=== PATIENT | female | born 1970 | race Caucasian/White ===

== ENCOUNTER → 2019-05-26 17:19 | Outpatient (CLI) | payer OTHER, SELFPAY ==
[2019-05-26 15:52] VITALS: BMI 24.0
[2019-06-01 16:56] LABS: HPV APTIMA, High Risk Negative (Negative)
== END ==
PROVIDERS: Referring Provider Nurse Practitioner Women's Health; Visit Provider Nurse Practitioner Women's Health
DX: Z12.4 Encounter for screening for malignant neoplasm of cervix (principal)
CPT/HCPCS: 87624; 88175; G0145

== ENCOUNTER → 2019-06-02 15:46 | Outpatient (CLI) | payer OTHER, SELFPAY ==
[2019-05-26 15:52] VITALS: BMI 24.0
--- NOTE | 2019-06-02 15:48 | US_ITS ---
STUDY: ULTRASOUND OF THE FEMALE PELVIS - COMPLETE REASON FOR EXAM: Female, 48 years old. Menorrhagia. LMP: May 21, 2019. TECHNIQUE: Transabdominal and Transvaginal TECHNICAL QUALITY: Adequate. COMPARISON: None. FINDINGS: The uterus is anteverted and is in a midline position. The uterus measures 7.8 x 5.2 x 4.6 cm. Normal uterine cervix. The endometrium measures 4.8 mm in thickness, and is hyperechoic. There is no demonstrated endometrial mass. There is no demonstrated myometrial mass. I.U.D. - The patient does not have an I.U.D. The right ovary is visualized. The right ovary measures 1.6 x 1.5 x 1.1 cm. There is no right ovarian cyst or ovarian mass. There is no visualized right adnexal mass or complex lesion. There is normal arterial and normal venous vascularity. The left ovary is visualized. The left ovary measures 2.9 x 1.5 x 1.3 cm. There is no left ovarian cyst or ovarian mass. There is no visualized left adnexal mass or complex lesion. There is normal arterial and normal venous vascularity. There is no fluid in the cul-de-sac. The urinary bladder has a prevoid volume of 400 mL. Polycystic ovary disease: No. US/Transvaginal Non- IMPRESSION: Normal female pelvis. Electronically Signed: Sherif Garcia DO at 19:26 EDT Tel [phone], Service support ,
--- NOTE | 2019-06-02 15:48 | US_ITS ---
STUDY: ULTRASOUND OF THE FEMALE PELVIS - COMPLETE REASON FOR EXAM: Female, 48 years old. Menorrhagia. LMP: May 21, 2019. TECHNIQUE: Transabdominal and Transvaginal TECHNICAL QUALITY: Adequate. COMPARISON: None. FINDINGS: The uterus is anteverted and is in a midline position. The uterus measures 7.8 x 5.2 x 4.6 cm. Normal uterine cervix. The endometrium measures 4.8 mm in thickness, and is hyperechoic. There is no demonstrated endometrial mass. There is no demonstrated myometrial mass. I.U.D. - The patient does not have an I.U.D. The right ovary is visualized. The right ovary measures 1.6 x 1.5 x 1.1 cm. There is no right ovarian cyst or ovarian mass. There is no visualized right adnexal mass or complex lesion. There is normal arterial and normal venous vascularity. The left ovary is visualized. The left ovary measures 2.9 x 1.5 x 1.3 cm. There is no left ovarian cyst or ovarian mass. There is no visualized left adnexal mass or complex lesion. There is normal arterial and normal venous vascularity. There is no fluid in the cul-de-sac. The urinary bladder has a prevoid volume of 400 mL. Polycystic ovary disease: No. US/Pelvic (Non ) IMPRESSION: Normal female pelvis. Electronically Signed: Sherif Garcia DO at 19:26 EDT Tel [phone], Service support ,
== END ==
PROVIDERS: Family Provider Family Medicine; PCP Family Medicine; Referring Provider Nurse Practitioner Women's Health; Visit Provider Nurse Practitioner Women's Health
DX: N92.0 Excessive and frequent menstruation with regular cycle (principal)
CPT/HCPCS: 76830; 76856; 93976

== ENCOUNTER → 2020-09-05 13:03 | Outpatient (CLI) | payer OTHER, SELFPAY ==
[2019-05-26 15:52] VITALS: BMI 24.0
--- NOTE | 2020-09-04 14:43 | COLBX_PTH ---
PATIENT: CHANG MARADIAGA LOC: [facility] U#:[id number] AGE/SX: 54/F ROOM: RE09/05/[address]: Dr. Urbano Walker MD : 1970 BED: DIS: SPEC #: [id number] RECD: 09/05/20 12:13 STATUS: ANTONIO REKamar #: [id number] SINDHU: 09/04/20 14:[address]: Urbano Walker DEPT: SURGICAL PATHOLOGY RECD BY: Ashley Keith ENTERED: 09/05/20 13:10 SP TYPE: COLON BX OTHR DR: Dr. Kishan Ramos III, MD Tissues: Rectum, NOS Procedures: Surgery Specimen Level IV HEADER OPERATION: Colonoscopy with biopsy PRE-OP DIAGNOSIS: History of Crohn's TISSUE SUBMITTED: Rectal ulcer biopsy MICROSCOPIC DIAGNOSIS Rectal ulcer, biopsy: Colonic mucosa with associated acute and chronic inflammation and granulation. AM:abdirahman 09/06/20 MICROSCOPIC DESCRIPTION Slides are reviewed. GROSS DESCRIPTION Received in fixative is one container labeled with the patient's name and designated rectal ulcer biopsy. The specimen consists of one irregular fragment of light vaughn soft tissue that measures 0.2 x 0.2 x 0.1 cm. The specimen is totally submitted in one cassette. / AM:abdirahman 09/05/20 TC:2 CPT: 36295
== END ==
PROVIDERS: PCP Family Medicine; Visit Provider Internal Medicine Gastroenterology
DX: Z87.19 Personal history of other diseases of the digestive system (principal)
CPT/HCPCS: 88305

== ENCOUNTER → 2021-08-28 09:02 | Outpatient (CLI) | payer OTHER, SELFPAY ==
--- NOTE | 2021-08-28 09:04 | BI_ITS ---
MAMMOGRAPHY - BILATERAL SCREENING REASON FOR EXAM: Female, 50 years old. Routine annual screening examination. PERTINENT HISTORY: Non-contributory. TECHNIQUE: Digital bilateral breast holly (3D mammographic acquisition) in the CC and MLO projections. 2-D mediolateral oblique (MLO) and craniocaudad (CC) views of both breasts were obtained. CAD: Full Field Digital Mammography with Computer Added Detection was performed. COMPARISON: Comparison is made with prior outside examination of 05/18/2020. FINDINGS: Breast Composition: There are scattered areas of fibroglandular density. There are no dominant masses or suspicious calcifications. Stable benign-appearing bilateral axillary No other significant abnormalities are identified. There has been no significant change since the prior study. BI/SCRN MAMM (CAD)W/HOLLY BILAT IMPRESSION: Stable bilateral screening mammogram. Yearly follow-up mammogram recommended. (A) ASSESSMENT CATEGORY: BIRADS Category 2: Benign. A letter regarding these results will be sent to the patient by the facility within 30 days. Approximately 10% of breast cancers are not detected by mammography. A normal mammogram should not delay biopsy of a clinically suspicious abnormality. [id number] Electronically Signed: Jann Mcarthur MD at 10:56 EST , Service support ,
[2021-08-28 12:31] LABS: Absolute Lymphocyte Count 3.35 X10^3/uL (0.83-4.51); Absolute Neutrophil Count 2.7 X10^3/uL (2.0-7.7); Basophil# 0.06 X10^3/uL; Basophil% 0.9 % (0-1); Eosinophil# 0.21 X10^3/uL; Eosinophils% 3.1 % (0-5); Hemoglobin 12.5 g/dL (12.0-15.0); Lymphocyte # 3.35 X10^3/ul (0.83-4.51); Lymphocyte % 49.6 % (19-41); Mean Corp Hgb Conc 32.1 g/dL (32-36); Mean Corpuscular Hgb 30.4 pg (27.0-32.0); Mean Corpuscular Volume 94.9 fL (81-99); Mean Platelet Vol. 9.2 fl (6.2-12.0); Monocyte# 0.44 X10^3/uL; Monocyte% 6.5 % (0-10); NRBC Flagged by Analyzer 0 % (0-5); Neutrophil # 2.68 X10^3/uL (2.7-7.7); Neutrophil % 39.6 % (47-70); Platelet Count 258 K/mm3 (150-450); RBC Distribution Width CV 12.6 % (11.6-14.6); RBC Distribution Width SD 43.8 fl (35.1-43.9); Red Blood Count 4.11 M/mm3 (4.2-5.4); White Blood Count 6.8 K/mm3 (4.4-11.0)
[2021-08-28 12:34] LABS: Erythrocyte Sedimentation Rate 15 mm/hr (0-30)
[2021-08-28 12:40] LABS: Prothrombin Time (Protime)PT. 12.2 SECONDS (11.7-14.9)
[2021-08-28 12:41] LABS: Partial Thromboplast Time 23.9 Seconds (24.1-36.2)
[2021-08-28 13:06] LABS: ALB/GLOB Ratio 0.7 RATIO (0.9-2.4); AST(SGOT) 22 U/L (15-37); Alanine Aminotransfer ALT/SGPT 41 U/L (13-56); Albumin, Serum 3.8 g/dL (3.2-5.0); Alkaline Phosphatase 79 U/L (45-117); Anion Gap 6 (5-15); BUN 18 mg/dL (7-18); BUN/Creat Ratio 17.5 RATIO (10-20); CRP < 2.90 mg/L (0.0-3.0); Calcium,Total 9.5 mg/dL (8.5-10.1); Chloride 107 mmol/L (98-107); Cholesterol 156 mg/dL (200); Creatinine, Serum 1.03 mg/dL (0.55-1.02); EST Glomerular Filtration Rate 60 mL/min (>60); Est Glom Filt Rate - Afr Amer 72 mL/min (>60); Globulin 5.2 g/dL (2.2-4.2); Glucose 113 mg/dL (74-106); High Density Lipoprotein 47 mg/dL; Potassium 3.8 mmol/L (3.5-5.1); Sodium Level 139 mmol/L (136-145); Triglycerides 258 mg/dL; Very Low Density Lipoprotein 52 mg/dL (5-40)
[2021-08-29 14:09] LABS: Anti-Centromere B Ab <0.2 AI (0.0-0.9); Anti-Chromatin <0.2 AI (0.0-0.9); Anti-Jo <0.2 AI (0.0-0.9); Anti-Scleroderma-70 AB <0.2 AI (0.0-0.9); Anti-ribosomal P Antibodies <0.2 AI (0.0-0.9); RNP Ab <0.2 AI (0.0-0.9); SJOGREN'S Anti-SS-A test < 0.2 AI (0.0-0.9); SJOGREN'S Anti-SS-B test < 0.2 AI (0.0-0.9); Smith Ab <0.2 AI (0.0-0.9); Smith/RNP Ab <0.2 AI (0.0-0.9)
[2021-08-29 16:34] LABS: Anti-dsDNA Ab 44 IU/mL (0-9)
== END ==
PROVIDERS: Nurse Practitioner Adult Health; Referring Provider Nurse Practitioner Women's Health; Visit Provider Nurse Practitioner Women's Health
DX: Z12.31 Encounter for screening mammogram for malignant neoplasm of breast (principal); K50.90 Crohn's disease, unspecified, without complications
CPT/HCPCS: 77063; 77067; 80053; 80061; 85025; 85610; 85652; 85730; 86038; 86140; 86225; 86235

== ENCOUNTER → 2021-08-30 09:21 | Outpatient (CLI) | payer OTHER, SELFPAY ==
[2021-09-05 08:39] LABS: Calprotectin, Stool <16 ug/g (0-120)
== END ==
PROVIDERS: Nurse Practitioner Adult Health; Referring Provider Internal Medicine Gastroenterology; Visit Provider Internal Medicine Gastroenterology
DX: K50.90 Crohn's disease, unspecified, without complications (principal)
CPT/HCPCS: 83630; 83993

== ENCOUNTER 2021-09-14 16:00 | Outpatient (CLI) | payer OTHER, SELFPAY ==
--- NOTE | 2021-09-14 16:04 | CT_ITS ---
STUDY: CT ENTEROGRAPHY WITH CONTRAST REASON FOR EXAM: Female, 50 years old. crohn''s disease -- enterography RADIATION DOSAGE (If Supplied By Facility): CTDIvol = ( 14.02 ) mGy, DLP = ( 865.51 ) mGycm TECHNIQUE: Transaxial images were obtained from the dome of the diaphragm to the symphysis pubis with oral contrast. 450ml of Volumen was administered orally at 60 minutes and 40 minutes and 225ml of Volumen was administered 20 minutes and 10 minutes prior to scanning, to a total of 1,350ml. Oral and IV BREEZA NEUTRAL and 100mL Isovue-370 was administered intravenously. Sagittal and coronal images were reconstructed. TECHNICAL QUALITY: Image Quality: Satisfactory Small Bowel Distension: Adequate. Individualized dose optimization techniques were used for this CT. COMPARISON: None. FINDINGS: Bowel: Bowel wall thickening: Absent. Skip lesions: None. Vascularity: Normal. Enhancement: Normal. Fistula: None. Abscess: None. Other Findings: The lung bases are unremarkable. The visualized portions of the heart are within normal limits Normal liver. Nonvisualized gallbladder. Normal spleen. Normal pancreas. Normal bilateral adrenal glands. Normal right kidney. Normal left kidney. Normal visualized stomach. Postsurgical changes of the cecum. Otherwise, unremarkable large bowel. Nonvisualized appendix. Postsurgical changes of the small bowel in the left upper quadrant region with focal area of fluid distention with air-fluid level. This loop of bowel measuring 4 x 5.8 cm. Remainder of the small bowel is unremarkable. Additional area of postsurgical change in the mid small bowel with another small area of focal fluid distention measuring 4.3 cm in total width Normal abdominal aorta. Normal interior vena cava. Normal retroperitoneum. Normal urinary bladder. Unremarkable uterus. Normal abdominal wall. Normal osseous structures. CT/Abdomen/Pelvis WITH Contrast IMPRESSION: 2 separate areas of postsurgical change of the small bowel with focal fluid distention of the loops of associated small bowel. Otherwise, small bowels within normal limits. No evidence of active Crohn''s disease. Large bowel demonstrates postsurgical change of the cecum, otherwise within normal limits. No evidence of fistula. Remainder is unremarkable Electronically Signed: Telly Goldberg DO at 4:56 EST Tel , Service support ,
== END 2021-09-14 23:59 | disposition short-term general hospital (02) ==
LOC: CT 16:03
PROVIDERS: Referring Provider Nurse Practitioner Adult Health; Visit Provider Nurse Practitioner Adult Health
DX: K50.90 Crohn's disease, unspecified, without complications (principal)
CPT/HCPCS: 74177; Q9967

== ENCOUNTER 2021-09-20 08:33 | Outpatient (CLI) | payer OTHER, SELFPAY | END 2021-09-20 23:59 | disposition short-term general hospital (02) | LOC: LAB.FUTURE 08:36 | PROVIDERS: Visit Provider Internal Medicine Gastroenterology | DX: K50.90 Crohn's disease, unspecified, without complications (principal) | CPT/HCPCS: 36415; 86480 ==

== ENCOUNTER 2021-11-08 16:13 | Outpatient (CLI) | payer OTHER, SELFPAY ==
[2021-11-08 18:12] LABS: Hemoglobin A1c 5.4 % (3.8-5.6)
[2021-11-08 18:17] LABS: ALB/GLOB Ratio 0.8 RATIO (0.9-2.4); AST(SGOT) 22 U/L (15-37); Alanine Aminotransfer ALT/SGPT 37 U/L (13-56); Albumin, Serum 3.6 g/dL (3.2-5.0); Alkaline Phosphatase 69 U/L (45-117); Anion Gap 5 (5-15); BUN 17 mg/dL (7-18); BUN/Creat Ratio 17.7 RATIO (10-20); Calcium,Total 8.8 mg/dL (8.5-10.1); Chloride 106 mmol/L (98-107); Creatinine, Serum 0.96 mg/dL (0.55-1.02); EST Glomerular Filtration Rate 65 mL/min (>60); Est Glom Filt Rate - Afr Amer 79 mL/min (>60); Ferritin 19 ng/mL (8-252); Globulin 4.5 g/dL (2.2-4.2); Glucose 92 mg/dL (74-106); Iron 74 ug/dL (50-170); Potassium 3.9 mmol/L (3.5-5.1); Protein, Total 8.1 g/dL (6.4-8.2); Sodium Level 138 mmol/L (136-145)
[2021-11-08 18:28] LABS: Vitamin B12 573 pg/mL (211-911); Vitamin D,25 Hydroxy 25.3 ng/mL
== END 2021-11-08 23:59 | disposition home or self-care (01) ==
LOC: MFPLAB 16:17
PROVIDERS: PCP Family Medicine; Referring Provider Family Medicine; Visit Provider Family Medicine
DX: K50.90 Crohn's disease, unspecified, without complications (principal); R73.09 Other abnormal glucose; E55.9 Vitamin D deficiency, unspecified
CPT/HCPCS: 36415; 80053; 82306; 82607; 82728; 83036; 83540

== ENCOUNTER → 2022-01-22 | Outpatient (CLI) | payer OTHER, SELFPAY | END | disposition home or self-care (01) | LOC: MFPLAB 08:50 | PROVIDERS: PCP Family Medicine; Visit Provider Family Medicine | DX: E55.9 Vitamin D deficiency, unspecified (principal) | CPT/HCPCS: 36415; 82306 ==

== ENCOUNTER → 2022-06-24 | Outpatient (CLI) | payer OTHER, SELFPAY ==
[2022-06-24 15:17] LABS: Cholesterol 161 mg/dL (200); High Density Lipoprotein 49 mg/dL; Triglycerides 220 mg/dL; Very Low Density Lipoprotein 44 mg/dL (5-40)
[2022-06-27 17:21] LABS: Vitamin D 1,25-Dihydroxy 49.7 pg/mL (24.8-81.5)
== END | disposition home or self-care (01) ==
LOC: MFPLAB 11:47
PROVIDERS: PCP Family Medicine; Referring Provider Family Medicine; Visit Provider Nurse Practitioner Family
DX: E55.9 Vitamin D deficiency, unspecified (principal); Z13.220 Encounter for screening for lipoid disorders
CPT/HCPCS: 36415; 80061; 82652

== ENCOUNTER → 2022-08-29 | Outpatient (CLI) | payer OTHER, SELFPAY ==
--- NOTE | 2022-08-29 10:16 | BI_ITS ---
MAMMOGRAPHY - BILATERAL SCREENING REASON FOR EXAM: Female, 51 years old. Routine annual screening examination. PERTINENT HISTORY: Non-contributory. TECHNIQUE: Digital bilateral breast holly (3D mammographic acquisition) in the CC and MLO projections. 2-D mediolateral oblique (MLO) and craniocaudad (CC) views of both breasts were obtained. CAD: Full Field Digital Mammography with Computer Added Detection was performed. COMPARISON: Comparison is made with prior study dated 08/28/2021. FINDINGS: Breast Composition: There are scattered areas of fibroglandular density. There are no dominant masses or suspicious calcifications. Stable small benign-appearing bilateral axillary lymph nodes. No other significant abnormalities are identified. There has been no significant change since the prior study. BI/SCRN MAMM (CAD)W/HOLLY BILAT IMPRESSION: Stable bilateral screening mammogram. Yearly follow-up mammogram recommended. (A) ASSESSMENT CATEGORY: BIRADS Category 2: Benign. A letter regarding these results will be sent to the patient by the facility within 30 days. Approximately 10% of breast cancers are not detected by mammography. A normal mammogram should not delay biopsy of a clinically suspicious abnormality. [id number] Electronically Signed: Jann Mcarthur MD at 11:30 EST ,
== END | disposition home or self-care (01) ==
PROVIDERS: PCP Family Medicine; Referring Provider Nurse Practitioner Women's Health; Visit Provider Nurse Practitioner Women's Health
DX: Z12.31 Encounter for screening mammogram for malignant neoplasm of breast (principal)
CPT/HCPCS: 77063; 77067

== ENCOUNTER → 2022-09-03 | Outpatient (CLI) | payer OTHER, SELFPAY ==
[2022-09-03 10:45] LABS: Erythrocyte Sedimentation Rate 14 mm/hr (0-30)
[2022-09-03 10:47] LABS: Absolute Neutrophil Count 2.1 X10^3/uL (2.0-7.7); Basophil# 0.03 X10^3/uL; Basophil% 0.5 % (0-1); Eosinophil# 0.18 X10^3/uL; Hematocrit 39.5 % (37-47); Hemoglobin 12.4 g/dL (12.0-15.0); Lymphocyte % 51.8 % (19-41); Mean Corp Hgb Conc 31.4 g/dL (32-36); Mean Corpuscular Hgb 30.8 pg (27.0-32.0); Mean Corpuscular Volume 98.3 fL (81-99); Monocyte# 0.53 X10^3/uL; Monocyte% 8.9 % (0-10); NRBC Flagged by Analyzer 0 % (0-5); Neutrophil # 2.12 X10^3/uL (2.7-7.7); Neutrophil % 35.5 % (47-70); Platelet Count 212 K/mm3 (150-450); RBC Distribution Width CV 12.8 % (11.6-14.6); RBC Distribution Width SD 46.3 fl (35.1-43.9); Red Blood Count 4.02 M/mm3 (4.2-5.4)
[2022-09-03 11:20] LABS: ALB/GLOB Ratio 0.9 RATIO (0.9-2.4); AST(SGOT) 31 U/L (15-37); Alanine Aminotransfer ALT/SGPT 58 U/L (13-56); Albumin, Serum 3.9 g/dL (3.2-5.0); Alkaline Phosphatase 74 U/L (45-117); Anion Gap 5 (5-15); BUN 20 mg/dL (7-18); BUN/Creat Ratio 18.7 RATIO (10-20); CRP < 2.90 mg/L (0.0-3.0); Calcium,Total 9.4 mg/dL (8.5-10.1); Chloride 108 mmol/L (98-107); Creatinine, Serum 1.07 mg/dL (0.55-1.02); EST Glomerular Filtration Rate 57 mL/min (>60); Est Glom Filt Rate - Afr Amer 69 mL/min (>60); Globulin 4.5 g/dL (2.2-4.2); Glucose 102 mg/dL (74-106); Potassium 4.4 mmol/L (3.5-5.1); Protein, Total 8.4 g/dL (6.4-8.2); Sodium Level 139 mmol/L (136-145)
[2022-09-05 19:07] LABS: QNTFERON TB Mitogen Value > 10.00 IU/mL (.); QNTFERON TB1+ Ag Value 0.07 IU/mL (.); QNTFERON TB2+ Ag Value 0.07 IU/mL (.)
[2022-09-05 21:07] LABS: QNTIFERON TB Positive Criteria Negative (Negative)
== END | disposition home or self-care (01) ==
LOC: LAB 10:28
PROVIDERS: PCP Family Medicine; Referring Provider Internal Medicine Gastroenterology; Visit Provider Internal Medicine Gastroenterology
DX: K50.90 Crohn's disease, unspecified, without complications (principal)
CPT/HCPCS: 36415; 80053; 85025; 85652; 86140; 86480

== ENCOUNTER → 2022-10-04 | Outpatient (CLI) | payer OTHER, SELFPAY ==
--- NOTE | 2022-10-04 09:37 | CT_ITS ---
STUDY: CT BRAIN WITHOUT CONTRAST REASON FOR EXAM: Female, 51 years old. FALL 3 DAYS AGO, HEADACHE RADIATION DOSAGE (If Supplied By Facility): CTDIvol = ( 44.99 ) mGy, DLP = ( 762.36 ) mGycm TECHNIQUE: Transaxial CT imaging of the brain was performed without administration of intravenous contrast material. Individualized dose optimization techniques were used for this CT. COMPARISON: No relevant priors. FINDINGS: Normal soft tissue structures. Normal calvarium. Normal size ventricles and extra-axial spaces for the patient''s age. Normal white matter tracts of the cerebral hemispheres. Normal basal ganglia and thalami. Normal brainstem. Normal cerebellum. There is no intracranial hemorrhage. There are no findings of an acute ischemic infarction. Normal visualized paranasal sinuses. CT/Brain/Head without Contrast IMPRESSION: Normal unenhanced CT scan of the brain. Electronically Signed: Jann Mcarthur MD at 10:18 EST ,
== END | disposition home or self-care (01) ==
LOC: CT 09:35
PROVIDERS: PCP Family Medicine; Visit Provider Family Medicine
DX: R27.8 Other lack of coordination (principal)
CPT/HCPCS: 70450

== ENCOUNTER → 2022-10-24 | Outpatient (CLI) | payer OTHER, SELFPAY | END | disposition home or self-care (01) | PROVIDERS: PCP Family Medicine; Referring Provider Internal Medicine Gastroenterology; Visit Provider Internal Medicine Gastroenterology | DX: K50.90 Crohn's disease, unspecified, without complications (principal) | CPT/HCPCS: 36415 ==

== ENCOUNTER → 2023-03-04 | Outpatient (CLI) | payer OTHER, SELFPAY ==
[2023-03-04 08:35] LABS: Erythrocyte Sedimentation Rate 8 mm/hr (0-30)
[2023-03-04 08:40] LABS: CRP 3.03 mg/L (0.0-3.0)
[2023-03-06 12:09] LABS: QNTFERON TB Mitogen Value > 10.00 IU/mL (.); QNTFERON TB Nil Value 0.11 IU/mL (.); QNTFERON TB1+ Ag Value 0.12 IU/mL (.); QNTIFERON TB Positive Criteria Negative (Negative)
== END | disposition home or self-care (01) ==
LOC: LAB 07:39
PROVIDERS: PCP Internal Medicine; Referring Provider Internal Medicine Gastroenterology; Visit Provider Internal Medicine Gastroenterology
DX: K50.90 Crohn's disease, unspecified, without complications (principal)
CPT/HCPCS: 36415; 85652; 86140; 86480

== ENCOUNTER → 2023-03-05 | Outpatient (CLI) | payer OTHER, SELFPAY ==
[2023-03-09 20:08] LABS: Calprotectin, Stool 151 ug/g (0-120)
== END | disposition home or self-care (01) ==
LOC: LABSPEC 13:01
PROVIDERS: PCP Internal Medicine; Referring Provider Internal Medicine Gastroenterology; Visit Provider Internal Medicine Gastroenterology
DX: K50.90 Crohn's disease, unspecified, without complications (principal)
CPT/HCPCS: 83630; 83993

== ENCOUNTER → 2023-04-25 | Outpatient (CLI) | payer OTHER, SELFPAY ==
[2023-04-25 16:57] LABS: CRP < 2.90 mg/L (0.0-3.0)
[2023-04-25 17:13] LABS: Erythrocyte Sedimentation Rate 11 mm/hr (0-30)
== END | disposition home or self-care (01) ==
PROVIDERS: PCP Internal Medicine; Referring Provider Internal Medicine Gastroenterology; Visit Provider Internal Medicine Gastroenterology
DX: K50.90 Crohn's disease, unspecified, without complications (principal)
CPT/HCPCS: 36415; 85652; 86140

== ENCOUNTER → 2023-04-28 | Outpatient (CLI) | payer OTHER, SELFPAY ==
[2023-04-29 22:06] LABS: Calprotectin, Stool 280 ug/g (0-120)
== END | disposition home or self-care (01) ==
LOC: LABSPEC 07:51
PROVIDERS: PCP Internal Medicine; Visit Provider Internal Medicine Gastroenterology
DX: K50.90 Crohn's disease, unspecified, without complications (principal)
CPT/HCPCS: 83630; 83993

== ENCOUNTER 2023-08-04 07:05 | Day surgery (SDC) | payer OTHER, SELFPAY ==
[2023-08-04] VITALS (7 sets, daily range): BP systolic 109–124; BP diastolic 66–75; PULSE 64–83; RESP 14–17; TEMP 36.2–36.8; O2SAT 95–99; BMI 24.4
[2023-08-04] MEDS: Lactated Ringers 1,000 ML 15 ML IV (07:29)
--- NOTE | 2023-08-04 07:31 | HP.PCM_ITS ---
History and Physical Date of Admission: 08/04/23 52 F who presents to the office today for PMH climacteric; DVT Hx. PSH cholecystectomy 2016 [facility] established prior with Humira started ~2009 with concern for aphthous ulcers in her mouth and increased BM just prior to next dose of Humira (QOWeek dosing). ? Colonoscopy 08.03.18 report unavailable. Pathology of one polyp, inflammatory type without dysplasia. ? Colonoscopy 09.06.20 report unavailable. Rectal ulcer pathology with acute and chronic inflammation and granulation. *[facility] established 08.28.21 with previously diagnosed Crohn?s disease maintained with Humira QWeek. ? Biochemical workup CBC, ESR, coagulation, CMP, LFT, CRP without pertinent abnormality. ? Cholesterol H258, vLDL H52, double strand DNA H44 ? Refer to rheumatology Biochemical workup TB WNL. Humira concentration 13.[address] enterography 09.14.21 noting postsurgical changes of cecum, mid small bowel (focal fluid distention measuring 4.3cm) and LUQ small bowel (focal area of fluid distention measuring 4x5.8cm). No signs of Crohn?s disease. OV 2..22 continue Humira, explore QOweek option. Biochemical workup CBC, ESR, CMP, CRP, TB without pertinent abnormality LFT AST 31-ALT H58-AP 74 Rheumatology [facility] established 4... OV 4. with suspected drug- induced HAIR and antihistone ab r/t Humira use. No evidence of systemic Lupus. OV 10.28.22 without symptoms related to Crohn?s. Humira QOweek started end of August. Bloodwork drawn last week and is still pending. ? Biochemical workup / CBC, ESR, CMP, CRP, TB without pertinent abnormality. OV 6 feels she is doing very well at this time. Has some bloating after eating which is ?released? and she feels better, feels is r/t historical small bowel resections. Denies joint pain, vision changes or rashes. ? ESR/CRP? Calp/Lact? Serum/AB ? TB 08.30.21 15/<2.9? <16/neg? --/--? -- 09.03.22 14/<2.9? --/--? --/--? neg 10.28.22 --/--? --/--? 4.1/none? -- ROS Const Constitutional: No fatigue, fever(s), headache(s), weight change, sleep problems, abnormal sleep pattern or change in appetite ENT ENT: No headache(s), difficulty swallowing, hoarseness or sore throat Resp Respiratory: No cough, hemoptysis or shortness of breath Cardio Cardiology: No chest pain at rest or generalized swelling Gastro GI: No abdominal pain, belching, bloating, change in bowel habits, change in stool character, coffee ground emesis, constipation, cramping, diarrhea, heartburn, difficulty swallowing, feeling full early, excessive flatus, incontinent of stools, Vomiting blood/hematemesis, Blood in stool, loose stools, Black,tarry stools, nausea/dyspepsia, pain with swallowing or vomiting Musc Musculoskeletal: No joint pain, back pain, joint swelling, numbness or tingling Skin Skin: No itchy eyes or rash Neuro Neurology: No behavioral changes, confusion, headache(s), numbness or tingling Psych Psychiatric: No abnormal sleep pattern, No anxiety, No behavioral changes, No change in appetite, No confusion and No depression Endo Endocrine: No cold intolerance, fatigue, heat intolerance, increased thirst/drinking or weight change Aller/Imm Allergy/Immunologic: No food intolerance or itchy eyes Geronimo/Lymp Hematologic/Lymphatic: No easy bleeding, easy bruising or enlarged lymph nodes Exam Const General: cooperative, healthy appearing, comfortable, well developed and well groomed GI Inspection: normal to inspection Palpation: soft Quality Reporting Tobacco Screening ([facility] 138) Smoking Status: Never smoker Assessment and Plan Assessment and Plan (1) Crohn's disease: Status: Chronic Plan: No disease with history of small bowel obstructions x2 status post ileocolonic resection with primary anastomosis. She was Humira q. weekly with a adalimumab level was 13.5 then 4.2 without antibodies. We will recheck her levels with her being on Humira every other week. The goal for her would be to hold Humira on Humira possibly once a month. She is also on plexus supplementation which is a probiotic and prebiotic with an antioxidant blend. There is case control studies with probiotics helping to maintain remission and ulcerative colitis greater than Crohn's disease. I am okay with her continue that for now. Await repeat levels. We will also have to recheck her quantiferon gold. I have examined the patient and the H&P has been reviewed. There are no clinical changes since date of exam.
--- NOTE | 2023-08-04 08:00 | EGD_PTH ---
PATIENT: CHANG MARADIAGA LOC: [facility] U#:[id number] AGE/SX: 52/F ROOM: RE08/04/[address]: Dr. Harsh Carrasquillo DO : 1970 BED: DIS: 08/04/2023 SPEC #: [id number] RECD: 08/04/23 13:17 STATUS: ANTONIO KHUSHBOO #: [id number] SINDHU: 08/04/23 08:[address]: Harsh Carrasquillo DEPT: SURGICAL PATHOLOGY RECD BY: Renetta Quesada ENTERED: 08/04/23 13:18 SP TYPE: EGD BIOPSY OT DR: Dr. Oumou Barraza MD Tissues: A - Duodenum, NOS B - Gastric mucous membrane C - Esophageal mucous membrane D - Esophageal mucous membrane E - COLON BIOPSY F - Ileum, NOS G - COLON BIOPSY Procedures: Special Stain Group II Surgery Specimen Level IV Alcian Blue/PAS (control) HEADER OPERATION: Colonoscopy, EGD PRE-OP DIAGNOSIS: Crohn's disease TISSUE SUBMITTED: A - Duodenum biopsy, B - Gastric body biopsy, C - Distal esophagus biopsy, D - Random esophagus biopsy, E - Anastomosis biopsy, F - Ileum biopsy, G - Random colon biopsy MICROSCOPIC DIAGNOSIS A. Duodenum, biopsy: Focal gastric metaplasia. Mild nonspecific chronic inflammation. B. Gastric body, biopsy: Chronic gastritis. See comment. C. Distal esophagus, biopsy: Fragments of gastric mucosa with chronic inflammation and focal acute inflammation. No evidence of goblet cell metaplasia. See comment. D. Esophagus, random biopsy: Fragments of benign squamous mucosa with focal changes of reflux. E. Anastomotic site, biopsy: Fragments of small bowel mucosa with focal minimal chronic inflammation. F. Ileum, biopsy: No pathologic change. G. Colon, random biopsy: No pathologic change. AM:abdirahman 08/05/2023 COMMENT B. The results of immunohistochemistry for Helicobacter pylori will be reported separately ([id number]). C. Alcian blue/PAS stain with matched control supports the above diagnosis. MICROSCOPIC DESCRIPTION Slides are reviewed. GROSS DESCRIPTION A - Received in fixative is one container labeled with the patient's name and designated duodenal biopsy. The specimen consists of multiple irregular fragments of light vaughn soft tissue that in aggregate measure 1.0 x 0.5 x 0.1 cm. The specimen is totally submitted in one cassette. B - Received in fixative is one container labeled with the patient's name and designated gastric body biopsy. The specimen consists of two irregular fragments of light vaughn soft tissue that in aggregate measure 0.7 x 0.2 x 0.1 cm. The specimen is totally submitted in one cassette. C - Received in fixative is one container labeled with the patient's name and designated distal esophagus biopsy. The specimen consists of multiple irregular fragments of light vaughn soft tissue that in aggregate measure 1.0 x 0.3 x 0.1 cm. The specimen is totally submitted in one cassette. D - Received in fixative is one container labeled with the patient's name and designated random esophagus biopsy. The specimen consists of multiple irregular fragments of light vaughn soft tissue that in aggregate measure 1.0 x 0.8 x 0.1 cm. The specimen is totally submitted in one cassette. E - Received in fixative is one container labeled with the patient's name and designated anastomosis biopsy. The specimen consists of two irregular fragments of light vaughn soft tissue that in aggregate measure 0.7 x 0.5 x 0.1 cm. The specimen is totally submitted in one cassette. F - Received in fixative is one container labeled with the patient's name and designated ileum biopsy. The specimen consists of two irregular fragments of light vaughn soft tissue that in aggregate measure 0.8 x 0.3 x 0.1 cm. The specimen is totally submitted in one cassette. G - Received in fixative is one container labeled with the patient's name and designated random colon biopsy. The specimen consists of multiple irregular fragments of light vaughn soft tissue that in aggregate measure 2.0 x 0.8 x 0.1 cm. The specimen is totally submitted in one cassette. / AM:abdirahman 08/04/2023 TC:3 CPT: 73687 x7, [id number]
--- NOTE | 2023-08-04 08:00 | IMM_PTH ---
PATIENT: CHANG MARADIAGA LOC: EN U#:[id number] AGE/SX: 52/F ROOM: RE08/04/[address]: Dr. Harsh Carrasquillo DO : 1970 BED: DIS: 08/04/2023 SPEC #: [id number] RECD: 08/04/23 14:26 STATUS: ANTONIO REQ #: [id number] SINDHU: 08/04/23 08:[address]: Harsh Carrasquillo DEPT: IMMUNOHISTOCHEMISTRY RECD BY: Norma Bravo ENTERED: 08/04/23 14:27 SP TYPE: IMMUNO OTHR DR: Dr. Oumou Barraza MD Tissues: B - Stomach, NOS Procedures: H Pylori (initial) PHYSICIAN & INSTITUTION [place] [id number] SPECIMEN INFORMATION: Tissue Source: B - Gastric body Clinical Info: Crohn's disease Specimen Number: [id number] CPT code: 21935 METHODOLOGY: Deparaffinized sections of prefer/formalin-fixed tissue or PAP/DQ stained slides are incubated with monoclonal/polyclonal antibodies/oligonucleotide probes. Localization is made via biotin free immunoperoxidase method. Appropriate controls are performed and reacted as expected. Results on target cell population are indicated in the following table: RESULTS: ANTIBODY / CLONE RESULT Block B H Pylori (polyclonal) negative These tests were developed and their performance characteristics determined by [facility]. They may not have been cleared or approved by the U.[place]. Food and Drug Administration. The FDA has determined that such clearance or approval is not necessary. The above immunohistochemical/dualISH markers are ordered and reviewed by the Pathologist. INTERPRETATION: B. Gastric body, biopsy: Negative for Helicobacter pylori organisms. AM:abdirahman 08/05/2023
--- NOTE | 2023-08-04 08:44 | OP.EGD_ITS ---
Patient Name: Ceci Nichols Procedure Date: 08/04/2023 8:04 AM Date of : 1970 Age: 52 Procedure: Upper GI endoscopy Indications: Epigastric abdominal pain Providers: Harsh Carrasquillo DO Medicines: Monitored Anesthesia Care Patient Profile: This is a 52 year old female. Refer to note in patient chart for documentation of history and physical. Patient has symptoms of chronic epigastric abdominal pain and chronic dysphagia. Complications: No immediate complications. Procedure: Pre-Anesthesia Assessment: - Prior to the procedure, a History and Physical was performed, and patient medications and allergies were reviewed. The patient is competent. The risks and benefits of the procedure and the sedation options and risks were discussed with the patient. All questions were answered and informed consent was obtained. Patient identification and proposed procedure were verified by the physician in the pre-procedure area. Mental Status Examination: alert and oriented. Airway Examination: normal oropharyngeal airway and neck mobility. Respiratory Examination: clear to auscultation. CV Examination: normal. Prophylactic Antibiotics: The patient does not require prophylactic antibiotics. Prior Anticoagulants: The patient has taken no anticoagulant or antiplatelet agents. ASA Grade Assessment: II - A patient with mild systemic disease. After reviewing the risks and benefits, the patient was deemed in satisfactory condition to undergo the procedure. The anesthesia plan was to use monitored anesthesia care (MAC). Immediately prior to administration of medications, the patient was re-assessed for adequacy to receive sedatives. The heart rate, respiratory rate, oxygen saturations, blood pressure, adequacy of pulmonary ventilation, and response to care were monitored throughout the procedure. The physical status of the patient was re-assessed after the procedure. After obtaining informed consent, the endoscope was passed under direct vision. Throughout the procedure, the patient's blood pressure, pulse, and oxygen saturations were monitored continuously. The Colonoscope was introduced through the mouth, and advanced to the second part of duodenum. The upper GI endoscopy was accomplished without difficulty. The patient tolerated the procedure well. Scope In: 8:17:03 AM Scope Out: 8:22:27 AM Total Procedure Duration Time 0 hours 5 minutes 24 seconds Findings: Mucosal changes including ringed esophagus, feline appearance, longitudinal furrows and small-caliber esophagus were found in the upper third of the esophagus. Biopsies were obtained from the proximal and distal esophagus with cold forceps for histology of suspected eosinophilic esophagitis. Verification of patient identification for the specimen was done. Estimated blood loss was minimal. A guidewire was placed and the scope was withdrawn. Dilation was performed with a Savary dilator with no resistance at 42 Fr. The dilation site was examined and showed moderate mucosal disruption. Estimated blood loss was minimal. The Z-line was irregular and was found 39 cm from the incisors. Biopsies were taken with a cold forceps for histology. Verification of patient identification for the specimen was done. Estimated blood loss was minimal. Patchy mildly erythematous mucosa without bleeding was found in the gastric body. Biopsies were taken with a cold forceps for histology. Verification of patient identification for the specimen was done. Estimated blood loss was minimal. Biopsies were taken with a cold forceps for Helicobacter pylori testing. Verification of patient identification for the specimen was done. Estimated blood loss was minimal. Scalloped mucosa was found in the duodenal bulb. Biopsies for histology were taken with a cold forceps for evaluation of celiac disease. Verification of patient identification for the specimen was done. Estimated blood loss was minimal. Impression: - Esophageal mucosal changes consistent with eosinophilic esophagitis. Dilated. - Z-line irregular, 39 cm from the incisors. Biopsied. - Erythematous mucosa in the gastric body. Biopsied. - Duodenal mucosal changes seen, diagnostic of celiac disease. Biopsied. - Biopsies were taken with a cold forceps for evaluation of eosinophilic esophagitis. Recommendation: - Discharge patient to home. - Resume previous diet. - Continue present medications. - Await pathology results. Procedure Code(s): --- Professional --- 87215, Esophagogastroduodenoscopy, flexible, transoral; with insertion of guide wire followed by passage of dilator(s) through esophagus over guide wire 63434, 59,51, Esophagogastroduodenoscopy, flexible, transoral; with biopsy, single or multiple CPT copyright 2021 [employer]. All rights reserved. The codes documented in this report are preliminary and upon certified personal chef review may be revised to meet current compliance requirements. Harsh Carrasquillo DO 08/04/2023 8:44:13 AM This report has been signed electronically. Number of Addenda: 0 Note Initiated On: 08/04/2023 8:04 AM
--- NOTE | 2023-08-04 08:44 | OP.CCLET_ITS ---
08/04/2023 Oumou Barraza [address] [place] [address] Re : Upper GI endoscopy procedure for Ceci Nichols Dear Dr. Barraza This procedure was performed on Friday, August 04, 2023. My impressions and recommendations are as follows: Impressions : - Esophageal mucosal changes consistent with eosinophilic esophagitis. Dilated. - Z-line irregular, 39 cm from the incisors. Biopsied. - Erythematous mucosa in the gastric body. Biopsied. - Duodenal mucosal changes seen, diagnostic of celiac disease. Biopsied. - Biopsies were taken with a cold forceps for evaluation of eosinophilic esophagitis. Recommendations : - Discharge patient to home. - Resume previous diet. - Continue present medications. - Await pathology results. My findings are described in the full procedure note, which is enclosed. If I can be of further assistance, please feel free to contact me at . Sincerely, Harsh Carrasquillo, 08/04/2023 8:44:13 AM This report has been signed electronically.
--- NOTE | 2023-08-04 08:47 | OP.CCLET_ITS ---
08/04/2023 Oumou Barraza [address] [place] [address] Re : Colonoscopy procedure for Ceci Magdalena Dear Dr. Barraza This procedure was performed on Friday, August 04, 2023. My impressions and recommendations are as follows: Impressions : - The sigmoid colon, descending colon, splenic flexure, transverse colon, hepatic flexure, ascending colon and recto-sigmoid colon are normal. Biopsied. - Patent end-to-end ileo-colonic anastomosis. Biopsied. Recommendations : - Discharge patient to home. - Resume previous diet. - Continue present medications. - Await pathology results. - Repeat colonoscopy in 5 years for surveillance based on pathology results. My findings are described in the full procedure note, which is enclosed. If I can be of further assistance, please feel free to contact me at . Sincerely, Harsh Carrasquillo, 08/04/2023 8:47:27 AM This report has been signed electronically.
--- NOTE | 2023-08-04 08:47 | OP.COLON_ITS ---
Patient Name: Ceci Nichols Procedure Date: 08/04/2023 8:22 AM Date of : 1970 Age: 52 Procedure: Colonoscopy Indications: Crohn's disease of the small bowel Providers: Harsh Carrasquillo DO Medicines: Monitored Anesthesia Care Patient Profile: This is a 52 year old female. Refer to note in patient chart for documentation of history and physical. Patient has symptoms of chronic epigastric abdominal pain and chronic dysphagia. Last Colonoscopy: 3 years ago. Complications: No immediate complications. Procedure: Pre-Anesthesia Assessment: - Prior to the procedure, a History and Physical was performed, and patient medications and allergies were reviewed. The patient is competent. The risks and benefits of the procedure and the sedation options and risks were discussed with the patient. All questions were answered and informed consent was obtained. Patient identification and proposed procedure were verified by the physician in the pre-procedure area. Mental Status Examination: alert and oriented. Airway Examination: normal oropharyngeal airway and neck mobility. Respiratory Examination: clear to auscultation. CV Examination: normal. Prophylactic Antibiotics: The patient does not require prophylactic antibiotics. Prior Anticoagulants: The patient has taken no anticoagulant or antiplatelet agents. ASA Grade Assessment: II - A patient with mild systemic disease. After reviewing the risks and benefits, the patient was deemed in satisfactory condition to undergo the procedure. The anesthesia plan was to use monitored anesthesia care (MAC). Immediately prior to administration of medications, the patient was re-assessed for adequacy to receive sedatives. The heart rate, respiratory rate, oxygen saturations, blood pressure, adequacy of pulmonary ventilation, and response to care were monitored throughout the procedure. The physical status of the patient was re-assessed after the procedure. After I obtained informed consent, the scope was passed under direct vision. Throughout the procedure, the patient's blood pressure, pulse, and oxygen saturations were monitored continuously. The Colonoscope was introduced through the anus and advanced to the terminal ileum. The colonoscopy was performed without difficulty. The patient tolerated the procedure well. The quality of the bowel preparation was good. The terminal ileum, ileocecal valve, appendiceal orifice, and rectum were photographed. Scope In: 8:23:45 AM Scope Withdrawal Time 0 hours 6 minutes 25 seconds Scope Out: 8:34:34 AM Total Procedure Duration Time 0 hours 10 minutes 49 seconds Findings: The recto-sigmoid colon, sigmoid colon, descending colon, splenic flexure, transverse colon, hepatic flexure and ascending colon appeared normal. Biopsies were taken with a cold forceps for histology. Verification of patient identification for the specimen was done. Estimated blood loss was minimal. There was evidence of a prior end-to-end ileo-colonic anastomosis in the cecum. This was patent. Biopsies were taken with a cold forceps for histology. Verification of patient identification for the specimen was done. Estimated blood loss was minimal. Impression: - The sigmoid colon, descending colon, splenic flexure, transverse colon, hepatic flexure, ascending colon and recto-sigmoid colon are normal. Biopsied. - Patent end-to-end ileo-colonic anastomosis. Biopsied. Recommendation: - Discharge patient to home. - Resume previous diet. - Continue present medications. - Await pathology results. - Repeat colonoscopy in 5 years for surveillance based on pathology results. Procedure Code(s): --- Professional --- 24419, Colonoscopy, flexible; with biopsy, single or multiple CPT copyright 2021 [employer]. All rights reserved. The codes documented in this report are preliminary and upon stonemason helper review may be revised to meet current compliance requirements. Harsh Carrasquillo DO 08/04/2023 8:47:27 AM This report has been signed electronically. Number of Addenda: 0 Note Initiated On: 08/04/2023 8:22 AM
== END 2023-08-04 09:37 | disposition home or self-care (01) ==
LOC: EN 07:06 → AC 07:07
PROVIDERS: PCP Internal Medicine; Referring Provider Internal Medicine; Visit Provider Internal Medicine Gastroenterology
PROC: 0DJD8ZZ Inspection of Lower Intestinal Tract, Via Natural or Artificial Opening Endoscopic (ICD-10-PCS; CPT 45378; principal; 2023-08-04 07:55)
DX: K29.50 Unspecified chronic gastritis without bleeding (principal); K50.90 Crohn's disease, unspecified, without complications; K20.90 Esophagitis, unspecified without bleeding; R10.13 Epigastric pain; K31.89 Other diseases of stomach and duodenum; Z86.718 Personal history of other venous thrombosis and embolism
CPT/HCPCS: 43239; 45380; 43248; 88305; 88313; 88342; J7120; J2405

== ENCOUNTER → 2023-09-04 | Outpatient (CLI) | payer OTHER, SELFPAY ==
--- NOTE | 2023-09-04 12:48 | BI_ITS ---
MAMMOGRAPHY - BILATERAL SCREENING 3-D TOMOSYNTHESIS REASON FOR EXAM: Female, 52 years old. Routine yearly breast screening. PERTINENT HISTORY: No significant family history. TECHNIQUE: 2-D mammograms and 3-D Tomosynthesis of the breast (s) were performed. CAD was performed. COMPARISON: August 29, 2022, August 28, 2021 FINDINGS: The breast composition is almost entirely fat. Stable normal lymph nodes. No dominant masses, suspicious microcalcifications, asymmetries, skin thickening or nipple retraction. BI/SCRN MAMM (CAD)W/HOLLY BILAT IMPRESSION: No interval change and no mammographic signs of malignancy. Routine yearly mammogram recommended. ASSESSMENT CATEGORY: BIRADS Category 1: Negative. A letter regarding these results will be sent to the patient by the facility within 30 days. FOLLOW UP RECOMMENDATION: Yearly follow up mammogram recommended. (A) Approximately 10% of breast cancers are not detected by mammography. A normal mammogram should not delay biopsy of a clinically suspicious abnormality. Electronically Signed: Raza Carvajal MD at 15:17 EST ,
--- OUTSIDE RECORDS SUMMARY | 2023-09-04 13:13 | XMS RPT_ITS | CCD ---
Author Name Unknown Address [address] [place] [address] Organization [facility] Care Team Providers Care District Wildlife Manager Name Role Phone Shalini VALVE PIPE IRRIGATOR, Ivelisse S Unavailable Rachel MALCOLM MD, Kishan A Primary Care Provider Sharmaine vailable Unavailable Primary Care Provider Wilman Hinton MD Primary Care Provider WILMAN BARRAZA Referring Unavailable WILMAN BARRAZA Primary Care Unavailable WILMAN BARRAZA Attending Unavailable NATHALIA SARAH Attending Megan velasquez Medications Completed/Discontinued Medications Medication Drug Class(es) Dates Sig (Normalized) Sig (Original) acyclovir 400 mg oral tablet (3 sources) Herpesvirus Nucleoside Analog DNA Polymerase Inhibitor, Herpes Simplex Virus Nucleoside Analog DNA Polymerase Inhibitor, Herpes Zoster Virus Nucleoside Analog DNA Polymerase Inhibitor Start: 07-05-2020 End: 01-13-2023 take 1 tablet by mouth three times daily acyclovir (ZOVIRAX) 400 mg tablet Indications: Mouth ulcer Take 1 tablet by mouth three times daily. 21 tablet 0 07/05/2020 01/13/2023 Discontinued Problems Active Problems Problem Classification Problem Date Documented Date Episodic/Chronic Asthma (13 sources) Asthma; Translations: [Mild intermittent asthma] Onset: 08-22-2015 04-07-2017 Chronic Disorders of lipid metabolism (4 sources) Hypertriglyceridemia ; Translations: [Pure hyperglyceridemia] Onset: 03-24-2018 03-24-2018 Chronic Nutritional deficiencies (4 sources) Vitamin D deficiency; Translations: [Vitamin D deficiency, unspecified] Onset: 02-26-2013 02-26-2013 Chronic Other screening for suspected conditions (not mental disorders or infectious disease) (2 sources) Patient encounter status; Translations: [Encounter for screening mammogram for malignant neoplasm of breast] Episodic Regional enteritis and ulcerative colitis (10 sources) Crohn's disease; Translations: [Crohn's disease of small AND large intestines] Onset: 11-21-2010 04-07-2017 Chronic Unclassified (1 source) Gynecologic examination ; Translations: [Encounter for gynecological examination (general) (routine) without abnormal findings] Onset: 04-07-2017 04-07-2017 Past or Other Problems Problem Classification Problem Date Documented Da te Episodic/Chronic Biliary tract disease (4 sources) Chronic cholecystitis with calculus; Translations: [Calculus of gallbladder with chronic cholecystitis without obstruction] Onset: 03-21-2016 03-21-2016 Episodic Blindness and vision defects (19 sources) Myopia; Translations: [Myopia, unspecified eye] Onset: 10-15-2014 10-15-2014 Episodic Deficiency and other anemia (6 sources) Anemia; Translations: [Anemia, unspecified] Onset: 04-07-2017 04-07-2017 Episodic Other bone disease and musculoskeletal deformities (6 sources) Osteopenia; Translations: [Other specified disorders of bone density and structure, unspecified site] Onset: 04-07-2017 04-07-2017 Episodic Other injuries and conditions due to external causes (6 sources) Fracture of bone; Translations: [Other injury of unspecified body region, initial encounter] Onset: 04-07-2017 04-07-2017 Episodic Phlebitis; thrombophlebitis and thromboembolism (6 sources) H/O: thrombosis; Translations: [Personal history of other venous thrombosis and embolism] Onset: 04-07-2017 04-07-2017 Episodic Residual codes; unclassified (4 sources) Family history of cardiac disorder; Translations: [Family history of ischemic heart disease and other diseases of the circulatory system] Onset: 08-04-2017 08-04-2017 Episodic Results Test Name Value Interpretation Reference Range Facil ity Vital Signs Date Time Vital Sign Value Performing Clinician Facility 01-13-2023 13:15-0400 Body height 169.5 cm Wilman Barraza MD Work Phone: [facility] 01-13-2023 13:15-0400 Body temperature 97.81 [degF] Wilman Barraza MD Work Phone: [facility] 01-13-2023 13:15-0400 Body weight 68.95 kg Wilman Barraza MD Work Phone: [facility] 01-13-2023 13:15-0400 Diastolic blood pressure 82 mm[Hg] Wilman Barraza MD Work Phone: [facility] 01-13-2023 13:15-0400 Heart rate 92 /min Wilman Barraza MD Work Phone: [facility] 01-13-2023 13:15-0400 Respiratory rate 18 /min Wilman Barraza MD Work Phone: [facility] 01-13-2023 13:15-0400 SaO2% (BldA) [Mass fraction] 96 % Wilman Barraza MD Work Phone: [facility] 01-13-2023 13:15-0400 Systolic blood pressure 122 mm[Hg] Wilman Barraza MD Work Phone: [facility] 04-07-2017 08:16-0400 BMI (Body Mass Index) 22.92 kg/m2 Ivelisse Loya NP [facility] 04-07-2017 08:16-0400 Body Temperature 97.2 [degF] Ivelisse Loya NP [facility] 04-07-2017 08:16-0400 BP Diastolic 68 mm[Hg] Ivelisse Loya NP [facility] 04-07-2017 08:16-0400 BP Systolic 96 mm[Hg] Ivelisse Loya NP [facility] 04-07-2017 08:16-0400 Height 167.64 cm Ivelisse Loya NP [facility] 04-07-2017 08:16-0400 Pulse (Heart Rate) 88 /min Ivelisse Loya NP [facility] 04-07-2017 08:16-0400 Respiratory Rate 16 /min Ivelisse Loya NP [facility] 04-07-2017 08:16-0400 Weight 64.41 kg Ivelisse Loya NP [facility] Encounters Encounter Date Encounter Type Care Provider Facility Start: 02-17-2023 End: 02-17-2023 ambulatory WILMAN BARRAZA Facility:[facility] Start: 01-15-2023 ambulatory Wilman fleming MD Work Phone: [facility] [place] Start: 01-13-2023 End: 01-13-2023 ambulatory WILMAN BARRAZA Facility:[facility] Start: 01-13-2023 End: 01-13-2023 Patient encounter status Wilman Barraza MD Work Phone: [facility] [place] Start: 01-13-2023 End: 01-13-2023 Periodic preventive med est patient 40-64yrs Wilman Barraza MD Work Phone: [facility] [place] Procedures Date Procedure Procedure Detail Performing Clinician Start: 09-04-2020 Colonoscopy Rah Davis APRN.CNP , ELLA Work Phone: Start: 05-18-2020 Mammography Rah Davis APRN.CNP , DNP Work Phone: Start: 04-07-2017 Gynecologic examination Routine gynecological exam Ivelisse Loya NP Start: 01-16-2017 Adult depression screening assessment Rah Davis APRN.CNP, DNP Work Phone: Plan of Treatment Date Care Activity Detail Author Start: 05-29-2032 Urine microalbumin profile DTA P,TDAP,TD (10 - Td or Tdap) [facility] Start: 04-23-2029 Urine microalbumin profile DTA P,TDAP,TD (9 - Td or Tdap) [facility] Start: 09-04-2025 Colonoscopy COLONOSCOPY [facility] Start: 09-04-2025 COLORECTAL CANCER SCREENING COLORECTAL CANCER SCREENING [facility] Start: 05-26-2024 HPV TESTING HPV TESTING [facility] Start: 05-26-2024 PAP TESTING PAP TESTING [facility] Start: 03-22-2024 LIPID SCREEN LIPID SCREEN [facility] Start: 01-14-2024 ANNUAL PCP TEAM FAMILY AND DIVORCE LEGAL ASSISTANT STARR DISEASE VISIT ANNUAL PCP TEAM CHRONIC DISEASE VISIT [facility] Start: 01-14-2024 HEPATITIS A (1 of 2 - Risk 2-dose series) HEPATITIS A (1 of 2 - Risk 2-dose series) [facility] Immunizations Immunization Date Immunization Notes Care Provider Екатерина zhao 01-13-2023 pneumococcal (PCV20) vaccine, 20 valent (PREVNAR 20) Wilman Barraza MD Work Phone: [facility] 01-13-2023 pneumococcal Conjuga te, unspecified formulation Wilman Barraza MD Work Phone: [facility] Work Phone: 09-03-2022 zoster vaccine recombinant Wilman Barraza MD Work Phone: [facility] 06-28-2022 influenza, seasonal, injectable, preservative free Wilman Barraza MD Work Phone: [facility] 05-29-2022 tetanus toxoid, redu jenaro diphtheria toxoid, and acellular pertussis vaccine, adsorbed Wilman Barraza MD Work Phone: [facility] 05-29-2022 zoster vaccine recombinant Wilman Barraza MD Work Phone: [facility] 08-24-2021 COVID-19 original vaccine, age 12+ yr, monovalent (PFIZER-BIONTECH - PURPLE TOP) Wilman Barraza MD Work Phone: [facility] 04-08-2021 COVID-19 original vaccine, age 12+ yr, monovalent (PFIZER-BIONTECH - PURPLE TOP) Wilman Barraza MD Work Phone: [facility] 12-30-2020 COVID-19 original vaccine, full dose, monovalent (MODERNA) Wilman Barraza MD Work Phone: [facility] 11-06-2020 COVID-19 original vaccine, full dose, monovalent (MODERNA) Wilman Barraza MD Work Phone: [facility] 10-13-2020 COVID-19 original vaccine, full dose, monovalent (MODERNA) Wilman Barraza MD Work Phone: [facility] 07-05-2020 influenza, injectabl e, quadrivalent, contains preservative Rah Davis APRN.ENGINE BUILDUP MECHANIC, DNP Work Phone: [facility] 10-13-2019 COVID-19 original vaccine, full dose, monovalent (MODERNA) Wilman Barraza MD Work Phone: [facility] 09-03-2019 influenza, injectabl e, quadrivalent, contains preservative Rah Blaz SOFTWARE SUPPORT ENGINEER.[facility] Work Phone: [facility] 04-23-2019 tetanus toxoid, redu jenaro diphtheria toxoid, and acellular pertussis vaccine, adsorbed Rah Blaz SOFTWARE SUPPORT ENGINEER.[facility] Work Phone: [facility] Work Phone: 08-21-2017 influenza, injectabl e, quadrivalent, preservative free Rha Blaz SOFTWARE SUPPORT ENGINEER.[facility] Work Phone: [facility] Work Phone: 06-19-2009 influenza virus vacc ine, unspecified formulation Rah Blaz SOFTWARE SUPPORT ENGINEER.[facility] Work Phone: [facility] Work Phone: 04-26-2009 pneumococcal polysaccharide vaccine, 23 valent Rah Blaz SOFTWARE SUPPORT ENGINEER.[facility] Work Phone: [facility] 04-26-2009 tetanus toxoid, redu jenaro diphtheria toxoid, and acellular pertussis vaccine, adsorbed Rah Blaz SOFTWARE SUPPORT ENGINEER.[facility] Work Phone: [facility] 07-24-2007 influenza virus vacc ine, unspecified formulation Rah Blaz SOFTWARE SUPPORT ENGINEER.[facility] Work Phone: [facility] Work Phone: 11-13-2001 hepatitis B vaccine, adult dosage Rah Blaz SOFTWARE SUPPORT ENGINEER.[facility] Work Phone: [facility] Work Phone: 07-08-2001 hepatitis B vaccine, adult dosage Rah Blaz SOFTWARE SUPPORT ENGINEER.[facility] Work Phone: [facility] Work Phone: 05-27-2001 hepatitis B vaccine, adult dosage Rah Blaz SOFTWARE SUPPORT ENGINEER.[facility] Work Phone: [facility] Work Phone: 09-30-1994 diphtheria and tetan us toxoids, adsorbed for pediatric use Rah Davis APRN.[facility] Work Phone: [facility] Work Phone: 08-25-1989 measles, mumps and rubella virus vaccine Rah Davis APRN.[facility] Work Phone: [facility] Work Phone: 01-17-1982 diphtheria and tetan us toxoids, adsorbed for pediatric use Rah Davis APRN.[facility] Work Phone: [facility] Work Phone: 04-27-1975 DTP-Haemophilus influenzae type b conjugate vaccine Rah Davis APRN.[facility] Work Phone: [facility] Work Phone: 04-27-1975 trivalent poliovirus vaccine, live, oral Rah Davis APRN.[facility] Work Phone: [facility] Work Phone: 12-21-1971 rubella and mumps vi tony vaccine Rah Davis APRN.[facility] Work Phone: [facility] Work Phone: 06-11-1971 trivalent poliovirus vaccine, live, oral Rah Davis APRN.[facility] Work Phone: [facility] Work Phone: 12-11-1970 rubella virus vaccine Rah Davis APRN.[facility] Work Phone: [facility] Work Phone: 07-20-1970 vaccinia (smallpox) vaccine, diluted Rah Davis APRN.[facility] Work Phone: [facility] Work Phone: 03-06-1970 DTP-Haemophilus influenzae type b conjugate vaccine Rah Davis APRN.[facility] Work Phone: [facility] Work Phone: 03-06-1970 trivalent poliovirus vaccine, live, oral Rah Davis SOFTWARE SUPPORT ENGINEER.[facility] Work Phone: [facility] Work Phone: 02-06-1970 DTP-Haemophilus influenzae type b conjugate vaccine Rah Davis APRN.[facility] Work Phone: [facility] Work Phone: 01-09-1970 DTP-Haemophilus influenzae type b conjugate vaccine Rah Davis APRN.[facility] Work Phone: [facility] Work Phone: 01-09-1970 trivalent poliovirus vaccine, live, oral Rah Davis SOFTWARE SUPPORT ENGINEER.[facility] Work Phone: [facility] Work Phone: 1970 DTP-Haemophilus influenzae type b conjugate vaccine Rah Davis APRN.[facility] Work Phone: [facility] Work Phone: Payers Date Payer Category Payer Unknown [id number] 2018 Unknown [employer] PPO [id number] 2018-Present [phone] [facility] [address] [place] [address] PPO [id number] 2013 Unknown [id number] 2013 Unknown [id number] Social History Date Type Detail Facility Start: 12-02-2011 Tobacco smoking stat [facility] Never smoked tobacco [facility] Start: 11-20-2020 End: 01-13-2023 Alcohol intake Current drinker of alcohol (finding) [facility] Start: 07-05-2020 History SDOH Alcohol Frequency 2 [facility] Start: 07-05-2020 History SDOH Alcohol Std Drinks 1 [facility] Start: 08-19-2007 History SDOH Alcohol Comment rarely [facility] Start: 07-05-2020 History SDOH Social Connections Phone 4 [facility] Start: 07-05-2020 History SDOH Social Connections Get Together 3 [facility] Start: 07-05-2020 History SDOH Financial 5 [facility] Start: 07-04-2020 Education 18 [facility] Start: 1970 Sex Assigned At Female [facility] Start: 12-02-2011 Tobacco use and exposure Smoke less tobacco non-user [facility] Clinical Notes 11-05-2013 to 02-17-2023 Wilman Barraza MD - 01/13/2023 1:15 PM EDTPatient InstructionsTerwallace Sarah, OD - 11/11/2022 5:38 PM ESTTelephone Encounter - Noemi Abreu Ma - 02/18/2022 2:29 PM EDT Note Date & Type Note Facility 02-17-2023 Note HNO ID: [id number] Author: CHRIS Ramos Service: ? Author Type: Respiratory Therapist Type: Progress Notes Filed: 02/17/2023 10:23 AM Note Text: PULM FUNCTION SMARTBLOCK: Provider: Wilman Barraza MD Assisting Tech: CHRIS Ramos Spirometry w/BD: 1 [facility] 01-15-2023 Note Patient Outreach (IN TMMN) CHANG NICHOLS ([id number]) 1970 F Date Time Provider Department 01/15/23 WILMAN BARRAZA INTMMN During your visit today, we recorded the following information about you: Allergies As of Date: 01/15/2023 Noted Allergy Reaction NO KNOWN DRUG ALLERGIES 08/14/2005 Date Reviewed: 01/13/2023 Reviewed by: Amelia Keller LPN - Fully Assessed Visit Diagnosis:Encounter for screening mammogram for breast cancer [Z12.31] Order(s):[facility] SCREENING [[id number]] Order #: [id number] FUTURE Prescriptions as of 01/20/2023 - fluticasone-salmeterol (ADVAIR DISKUS) 100-50 mcg/dose inhaler Inhale 1 Puff as instructed twice daily. RINSE AND GARGLE MOUTH WITH WATER AFTER EACH USE. - Cholecalciferol, Vitamin D3, (VITAMIN D-3) 50 mcg (2,000 unit) cap Take 2 capsules by mouth once daily. - HUMIRA 40 mg/0.8 mL injection Subcutaneously, Inject one pen weekly - cholestyramine-sucrose (QUESTRAN) 4 gram powder USE ONE SCOOP ONCE DAILY DIRECTED - vitamin b complex (B COMPLEX-VITAMIN B12) tab Take 1 tablet by mouth once daily. 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 Problem List As Of Date 01/15/2023 Noted Resolved Diarrhea [R19.7] 02/18/2006 01/16/2017 Other symptoms involving cardiovascular system *08/19/2007 08/22/2015 Crohn's disease of both small and large intesti*04/10/2012 Cajmynz-cs-ugk [K60.3] 09/03/2012 01/16/2017 Vitamin D deficiency [E55.9] 02/26/2013 Fracture of radial head, left, closed [S52.122A]11/05/2013 08/22/2015 Myopia - Both Eyes [H52.10] 10/15/2014 Regular astigmatism - Both Eyes [H52.229] 10/15/2014 Mild intermittent asthma without complication [*08/22/2015 Chronic cholecystitis with calculus [K80.10] 03/21/2016 Astigmatism, regular [H52.229] 09/03/2016 Presbyopia [H52.4] 09/03/2016 Family history of aortic valve disorder [Z82.49]08/04/2017 Anemia [D64.9] 04/07/2017 Asthma [J45.909] 04/07/2017 Bone fracture [T14.8XXA] 04/07/2017 Crohn's disease of small intestine with intesti*11/21/2010 History of blood clots [Z86.718] 04/07/2017 Osteopenia [M85.80] 04/07/2017 Hypertriglyceridemia [E78.1] 03/24/2018 Encounter Status:Closed by JACKELYN, DAVISUSER on 01/20/23 [facility] 01-13-2023 Note HNO ID: [id number] Author: Wilman Barraza MD Service: ? Author Type: Physician Type: Progress Notes Filed: 02/06/2023 9:42 PM Note Text: This note was created using [employer] Sales[employer]. Subjective Chang Nichols is a 52 year old female. HISTORY Chang Nichols is a 52 year old lady here to be formally established with me. Noted that has had COVID infection documented after had it. Thinks had August 2019. Got vaccines except not the bivalent one. 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 Was exercising and walking more. PAST MEDICAL HISTORY Diagnosis Date Crohn's disease (HCC) Diarrhea Family history of aortic valve disorder 08/04/2017 brother has bicuspid aortic valve Mild intermittent asthma without complication 08/22/2015 Other acute embolism veins 1999 Regional enteritis of large intestine (HCC) 1991 Crohns Unspecified deficiency anemia Vitamin D deficiency 02/26/2013 Current Outpatient Medications Medication Sig HUMIRA 40 mg/0.8 mL injection Subcutaneously, Inject one pen weekly cholestyramine-sucrose (QUESTRAN) 4 gram powder USE ONE SCOOP ONCE DAILY DIRECTED fluticasone-salmeterol (ADVAIR DISKUS) 100-50 mcg/dose Inhale 1 Puff as instructed twice daily. RINSE AND GARGLE MOUTH WITH WATER AFTER EACH USE. Cholecalciferol, Vitamin D3, (VITAMIN D-3) 50 mcg (2,000 unit) cap Take 2 capsules by mouth once daily. vitamin b complex (B COMPLEX-VITAMIN B12) tab Take 1 tablet by mouth once daily. acyclovir (ZOVIRAX) 400 mg tablet Take 1 tablet by mouth three times daily. (Patient not taking: No sig reported) No current facility-administered medications for this visit. ALLERGIES Allergen Reactions No Known Drug Aller* PAST SURGICAL HISTORY Procedure Laterality Date COLECTOMY PARTIAL W/ANASTOMOSIS Hemicolectomy COLECTOMY PARTIAL W/ANASTOMOSIS 06/2013 COLONOSCOPY FLX DX W/COLLJ SPEC WHEN PFRMD 1991 Colonoscopy COLONOSCOPY FLX DX W/COLLJ SPEC WHEN PFRMD 08/03/2018 Colonoscopy COLONOSCOPY GEN ANES COLONOSCOPY GEN ANES 09/04/2020 COLONOSCOPY W/BIOPSY SINGLE/MULTIPLE 2010 Dr. Madden/due in 2013 [facility] CHOLECYSTECTOMY 04/08/2016 [facility] - Dr. Chris Ramos LAPS SURG CHOLECYSTECTOMY W/CHOLANGIOGRAPHY 04/08/2016 FAMILY HISTORY Problem Relation Age of Onset Heart Mother cardiomyopathy Hypertension Mother None Father Asthma Maternal Grandfather Social History Tobacco Use Smoking status: Never Smokeless tobacco: Never Vaping Use Vaping Use: Never used Substance Use Topics Alcohol use: Yes Comment: rarely Drug use: No Review of Systems Objective Last 5 Encounter Wt Readings: Date: Wt: 01/13/2023 68.9 kg (152 lb) 08/10/2019 60.8 kg (134 lb) 07/30/2019 60.3 kg (133 lb) 04/05/2019 64.3 kg (141 lb 10.4 oz) 01/16/2019 63.5 kg (140 lb) No waist measurement recorded Estimated body mass index is 24 kg/m? as calculated from the following: Height as of this encounter: 169.5 cm (5' 6.73 ). Weight as of this encounter: 68.9 kg (152 lb). Last 5 Encounter BP Readings: Date: BP: 01/13/2023 122/82 08/25/2020 101/62 07/05/2020 114/76 08/10/2019 112/66 07/30/2019 118/62 Physical Exam Constitutional: Appearance: Normal appearance. HENT: Head: Normocephalic. Eyes: Conjunctiva/sclera: Conjunctivae normal. Cardiovascular: Rate and Rhythm: Normal rate and regular rhythm. Heart sounds: Normal heart sounds. Pulmonary: Effort: Pulmonary effort is normal. Breath sounds: Normal breath sounds. Skin: General: Skin is warm and dry. Neurological: General: No focal deficit present. Mental Status: She is alert and oriented to person, place, and time. Psychiatric: Attention and Perception: Attention and perception normal. Mood and Affect: Mood and affect normal. Speech: Speech normal. Behavior: Behavior normal. Thought Content: Thought content normal. Cognition and Memory: Cognition and memory normal. Judgment: Judgment normal. Assessment and Plan Encounter Diagnosis ICD-10-CM 1. Routine medical exam Z00.00 2. Mild intermittent asthma without complication J45.20 fluticasone-salmeterol (ADVAIR DISKUS) 100-50 mcg/dose inhaler SPIROMETRY - BASELINE AND POST DILATOR 3. Encounter for immunization Z23 PNEUMOCOCCAL VACCINE (PREVNAR 20) Patient here for yearly exam and follow up. Above issues addressed with patient. Patient involved in shared decision making for management of medical issues. History and medications reviewed. Epic updated as needed Refills taken care of and meds adjusted as indicated after reviewed history, exam and labs. Health Maintenance reviewed. Updated record and/or ordered tests as recorded. Encouraged on efforts at healthy diet and regular exercise and adequate sleep. Wilman Barraza MD [facility] 01-13-2023 History of Presen t illness Narrative This note was created using Telestreamter. Subjective Chang Nichols is a 52 year old female. HISTORY Chang Nichols is a 52 year old lady here to be formally established with me. Noted that has had COVID infection documented after had it. Thinks had August 2019. Got vaccines except not the bivalent one. 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 Was exercising and walking more. PAST MEDICAL HISTORY Diagnosis Date Crohn's disease (HCC) Diarrhea Family history of aortic valve disorder 08/04/2017 brother has bicuspid aortic valve Mild intermittent asthma without complication 08/22/2015 Other acute embolism veins 1999 Regional enteritis of large intestine (HCC) 1991 Crohns Unspecified deficiency anemia Vitamin D deficiency 02/26/2013 Current Outpatient Medications Medication Sig HUMIRA 40 mg/0.8 mL injection Subcutaneously, Inject one pen weekly cholestyramine-sucrose (QUESTRAN) 4 gram powder USE ONE SCOOP ONCE DAILY DIRECTED fluticasone-salmeterol (ADVAIR DISKUS) 100-50 mcg/dose Inhale 1 Puff as instructed twice daily. RINSE AND GARGLE MOUTH WITH WATER AFTER EACH USE. Cholecalciferol, Vitamin D3, (VITAMIN D-3) 50 mcg (2,000 unit) cap Take 2 capsules by mouth once daily. vitamin b complex (B COMPLEX-VITAMIN B12) tab Take 1 tablet by mouth once daily. acyclovir (ZOVIRAX) 400 mg tablet Take 1 tablet by mouth three times daily. (Patient not taking: No sig reported) No current facility-administered medications for this visit. ALLERGIES Allergen Reactions No Known Drug Aller* PAST SURGICAL HISTORY Procedure Laterality Date COLECTOMY PARTIAL W/ANASTOMOSIS Hemicolectomy COLECTOMY PARTIAL W/ANASTOMOSIS 06/2013 COLONOSCOPY FLX DX W/COLLJ SPEC WHEN PFRMD 1991 Colonoscopy COLONOSCOPY FLX DX W/COLLJ SPEC WHEN PFRMD 08/03/2018 Colonoscopy COLONOSCOPY GEN ANES COLONOSCOPY GEN ANES 09/04/2020 COLONOSCOPY W/BIOPSY SINGLE/MULTIPLE 2010 Dr. Madden/due in 2013 [facility] CHOLECYSTECTOMY 04/08/2016 [facility] - Dr. Chris Ramos LAPS SURG CHOLECYSTECTOMY W/CHOLANGIOGRAPHY 04/08/2016 FAMILY HISTORY Problem Relation Age of Onset Heart Mother cardiomyopathy Hypertension Mother None Father Asthma Maternal Grandfather Social History Tobacco Use Smoking status: Never Smokeless tobacco: Never Vaping Use Vaping Use: Never used Substance Use Topics Alcohol use: Yes Comment: rarely Drug use: No Review of Systems Objective Last 5 Encounter Wt Readings: Date: Wt: 01/13/2023 68.9 kg (152 lb) 08/10/2019 60.8 kg (134 lb) 07/30/2019 60.3 kg (133 lb) 04/05/2019 64.3 kg (141 lb 10.4 oz) 01/16/2019 63.5 kg (140 lb) No waist measurement recorded Estimated body mass index is 24 kg/m as calculated from the following: Height as of this encounter: 169.5 cm (5' 6.73 ). Weight as of this encounter: 68.9 kg (152 lb). Last 5 Encounter BP Readings: Date: BP: 01/13/2023 122/82 08/25/2020 101/62 07/05/2020 114/76 08/10/2019 112/66 07/30/2019 118/62 Physical Exam Constitutional: Appearance: Normal appearance. HENT: Head: Normocephalic. Eyes: Conjunctiva/sclera: Conjunctivae normal. Cardiovascular: Rate and Rhythm: Normal rate and regular rhythm. Heart sounds: Normal heart sounds. Pulmonary: Effort: Pulmonary effort is normal. Breath sounds: Normal breath sounds. Skin: General: Skin is warm and dry. Neurological: General: No focal deficit present. Mental Status: She is alert and oriented to person, place, and time. Psychiatric: Attention and Perception: Attention and perception normal. Mood and Affect: Mood and affect normal. Speech: Speech normal. Behavior: Behavior normal. Thought Content: Thought content normal. Cognition and Memory: Cognition and memory normal. Judgment: Judgment normal. Assessment and Plan Encounter Diagnosis ICD-10-CM 1. Routine medical exam Z00.00 2. Mild intermittent asthma without complication J45.20 fluticasone-salmeterol (ADVAIR DISKUS) 100-50 mcg/dose inhaler SPIROMETRY - BASELINE AND POST DILATOR 3. Encounter for immunization Z23 PNEUMOCOCCAL VACCINE (PREVNAR 20) Patient here for yearly exam and follow up. Above issues addressed with patient. Patient involved in shared decision making for management of medical issues. History and medications reviewed. Epic updated as needed Refills taken care of and meds adjusted as indicated after reviewed history, exam and labs. Health Maintenance reviewed. Updated record and/or ordered tests as recorded. Encouraged on efforts at healthy diet and regular exercise and adequate sleep. Wilman Barraza MD documented in this encounter [facility] 11-11-2022 Note HNO ID: [id number] Author: Nathalia Sarah OD Service: ? Author Type: SCHOOL BUS MONITOR Type: Progress Notes Filed: 11/11/2022 5:40 PM Note Text: ASSESSMENT/PLAN: 1. Myopia of both eyes - ICD9: 367.1, ICD10: H52.13 (primary diagnosis) 2. Regular astigmatism of both eyes - ICD9: 367.21, ICD10: H52.223 3. Presbyopia - ICD9: 367.4, ICD10: H52.4 Continue to wear her glasses and discussed the option of distance only vs bifocals or progressive lenses. Recommended yearly exams. Nathalia Sarah, GIULIANA I have confirmed and edited as necessary the relevant ophthalmic history, ROS, and the neuro exam findings as obtained by others. [facility] 11-11-2022 Instructions Nathalia Sarah, GIULIANA - 11/11/2022 5:40 PM EST ASSESSMENT/PLAN: 1. Myopia of both eyes - ICD9: 367.1, ICD10: H52.13 (primary diagnosis) 2. Regular astigmatism of both eyes - ICD9: 367.21, ICD10: H52.223 3. Presbyopia - ICD9: 367.4, ICD10: H52.4 Continue to wear her glasses and discussed the option of distance only vs bifocals or progressive lenses. Recommended yearly exams. documented in this encounter [facility] 11-11-2022 History of Presen t illness Narrative ASSESSMENT/PLAN: 1. Myopia of both eyes - ICD9: 367.1, ICD10: H52.13 (primary diagnosis) 2. Regular astigmatism of both eyes - ICD9: 367.21, ICD10: H52.223 3. Presbyopia - ICD9: 367.4, ICD10: H52.4 Continue to wear her glasses and discussed the option of distance only vs bifocals or progressive lenses. Recommended yearly exams. Nathalia Sarah, OD I have confirmed and edited as necessary the relevant ophthalmic history, ROS, and the neuro exam findings as obtained by others. documented in this encounter [facility] 02-18-2022 Miscellaneous Notes Letter mailed to pt home notifying her that she needs to establish care with a new provider. Noemi Abreu Ma Left a message for pt to call the office and ask to speak to a triage nurse. Jaylin Nguyen LPN Please call patient and assist in scheduling establish care appointment. Bri Mcleod APRN.CNP Sent a [employer] message asking the pt to call the office to get established with a new provider. Patient has been identified by name and date of : Yes Pharmacy phones for refill(s): Pending Prescriptions Disp Refills FLUTICASONE 100 MCG-SALMETEROL 50 MCG/DOSE BLISTR POWDR FOR INHALATION 60 Each 0 Sig: INHALE 1 PUFF BY MOUTH TWICE DAILY. RINSE AND GARGLE MOUTH WITH WATER AFTER EACH USE SHELIA: Yes Date of last office visit in primary care: 10/20/20 Last 2 Encounter Wt Readings: Date: Wt: 08/10/2019 60.8 kg (134 lb) 07/30/2019 60.3 kg (133 lb) Previous labs/tests for medication: Not applicable Please advise. Thank you. Jaylin Nguyen LPN documented in this encounter [facility] documented as of this encounter (statuses as of 02/18/2022) [facility] History of Past illness Narrative* Problem Noted Date Resolved Date Fracture of radial head, left, closed 11/05/2013 08/22/2015 [id number]-[id number] 09/03/2012 01/16/2017 Other symptoms involving cardiovascular system 1 10/20/2006 08/22/2015 Diarrhea 02/18/2006 01/16/2017 documented as of this encounter (statuses as of 11/12/2022) [facility] History of Past illness Narrative* Problem Noted Date Resolved Date Fracture of radial head, left, closed 11/05/2013 08/22/2015 [id number]-xn-isj 09/03/2012 01/16/2017 Other symptoms involving cardiovascular system 1 10/20/2006 08/22/2015 Diarrhea 02/18/2006 01/16/2017 documented as of this encounter (statuses as of 01/20/2023) [facility] History of Past illness Narrative* Problem Noted Date Resolved Date Fracture of radial head, left, closed 11/05/2013 08/22/2015 [id number] 09/03/2012 01/16/2017 Other symptoms involving cardiovascular system 1 10/20/2006 08/22/2015 Diarrhea 02/18/2006 01/16/2017 documented as of this encounter (statuses as of 02/07/2023) [facility] Mild intermittent asthma without complication Unspecified asthma [facility] Diagnosis Myopia of both eyes- Primary Myopia Regular astigmatism of both eyes Regular astigmatism Presbyopia [facility] Diagnosis Encounter for screening mammogram for breast cancer [facility] Diagnosis Routine medical exam- Primary Routine general medical examination at a health care facility Mild intermittent asthma without complication Unspecified asthma Encounter for immunization Need for other specified prophylactic vaccination against single bacterial disease [facility] Diagnostic Procedure Only (Routine) - Pending Review Specialty Diagnoses / Procedures Referred By Kirsten ellison Referred To Contact [facility] Diagnoses Encounter for screening mammogram for breast cancer Procedures ALFONSO SCREENING SCREENING MAMMOGRAPHY BI 2-[place] [address] [place] [id number] [facility] [address] [place] [address] Referral ID Status Reason Start Date Expiration Date Visits Requested Visits Authorized [id number] Pending Review Auto-Generat ed Referral 01/15/2023 02/14/2024 1 1 [facility] Advance Directives No Advanced Directives Records FoundDocuments on File Type Date Recorded 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 Advance Directive(s) 09/04/2020 1:38 PM Advance Directive(s) 08/28/2020 1:06 PM Advance Directive(s) 08/03/2018 7:03 AM Advance Directive(s) 07/14/2018 1:51 PM Medications Administered Section Inactive Administered Medications - up to 3 most recent administrations Medication Order MAR Action Action Date Dose Rate Site tropicamide 1 % 1 Drop (MYDRIACYL) 1 Drop, BOTH EYES, ONCE, 1 dose, On 11/11/22 at 1730, FOR THE EYE Given 11/11/2022 5:30 PM EST 1 Drop Reason for Referral Specialty Diagnoses / Procedures Referred By Kirsten ellison Referred To Contact [facility] Diagnoses Mild intermittent asthma without complication Procedures SPIROMETRY - BASELINE AND POST DILATOR BRNCDILAT RSPSE SPMTRY PRE&POST-BRNCDILAT ADMN Wilman Barraza MD [address] [place] [address] [facility] [place] [address] [place] [address] Referral ID Status Reason Start Date Expiration Date Visits Requested Visits Authorized [id number] Authorized Auto-Generat ed Referral 02/17/2023 09/07/2023 1 1 Summary Purpose Family History No Family History Records Found Additional Source Comments Source Comments (unrecognize d section and content) In the event this informatio n is protected by the Federal Confidentiality of Alcohol and Drug Abuse Patient Records regulations: The Federal rules restrict any use of the information to criminally investigate or prosecute any alcohol or drug abuse patient.[facility] the event this information is protected by the Federal Confidentiality of Alcohol and Drug Abuse Patient Records regulations: The Federal rules restrict any use of the information to criminally investigate or prosecute any alcohol or drug abuse patient.[facility] the event this information is protected by the Federal Confidentiality of Alcohol and Drug Abuse Patient Records regulations: The Federal rules restrict any use of the information to criminally investigate or prosecute any alcohol or drug abuse patient.[facility] the event this information is protected by the Federal Confidentiality of Alcohol and Drug Abuse Patient Records regulations: The Federal rules restrict any use of the information to criminally investigate or prosecute any alcohol or drug abuse patient.[facility] Reason for Visit (unrecogniz ed section and content) Reason Comments Yearly Exam Reason Comments Establish Care Specialty Diagnoses / Procedures Referred By Contac t Referred To Contact Internal Medicine / INTERNAL MEDICINE Diagnoses Pure hyperglyceridemia Family history of ischemic heart disease and other diseases of the circulatory system establish patient Procedures OFFICE/OUTPATIENT NEW MODERATE MDM 45-59 MINUTES 4C EXCEPTION Self Wilman Barraza MD [address] [place] [address] Referral ID Status Reason Start Date Expiration Date Visits Re quested Visits Authorized [id number] Closed 01/13/2023 09/07/2023 1 1 Care Teams (unrecognized sec tion and content) 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 This clinical summary was aggregated from multiple sources. Caution should be exercised in using it in the provision of clinical care. This summary normalizes information from multiple sources, and as a consequence, information in this document may materially change the coding, format and clinical context of patient data. In addition, data may be omitted in some cases. CLINICAL DECISIONS SHOULD BE BASED ON THE PRIMARY CLINICAL RECORDS. [facility]. provides no warranty or guarantee of the accuracy or completeness of information in this document.
== END | disposition home or self-care (01) ==
LOC: OPBI 12:47
PROVIDERS: PCP Internal Medicine; Visit Provider Obstetrics & Gynecology
DX: Z12.31 Encounter for screening mammogram for malignant neoplasm of breast (principal)
CPT/HCPCS: 77063; 77067

== ENCOUNTER → 2024-07-16 | Outpatient (CLI) | payer OTHER, SELFPAY ==
[2024-07-16 11:07] LABS: Erythrocyte Sedimentation Rate 11 mm/hr (0-30)
[2024-07-16 11:40] LABS: CRP < 2.90 mg/L (0.0-3.0)
== END | disposition home or self-care (01) ==
LOC: LAB 10:08
PROVIDERS: PCP Internal Medicine; Referring Provider Internal Medicine Gastroenterology; Visit Provider Internal Medicine Gastroenterology
DX: K50.90 Crohn's disease, unspecified, without complications (principal)
CPT/HCPCS: 36415; 85652; 86140

== ENCOUNTER → 2024-09-27 | Outpatient (CLI) | payer OTHER, SELFPAY ==
[2024-09-30 22:07] LABS: HPV APTIMA, High Risk Negative (Negative)
== END | disposition home or self-care (01) ==
PROVIDERS: PCP Internal Medicine; Referring Provider Nurse Practitioner Women's Health; Visit Provider Nurse Practitioner Women's Health
DX: Z12.4 Encounter for screening for malignant neoplasm of cervix (principal)
CPT/HCPCS: 87624; 88175; G0145

== ENCOUNTER → 2024-09-27 | Outpatient (CLI) | payer OTHER, SELFPAY ==
--- NOTE | 2024-09-27 09:24 | BI_ITS ---
MAMMOGRAPHY - BILATERAL SCREENING REASON FOR EXAM: Female, 53 years old. Routine annual screening examination. PERTINENT HISTORY: Non-contributory. TECHNIQUE: Digital bilateral breast holly (3D mammographic acquisition) in the CC and MLO projections. 2-D mediolateral oblique (MLO) and craniocaudad (CC) views of both breasts were obtained. CAD: Full Field Digital Mammography with Computer Added Detection was performed. COMPARISON: Comparison is made with prior study dated August 27, 2023 and May 30, 2022. FINDINGS: Breast Composition: The breasts are almost entirely fatty. There are no dominant masses or suspicious calcifications. Stable benign-appearing bilateral axillary lymph nodes nodes. No other significant abnormalities are identified. There has been no significant change since the prior study. BI/SCRN MAMM (CAD)W/HOLLY BILAT IMPRESSION: Stable bilateral screening mammogram. Yearly follow-up mammogram recommended. (A) ASSESSMENT CATEGORY: BIRADS Category 2: Benign. A letter regarding these results will be sent to the patient by the facility within 30 days. Approximately 10% of breast cancers are not detected by mammography. A normal mammogram should not delay biopsy of a clinically suspicious abnormality. [id number] Electronically Signed: Jann Mcarthur MD at 10:32 EST ,
== END | disposition home or self-care (01) ==
LOC: OPBI 09:23
PROVIDERS: PCP Internal Medicine; Referring Provider Nurse Practitioner Women's Health; Visit Provider Nurse Practitioner Women's Health
DX: Z12.31 Encounter for screening mammogram for malignant neoplasm of breast (principal)
CPT/HCPCS: 77063; 77067

== ENCOUNTER → 2025-06-29 | Outpatient (CLI) | payer OTHER, SELFPAY ==
[2025-06-29 09:34] LABS: Hematocrit 37.3 % (37-47); Hemoglobin 12.6 g/dL (12.0-15.0); Immature Granulocytes Count 0.020 X10^3/uL (0.0-0.0); Mean Corp Hgb Conc 33.8 g/dL (32-36); Mean Corpuscular Volume 94.0 fL (81-99); Mean Platelet Vol. 9.2 fl (6.2-12.0); NRBC Flagged by Analyzer 0.3 % (0-5); Platelet Count 230 K/mm3 (150-450); RBC Distribution Width CV 12.9 % (11.6-14.6); RBC Distribution Width SD 44.4 fl (35.1-43.9); Red Blood Count 3.97 M/mm3 (4.2-5.4); White Blood Count 6.0 K/mm3 (4.4-11.0)
[2025-06-29 10:02] LABS: AST(SGOT) 54 U/L (<=31); Alanine Aminotransfer ALT/SGPT 58 U/L (<=34); Albumin, Serum 4.6 g/dL (3.5-5.0); Alkaline Phosphatase 83 U/L (35-104); Anion Gap 12 (5-15); BUN 14 mg/dL (4-19); BUN/Creat Ratio 14.7 RATIO (10-20); Calcium,Total 10.0 mg/dL (7.6-11.0); Carbon Dioxide 22.4 mmol/L (21.0-32.0); Chloride 105 mmol/L (98-108); Globulin 4.1 g/dL (2.2-4.2); Glucose 106 mg/dL (70-99); Potassium 4.5 mmol/L (3.3-5.1)
[2025-06-29 10:03] LABS: CRP < 3.00 mg/L (0.0-3.0)
[2025-07-04 10:08] LABS: HEPATITIS B SURFACE AG Negative (Negative); Hep C Antibodies Non Reactive (Non Reactive); QNTFERON TB Mitogen Value > 10.00 IU/mL (.); QNTFERON TB Nil Value 0.07 IU/mL (.); QNTFERON TB1+ Ag Value 0.08 IU/mL (.); QNTFERON TB2+ Ag Value 0.07 IU/mL (.); QNTIFERON TB Positive Criteria Negative (Negative)
== END | disposition home or self-care (01) ==
LOC: LAB 08:53
PROVIDERS: PCP Internal Medicine; Referring Provider Internal Medicine Gastroenterology; Visit Provider Internal Medicine Gastroenterology
DX: K50.90 Crohn's disease, unspecified, without complications (principal)
CPT/HCPCS: 36415; 80053; 80074; 85025; 85652; 86140; 86480; 86706

== ENCOUNTER → 2025-07-05 | Outpatient (CLI) | payer OTHER, SELFPAY ==
[2025-07-05 09:54] LABS: Hematocrit 34.9 % (37-47); Hemoglobin 11.7 g/dL (12.0-15.0); Immature Granulocytes Count 0.010 X10^3/uL (0.0-0.0); Mean Corp Hgb Conc 33.5 g/dL (32-36); Mean Corpuscular Volume 95.4 fL (81-99); Mean Platelet Vol. 9.4 fl (6.2-12.0); NRBC Flagged by Analyzer 0 % (0-5); Platelet Count 221 K/mm3 (150-450); RBC Distribution Width CV 13.0 % (11.6-14.6); RBC Distribution Width SD 45.1 fl (35.1-43.9); Red Blood Count 3.66 M/mm3 (4.2-5.4); White Blood Count 5.6 K/mm3 (4.4-11.0)
[2025-07-05 10:43] LABS: AST(SGOT) 50 U/L (<=31); Alanine Aminotransfer ALT/SGPT 57 U/L (<=34); Albumin, Serum 4.3 g/dL (3.5-5.0); Alkaline Phosphatase 74 U/L (35-104); Anion Gap 9 (5-15); BUN 15 mg/dL (4-19); BUN/Creat Ratio 14.7 RATIO (10-20); Calcium,Total 9.7 mg/dL (7.6-11.0); Carbon Dioxide 22.1 mmol/L (21.0-32.0); Chloride 109 mmol/L (98-108); Globulin 3.6 g/dL (2.2-4.2); Glucose 103 mg/dL (70-99); Potassium 4.4 mmol/L (3.3-5.1)
== END | disposition home or self-care (01) ==
LOC: LAB 08:17
PROVIDERS: PCP Internal Medicine; Referring Provider Internal Medicine Gastroenterology; Visit Provider Internal Medicine Gastroenterology
DX: R79.89 Other specified abnormal findings of blood chemistry (principal)
CPT/HCPCS: 36415; 80053; 85025

== ENCOUNTER → 2025-08-05 | Outpatient (CLI) | payer OTHER, SELFPAY ==
--- OUTSIDE RECORDS SUMMARY | 2025-08-05 11:07 | XMS RPT_ITS | CCD ---
Author Organization [facility] Care Team Providers Care Capsule Maker Name Role Phone Shalini PUTTIER, Ivelisse S Unavailable Care Physician, No Primary Primary Care Provider Unavailable Care Physician, No Primary Referring Provider Un available Elyse RUIZ, PUTTIER-C Brenda Dent Attending Provider Rachel MALCOLM MD, Kishan Young Primary Care Provider Sharmaine vailable Dr. Abdoulaye Corley Primary Care Provider Dr. Abdoulaye Corley Referring Provider Shalini PUTTIER, PUTTIER-C Ivelisse Attending Provider [phone] FriendDr. House Attending Provider Unavailable Primary Care Provider UnavailWilman Lindsay MD Primary Care Provider Dr. Abdoulaye Corley Primary Care Provider Dr. Abdoulaye Corley Referring Provider Dr. Harsh Carrasquillo Attending Provider Dr. Wilman Hester Primary Care Provider Dr. Wilman Hester Referring Provider Dr. Harsh Carrasquillo Attending Provider [phone] Harsh Carrasquillo Other Provider Shalini PUTTIER, PUTTIER-C Ivelisse Attending Provider [phone] Wilman Hester MD Primary Care Provider Willie RN CARE MANAGER.INSPECTOR CIRCUITRY NEGATIVE, Gary Unavailable Van RN CARE MANAGER.BEHAVIOR INTERVENTIONIST, Lucy Unavailable TALAMPAS, WILMAN D Primary Care Unavailable TALAMPAS, WILMAN D Primary Care Unavailable TAPIA, GARY Referring Unavailable TALAMPAS, WILMAN D Primary Care Unavailable TALAMPAS, WILMAN D Referring Unavailable TALAMPAS, WILMAN D Primary Care Unavailable TALAMPAS, WILMAN D Attending Unavailable TAPIA, GARY Referring Unavailable TALAMPAS, WILMAN D Primary Care Unavailable TALAMPAS, WILMAN D Primary Care Unavailable JUANCARLOS CARRERA Attending Unavailable TALAMPAS, WILMAN D Primary Care Unavailable Friend, Harsh Referring Unavailable Talampas, Wilman D Primary Care Unavailable Friend, Harsh Attending Unavailable Shalini PUTTIER, Ivelisse Attending Unavailable Shalini PUTTIER, Ivelisse Referring Unavailable Talampas, Wilman D Primary Care Unavailable [place] PUTTIER, Ivelisse Attending Unavailable Talampas, Wilman D Primary Care Unavailable Talampas, Wilman D Referring Unavailable Friend, Harsh Attending Unavailable Talampas, Wilman D Referring Unavailable Talampas, Wilman D Primary Care Unavailable Friend, Harsh Attending Unavailable Talampas, Wilman D Primary Care Unavailable Care Physician, No Primary Referring Unava ilable Shalini PUTTIER, Ivelisse Attending Unavailable Shalini PUTTIER, Ivelisse Referring Unavailable Talampas, Wilman D Primary Care Unavailable Friend, Harsh Attending Unavailable Friend, Harsh Referring Unavailable Talampas, Wilman D Primary Care Unavailable Friend, Harsh Referring Unavailable Friend, Harsh Attending Unavailable Talampas, Wilman D Primary Care Unavailable Tonyaas Dr. Wilman MAYES Primary Care Physician Dr. Wilman Hester MD Referring Provider [phone] Dr. Harsh Carrasquillo DO Attending Physician Dr. Harsh Carrasquillo DO Referring Provider Medications Current Medications Medication Drug Class(es) Dates Sig (Normalized) Sig (Original) 0.8 ml adalimumab 50 mg/ml prefilled syringe (20 sources) Tumor Necrosis Factor Cory Start: 01-24-2025 inject 0.8 mL by subcutaneous injection every other week HUMIRA 40 mg/0.8 mL injection Inject 0.8 mL subcutaneously every other week. (Dr. Carrasquillo prescribes) 01/24/2025 Active Start: 09-17-2022 End: 12-31-2024 Start: 09-17-2022 End: 08-19-2023 Adalimumab (Humira(Cf) Pen) 40 mg/0.4 mL pen injector kit Active 0 SC .COMPLEX 2 August 19, 2023 1:49pm inject one - 40 mg/0.4 mL pen every 2 weeks SQ Approved 10.30.23-11.30.24 Start: 09-12-2022 End: 09-17-2022 Adalimumab 40 mg/0.8 mL syri nge kit Discontinued 40 mg SC every 2 weeks 2 September 12, 2022 12:16pm September 17, 2022 1:02pm Start: 10-09-2021 End: 09-12-2022 Adalimumab 40 mg/0.8 mL syri nge kit Discontinued 40 mg SC EVERY WEEK 2 September 12, 2022 12:11pm September 12, 2022 12:17pm Start: 08-14-2021 End: 01-24-2025 HUMIRA 40 mg/0.8 mL injectio n Subcutaneously, Inject one pen weekly 4 Each 6 08/14/2021 01/24/2025 Discontinued Start: 04-01-2016 End: 10-09-2021 Adalimumab 40 MG/0.8 ML syri nge kit Discontinued 40 mg SQ Q14D March 31, 2016 11:00pm October 09, 2021 8:32am HUMIRA 10 MG/0.2 ML PSKT Once every 14 days ADALIMUMAB [id number] Ivelisse Loya PUTTIER HUMIRA 10 MG/0.2 ML PSKT Once every 14 days ADALIMUMAB [id number] Ivelisse Loya PUTTIER Comment on above: Subcutaneously, Inje ct one pen weekly amoxicillin 875 mg / clavulanate 125 mg oral tablet (2 sources) Penicillin-class Antibacterial Start: 025 End: 025 take 1 tablet by mouth twice daily amoxicillin-clavula ivanna potassium (AUGMENTIN) 875-125 mg per tablet Take 1 tablet by mouth two times a day for 7 days. 14 tablet 01/17/2025 01/24/2025 Discontinued (Course of therapy completed) cholecalciferol 0.05 mg oral capsule (20 sources) Vitamin D Start: 021 End: 023 take 2 capsules by mouth once daily Cholecalciferol, Vitamin D3, (VITAMIN D-3) 50 mcg (2,000 unit) cap Take 2 capsules by mouth once daily. 60 capsule 11 01/13/2023 Active Start: 10-31-2013 take 1 capsule by mo uth once daily take 1 tablet by wei th once daily VITAMIN D3 TABS One tablet by mouth daily CHOLECALCIFEROL TABS [id number] Ivelisse Loya PUTTIER take 1 tablet by wei th once daily VITAMIN D3 TABS One tablet by mouth daily CHOLECALCIFEROL TABS [id number] Ivelisse Loya PUTTIER Comment on above: Take 2 capsules by m outh once daily. cholestyramine resin 4000 mg powder for oral suspension (20 sources) Bile Acid Sequestrant Start: 06-29-2025 Start: 01-24-2025 cholestyramine -sucrose (QUESTRAN) 4 gram powder Indications: Crohn's disease of both small and large intestine without complication (HCC) Use once daily as needed 01/24/2025 Active Start: 08-07-2022 End: 06-29-2025 Cholestyramine (With Sugar) 4 gram powder Discontinued 4 NMA PO DAILY 378 July 22, 2024 7:49am June 29, 2025 7:13am Start: 08-07-2022 End: 05-22-2023 take 4 g by mouth once daily Cholestyramine (With Sugar) Discontinued 4 GM PO DAILY August 07, 2022 12:59pm May 22, 2023 2:41pm Start: 08-07-2022 take 4 g by mouth on ce daily Cholestyramine (With Sugar) Active 4 GM PO DAILY August 07, 2022 1:59pm Start: 08-07-2022 take 4 g by mouth on ce daily Cholestyramine (With Sugar) Active 4 GM PO DAILY August 07, 2022 12:59pm Start: 06-20-2021 End: 01-24-2025 cholestyramine-sucrose (QUES RHOADES) 4 gram powder Indications: Crohn's disease of both small and large intestine without complication (HCC) USE ONE SCOOP ONCE DAILY DIRECTED 378 g 11 06/20/2021 01/24/2025 Discontinued Start: 04-01-2016 End: 08-07-2022 take 378 g by mouth once daily Cholestyramine (With Sugar) 378 GM ashli r Discontinued 378 g PO DAILY March 31, 2016 11:00pm August 07, 2022 1:00pm Comment on above: USE ONE SCOOP ONCE D AILY DIRECTED polymyxin b [id number] unt/ml / trimethoprim 1 mg/ml ophthalmic solution (1 source) Dihydrofolate Reductase Inhibitor Antibacterial, Polymyxin-class Antibacterial Start: 4 End: 4 take 1 drop(s) into the eye(s) every four hours trimethoprim-polym yxin (POLYTRIM) 10,000 unit- 1 mg/mL ophthalmic solution Use 1 Drop in both eyes every 4 hours for 7 days. 10 mL 07/16/2024 07/23/2024 Active Vitamin B Complex (11 sources) Start: 7 take 1 tablet by mouth once daily vitamin b complex (B COMPLEX-VITAMIN B12) tab Take 1 tablet by mouth once daily. 0 01/16/2017 Active Comment on above: Take 1 tablet by wei once daily. Completed/Discontinued Medications Medication Drug Class(es) Dates Sig (Normalized) Sig (Original) acetaminophen 325 mg / HYDROcodone bitartrate 5 mg oral tablet (13 sources) Opioid Agonist Start: 04-08-2016 End: 05-26-2019 Hydrocodone-Acetami nophen 1 TABLET tablet Discontinued 1 {tbl} PO EVERY 6 HOURS NEEDED as needed for Pain 10 0 April 07, 2016 11:00pm May 26, 2019 2:46pm Start: 04-08-2016 End: 05-26-2019 take 1 tablet by mouth every six hours as needed Hydrocodone-Acetaminophen Discontinued 1 TABLET PO EVERY 6 HOURS NEEDED April 07, 2016 11:00pm May 26, 2019 2:46pm acyclovir 400 mg oral tablet (3 sources) Herpesvirus Nucleoside Analog DNA Polymerase Inhibitor, Herpes Simplex Virus Nucleoside Analog DNA Polymerase Inhibitor, Herpes Zoster Virus Nucleoside Analog DNA Polymerase Inhibitor Start: 07-05-2020 End: 01-13-2023 take 1 tablet by mouth three times daily acyclovir (ZOVIRAX) 400 mg tablet Indications: Mouth ulcer Take 1 tablet by mouth three times daily. 21 tablet 0 07/05/2020 01/13/2023 Discontinued Comment on above: Take 1 tablet by [facility] three times daily. budesonide 3 mg delayed release oral capsule (13 sources) Corticosteroid Start: 04-01-2016 End: 05-26-2019 take 3 capsules by mouth once daily Budesonide 3 MG capsule Discontinued 9 mg PO DAILY March 31, 2016 11:00pm May 26, 2019 2:46pm Start: 04-01-2016 End: 05-26-2019 take 9 mg by mouth once daily Budesonide Discontinued 9 MG PO DAILY March 31, 2016 11:00pm May 26, 2019 2:46pm fluticasone / salmeterol (18 sources) Corticosteroid, beta2-Adrenergic Agonist Start: 01-13-2023 End: 01-15-2024 take 1 puff(s) by mouth twice daily fluticasone-salmeterol (ADVAIR DISKUS) 100-50 mcg/dose inhaler Indications: Mild intermittent asthma without complication Inhale 1 Puff as instructed twice daily. RINSE AND GARGLE MOUTH WITH WATER AFTER EACH USE. 1 Each 01/13/2023 01/15/2024 Discontinued Start: 01-13-2023 take 1 puff(s) by mo [facility] twice daily fluticasone-salmeterol (ADVAIR DISKUS) 100-50 mcg/dose inhaler Indications: Mild intermittent asthma without complication Inhale 1 Puff as instructed twice daily. RINSE AND GARGLE MOUTH WITH WATER AFTER EACH USE. 1 Each 01/13/2023 Active Start: 12-18-2020 End: 01-13-2023 take 1 puff(s) by mouth twice daily fluticasone-salmeterol (ADVAIR DISKUS) 100-50 mcg/dose Indications: Mild intermittent asthma without complication Inhale 1 Puff as instructed twice daily. RINSE AND GARGLE MOUTH WITH WATER AFTER EACH USE. 1 Inhaler 12/18/2020 01/13/2023 Discontinued Start: 12-18-2020 take 1 puff(s) by mo [facility] twice daily fluticasone-salmeterol (ADVAIR DISKUS) 100-50 mcg/dose Indications: Mild intermittent asthma without complication Inhale 1 Puff as instructed twice daily. RINSE AND GARGLE MOUTH WITH WATER AFTER EACH USE. 1 Inhaler 12/18/2020 Active Start: 12-18-2020 take 1 puff(s) by [facility] twice daily fluticasone-salmeterol (ADVAIR DISKUS) 100-50 mcg/dose Indications: Mild intermittent asthma without complication Inhale 1 Puff as instructed twice daily. RINSE AND GARGLE MOUTH WITH WATER AFTER EACH USE. 1 Inhaler 11 12/18/2020 Active Start: 04-07-2017 ADVAIR DISKUS 100-50 MCG/DOSE AEPB Twice a day FLUTICASONE-SALMETEROL [id number] Ivelisse Loya PUTTIER Start: 04-07-2017 ADVAIR DISKUS 100-50 MCG/DOSE AEPB Twice a day FLUTICASONE-SALMETEROL [id number] Ivelisse Loya PUTTIER Start: 04-01-2016 take 1 puff(s) by in [facility] twice daily Fluticasone Propion-Salmeterol Active 1 PUFF INHALATION TWICE A DAY April 01, 2016 5:33pm Start: 04-01-2016 take 1 puff(s) by in halation twice daily Fluticasone Propion-Salmeterol Active 1 PUFF INHALATION TWICE A DAY March 31, 2016 11:00pm Start: 04-01-2016 take 1 puff(s) by in halation twice daily Fluticasone Propion-Salmeterol Active 1 PUFF INHALATION TWICE A DAY April 01, 2016 12:00am Comment on above: Inhale 1 Puff as ins tructed twice daily. RINSE AND GARGLE MOUTH WITH WATER AFTER EACH USE. tropicamide 10 mg/ml ophthalmic solution (1 source) Anticholinergic Start: 11-12-19 End: 11-12-19 tropicamide 1 % 1 Drop (MYDRIACYL) Vitamin B 12 (20 sources) Vitamin B12 Start: 04-07-20 take 1 tablet by mouth once daily VITAMIN B-12 TABS One tablet by mouth daily CYANOCOBALAMIN TABS [id number] Ivelisse Loya PUTTIER Start: 10-31-2013 take 1 tablet under the tongue once daily Problems Active Problems Problem Classification Problem Date Documented Da te Episodic/Chronic Asthma (20 sources) Asthma; Translations: [Mild intermittent asthma] Onset: 08-22-2015 04-07-2017 Chronic Bacterial infection; unspecified site (1 source) Other specified bacterial agents as the cause of diseases classified elsewhere; Translations: [Bacterial sinusitis] Onset: 01-17-2025 Episodic Deficiency and other anemia (15 sources) Anemia; Translations: [Anemia, unspecified] Onset: 04-07-2017 04-07-2017 Episodic Disorders of lipid metabolism (11 sources) Hypertriglyceridemia ; Translations: [Pure hyperglyceridemia] Onset: 03-24-2018 03-24-2018 Chronic Immunizations and screening for infectious disease (18 sources) Autoantibody level - finding; Translations: [Other specified abnormal immunological findings in serum] Episodic Comment on above: Rheumatology seen wi thout concern for Lupus. Inflammation; infection of eye (except that caused by tuberculosis or sexually transmitteddisease) (1 source) Conjunctivitis of left eye; Translations: [Unspecified conjunctivitis] 07-16-2024 Episodic Menopausal disorders (17 sources) Menopausal syndrome; Translations: [Menopausal and female climacteric states] Chronic Nutritional deficiencies (14 sources) Vitamin D deficiency; Translations: [Vitamin D deficiency, unspecified] Onset: 02-26-2013 02-26-2013 Chronic Other aftercare (1 source) Long-term current use of drug therapy; Translations: [Other termite technician (current) drug therapy] 01-24-2025 Episodic Other aftercare (1 source) Other long-term (current) drug therapy; Translations: [Encounter for long-term current use of medication] Onset: 01-24-2025 Episodic Other screening for suspected conditions (not mental disorders or infectious disease) (9 sources) Patient encounter status; Translations: [Encounter for screening mammogram for malignant neoplasm of breast] Onset: 10-14-2024 Episodic Other upper respiratory infections (2 sources) Bacterial sinusitis; Translations: [Chronic sinusitis, unspecified] Onset: 01-17-2025 01-17-2025 Chronic Phlebitis; thrombophlebitis and thromboembolism (20 sources) H/O: thrombosis; Translations: [H/O: Deep vein thrombosis] Onset: 04-07-2017 04-07-2017 Episodic Regional enteritis and ulcerative colitis (20 sources) Crohn's disease; Translations: [Crohn's disease, unspecified, without complications] Onset: 11-21-2010 04-07-2017 Chronic Residual codes; unclassified (1 source) Family history of vitamin B12 deficiency; Translations: [Family history of other endocrine, nutritional and metabolic diseases] 01-24-2025 Episodic Residual codes; unclassified (1 source) Family history of other endocrine, nutritional and metabolic diseases; Translations: [Family history of B12 deficiency] Onset: 01-24-2025 Episodic Screening and history of mental health and substance abuse codes (2 sources) Encounter for screening for depression; Translations: [Encounter for screening examination for other mental health and behavioral disorders] Onset: 01-24-2025 Episodic Unclassified (1 source) Gynecologic examination ; Translations: [Encounter for gynecological examination (general) (routine) without abnormal findings] Onset: 04-07-2017 04-07-2017 Past or Other Problems Problem Classification Problem Date Documented Da te Episodic/Chronic Anal and rectal conditions (7 sources) Anal fistula; Translations: [Anal fistula] Onset: 09-03-2012 Resolved: 01-16-2017 01-16-2017 Episodic Biliary tract disease (11 sources) Chronic cholecystitis with calculus; Translations: [Calculus of gallbladder with chronic cholecystitis without obstruction] Onset: 03-21-2016 03-21-2016 Episodic Blindness and vision defects (20 sources) Myopia; Translations: [Myopia, unspecified eye] Onset: 10-15-2014 10-15-2014 Episodic Deficiency and other anemia (1 source) Anemia, unspecified; Translations: [Anemia, unspecified type] Onset: 03-24-2018 Episodic Fracture of upper limb (7 sources) Closed fracture of head of left radius; Translations: [Displaced fracture of head of left radius, initial encounter for closed fracture] Onset: 11-05-2013 Resolved: 08-22-2015 08-22-2015 Episodic Other bone disease and musculoskeletal deformities (13 sources) Osteopenia; Translations: [Other specified disorders of bone density and structure, unspecified site] Onset: 04-07-2017 04-07-2017 Episodic Other circulatory disease (7 sources) Cardiovascular finding; Translations: [Other specified symptoms and signs involving the circulatory and respiratory systems] Onset: 08-19-2007 Resolved: 08-22-2015 08-22-2015 Episodic Other gastrointestinal disorders (7 sources) Diarrhea; Translations: [Diarrhea, unspecified] Onset: 02-18-2006 Resolved: 01-16-2017 01-16-2017 Episodic Other injuries and conditions due to external causes (13 sources) Fracture of bone; Translations: [Other injury of unspecified body region, initial encounter] Onset: 04-07-2017 04-07-2017 Episodic Residual codes; unclassified (11 sources) Family history of cardiac disorder; Translations: [Family history of ischemic heart disease and other diseases of the circulatory system] Onset: 08-04-2017 08-04-2017 Episodic Results Test Name Value Interpretation Reference Range Facility Absolute lymphocyte countOrd ered By: Harsh Carrasquillo on 07-05-2025 Lymphocytes Auto (Unsp spec) [#/Vol] 2.81 10*3/uL 0.83-4.51 [facility] Absolute neutrophil countOrd ered By: Harshsybil Carrasquillo on 07-05-2025 Neutrophils (Bld) [#/Vol] 2.1 10*3/uL 2.0-7.7 [facility] Anion gap in Serum or Plasma Ordered By: Harsh Carrasquillo on 07-05-2025 Anion gap [Moles/Vol] 9 mmol/L 5- [facility] Automated lymphocyte count a s percentage of total leukocytesOrdered By: Harsh Carrasquillo on 07-05-2025 Lymphocytes/100 WBC Auto (Unsp spec) 50.1 % High 19-41 [facility] BUN/creatinine ratioOrdered By: Harshsybil Carrasquillo on 07-05-2025 Urea nitrogen/Creatinine [Mass ratio] 14.7 mg/mg 10- [facility] Basophil percentageOrdered B y: Harsh Carrasquillo on 07-05-2025 Basophils/100 WBC (Bld) 0.7 % 0-1 [facility] Bilirubin, totalOrdered By: Harsh Carrasquillo on 07-05-2025 Bilirubin [Mass/Vol] 0.54 mg/dL 0.00-1.30 [facility] CBC W/Diff, Automatedon 06-09 Absolute Lymph 2.81 X10 3/uL Normal 0.83-4.51 [facility] Comment on above: Performed By: #### L 100.0100, L500.4050 #### [facility] [place], [address] Absolute Neut 2.1 X10 3/uL Normal 2.0-7.7 [facility] Comment on above: Performed By: #### L 100.0100, L500.4050 #### [facility] [address] [place], [address] Basophils/100 WBC (Bld) 0.7 % Normal 0-1 [facility] Comment on above: Performed By: #### L 100.0100, L500.4050 #### [facility] [address] [place], [address] Eosinophils/100 WBC (Bld) 2.1 % Normal 0-5 [facility] Comment on above: Performed By: #### L 100.0100, L500.4050 #### [facility] [address] [place], [address] Erythrocyte distribution width (RBC) [Ratio] 13.0 % Normal 11.6-14.6 [facility] Comment on above: Performed By: #### L 100.0100, L500.4050 #### [facility] [address] [place], [address] Hematocrit (Bld) [Volume fraction] 34.9 % Low 37-47 [facility] Comment on above: Performed By: #### L 100.0100, L500.4050 #### [facility] [address] [place], [address] Hemoglobin (Bld) [Mass/Vol] 11.7 g/dL Low 12.0-15.0 [facility] Comment on above: Performed By: #### L 100.0100, L500.4050 #### [facility] [address] [place], [address] IG% 0.200 Normal 0.0-0.9 [facility] Comment on above: Result Comment: IG% - Immature Granulocytes (promyelocytes, myelocytes and metamyelocytes) > 1% indicates that a LEFT SHIFT is Present. Performed By: #### L 100.0100, L500.4050 #### [facility] [address] [place], [address] Lymphocytes/100 WBC (Bld) 50.1 % High 19-41 [facility] Comment on above: Performed By: #### L 100.0100, L500.4050 #### [facility] [address] [place], [address] MCH (RBC) [Entitic mass] 32.0 pg Normal 27.0-32.0 [facility] Comment on above: Performed By: #### L 100.0100, L500.4050 #### [facility] [address] [place], [address] MCHC (RBC) [Mass/Vol] 33.5 g/dL Normal 32-36 [facility] Comment on above: Performed By: #### L 100.0100, L500.4050 #### [facility] [address] [place], [address] MCV (RBC) [Entitic vol] 95.4 fL Normal 81-99 [facility] Comment on above: Performed By: #### L 100.0100, [id number] #### [facility] [address] [place], [address] Monocytes/100 WBC (Bld) 9.3 % Normal 0-10 [facility] Comment on above: Performed By: #### L 100.0100, [id number] #### [facility] [address] [place], [address] Neutrophils/100 WBC (Bld) 37.6 % Low 47-70 [facility] Comment on above: Performed By: #### L 100.0100, [id number] #### [facility] [address] [place], [address] Nucleated RBC (Bld) [#/Vol] 0 10*3/uL Normal 0-5 [facility] Comment on above: Performed By: #### L 100.0100, [id number] #### [facility] [address] [place], [address] Platelet mean volume (Bld) [Entitic vol] 9.4 fL Normal 6.2-12.0 [facility] Comment on above: Performed By: #### L 100.0100, [id number] #### [facility] [address] [place], [address] Platelets (Bld) [#/Vol] 221 10*3/uL Normal 150-450 [facility] Comment on above: Performed By: #### L 100.0100, [id number] #### [facility] [address] [place], [address] RBC (Bld) [#/Vol] 3.66 10*6/uL Low 4.2-5.4 [facility] Comment on above: Performed By: #### L 100.0100, [id number] #### [facility] [address] [place], [address] RDW SD 45.1 fl High 35.1-43.9 [facility] Comment on above: Performed By: #### L 100.0100, [id number] #### [facility] [address] [place], [address] WBC (Bld) [#/Vol] 5.6 10*3/uL Normal 4.4-11.0 [facility] Comment on above: Performed By: #### L 100.0100, [id number] #### [facility] [address] [place], [address] Carbon dioxide, total [Moles /volume] in Central venous bloodOrdered By: Harsh Carrasquillo on 07-05-2025 CO2 [Moles/Vol] 22.1 mmol/L 21.0-32.0 [facility] Chloride assayOrdered By: Ra sol Carrasquillo on 07-05-2025 Chloride [Moles/Vol] 109 mmol/L High 98-108 [facility] Comprehensive Metabolic Prof ilon 07-05-2025 Albumin [Mass/Vol] 4.3 g/dL Normal 3.5-5.0 [facility] Comment on above: Performed By: #### L 100.0100, [id number] #### [facility] [address] [place], [address] Albumin/Globulin [Mass ratio] 1.2 {ratio} Normal 0.9-2.4 [facility] Comment on above: Performed By: #### L 100.0100, [id number] #### [facility] [address] [place], [address] ALK PHOS 74 U/L Normal 35-104 [facility] Comment on above: Performed By: #### L 100.0100, [id number] #### [facility] [address] [place], [address] ALT [Catalytic activity/Vol] 57 U/L High <=34 [facility] Comment on above: Performed By: #### L 100.0100, [id number] #### [facility] [facility] [address] [place], [address] AST [Catalytic activity/Vol] 50 U/L High <=31 [facility] Comment on above: Performed By: #### L 100.0100, L500.4050 #### [facility] [address] [place], [address] Bilirubin [Mass/Vol] 0.54 mg/dL Normal 0.00-1.30 [facility] Comment on above: Performed By: #### L 100.0100, L500.4050 #### [facility] [address] [place], [address] BUN/CRE 14.7 RATIO Normal 10-20 [facility] Comment on above: Performed By: #### L 100.0100, L500.4050 #### [facility] [address] [place], [address] Calcium [Mass/Vol] 9.7 mg/dL Normal 7.6-11.0 [facility] Comment on above: Performed By: #### L 100.0100, L500.4050 #### [facility] [address] [place], [address] Chloride [Moles/Vol] 109 mmol/L High 98-108 [facility] Comment on above: Performed By: #### L 100.0100, L500.4050 #### [facility] [address] [place], [address] CO2 [Moles/Vol] 22.1 mmol/L Normal 21.0-32.0 [facility] Comment on above: Performed By: #### L 100.0100, L500.4050 #### [facility] [address] [place], [address] Creatinine [Mass/Vol] 1.00 mg/dL Normal 0.70-1.20 [facility] Comment on above: Performed By: #### L 100.0100, L500.4050 #### [facility] [address] [place], [address] GAP 9 Normal 5-15 [facility] Comment on above: Performed By: #### L 100.0100, L500.4050 #### [facility] [address] [place], [address] GFR/1.73 sq M.predicted among non-blacks MDRD (S/P/Bld) [Vol rate/Area] 67 mL/min/{1.73_m2} Normal >60 [facility] Comment on above: Result Comment: mL/m in/1.73m2 CKD-EPI Creatinine Equation (2020) Performed By: #### L 100.0100, L500.4050 #### [facility] [address] [place], [address] Globulin (S) [Mass/Vol] 3.6 g/dL Normal 2.2-4.2 [facility] Comment on above: Performed By: #### L 100.0100, L500.4050 #### [facility] [address] [place], [address] Glucose [Mass/Vol] 103 mg/dL High 70-99 [facility] Comment on above: Performed By: #### L 100.0100, L500.4050 #### [facility] [address] [place], [address] Potassium [Moles/Vol] 4.4 mmol/L Normal 3.3-5.1 [facility] Comment on above: Performed By: #### L 100.0100, L500.4050 #### [facility] [address] [place], [address] Sodium [Moles/Vol] 140 mmol/L Normal 133-145 [facility] Comment on above: Performed By: #### L 100.0100, L500.4050 #### [facility] [address] [place], [address] T PROT 7.9 g/dL Normal 5.9-8.4 [facility] Comment on above: Performed By: #### L 100.0100, L500.4050 #### [facility] [address] [place], [address] Urea nitrogen [Mass/Vol] 15 mg/dL Normal 4-19 [facility] Comment on above: Performed By: #### L 100.0100, L500.4050 #### [facility] [address] [place], [address] Eosinophil percentageOrdered By: Harsh Carrasquillo on 07-05-2025 Eosinophils/100 WBC (Bld) 2.1 % 0-5 [facility] Erythrocyte distribution wid th ratioOrdered By: Harsh Carrasquillo on 07-05-2025 Erythrocyte distribution width (RBC) [Ratio] 13.0 % 11.6-14.6 [facility] Erythrocyte distribution wid th standard deviationOrdered By: Harsh Carrasquillo on 07-05-2025 Erythrocyte distribution width (RBC) [Ratio] 45.1 fl High 35.1-43.9 [facility] Glomerular filtration rate ( GFR) estimation/1.73 sq m using serum, plasma, or whole bOrdered By: Harsh Carrasquillo on 07-05-2025 GFR/1.73 sq M.predicted among non-blacks MDRD (S/P/Bld) [Vol rate/Area] 67 mL/min/{1.73_m2} >60 [facility] Comment on above: mL/min/1.73m2 CKD-EP I Creatinine Equation (2020) Hematocrit Auto (Bld) [Volum e fraction]Ordered By: Harsh Carrasquillo on 07-05-2025 Hematocrit (Bld) [Volume fraction] 34.9 % Low 37-47 [facility] Hemoglobin measurementOrdere d By: Harsh Carrasquillo on 07-05-2025 Hemoglobin (Bld) [Mass/Vol] 11.7 g/dL Low 12.0-15.0 [facility] Immature granulocytes/100 WB C Auto (Bld)Ordered By: Harsh Carrasquillo on 07-05-2025 Immature granulocytes/100 WBC (Bld) 0.200 % 0.0-0.9 [facility] Comment on above: IG% - Immature Granu locytes (promyelocytes, myelocytes and metamyelocytes) > 1% indicates that a LEFT SHIFT is Present. Laboratory - Chemistry and C hemistry - challengeOrdered By: Harsh Carrasquillo on 07-05-2025 AST [Catalytic activity/Vol] 50 U/L High <32 [facility] MCV (mean corpuscular volume ) determinationOrdered By: Harsh Carrasquillo on 07-05-2025 MCV (RBC) [Entitic vol] 95.4 fL 81-99 [facility] Mean corpuscular hemoglobin (MCH) determinationOrdered By: Harsh Carrasquillo on 07-05-2025 MCH (RBC) [Entitic mass] 32.0 pg 27.0-32.0 [facility] Mean corpuscular hemoglobin concentration (MCHC) determinationOrdered By: Harsh Carrasquillo on 07-05-2025 MCHC (RBC) [Mass/Vol] 33.5 g/dL 32-36 [facility] Mean platelet volume determi nationOrdered By: Harsh Carrasquillo on 07-05-2025 Platelet mean volume (Bld) [Entitic vol] 9.4 fL 6.2-12.0 [facility] Monocyte percentageOrdered B y: Harsh Carrasquillo on 07-05-2025 Monocytes/100 WBC (Bld) 9.3 % 0-10 [facility] Neutrophil percentageOrdered By: Harsh Carrasquillo on 07-05-2025 Neutrophils/100 WBC (Bld) 37.6 % Low 47-70 [facility] Nucleated red blood cell per centageOrdered By: Harsh Carrasquillo on 07-05-2025 Nucleated RBC/100 WBC (Bld) [Ratio] 0 % 0-5 [facility] Platelet countOrdered By: Ra sol Carrasquillo on 07-05-2025 Platelets (Bld) [#/Vol] 221 10*3/uL 150-450 [facility] Potassium measurement (mass/ volume)Ordered By: Harsh Carrasquillo on 07-05-2025 Potassium (Unsp spec) [Mass/Vol] 4.4 mmol/L 3.3-5.1 [facility] RBC Auto (Bld) [#/Vol]Ordere d By: Harsh Carrasquillo on 07-05-2025 RBC (Bld) [#/Vol] 3.66 10*6/uL Low 4.2-5.4 [facility] Serum creatinine measurement (mass/volume)Ordered By: Harsh Carrasquillo on 07-05-2025 Creatinine [Mass/Vol] 1.00 mg/dL 0.70-1.20 [facility] Serum globulin measurementOr dered By: Harsh Carrasquillo on 07-05-2025 Globulin (S) [Mass/Vol] 3.6 g/dL 2.2-4.2 [facility] Serum glucose measurement (m ass/volume)Ordered By: Harsh Carrasquillo on 07-05-2025 Glucose [Mass/Vol] 103 mg/dL High 70-99 [facility] Serum or plasma alanine singh otransferase (ALT) measurementOrdered By: Harsh Carrasquillo on 07-05-2025 ALT [Catalytic activity/Vol] 57 U/L High <35 [facility] Serum or plasma albumin neha urement (mass/volume)Ordered By: Harsh Carrasquillo on 07-05-2025 Albumin [Mass/Vol] 4.3 g/dL 3.5-5.0 [facility] Serum or plasma albumin/glob ulin mass ratioOrdered By: Harsh Carrasquillo on 07-05-2025 Albumin/Globulin [Mass ratio] 1.2 {ratio} 0.9-2.4 [facility] Serum or plasma alkaline abbie sphatase measurementOrdered By: Harsh Carrasquillo on 07-05-2025 ALP [Catalytic activity/Vol] 74 U/L 35-104 [facility] Serum or plasma calcium neha urement (mass/volume)Ordered By: Harsh Carrasquillo on 07-05-2025 Calcium [Mass/Vol] 9.7 mg/dL 7.6-11.0 [facility] Serum or plasma urea nitroge n measurement (mass/volume)Ordered By: Harsh Carrasquillo on 07-05-2025 Urea nitrogen [Mass/Vol] 15 mg/dL 4-19 [facility] Sodium levelOrdered By: Makeda Rodriguez on 07-05-2025 Sodium [Moles/Vol] 140 mmol/L 133-145 [facility] Total proteinOrdered By: Christofer Carrasquillo on 07-05-2025 Protein [Mass/Vol] 7.9 g/dL 5.9-8.4 [facility] White blood cell (WBC) count Ordered By: Harsh Carrasquillo on 07-05-2025 WBC (Bld) [#/Vol] 5.6 10*3/uL 4.4-11.0 [facility] Absolute lymphocyte countOrd ered By: Harsh Carrasquillo on 06-29-2025 Lymphocytes Auto (Unsp spec) [#/Vol] 2.96 10*3/uL 0.83-4.51 [facility] Absolute neutrophil countOrd ered By: Harsh Carrasquillo on 06-29-2025 Neutrophils (Bld) [#/Vol] 2.3 10*3/uL 2.0-7.7 [facility] Anion gap in Serum or Plasma Ordered By: Harsh Carrasquillo on 06-29-2025 Anion gap [Moles/Vol] 12 mmol/L 5-15 [facility] Automated lymphocyte count a s percentage of total leukocytesOrdered By: Harsh Carrasquillo on 06-29-2025 Lymphocytes/100 WBC Auto (Unsp spec) 49.7 % High 19-41 [facility] BUN/creatinine ratioOrdered By: Harsh Carrasquillo on 06-29-2025 Urea nitrogen/Creatinine [Mass ratio] 14.7 mg/mg 10-20 [facility] Basophil percentageOrdered B y: Harsh Carrasquillo on 06-29-2025 Basophils/100 WBC (Bld) 0.7 % 0-1 [facility] Bilirubin, totalOrdered By: Harsh Carrasquillo on 06-29-2025 Bilirubin [Mass/Vol] 0.44 mg/dL 0.00-1.30 [facility] Carbon dioxide, total [Moles /volume] in Central venous bloodOrdered By: Harsh Carrasquillo on 06-29-2025 CO2 [Moles/Vol] 22.4 mmol/L 21.0-32.0 [facility] Chloride assayOrdered By: Ra sol Carrasquillo on 06-29-2025 Chloride [Moles/Vol] 105 mmol/L 98-108 [facility] Eosinophil percentageOrdered By: Harsh Carrasquillo on 06-29-2025 Eosinophils/100 WBC (Bld) 2.4 % 0-5 [facility] Erythrocyte distribution wid th ratioOrdered By: Harsh Carrasquillo on 06-29-2025 Erythrocyte distribution width (RBC) [Ratio] 12.9 % 11.6-14.6 [facility] Erythrocyte distribution wid th standard deviationOrdered By: Harsh Carrasquillo on 06-29-2025 Erythrocyte distribution width (RBC) [Ratio] 44.4 fl High 35.1-43.9 [facility] Erythrocyte sedimentation ra teOrdered By: Harsh Friend on 06-29-2025 ESR (Bld) [Velocity] 14 mm/h 0-30 [facility] Gastroenterology Visit Repor ton 06-29-2025 Gastroenterology Visit Report [facility] [address] [place] [address] OFFICE VISIT Date of Service: 06/29/25 MR#: [id number] Acct: [id number] Name: CHANG MARADIAGA Rep #: [id number] : 1970 Provider: Harsh Carrasquillo DO Age/Sex: 54/F Location: [facility] Status: Signed Intake Vital Signs 09/27/24 09:01 Height 5 ft 6 in Intake Visit Reasons: 6 M FU Allergies No Known Allergies Allergy (Verified 09/27/24 09:04) Medications ???Medication ???Instructions ???Recorded ???Confirmed ???Type cholecalciferol (vitamin D3) 25 1,000 unit PO DAILY 10/31/1306/29 History mcg (1,000 unit) capsule cyanocobalamin (vitamin B-12) 1,000 mcg sublingual DAILY 4 06/29/25 History 1,000 mcg sublingual tablet adalimumab 40 mg/0.4 mL See Rx Instructions subcut 5 06/29/25 Rx subcutaneous pen kit (Humira(CF) .COMPLEX #2 ea Pen) cholestyramine (with sugar) 4 gram 4 ea PO DAILY #378 GMS 06/29/25 06/29/25 Rx oral powder PFSH Medical History Post-menopausal Wears glasses Low iron DVT (deep venous thrombosis) Easy bruising Non-smoker History of echocardiogram Positive double stranded DNA antibody test Surgical History History of cholecystectomy History of bowel resection Family History Brother Heart disease Social History number of children: 2 current occupational status: employed current occupation: [employer] Smoking Status: Never smoker alcohol intake: current alcohol intake frequency: holidays/special occasions only substance use type: does not use seatbelt use: always do you feel safe at home: Yes HPI HPI Details: CHANG MARADIAGA, is a 54 F who presents to the office today for follow up. PMH climacteric; DVT Hx. PSH cholecystectomy 2016 [facility] established prior with Humira started 2009 with concern for aphthous ulcers in her mouth and increased BM just prior to next dose of Humira (QOWeek dosing). ? Colonoscopy 08.03.18 report unavailable. Pathology of one polyp, inflammatory type without dysplasia. ? Colonoscopy 09.06.20 report unavailable. Rectal ulcer pathology with acute and chronic inflammation and granulation. *[facility] established 08.28.21 with previously diagnosed Crohn???s disease maintained with Humira QWeek. ? Biochemical workup CBC, ESR, coagulation, CMP, LFT, CRP without pertinent abnormality. ? Cholesterol H258, vLDL H52, double strand DNA H44 ? Refer to rheumatology Biochemical workup TB WNL. Humira concentration 13.[address] enterography 09.14.21 noting postsurgical changes of cecum, mid small bowel (focal fluid distention measuring 4.3cm) and LUQ small bowel (focal area of fluid distention measuring 4x5.8cm). No signs of Crohn???s disease. OV 10.09.21 continue Humira, explore QOweek option. Biochemical workup CBC, ESR, CMP, CRP, TB without pertinent abnormality LFT AST 31-ALT H58-AP [address] [facility] established .01.27. OV 12.31.21 with suspected drug-induced HAIR and antihistone ab r/t Humira use. No evidence of systemic Lupus. OV 10.28.22 without symptoms related to Crohn???s. Humira QOweek started end of August. Bloodwork drawn last week and is still pending. ? Biochemical workup / CBC, ESR, CMP, CRP, TB without pertinent abnormality. OV 6 feels she is doing very well at this time. Has some bloating after eating which is ???released??? and she feels better, feels is r/t historical small bowel resections. Denies joint pain, vision changes or rashes. OV 12.21.22 she underwent EGD and colonoscopy back in July 2023. Her upper endoscopy that showed eosinophilic esophagitis with no changes of intestinal metaplasia, dysplasia or cancer. Her stomach and duodenum did not have any pathology. Her colonoscopy did reveal a normal-appearing anastomosis without any signs or symptoms of stenosis, scarring or chronic inflammation. Biopsies of the anastomosis and throughout the colon did not reveal any active disease. At this time she is doing very well. She has been exercising every day with walking every morning. She has lost about 2 pounds but has gained some muscle. She maintains a good weight. She does not have any abdominal pain, cramping, nausea, vomiting, diarrhea. She is being maintained on Humira 40 mg every other week. OV 06.28.24 pt reports that she is doing well overall and (more content not included)... Normal [facility] Glomerular filtration rate ( GFR) estimation/1.73 sq m using serum, plasma, or whole bOrdered By: Harsh Carrasquillo on 06-29-2025 GFR/1.73 sq M.predicted among non-blacks MDRD (S/P/Bld) [Vol rate/Area] 68 mL/min/{1.73_m2} >60 [facility] Comment on above: mL/min/1.73m2 CKD-EP I Creatinine Equation (2020) Hematocrit Auto (Bld) [Volum e fraction]Ordered By: Harsh Carrasquillo on 06-29-2025 Hematocrit (Bld) [Volume fraction] 37.3 % 37-47 [facility] Hemoglobin measurementOrdere d By: Harsh Carrasquillo on 06-29-2025 Hemoglobin (Bld) [Mass/Vol] 12.6 g/dL 12.0-15.0 [facility] Immature granulocytes/100 WB C Auto (Bld)Ordered By: Harsh Carrasquillo on 06-29-2025 Immature granulocytes/100 WBC (Bld) 0.300 % 0.0-0.9 [facility] Comment on above: IG% - Immature Granu locytes (promyelocytes, myelocytes and metamyelocytes) > 1% indicates that a LEFT SHIFT is Present. Laboratory - Chemistry and C hemistry - challengeOrdered By: Harsh Carrasquillo on 06-29-2025 AST [Catalytic activity/Vol] 54 U/L High <32 [facility] MCV (mean corpuscular volume ) determinationOrdered By: Harsh Carrasquillo on 06-29-2025 MCV (RBC) [Entitic vol] 94.0 fL 81-99 [facility] Mean corpuscular hemoglobin (MCH) determinationOrdered By: Harsh Carrasquillo on 06-29-2025 MCH (RBC) [Entitic mass] 31.7 pg 27.0-32.0 [facility] Mean corpuscular hemoglobin concentration (MCHC) determinationOrdered By: Harsh Carrasquillo on 06-29-2025 MCHC (RBC) [Mass/Vol] 33.8 g/dL 32-36 [facility] Mean platelet volume determi nationOrdered By: Harsh Carrasquillo on 06-29-2025 Platelet mean volume (Bld) [Entitic vol] 9.2 fL 6.2-12.0 [facility] Monocyte percentageOrdered B y: Harsh Carrasquillo on 06-29-2025 Monocytes/100 WBC (Bld) 8.7 % 0-10 [facility] Neutrophil percentageOrdered By: Harsh Carrasquillo on 06-29-2025 Neutrophils/100 WBC (Bld) 38.2 % Low 47-70 [facility] No Panel InformationOrdered By: Harshneal Carrasquillo on 06-29-2025 Hepatitis C Antibody Comment Comment . [facility] Comment on above: Not infected with HC V unless early or acute infection issuspected (which may be delayed in an immunocompromisedindividual), or other evidence exists to indicate HCVinfection.Performed at: [facility] [id number] Director: Cleveland Monzon PhD, Phone: [phone] Nucleated red blood cell per centageOrdered By: Harshneal Carrasquillo on 06-29-2025 Nucleated RBC/100 WBC (Bld) [Ratio] 0.3 % 0-5 [facility] Platelet countOrdered By: Ra sol Carrasquillo on 06-29-2025 Platelets (Bld) [#/Vol] 230 10*3/uL 150-450 [facility] Potassium measurement (mass/ volume)Ordered By: Harshneal Carrasquillo on 06-29-2025 Potassium (Unsp spec) [Mass/Vol] 4.5 mmol/L 3.3-5.1 [facility] Qualitative QuantiFERON-TB g old in tube testOrdered By: Harshneal Carrasquillo on 06-29-2025 M. tuberculosis tuberculin stim IFN-g Ql (Bld) 0.08 IU/mL . [facility] RBC Auto (Bld) [#/Vol]Ordere d By: Harshneal Carrasquillo on 06-29-2025 RBC (Bld) [#/Vol] 3.97 10*6/uL Low 4.2-5.4 [facility] Serum creatinine measurement (mass/volume)Ordered By: Harsh Carrasquillo on 06-29-2025 Creatinine [Mass/Vol] 0.98 mg/dL 0.70-1.20 [facility] Serum globulin measurementOr dered By: Harsh Carrasquillo on 06-29-2025 Globulin (S) [Mass/Vol] 4.1 g/dL 2.2-4.2 [facility] Serum glucose measurement (m ass/volume)Ordered By: Harsh Carrasquillo on 06-29-2025 Glucose [Mass/Vol] 106 mg/dL High 70-99 [facility] Serum hepatitis B virus surf etta antibody detectionOrdered By: Harsh Carrasquillo on 06-29-2025 HBV surface Ab Ql (S) Non-Reactive [facility] Comment on above: <8.5 mIU/mL: Non-Fani ctive8.5<= x <11.5 mIU/mL: Indeterminate>=11.5 mIU/mL: Reactive Non Reactive: Inconsistent with immunity less than <10 mIU/mL Reactive: Consistent with immunity greater than or equal to 10 mIU/mL Serum or plasma C reactive p rotein measurement (mass/volume)Ordered By: Harsh Carrasquillo on 06-29-2025 CRP [Mass/Vol] mg/L 0.0-3.0 [facility] Serum or plasma alanine singh otransferase (ALT) measurementOrdered By: Harsh Carrasquillo on 06-29-2025 ALT [Catalytic activity/Vol] 58 U/L High <35 [facility] Serum or plasma albumin neha urement (mass/volume)Ordered By: Harsh Carrasquillo on 06-29-2025 Albumin [Mass/Vol] 4.6 g/dL 3.5-5.0 [facility] Serum or plasma albumin/glob ulin mass ratioOrdered By: Harsh Carrasquillo on 06-29-2025 Albumin/Globulin [Mass ratio] 1.1 {ratio} 0.9-2.4 [facility] Serum or plasma alkaline abbie sphatase measurementOrdered By: Harsh Carrasquillo on 06-29-2025 ALP [Catalytic activity/Vol] 83 U/L 35-104 [facility] Serum or plasma calcium neha urement (mass/volume)Ordered By: Harsh Carrasquillo on 06-29-2025 Calcium [Mass/Vol] 10.0 mg/dL 7.6-11.0 [facility] Serum or plasma hepatitis B virus surface antigen detection by immunoassayOrdered By: Harsh Carrasquillo on 06-29-2025 HBV surface Ag IA Ql Negative Negative [facility] Serum or plasma urea nitroge n measurement (mass/volume)Ordered By: Harsh Carrasquillo on 06-29-2025 Urea nitrogen [Mass/Vol] 14 mg/dL 4-19 [facility] Sodium levelOrdered By: Makeda jennifersybil Friend on 06-29-2025 Sodium [Moles/Vol] 139 mmol/L 133-145 [facility] Total proteinOrdered By: Christofer wilfredsybil Friend on 06-29-2025 Protein [Mass/Vol] 8.7 g/dL High 5.9-8.4 [facility] White blood cell (WBC) count Ordered By: Harsh Carrasquillo on 06-29-2025 WBC (Bld) [#/Vol] 6.0 10*3/uL 4.4-11.0 [facility] 25(OH)D3 SerPl-mCncon 2024 25-hydroxyvitamin D3 [Mass/Vol] 52.3 ng/mL Normal 31.0-80.0 [facility] Comment on above: Order Comment: Speci men Type: BLOOD SPECIMEN Ordering Facility: [facility] Address: [address] [place] [address] Performed By: #### 2 4323-8, 90609-4, 2132-9 #### [facility] CLIA [id number] [address] [place] [address] [place] CBC W Auto Differential pane l (Bld)on 01-24-2025 Basophils (Bld) [#/Vol] 0.06 10*3/uL Normal <0.11 [facility] Comment on above: Order Comment: Speci men Type: BLOOD SPECIMEN Ordering Facility: [facility] Address: [address] [place] [address] Performed By: #### 5 7021-8 #### [facility] CLIA [id number] [address] [place] [address] [place] Basophils/100 WBC (Bld) 0.7 % Normal [facility] Comment on above: Order Comment: Speci men Type: BLOOD SPECIMEN Ordering Facility: [facility] Address: [address] [place] [address] Performed By: #### 5 7021-8 #### [facility] CLIA [id number] [address] [place] [address] [place] Differential cell count method Nom (Bld) Auto Normal [facility] Comment on above: Order Comment: Speci men Type: BLOOD SPECIMEN Ordering Facility: [facility] Address: [address] [place] [address] Performed By: #### 5 7021-8 #### [facility] CLIA [id number] [address] [place] [address] [place] Eosinophils (Bld) [#/Vol] 0.12 10*3/uL Normal <0.46 [facility] Comment on above: Order Comment: Speci men Type: BLOOD SPECIMEN Ordering Facility: [facility] Address: [address] [place] [address] Performed By: #### 5 7021-8 #### [facility] CLIA [id number] [address] [place] [address] [place] Eosinophils/100 WBC (Bld) 1.4 % Normal [facility] Comment on above: Order Comment: Speci men Type: BLOOD SPECIMEN Ordering Facility: [facility] Address: [address] [place] [address] Performed By: #### 5 7021-8 #### [facility] CLIA [id number] [address] [place] [address] [place] Erythrocyte distribution width (RBC) [Ratio] 12.9 % Normal 11.5-15.0 [facility] Comment on above: Order Comment: Speci men Type: BLOOD SPECIMEN [facility] [facility] Address: [address] [place] [address] Performed By: #### 5 7021-8 #### [facility] CLIA [id number] [address] [place] [address] [place] Hematocrit (Bld) [Volume fraction] 36.6 % Normal 36.0-46.0 [facility] Comment on above: Order Comment: Speci men Type: BLOOD SPECIMEN Ordering Facility: [facility] Address: [address] [place] [address] Performed By: #### 5 7021-8 #### [facility] CLIA [id number] [address] [place] [address] [place] Hemoglobin (Bld) [Mass/Vol] 12.1 g/dL Normal 11.5-15.5 [facility] Comment on above: Order Comment: Speci men Type: BLOOD SPECIMEN Ordering Facility: [facility] Address: [address] [place] [address] Performed By: #### 5 7021-8 #### [facility] CLIA [id number] [address] [place] [address] [place] Immature granulocytes (Bld) [#/Vol] 0.05 10*3/uL Normal <0.10 [facility] Comment on above: Order Comment: Speci men Type: BLOOD SPECIMEN Ordering Facility: [facility] Address: [address] [place] [address] Performed By: #### 5 7021-8 #### [facility] CLIA [id number] [address] [place] [address] [place] Immature granulocytes/100 WBC (Bld) 0.6 % Normal [facility] Comment on above: Order Comment: Speci men Type: BLOOD SPECIMEN Ordering Facility: [facility] Address: [address] [place] [address] Performed By: #### 5 7021-8 #### [facility] CLIA [id number] [address] [place] [address] [place] Lymphocytes (Bld) [#/Vol] 3.31 10*3/uL Normal 1.00-4.00 [facility] Comment on above: Order Comment: Speci men Type: BLOOD SPECIMEN Ordering Facility: [facility] Address: [address] [place] [address] Performed By: #### 5 7021-8 #### [facility] CLIA [id number] [address] [place] [address] [place] Lymphocytes/100 WBC (Bld) 38.2 % Normal [facility] Comment on above: Order Comment: Speci men Type: BLOOD SPECIMEN Ordering Facility: [facility] Address: [address] [place] [address] Performed By: #### 5 7021-8 #### [facility] CLIA [id number] [address] [place] [address] [place] MCH (RBC) [Entitic mass] 31.3 pg Normal 26.0-34.0 [facility] Comment on above: Order Comment: Speci men Type: BLOOD SPECIMEN Ordering Facility: [facility] Address: [address] [place] [address] Performed By: #### 5 7021-8 #### [facility] CLIA [id number] [address] [place] [address] [place] MCHC (RBC) [Mass/Vol] 33.1 g/dL Normal 30.5-36.0 [facility] Comment on above: Order Comment: Speci men Type: BLOOD SPECIMEN Ordering Facility: [facility] Address: [address] [place] [address] Performed By: #### 5 7021-8 #### [facility] CLIA [id number] [address] [place] [address] [place] MCV (RBC) [Entitic vol] 94.6 fL Normal 80.0-100.0 [facility] Comment on above: Order Comment: Speci men Type: BLOOD SPECIMEN Ordering Facility: [facility] Address: [address] [place] [address] Performed By: #### 5 7021-8 #### [facility] CLIA [id number] [address] [place] [address] [place] Monocytes (Bld) [#/Vol] 0.80 10*3/uL Normal <0.87 [facility] Comment on above: Order Comment: Speci men Type: BLOOD SPECIMEN Ordering Facility: [facility] Address: [address] [place] [address] Performed By: #### 5 7021-8 #### [facility] CLIA [id number] [address] [place] [address] [place] Monocytes/100 WBC (Bld) 9.2 % Normal [facility] Comment on above: Order Comment: Speci men Type: BLOOD SPECIMEN Ordering Facility: [facility] Address: [address] [place] [address] Performed By: #### 5 7021-8 #### [facility] CLIA [id number] [address] [place] [address] [place] Neutrophils (Bld) [#/Vol] 4.33 10*3/uL Normal 1.45-7.50 [facility] Comment on above: Order Comment: Speci men Type: BLOOD SPECIMEN Ordering Facility: [facility] Address: [address] [place] [address] Performed By: #### 5 7021-8 #### [facility] CLIA [id number] [address] [place] [address] [place] Neutrophils/100 WBC (Bld) 49.9 % Normal [facility] Comment on above: Order Comment: Speci men Type: BLOOD SPECIMEN Ordering Facility: [facility] Address: [address] [place] [address] Performed By: #### 5 7021-8 #### [facility] CLIA [id number] [address] [place] [address] [place] Nucleated RBC (Bld) [#/Vol] 10*3/uL Normal <0.01 [facility] Comment on above: Order Comment: Speci men Type: BLOOD SPECIMEN Ordering Facility: [facility] Address: [address] [place] [address] Performed By: #### 5 7021-8 #### [facility] CLIA [id number] [address] [place] [address] [place] Nucleated RBC/100 WBC (Bld) [Ratio] 0.0 /100 WBC Normal [facility] Comment on above: Order Comment: Speci men Type: BLOOD SPECIMEN Ordering Facility: [facility] Address: [address] [place] [address] Performed By: #### 5 7021-8 #### [facility] CLIA [id number] [address] [place] [address] [place] Platelet mean volume (Bld) [Entitic vol] 9.4 fL Normal 9.0-12.7 [facility] Comment on above: Order Comment: Speci men Type: BLOOD SPECIMEN Ordering Facility: [facility] Address: [address] [place] [address] Performed By: #### 5 7021-8 #### [facility] CLIA [id number] [address] [place] [address] [place] Platelets (Bld) [#/Vol] 303 10*3/uL Normal 150-400 [facility] Comment on above: Order Comment: Speci men Type: BLOOD SPECIMEN Ordering Facility: [facility] Address: [address] [place] [address] Performed By: #### 5 7021-8 #### [facility] CLIA [id number] [address] [place] [address] [place] RBC (Bld) [#/Vol] 3.87 10*6/uL Low 3.90-5.20 [facility] Comment on above: Order Comment: Speci men Type: BLOOD SPECIMEN Ordering Facility: [facility] Address: [address] [place] [address] Performed By: #### 5 7021-8 #### [facility] CLIA [id number] [address] [place] [address] [place] WBC (Bld) [#/Vol] 8.67 10*3/uL Normal 3.70-11.00 [facility] Comment on above: Order Comment: Speci men Type: BLOOD SPECIMEN Ordering Facility: [facility] Address: [address] [place] [address] Performed By: #### 5 7021-8 #### [facility] CLIA [id number] [address] [place], [place] [address] [place] CNOVon 01-24-2025 CNOV Office Visit (INTMWS ) CHANG MARADIAGA ([id number]) 1970 F Date Time Provider Department 01/24/25 8:00 AM WILMAN HESTER INTMWS During your visit today, we recorded the following information about you: Pulse Blood pressure Weight 72/minute 112/72 67 kg Wilman Hester MD 01/24/2025 8:51 AM Signed This note was created using Urvewriter. Subjective Chang Maradiaga is a 54 year old female. HISTORY Chang is a 54-year-old female with a history of Crohn's disease, presenting for a yearly exam and follow-up visit. Chang was evaluated last Friday for a bacterial sinus infection and was prescribed Augmentin. She reports that Friday was the first day she felt well since starting the medication. She notes that her ears were so full that her clinician could not visualize her eardrums. She has been using wax softener drops and attempted to flush her ears, resulting in soreness in one ear. She denies current pain or pressure in her sinuses, gum or dental pain, but reports significant drainage and intermittent fevers. She attributes the fevers to her Crohn's disease, stating, It's not necessarily I'm sick, it's I just pushed myself too far. She is currently taking Humira, vitamin D, B12, cholestyramine as needed, and a B-complex vitamin. She adjusts her cholestyramine dosage based on her bowel movements, usually taking less than a full scoop. She notes that her blood sugar was elevated during her last visit in January of last year, which she attributes to taking cholestyramine before the appointment. She denies taking it today. She has been exercising for 20 minutes every morning since last year but has not exercised for the past 2 weeks due to her sinus infection. She reports feeling tons better with regular exercise and notes that she is not tired like I used to be. She denies feelings of depression or anxiety. She has a family history of a bicuspid aortic valve in her brother, who underwent a valve repair and open heart surgery for an aneurysm. She denies any changes in family history. She also denies any changes in her ability to perform activities of daily living, such as dressing, bathing, or cooking. PAST MEDICAL HISTORY Diagnosis Date Crohn's disease ([facility]) Dr. Carrasquillo in [facility] Diarrhea Family history of aortic valve disorder 08/04/2017 brother has bicuspid aortic valve Mild intermittent asthma without complication ([facility]) 08/22/2015 Other acute embolism veins 1999 Regional enteritis of large intestine ([facility]) 1991 Crohns Unspecified deficiency anemia Vitamin D deficiency 02/26/2013 Current Outpatient Medications Medication Sig Cyanocobalamin 1,000 mcg subl Dissolve 1,000 mcg under the tongue once daily. Cholecalciferol, Vitamin D3, (VITAMIN D-3) 50 mcg (2,000 unit) cap Take 2 capsules by mouth once daily. vitamin b complex (B COMPLEX-VITAMIN B12) tab Take 1 tablet by mouth once daily. cholestyramine-sucrose (QUESTRAN) 4 gram powder Use once daily as needed HUMIRA 40 mg/0.8 mL injection Inject 0.8 mL subcutaneously every other week. (Dr. Carrasquillo prescribes) No current facility-administered medications for this visit. ALLERGIES No Known Allergies FAMILY HISTORY Problem Relation Age of Onset Heart Mother cardiomyopathy Hypertension Mother None Father other (Biscupid aortic valve) Brother Needed valve repaired; also had aneurysm ([facility]) Asthma Maternal Grandfather Social History Tobacco Use Smoking status: Never Smokeless tobacco: Never Vaping Use Vaping status: Never Used Substance Use Topics Alcohol use: Yes Comment: rarely Drug use: No Review of Systems Objective BP 112/72 Pulse 72 Wt 67 kg (147 lb 11.3 oz) LMP 12/05/2022 (Approximate) SpO2 97% BMI 23.65 kg/m? Last 5 Encounter Wt Readings: Date: Wt: 01/24/2025 67 kg (147 lb 11.3 oz) 01/17/2025 67.2 kg (148 lb 2.4 oz) 07/16/2024 67.5 kg (148 lb 13 oz) 01/15/2024 69.4 kg (153 lb) 02/17/2023 68.9 kg (152 lb) No waist measurement recorded Estimated body mass index is 23.65 kg/m? as calculated from the following: Height as of 02/17/23: 168.3 cm (5' 6.26). Weight as of this encounter: 67 kg (147 lb 11.3 oz). Last 5 Encounter BP Readings: Date: BP: 01/24/2025 112/72 01/17/2025 122/80 07/16/2024 141/75 01/15/2024 108/68 01/13/2023 122/82 Physical Exam Vitals reviewed. Constitutional: Appearance: Normal appearance. She is well-developed. HENT: Head: Normocephalic and atraumatic. Right Ear: Tympanic membrane, ear canal and external ear normal. Left Ear: Tympanic membrane, ear canal and external ear normal. Nose: Nose normal. Mouth/Throat: Mouth: Mucous membranes are moist. Eyes: Conjunctiva/sclera: Conjunctivae normal. Pupils: Pupils are equal, round, and reactive to light. Neck: Thyroid: No thyromegaly. Vascular: No carotid bruit. Cardiovascular: Rat (more content not included)... Normal [facility] Comprehensive metabolic 2000 panelon 01-24-2025 Albumin [Mass/Vol] 4.2 g/dL Normal 3.9-4.9 [facility] Comment on above: Order Comment: Speci men Type: BLOOD SPECIMEN Ordering Facility: [facility] Address: [address] [place] [address] Performed By: #### 2 4323-8, 97783-3, 2132-05 #### [facility] CLIA [id number] [address] [place] [address] [place] ALP [Catalytic activity/Vol] 85 U/L Normal 34-123 [facility] Comment on above: Order Comment: Speci men Type: BLOOD SPECIMEN Ordering Facility: [facility] Address: [address] [place] [address] Performed By: #### 2 4323-8, , 2132-05 #### [facility] CLIA [id number] [address] [place], [place] [address] [place] ALT [Catalytic activity/Vol] 36 U/L Normal 7-38 [facility] Comment on above: Order Comment: Speci men Type: BLOOD SPECIMEN Ordering Facility: [facility] Address: [address] [place] [address] Performed By: #### 2 4323-8, , 2132-05 #### [facility] CLIA [id number] [address] [place], [place] [address] [place] Anion gap [Moles/Vol] 11 mmol/L Normal 8-15 [facility] Comment on above: Order Comment: Speci men Type: BLOOD SPECIMEN Ordering Facility: [facility] Address: [address] [place] [address] Performed By: #### 2 4323-8, , 2132-05 #### [facility] CLIA [id number] [address] [place], [place] [address] [place] AST [Catalytic activity/Vol] 38 U/L High 13-35 [facility] Comment on above: Order Comment: Speci men Type: BLOOD SPECIMEN Ordering Facility: [facility] Address: [address] [place] [address] Performed By: #### 2 4323-8, 82456-8, 2132-05 #### [facility] CLIA [id number] [address] [place], [place] [address] [place] Bilirubin [Mass/Vol] 0.3 mg/dL Normal 0.2-1.3 [facility] Comment on above: Order Comment: Speci men Type: BLOOD SPECIMEN Ordering Facility: [facility] Address: [address] [place] [address] Performed By: #### 2 4323-8, 94064-0, 2132-05 #### [facility] CLIA [id number] [address] [place] [address] [place] Calcium [Mass/Vol] 10.0 mg/dL Normal 8.5-10.2 [facility] Comment on above: Order Comment: Speci men Type: BLOOD SPECIMEN Ordering Facility: [facility] Address: [address] [place] [address] Performed By: #### 2 4323-8, , 2132-05 #### [facility] CLIA [id number] [address] [place] [address] [place] Chloride [Moles/Vol] 108 mmol/L High 98-107 [facility] Comment on above: Order Comment: Speci men Type: BLOOD SPECIMEN Ordering Facility: [facility] Address: [address] [place] [address] Performed By: #### 2 4323-8, , 2132-05 #### [facility] CLIA [id number] [address] [place] [address] [place] CO2 [Moles/Vol] 19 mmol/L Low 22-30 [facility] Comment on above: Order Comment: Speci men Type: BLOOD SPECIMEN Ordering Facility: [facility] Address: [address] [place] [address] Performed By: #### 2 4323-8, 25432-5, 2132-05 #### [facility] CLIA [id number] [address] [place] [address] [place] Creatinine [Mass/Vol] 0.91 mg/dL Normal 0.58-0.96 [facility] Comment on above: Order Comment: Kemi hernandez Type: BLOOD SPECIMEN Ordering Facility: [facility] Address: [address] [place] [address] Performed By: #### 2 4323-8, 30855-2, 2132-05 #### [facility] CLIA [id number] [address] [place] [address] [place] Creatinine and Glomerular filtration rate.predicted panel (S/P/Bld) 75 mL/min/1.73m??? Normal >=60 [facility] Comment on above: Order Comment: Kemi hernandez Type: BLOOD SPECIMEN Ordering Facility: [facility] Address: [address] [place] [address] Result Comment: Vaishnavi mated Glomerular Filtration Rate (eGFR) is calculated using the 2020 CKD-EPI creatinine equation. This equation utilizes serum creatinine, sex, and age as parameters. The creatinine assay has traceable calibration to isotope dilution-mass spectrometry. Refer to KDIGO guidelines for clinical interpretation. In patients with unstable renal function, e.g. those with acute kidney injury, the eGFR may not accurately reflect actual GFR. Performed By: #### 2 4323-8, , 2132-05 #### [facility] CLIA [id number] [address] [place] [address] [place] Glucose [Mass/Vol] 100 mg/dL High 74-99 [facility] Comment on above: Order Comment: Kemi hernandez Type: BLOOD SPECIMEN Ordering Facility: [facility] Address: [address] [place] [address] Result Comment: The [place] Diabetes Association (ADA) provides guidance for cutoff values for fasting glucose and random glucose. The ADA defines fasting as no caloric intake for at least 8 hours. Fasting plasma glucose results between 100 to 125 mg/dL indicate increased risk for diabetes (prediabetes). Fasting plasma glucose results greater than or equal to 126 mg/dL meet the criteria for diagnosis of diabetes. In the absence of unequivocal hyperglycemia, results should be confirmed by repeat testing. In a patient with classic symptoms of hyperglycemia or hyperglycemic crisis, random plasma glucose results greater than or equal to 200 mg/dL meet the criteria for diagnosis of diabetes. Reference: Standards of Medical Care in Diabetes 2016, [place] Diabetes Association. Diabetes Care. 2016.39(Suppl 1). Performed By: #### 2 4323-8, , 2132-05 #### [facility] CLIA [id number] [address] [place] [id number] [place] Potassium [Moles/Vol] 4.8 mmol/L Normal 3.7-5.1 [facility] Comment on above: Order Comment: Speci men Type: BLOOD SPECIMEN Ordering Facility: [facility] Address: [address] [place] [address] Performed By: #### 2 4323-8, , 2132-05 #### [facility] CLIA [id number] [address] [place] [address] [place] Protein [Mass/Vol] 8.6 g/dL High 6.3-8.0 [facility] Comment on above: Order Comment: Speci men Type: BLOOD SPECIMEN Ordering Facility: [facility] Address: [address] [place] [address] Performed By: #### 2 4323-8, , 2132-05 #### [facility] CLIA [id number] [address] [place], [place] [address] [place] Sodium [Moles/Vol] 138 mmol/L Normal 136-144 [facility] Comment on above: Order Comment: Speci men Type: BLOOD SPECIMEN Ordering Facility: [facility] Address: [address] [place] [address] Performed By: #### 2 4323-8, , 2132-05 #### [facility] CLIA [id number] [address] [place] [address] [place] Urea nitrogen [Mass/Vol] 13 mg/dL Normal 7-21 [facility] Comment on above: Order Comment: Speci men Type: BLOOD SPECIMEN Ordering Facility: [facility] Address: [address] [place] [address] Performed By: #### 2 4323-8, 20543-0, 2132-05 #### [facility] CLIA [id number] [address] [place] [address] [place] Lipid 1996 panelon 5 Cholesterol [Mass/Vol] 115 mg/dL Normal <200 [facility] Comment on above: Order Comment: Speci men Type: BLOOD SPECIMEN Ordering Facility: [facility] Address: [address] [place] [address] Result Comment: <200 mg/dL, Desirable 200-239 mg/dL, Borderline high >239 mg/dL, High Performed By: #### 2 4323-8, 03578-7, 2132-05 #### [facility] CLIA [id number] [address] [place] [address] [place] Cholesterol in HDL [Mass/Vol] 39 mg/dL Low >39 [facility] Comment on above: Order Comment: Speci men Type: BLOOD SPECIMEN Ordering Facility: [facility] Address: [address] [place] [address] Result Comment: 40-5 9 mg/dL, Acceptable >59 mg/dL, High: Negative risk factor for coronary heart disease <40 mg/dL, Low: Positive risk factor for coronary heart disease Performed By: #### 2 4323-8, 29599-5, 2132-05 #### [facility] CLIA [id number] [address] [place], [place] [address] [place] Cholesterol in LDL [Mass/Vol] 49 mg/dL Normal <100 [facility] Comment on above: Order Comment: Speci men Type: BLOOD SPECIMEN Ordering Facility: [facility] Address: [address] [place] [address] Result Comment: <100 mg/dL, Optimal 100-129 mg/dL, Near optimal/above optimal 130-159 mg/dL, Borderline high 160-189 mg/dL, High >189 mg/dL, Very high Secondary prevention optimal LDL Cholesterol levels are recommended to be <70 mg/dL LDL cholesterol is calculated using the Gomez-NIH equation. Performed By: #### 2 4323-8, 48756-1, 2132-05 #### [facility] CLIA [id number] [address] [address] [place] Cholesterol in LDL/Cholesterol in HDL [Mass ratio] 1.26 {ratio} Normal <2.54 [facility] Comment on above: Order Comment: Speci men Type: BLOOD SPECIMEN Ordering Facility: [facility] Address: [address] [place] [address] Result Comment: Refe rebeccace: 1. National Cholesterol Education Program ATP III Guideline At-A-Glance Quick Desk Reference: National Heart, Lung, and Blood [place]. National Institutes of Health. 2001: NIH Publication No. 01-3305. 2. An International Atherosclerosis Society position paper: global recommendations for the management of dyslipidemia: executive summary, Atherosclerosis. 2014: 232(2):410-413. Performed By: #### 2 4323-8, 42889-0, 2132-05 #### [facility] CLIA [id number] [address] [place] [address] [place] Cholesterol in VLDL [Mass/Vol] 23 mg/dL Normal <30 [facility] Comment on above: Order Comment: Kemi hernandez Type: BLOOD SPECIMEN Ordering Facility: [facility] Address: [address] [place] [address] Performed By: #### 2 4323-8, 43104-8, 2132-05 #### [facility] CLIA [id number] [address] [address] [place] Cholesterol non HDL [Mass/Vol] 76 mg/dL Normal <130 [facility] Comment on above: Order Comment: Kemi men Type: BLOOD SPECIMEN Ordering Facility: [facility] Address: [address] [place], [place] [address] Result Comment: <130 mg/dL, Optimal 130-159 mg/dL, Near optimal/above optimal 160-189 mg/dL, Borderline high 190-219 mg/dL, High >219 mg/dL, Very high Secondary prevention optimal non HDL Cholesterol levels are recommended to be <100 mg/dL Performed By: #### 2 4323-8, , 2132-05 #### [facility] CLIA [id number] [address] [address] [place] Cholesterol.total/Cho lesterol in HDL [Mass ratio] 2.95 {ratio} Normal <5.10 [facility] Comment on above: Order Comment: Speci men Type: BLOOD SPECIMEN Ordering Facility: [facility] Address: [address] [place] [address] Performed By: #### 2 4323-8, , 2132-05 #### [facility] CLIA [id number] [address] [place], [place] [address] [place] FASTING TIME 12 hrs Normal [facility] Comment on above: Order Comment: Speci men Type: BLOOD SPECIMEN Ordering Facility: [facility] Address: [address] [place], [place] [address] Performed By: #### 2 4323-8, , 2132-05 #### [facility] CLIA [id number] [address] [place], [place] [address] [place] Triglyceride [Mass/Vol] 161 mg/dL High <150 [facility] Comment on above: Order Comment: Speci men Type: BLOOD SPECIMEN Ordering Facility: [facility] Address: [address] [place], [place] [address] Result Comment: <150 mg/dL, Normal 150-199 mg/dL, Borderline high 200-499 mg/dL, High >499 mg/dL, Very high Performed By: #### 2 4323-8, , 2132-05 #### [facility] CLIA [id number] [address] [place] [address] [place] Vit B12 [facility] 05-19-2 025 Cobalamin (Vitamin B12) [Mass/Vol] 910 pg/mL Normal 232-1245 [facility] Comment on above: Order Comment: Speci men Type: BLOOD SPECIMEN Ordering Facility: [facility] Address: [address] [place] [address] Performed By: #### 2 4323-8, 81837-8, 2132-9 #### [facility] CLIA [id number] [address] [place] [address] [facility] CNOVon 01-17-2025 CNOV Office Visit (UCWSTR ) CHANG MARADIAGA ([id number]) 1970 F Date Time Provider Department 01/17/25 7:30 AM JUANCARLOS CARRERA [facility] During your visit today, we recorded the following information about you: Temperature Pulse Respiration Blood pressure 97.7 degrees 72/minute 18/minute 122/80 Weight 67.2 kg Juancarlos Carrera APRN.BEHAVIOR INTERVENTIONIST 01/17/2025 7:57 AM Signed Subjective HPI Nontoxic-appearing 54-year-old female presents urgent care chief complaint possible sinus infection. Duration of symptom week and a half. Associated symptoms sinus pressure unilateral. Did have low-grade fever. That has improved. OTC medications little to no success. History of sinus infections and similar. No history of sinus surgery or fractures. Past medical history prescription medications allergies reviewed. .Patient presents with: Sinus Problem: Sinus pain and pressure, congestion, Puga and fever off and on x 1.5 weeks PAST MEDICAL HISTORY Diagnosis Date Crohn's disease ([facility]) Dr. Carrasquillo in [facility] Diarrhea Family history of aortic valve disorder 08/04/2017 brother has bicuspid aortic valve Mild intermittent asthma without complication ([facility]) 08/22/2015 Other acute embolism veins 2000 Regional enteritis of large intestine ([facility]) 1991 Crohns Unspecified deficiency anemia Vitamin D deficiency 02/26/2013 PAST SURGICAL HISTORY Procedure Laterality Date COLECTOMY PARTIAL W/ANASTOMOSIS Hemicolectomy COLECTOMY PARTIAL W/ANASTOMOSIS 06/2013 COLONOSCOPY FLX DX W/COLLJ SPEC WHEN PFRMD 1991 Colonoscopy COLONOSCOPY FLX DX W/COLLJ SPEC WHEN PFRMD 08/03/2018 Colonoscopy COLONOSCOPY GEN ANES COLONOSCOPY GEN ANES 09/04/2020 COLONOSCOPY W/BIOPSY SINGLE/MULTIPLE 2010 Dr. Madden/due in 2013 L'SCOPE CHOLECYSTECTOMY 04/08/2016 [facility] - Dr. Chris Ramos LAPS SURG CHOLECYSTECTOMY W/CHOLANGIOGRAPHY 04/08/2016 ALLERGIES Patient has no known allergies. MEDICATIONS Cyanocobalamin 1,000 mcg subl Dissolve 1,000 mcg under the tongue once daily. Cholecalciferol, Vitamin D3, (VITAMIN D-3) 50 mcg (2,000 unit) cap Take 2 capsules by mouth once daily. HUMIRA 40 mg/0.8 mL injection Subcutaneously, Inject one pen weekly cholestyramine-sucrose (QUESTRAN) 4 gram powder USE ONE SCOOP ONCE DAILY DIRECTED vitamin b complex (B COMPLEX-VITAMIN B12) tab Take 1 tablet by mouth once daily. FAMILY HISTORY Problem Relation Age of Onset Heart Mother cardiomyopathy Hypertension Mother None Father Asthma Maternal Grandfather Social History Tobacco Use Smoking status: Never Smokeless tobacco: Never Vaping Use Vaping status: Never Used Substance Use Topics Alcohol use: Yes Comment: rarely Drug use: No BP 122/80 Pulse 72 Temp 36.5 ?C (97.7 ?F) (Tympanic) Resp 18 Wt 67.2 kg (148 lb 2.4 oz) LMP 12/05/2022 (Approximate) SpO2 99% BMI 23.72 kg/m? Review of Systems Constitutional: Negative for chills, fever and malaise/fatigue. HENT: Positive for congestion and sinus pain. Negative for ear discharge, ear pain and sore throat. Eyes: Negative for blurred vision, pain, discharge and redness. Respiratory: Negative for cough, hemoptysis, sputum production, shortness of breath, wheezing and stridor. Cardiovascular: Negative for chest pain. Gastrointestinal: Negative for abdominal pain, diarrhea, nausea and vomiting. Musculoskeletal: Positive for myalgias. Skin: Negative for itching and rash. Neurological: Negative for dizziness and headaches. Objective Physical Exam Constitutional: General: She is not in acute distress. Appearance: She is not diaphoretic. HENT: Head: Normocephalic. Jaw: No trismus, tenderness, swelling or pain on movement. Nose: Congestion present. Right Sinus: Maxillary sinus tenderness and frontal sinus tenderness present. Mouth/Throat: Mouth: Mucous membranes are moist. Pharynx: Oropharynx is clear. Uvula midline. No pharyngeal swelling, oropharyngeal exudate, posterior oropharyngeal erythema or uvula swelling. Eyes: Conjunctiva/sclera: Conjunctivae normal. Pupils: Pupils are equal, round, and reactive to light. Cardiovascular: Rate and Rhythm: Normal rate and regular rhythm. Heart sounds: Normal heart sounds. Pulmonary: Effort: Pulmonary effort is normal. No tachypnea, accessory muscle usage or respiratory distress. Breath sounds: Normal breath sounds. No stridor. No wheezing, rhonchi or rales. Abdominal: General: There is no distension. Palpations: Abdomen is soft. Tenderness: There is no abdominal tenderness. There is no guarding or rebound. Musculoskeletal: Cervical back: Normal range of motion and neck supple. No edema, erythema, rigidity or tenderness. No pain with movement. Normal range of motion. Lymphadenopathy: Cervical: No cervical adenopathy. Skin: General: Skin is warm and dry. Neurological: Mental Status: She is alert and (more content not included)... Normal [facility] Gastroenterology Visit Repor ton 12-27-2024 Gastroenterology Visit Report [facility] [address] [place] [address] OFFICE VISIT Date of Service: 12/27/24 MR#: [id number] Acct: [id number] Name: CHANG MARADIAGA Rep #: [id number] : 1970 Provider: Harsh Carrasquillo DO Age/Sex: 54/F Location: [facility] Status: Signed Intake Vital Signs 09/04/23 13:23 09/27/24 09:01 Height 5 ft 6 in 5 ft 6 in Intake Visit Reasons: 6 M FU Allergies No Known Allergies Allergy (Verified 09/27/24 09:04) Medications ???Medication ???Instructions ???Recorded ???Confirmed ???Type cholecalciferol (vitamin D3) 25 1,000 unit PO DAILY 10/31/1312/27 History mcg (1,000 unit) capsule cyanocobalamin (vitamin B-12) 1,000 mcg sublingual DAILY 4 12/27/24 History 1,000 mcg sublingual tablet adalimumab 40 mg/0.4 mL See Rx Instructions subcut 4 12/27/24 Rx subcutaneous pen kit (Humira(CF) .COMPLEX #2 ea Pen) cholestyramine (with sugar) 4 gram 4 ea PO DAILY #378 GMS 07/22/24 12/27/24 Rx oral powder PFSH Medical History Post-menopausal Wears glasses Low iron DVT (deep venous thrombosis) Easy bruising Non-smoker History of echocardiogram Positive double stranded DNA antibody test Surgical History History of cholecystectomy History of bowel resection Family History Brother Heart disease Social History number of children: 2 current occupational status: employed current occupation: [employer] Smoking Status: Never smoker alcohol intake: current alcohol intake frequency: holidays/special occasions only substance use type: does not use seatbelt use: always do you feel safe at home: Yes HPI HPI Details: CHANG MARADIAGA, is a 54 F who presents to the office today for follow up. PMH climacteric; DVT Hx. PSH cholecystectomy 2016 [facility] established prior with Humira started 2009 with concern for aphthous ulcers in her mouth and increased BM just prior to next dose of Humira (QOWeek dosing). ? Colonoscopy 08.03.18 report unavailable. Pathology of one polyp, inflammatory type without dysplasia. ? Colonoscopy 09.06.20 report unavailable. Rectal ulcer pathology with acute and chronic inflammation and granulation. *[facility] established 08.28.21 with previously diagnosed Crohn???s disease maintained with Humira QWeek. ? Biochemical workup CBC, ESR, coagulation, CMP, LFT, CRP without pertinent abnormality. ? Cholesterol H258, vLDL H52, double strand DNA H44 ? Refer to rheumatology Biochemical workup TB WNL. Humira concentration 13.[address] enterography 09.14.21 noting postsurgical changes of cecum, mid small bowel (focal fluid distention measuring 4.3cm) and LUQ small bowel (focal area of fluid distention measuring 4x5.8cm). No signs of Crohn???s disease. OV 10.09.21 continue Humira, explore QOweek option. Biochemical workup CBC, ESR, CMP, CRP, TB without pertinent abnormality LFT AST 31-ALT H58-AP [address] [facility] established .01.27. OV 12.31.21 with suspected drug-induced HAIR and antihistone ab r/t Humira use. No evidence of systemic Lupus. OV 10.28.22 without symptoms related to Crohn???s. Humira QOweek started end of August. Bloodwork drawn last week and is still pending. ? Biochemical workup / CBC, ESR, CMP, CRP, TB without pertinent abnormality. OV 623 feels she is doing very well at this time. Has some bloating after eating which is ???released??? and she feels better, feels is r/t historical small bowel resections. Denies joint pain, vision changes or rashes. OV 4.15.23 she underwent EGD and colonoscopy back in July 2023. Her upper endoscopy that showed eosinophilic esophagitis with no changes of intestinal metaplasia, dysplasia or cancer. Her stomach and duodenum did not have any pathology. Her colonoscopy did reveal a normal-appearing anastomosis without any signs or symptoms of stenosis, scarring or chronic inflammation. Biopsies of the anastomosis and throughout the colon did not reveal any active disease. At this time she is doing very well. She has been exercising every day with walking every morning. She has lost about 2 pounds but has gained some muscle. She maintains a good weight. She does not have any abdominal pain, cramping, nausea, vomiting, diarrhea. She is being maintained on Humira 40 mg every other week. OV 10..24 pt reports that she (more content not included)... Normal [facility] PAP IG HPV APTIMA 16/18,45on 09-30-2024 ADEQ Comment Normal . [facility] Comment on above: Order Comment: Speci men Comment: [id number] Specimen Comment: Source.............Cervix Specimen Comment: LMP / Prev Treat...[id number] Specimen Comment: No. of containers..01 ThinPrep Vial Result Comment: Sati sfactory for evaluation. Endocervical and/or squamous metaplastic cells (endocervical component) are present. Performed By: #### L 7400.0280 #### [facility] [address] [place], [address] COMM . Normal . [facility] Comment on above: Order Comment: Speci men Comment: [id number] Specimen Comment: Source.............Cervix Specimen Comment: LMP / Prev Treat...[id number] Specimen Comment: No. of containers..01 ThinPrep Vial Performed By: #### L 7400.0280 #### [facility] [address] [place], [place], [id number] COMMENT Comment Normal . [facility] Comment on above: Order Comment: Speci men Comment: [id number] Specimen Comment: Source.............Cervix Specimen Comment: LMP / Prev Treat...[id number] Specimen Comment: No. of containers..01 ThinPrep Vial Result Comment: This liquid based ThinPrep(R) pap test was screened with the use of an image guided system. Performed By: #### L 7400.0280 #### [facility] [address] [place], [place], [address] DIAG Comment Normal . [facility] Comment on above: Order Comment: Speci men Comment: [id number] Specimen Comment: Source.............Cervix Specimen Comment: LMP / Prev Treat...[id number] Specimen Comment: No. of containers..01 ThinPrep Vial Result Comment: NEGA TIVE FOR INTRAEPITHELIAL LESION OR MALIGNANCY. Performed By: #### L 7400.0280 #### [facility] [address] [place], [place], [id number] HPV APTIMA, HR Negative Normal Negative [facility] Comment on above: Order Comment: Speci men Comment: [id number] Specimen Comment: Source.............Cervix Specimen Comment: LMP / Prev Treat...[id number] Specimen Comment: No. of containers..01 ThinPrep Vial Result Comment: This nucleic acid amplification test detects fourteen high- risk HPV types (16,18,31,33,35,39,45,51,52,56,58,59,66,68) without differentiation. Performed By: #### L 7400.0280 #### [facility] [address] [place], [place], [id number] HPV Dede Rfx Comment Normal . [facility] Comment on above: Order Comment: Speci men Comment: [id number] Specimen Comment: Source.............Cervix Specimen Comment: LMP / Prev Treat...[id number] Specimen Comment: No. of containers..01 ThinPrep Vial Result Comment: Crit eria not met, HPV Genotype not performed. Performed at: - [facility] [address] [place] [id number] Law Librarian: Cindi Montelongo MD, Phone: [phone] Performed at: = - [facility] [address] [place], [place] [id number] Law Librarian: Cindi Montelongo MD, Phone: [phone] Performed By: #### L 7400.0280 #### [facility] [address] [place], [place], [address] PAPSMR Comment Normal . [facility] Comment on above: Order Comment: Speci men Comment: [id number] Specimen Comment: Source.............Cervix Specimen Comment: LMP / Prev Treat...[id number] Specimen Comment: No. of containers..01 ThinPrep Vial Result Comment: The Pap smear is a screening test designed to aid in the detection of premalignant and malignant conditions of the uterine cervix. It is not a diagnostic procedure and should not be used as the sole means of detecting cervical cancer. Both false-positive and false-negative reports do occur. Performed By: #### L 7400.0280 #### [facility] [address] [place], [place], [address] PERFORM Comment Normal . [facility] Comment on above: Order Comment: Speci men Comment: [id number] Specimen Comment: Source.............Cervix Specimen Comment: LMP / Prev Treat...[id number] Specimen Comment: No. of containers..01 ThinPrep Vial Result Comment: Shameka Bowen, Cellophane Bath Mixer (ASCP) Performed By: #### L 7400.0280 #### [facility] [address] [place], [place], [address] Melt Superintendant Office Visit Reporton 09-27-2024 Melt Superintendant Office Visit Report [facility] [address], [address] [place] [address] OFFICE VISIT Date of Service: 09/27/24 MR#: [id number] Acct: [id number] Name: CHANG MARADIAGA Rep #: [id number] : 1970 Provider: BERE saldivar Age/Sex: 53/F Location: [facility] Status: Signed Intake Vital Signs 09/04/23 13:23 09/27/24 08:56 09/27/24 09:01 Height 5 ft 6 in 5 ft 6 in 5 ft 6 in Weight: 148 lb 6 oz BMI 23.9 BP 122/70 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) Chief Complaint: Annual Certified Corporate Travel Executive Required: No Is patient in pain?: No Allergies No Known Allergies Allergy (Verified 09/27/24 09:04) Medications ???Medication ???Instructions ???Recorded ???Confirmed ???Type cholecalciferol (vitamin D3) 25 1,000 unit PO DAILY 10/31/13 09/27/24 History mcg (1,000 unit) capsule cyanocobalamin (vitamin B-12) 1,000 mcg sublingual DAILY 10/31/13 09/27/24 History 1,000 mcg sublingual tablet adalimumab 40 mg/0.4 mL See Rx Instructions subcut 02/05/24 09/27/24 Rx subcutaneous pen kit (Humira(CF) .COMPLEX #2 ea Pen) cholestyramine (with sugar) 4 gram 4 ea PO DAILY #378 GMS 07/22/24 09/27/24 Rx oral powder Is last menstrual period known: No Post menopausal: No Patient : No : No Nurse's Note: Had a period in June, 11 months without one. [facility] Medical History Post-menopausal Wears glasses Low iron DVT (deep venous thrombosis) Easy bruising Non-smoker History of echocardiogram Positive double stranded DNA antibody test Surgical History History of cholecystectomy History of bowel resection Family History Brother Heart disease Social History number of children: 2 current occupational status: employed current occupation: [employer] Smoking Status: Never smoker alcohol intake: current alcohol intake frequency: holidays/special occasions only substance use type: does not use seatbelt use: always do you feel safe at home: Yes History 2 Elective abortions Hx Para 2 Spontaneous abortions Hx # Term Pregnancies 2 Ectopic pregnancies Hx # Pregnancies Multiple births # of living children 2 Past Pregnancies Del. Date Name GA/Weeks Outcome Route Bth Weight Gen Labor Lgth Anesthesia Del Locatn Provider FOB Unknown Joshua 1990 Unknown Juan 1996 HPI Encounter for routine gynecological examination Details: CHANG MARADIAGA is a 53 year old who presents for annual exam. Denies concerns. 1 menses in last year Last PAP: 2019 History of abnormal PAP: no Last mammogram: today History of abnormal mammogram: no Colon cancer screenin Other preventative health care screenings: [facility] Female Reproductive History Questions: metorrhagia: No, sexually active: Yes, dyspareunia: No and PCB: No ROS Const Constitutional: Denies fatigue, weight gain or weight loss Cardio Card: Denies chest pain Resp Resp: Denies cough or dyspnea on exertion GI GI: Denies abdominal pain, bloating, change in stool character, constipation or vomiting : Reports as per HPI; Denies difficulty voiding, pelvic pain, urinary frequency, urinary incontinence, urinary urgency, vaginal discharge or vaginal pruritus Exam Const General: cooperative, healthy appearing, no acute distress and well developed Orientation: alert, oriented to person and oriented to place HENKY Head: normal to inspection Neck Neck: normal visual inspection Thyroid: thyroid normal Lymphatic: no lymphadenopathy noted Chest Breast inspection: normal inspection of the breasts and normal inspection of the axillae Breast palpation: normal palpation of the breasts, normal palpation of the axillae and no axillary lymphadenopathy Resp Effort Inspection: normal respiratory effort GI Palpation: soft, no masses and nontender Rectal Exam: deferred External Female Exam: normal external appearance and normal appearance of the urethra Urethra: normal appearance of the urethra and normal palpation Speculum Exam - Vagina: normal appearance of the vagina and normal vaginal discharge Speculum Exam - Cervix: normal appearance of the cervix Bimanual Exam- Vagina Uterus: normal bimanual exam, uterine size normal, uterine shape normal and non-tender Bimanual Exam- Adnexa, other: normal adnexae, no masses, normal and non-tender Pelvic Support: normal Neuro General: patient alert and patient oriented x3 Psych Affect: normal affect Coding Level of Care Code Off vis,est,prev 40-64yrs Diagnoses Encounter for gynecological e (more content not included)... Normal [facility] SCRN MAMM (CAD)W/HOLLY BILATo n 09-27-2024 SCRN MAMM (CAD)W/HOLLY BILAT [facility] Services [address] [place] [address] SCRN MAMM (CAD)W/HOLLY BILAT MR#: [id number] Acct: [id number] Name: CHANG MARADIAGA Rep #: [id number] : 1970 F 53 From: Jann lim MD PCP: Dr. Wilman Hester MD Status: [facility] Study: SCRN MAMM (CAD)W/HOLLY BILAT Date of Exam: 09/09 Exam# [id number] Ordering Dr: Ivelisse Loya PUTTIER PUTTIER -C 5:[id number] MAMMOGRAPHY - BILATERAL SCREENING REASON FOR EXAM: Female, 53 years old. Routine annual screening examination. PERTINENT HISTORY: Non-contributory. TECHNIQUE: Digital bilateral breast holly (3D mammographic acquisition) in the CC and MLO projections. 2-D mediolateral oblique (MLO) and craniocaudad (CC) views of both breasts were obtained. CAD: Full Field Digital Mammography with Computer Added Detection was performed. COMPARISON: Comparison is made with prior study dated August 27, 2023 and May 30, 2022. FINDINGS: Breast Composition: The breasts are almost entirely fatty. There are no dominant masses or suspicious calcifications. Stable benign-appearing bilateral axillary lymph nodes nodes. No other significant abnormalities are identified. There has been no significant change since the prior study. BI/SCRN MAMM (CAD)W/HOLLY BILAT IMPRESSION: Stable bilateral screening mammogram. Yearly follow-up mammogram recommended. (A) ASSESSMENT CATEGORY: BIRADS Category 2: Benign. A letter regarding these results will be sent to the patient by the facility within 30 days. Approximately 10% of breast cancers are not detected by mammography. A normal mammogram should not delay biopsy of a clinically suspicious abnormality. [id number] Electronically Signed: Jann Mcarthur MD at 10:32 EST , CC: BERE Loya; Dr. Wilman Hester MD Landscape Painter: Signed [facility] Office Visit (UCWSTR ) NICOLASCHANG Roe ([id number]) 1970 F Date Time Provider Department 07/16/24 9:30 AM SOCORRO HSU [facility] During your visit today, we recorded the following information about you: Temperature Pulse Respiration Blood pressure 98.7 degrees 82/minute 18/minute 141/75 Weight 67.5 kg Socorro Hsu APRN.CNP 07/16/2024 10:02 AM Signed This note was created using NoteWriter. Subjective Chang Maradiaga is a 53 year old female. 53 year old female with PMH asthma, Crohns, anemia, and osteopenia presents for eye complaints. 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 The history is provided by the patient. No precision lens technician was used. Conjunctivitis The current episode started yesterday. The onset was sudden. The problem occurs continuously. The problem has been gradually worsening. The problem is mild. Nothing relieves the symptoms. Nothing aggravates the symptoms. Associated symptoms include eye itching, eye discharge and eye redness. Pertinent negatives include no fever, no decreased vision, no double vision, no photophobia, no abdominal pain, no diarrhea, no nausea, no vomiting, no congestion, no ear discharge, no ear pain, no headaches, no hearing loss, no mouth sores, no rhinorrhea, no sore throat, no stridor, no swollen glands, no muscle aches, no cough, no rash and no eye pain. The left eye is affected. The eye pain is not associated with movement. Eyelid abnormality: crusted. There were sick contacts at school and at home. She has received no recent medical care. PAST MEDICAL HISTORY Diagnosis Date Crohn's disease (HCC) Dr. Carrasquillo in [facility] Diarrhea Family history of aortic valve disorder 08/04/2017 brother has bicuspid aortic valve Mild intermittent asthma without complication 08/22/2015 Other acute embolism veins 1999 Regional enteritis of large intestine (HCC) 1991 Crohns Unspecified deficiency anemia Vitamin D deficiency 02/26/2013 PAST SURGICAL HISTORY Procedure Laterality Date COLECTOMY PARTIAL W/ANASTOMOSIS Hemicolectomy COLECTOMY PARTIAL W/ANASTOMOSIS 06/2013 COLONOSCOPY FLX DX W/COLLJ SPEC WHEN PFRMD 1991 Colonoscopy COLONOSCOPY FLX DX W/COLLJ SPEC WHEN PFRMD 08/03/2018 Colonoscopy COLONOSCOPY GEN ANES COLONOSCOPY GEN ANES 09/04/2020 COLONOSCOPY W/BIOPSY SINGLE/MULTIPLE 2010 Dr. Madden/angelita in 2013 L'SCOPE CHOLECYSTECTOMY 04/08/2016 [facility] - Dr. Chris Ramos LAPS SURG CHOLECYSTECTOMY W/CHOLANGIOGRAPHY 04/08/2016 ALLERGIES Patient has no known allergies. MEDICATIONS Cyanocobalamin 1,000 mcg subl Dissolve 1,000 mcg under the tongue once daily. Cholecalciferol, Vitamin D3, (VITAMIN D-3) 50 mcg (2,000 unit) cap Take 2 capsules by mouth once daily. cholestyramine-sucrose (QUESTRAN) 4 gram powder USE ONE SCOOP ONCE DAILY DIRECTED vitamin b complex (B COMPLEX-VITAMIN B12) tab Take 1 tablet by mouth once daily. trimethoprim-polymyxin (POLYTRIM) 10,000 unit- 1 mg/mL ophthalmic solution Use 1 Drop in both eyes every 4 hours for 7 days. HUMIRA 40 mg/0.8 mL injection Subcutaneously, Inject one pen weekly FAMILY HISTORY Problem Relation Age of Onset Heart Mother cardiomyopathy Hypertension Mother None Father Asthma Maternal Grandfather Social History Tobacco Use Smoking status: Never Smokeless tobacco: Never Vaping Use Vaping status: Never Used Substance Use Topics Alcohol use: Yes Comment: rarely Drug use: No Review of Systems Constitutional: Negative for fever. HENT: Negative for congestion, ear discharge, ear pain, hearing loss, mouth sores, rhinorrhea and sore throat. Eyes: Positive for discharge, redness and itching. Negative for double vision, photophobia and pain. Respiratory: Negative for apnea, cough, chest tightness and stridor. Cardiovascular: Negative for chest pain, palpitations and leg swelling. Gastrointestinal: Negative for abdominal pain, diarrhea, nausea and vomiting. Musculoskeletal: Negative for arthralgias, back pain and gait problem. Skin: Negative for color change, pallor and rash. Allergic/Immunologic: Negative for environmental allergies, food allergies and immunocompromised state. Neurological: Negative for headaches. Hematological: Negative for adenopathy. Does not bruise/bleed easily. Psychiatric/Behavioral: Negative for agitation and behavioral problems. Objective BP 141/75 Pulse 82 Temp 37.1 ?C (98.7 ?F) Resp 18 Wt 67.5 kg (148 lb 13 oz) LMP 12/05/2022 (Approximate) SpO2 96% BMI 23.83 kg/m? Physical Exam Vitals and nursing note reviewed. Constitutional: General: She (more content not included)... Normal [facility] CRPon 07-16-2024 C-REACTIVE PROT < 2.90 Normal 0.0-3.0 [facility] Comment on above: Result Comment: C-Re active Protein (CRP) provides useful information for the diagnosis, therapy and monitoring of inflammatory processes and associated diseases. For the evaluation of Relative Risk for Cardiovascular Disease, a High Sensitivity CRP (HSCRP) should be ordered. Performed By: #### L 101.9900, L501.6710 #### [facility] [address] [place], [place], [address] Erythrocyte Sed Rateon 07-16 SED RATE 11 mm/hr Normal 0-30 [facility] Comment on above: Performed By: #### L 101.9900, L501.6710 #### [facility] [address] [place], [address] CNNURSEon 03-31-2024 [facility] Nurse Visit (FAMPWS) ASHWINICHANG ([id number]) 1970 F Date Time Provider Department 03/31/24 10:30 AM [place] [facility] During your visit today, we recorded the following information about you: Rosa Marrero LPN 03/31/2024 11:08 AM Signed Patient presents for Meningococcal B vaccine. Denies any problems at this time. Tolerated injection well. Rosa Marrero LPN Referring Provider: SELF [[id number]] Allergies As of Date: 03/31/2024 Noted Allergy Reaction NO KNOWN DRUG ALLERGIES 08/14/2005 Date Reviewed: 01/15/2024 Reviewed by: Kenyetta Palacios LPN - Fully Assessed Reason for Visit: Imm/Inj [58] Primary Visit Diagnosis:Need for vaccination [Z23] Prescriptions as of 03/31/2024 - Cyanocobalamin 1,000 mcg subl Dissolve 1,000 mcg under the tongue once daily. - Cholecalciferol, Vitamin D3, (VITAMIN D-3) 50 [...] been reviewed today/August 19, 2007 Ashley Roper [facility] Problem List As Of Date 03/31/2024 Noted Resolved Diarrhea [R19.7] 02/18/2006 01/16/2017 Other symptoms involving cardiovascular system *08/19/2007 08/22/2015 Crohn's disease of both small and large intesti*04/10/2012 Liepxmc-ay-vui [K60.3] 09/03/2012 01/16/2017 Vitamin D deficiency [E55.9] [...] 04/07/2017 Hypertriglyceridemia [E78.1] 03/24/2018 Encounter Status:Closed by ROSA MARRERO on 03/31/24 [facility] ([id number]) 1970 F Date Time Provider Department 03/08/24 [facility] During your visit today, we recorded the following information about you: Roas Marrero LPN 03/08/2024 11:18 AM Signed Patient scheduled for nurse visit 03/31/24 to receive Meningococcal B vaccine. Please place order at this time. Rosa Marrero LPN Allergies As of Date: 03/08/2024 Noted Allergy Reaction NO KNOWN DRUG ALLERGIES 08/14/2005 Date Reviewed: 01/15/2024 Reviewed by: Kenyetta Palacios LPN - Fully Assessed Reason for Visit: Orders [681] Primary Visit Diagnosis:Need for vaccination [Z23] Order(s):MENINGOCOCCAL B VACCINE (BEXSERO) [[id number]] Order #: [id number] Prescriptions as of 03/08/2024 - Cyanocobalamin 1,000 mcg subl Dissolve 1,000 mcg under the tongue once daily. - Cholecalciferol, Vitamin D3, (VITAMIN D-3) 50 [...] been reviewed today/August 19, 2007 Ashley Roper Lpn Problem List As Of Date 03/08/2024 Noted Resolved Diarrhea [R19.7] 02/18/2006 01/16/2017 Other symptoms involving cardiovascular system *08/19/2007 08/22/2015 Crohn's disease of both small and large intesti*04/10/2012 Bhqgmfv-zx-mbz [K60.3] 09/03/2012 01/16/2017 Vitamin D deficiency [E55.9] [...] 04/07/2017 Hypertriglyceridemia [E78.1] 03/24/2018 Encounter Status:Closed by LUCY BANG on 03/08/24 [facility] CNNURSEon 03-02-2024 [facility] Nurse Visit (FAMPWS) CHANG MARADIAGA ([id number]) 1970 F Date Time Provider Department 03/02/24 12:30 PM [place] NURSE FAMPWS During your visit today, we recorded the following information about you: Referring Provider: GARY TAPIA [[id number]] Allergies As of Date: 03/02/2024 Noted Allergy Reaction NO KNOWN DRUG ALLERGIES 08/14/2005 Date Reviewed: 01/15/2024 Reviewed by: Kenyetta Palacios LPN - Fully Assessed Reason for Visit: Immunizations [194] Primary Visit Diagnosis:Need for vaccination [Z23] Prescriptions as of 03/02/2024 - Cyanocobalamin 1,000 mcg subl Dissolve 1,000 mcg under the tongue once daily. - Cholecalciferol, Vitamin D3, (VITAMIN D-3) 50 [...] of 08/19/2007: All medications have been reviewed /August 19, 2007 Ashley Roper [employer] Problem List As Of Date 03/02/2024 Noted Resolved Diarrhea [R19.7] 02/18/2006 01/16/2017 Other symptoms involving cardiovascular system *08/19/2007 08/22/2015 Crohn's disease of both small and large intesti*04/10/2012 Mlxzidu-cv-ftd [K60.3] 09/03/2012 01/16/2017 Vitamin D deficiency [E55.9] [...] 04/07/2017 Hypertriglyceridemia [E78.1] 03/24/2018 Encounter Status:Closed by JAMAL CROFT on 03/02/24 Normal [facility] 25-hydroxyvitamin D3 [Mass/V ol]on 01-15-2024 Interpretation and review of laboratory results Normal [facility] The reference range interval was based on an analysis of samples from healthy adults and may not pertain to children from 0-18 years old. [facility] CBC W Auto Differential pane l (Bld)on 01-15-2024 Basophils (Bld) [#/Vol] 0.06 10*3/uL [facility] Basophils/100 WBC (Bld) 0.9 % [facility] Differential cell count method Nom (Bld) Auto [facility] Eosinophils (Bld) [#/Vol] 0.16 10*3/[facility]L [facility] Eosinophils/100 WBC (Bld) 2.3 % [facility] Erythrocyte distribution width (RBC) [Ratio] 13.4 % 11.5 - 15.0 % [facility] Hematocrit (Bld) [Volume fraction] 39.1 % 36.0 - 46.0 % [facility] Hemoglobin (Bld) [Mass/Vol] 12.7 g/dL 11.5 - 15.5 g/dL [facility] Immature granulocytes (Bld) [#/Vol] [facility] Immature granulocytes/100 WBC (Bld) 0.3 % [facility] Lymphocytes (Bld) [#/Vol] 3.11 10*3/uL [facility] Lymphocytes/100 WBC (Bld) 44.5 % [facility] MCH (RBC) [Entitic mass] 31.7 pg 26.0 - 34.0 pg [facility] MCHC (RBC) [Mass/Vol] 32.5 g/dL 30.5 - 36.0 g/dL [facility] MCV (RBC) [Entitic vol] 97.5 fL 80.0 - 100.0 fL [facility] Monocytes (Bld) [#/Vol] 0.64 10*3/uL [facility] Monocytes/100 WBC (Bld) 9.2 % [facility] Neutrophils (Bld) [#/Vol] 3.00 10*3/uL [facility] Neutrophils/100 WBC (Bld) 42.8 % [facility] Nucleated RBC (Bld) [#/Vol] [facility] Nucleated RBC/100 WBC (Bld) [Ratio] 0.0 % /100 WBC [facility] Platelet mean volume (Bld) [Entitic vol] 9.7 fL 9.0 - 12.7 fL [facility] Platelets (Bld) [#/Vol] 235 10*3/uL [facility] RBC (Bld) [#/Vol] 4.01 10*6/uL 3.90 - 5.20 m/uL [facility] WBC (Bld) [#/Vol] 6.99 10*3/uL [facility] Cobalamin (Vitamin B12) [Mas s/Vol]on 01-15-2024 Interpretation and review of laboratory results Normal [facility] Comprehensive metabolic 2000 panelon 01-15-2024 Albumin [Mass/Vol] 4.3 g/dL 3.9 - 4.9 g/dL [facility] ALP [Catalytic activity/Vol] 89 U/L 34 - 123 U/L [facility] ALT [Catalytic activity/Vol] 33 U/L 7 - 38 U/L [facility] Anion gap [Moles/Vol] 13 mmol/L 9 - 18 mmol/L [facility] AST [Catalytic activity/Vol] 27 U/L 13 - 35 U/L [facility] Bilirubin [Mass/Vol] 0.4 mg/dL 0.2 - 1 .3 mg/dL [facility] Calcium [Mass/Vol] 9.8 mg/dL 8.5 - 10. 2 mg/dL [facility] Chloride [Moles/Vol] 104 mmol/L 97 - 10 5 mmol/L [facility] CO2 [Moles/Vol] 22 mmol/L 22 - 30 mmol/L [facility] Creatinine [Mass/Vol] 0.87 mg/dL 0.58 - 0.96 mg/dL [facility] GFR/1.73 sq M.predicted among non-blacks MDRD (S/P/Bld) [Vol rate/Area] 79 mL/min/{1.73_m2} - PINF [facility] Comment on above: Estimated Glomerular Filtration Rate (eGFR) is calculated using the 2020 CKD-EPI creatinine equation. This equation utilizes serum creatinine, sex, and age as parameters. The creatinine assay has traceable calibration to isotope dilution-mass spectrometry. Refer to KDIGO guidelines for clinical interpretation. In patients with unstable renal function, e.g. those with acute kidney injury, the eGFR may not accurately reflect actual GFR. Glucose [Mass/Vol] 97 mg/dL 74 - 99 mg/dL [facility] Comment on above: The [place] Diabete s Association (ADA) provides guidance for cutoff values for fasting glucose and random glucose. The ADA defines fasting as no caloric intake for at least 8 hours. Fasting plasma glucose results between 100 to 125 mg/dL indicate increased risk for diabetes (prediabetes). Fasting plasma glucose results greater than or equal to 126 mg/dL meet the criteria for diagnosis of diabetes. In the absence of unequivocal hyperglycemia, results should be confirmed by repeat testing. In a patient with classic symptoms of hyperglycemia or hyperglycemic crisis, random plasma glucose results greater than or equal to 200 mg/dL meet the criteria for diagnosis of diabetes. Reference: Standards of Medical Care in Diabetes 2016, [place] Diabetes Association. Diabetes Care. 2016.39(Suppl 1). Interpretation and review of laboratory results Normal [facility] Potassium [Moles/Vol] 4.9 mmol/L 3.7 - 5.1 mmol/L [facility] Protein [Mass/Vol] 7.6 g/dL 6.3 - 8.0 g/dL [facility] Sodium [Moles/Vol] 139 mmol/L 136 - 144 mmol/L [facility] Urea nitrogen [Mass/Vol] 14 mg/dL 7 - 21 mg/dL [facility] VITAMIN B12on 01-15-2024 Cobalamin (Vitamin B12) [Mass/Vol] 603 pg/mL 232 - 1245 pg/mL [facility] VITAMIN D 25 HYDROXYon 01-14 25-hydroxyvitamin D3 [Mass/Vol] 43.9 ng/mL 31.0 - 80.0 ng/mL [facility] Comment on above: Classification of 25 [place] Vitamin D status: Deficiency/Insufficiency: < or = 30 ng/ml. Sufficiency/Optimal Levels: 31-80 ng/mL Toxicity: > 100 ng/mL. Test performed by chemiluminescent immunoassay. No Panel InformationOrdered By: Harsh Carrasquillo on 04-28-2023 Stool Calprotectin 280 ug/g 0-120 [facility] Comment on above: Concentration Interp retation Follow-Up< 5 - 50 ug/g Normal None>50 -120 ug/g Borderline Re-evaluate in 4-6 weeks >120 ug/g Abnormal Repeat as clinically indicatedPerformed at: [facility] [address] [id number] Director: Josue Agustin MD, Phone: [phone] Stool lactoferrin detection by immunoassayOrdered By: Harsh Carrasquillo on 04-28-2023 Lactoferrin IA Ql (Stl) [facility] Erythrocyte sedimentation ra teOrdered By: Harsh Carrasquillo on 04-25-2023 ESR (Bld) [Velocity] 11 mm/h 0-30 [facility] No Panel InformationOrdered By: Harsh Carraqsuillo on 04-25-2023 Miscellaneous Test See comment [facility] Comment on above: Scanned image report available in EMR Serum or plasma C reactive p rotein measurement (mass/volume)Ordered By: Harsh Carrasquillo on 04-25-2023 CRP [Mass/Vol] mg/L 0.0-3.0 [facility] Comment on above: C-Reactive Protein ( CRP) provides useful information for thediagnosis, therapy and monitoring of inflammatory processesand associated diseases. For the evaluation of Relative Riskfor Cardiovascular Disease, a High Sensitivity CRP (HSCRP)should be ordered. No Panel InformationOrdered By: Harsh Carrasquillo on 03-05-2023 Stool Calprotectin 151 ug/g 0-120 [facility] Comment on above: Concentration Interp retation Follow-Up< 5 - 50 ug/g Normal None>50 -120 ug/g Borderline Re-evaluate in 4-6 weeks >120 ug/g Abnormal Repeat as clinically indicatedPerformed at: [facility] [id number] Director: Josue Agustin MD, Phone: [phone] Stool lactoferrin detection by immunoassayOrdered By: Harsh Carrasquillo on 03-05-2023 Lactoferrin IA Ql (Stl) [facility] Erythrocyte sedimentation ra teOrdered By: Harsh Carrasquillo on 03-04-2023 ESR (Bld) [Velocity] 8 mm/h 0-30 [facility] Qualitative QuantiFERON-TB g old in tube testOrdered By: Harsh Carrasquillo on 03-04-2023 M. tuberculosis tuberculin stim IFN-g Ql (Bld) 0.12 IU/mL . [facility] Serum or plasma C reactive p rotein measurement (mass/volume)Ordered By: Harsh Carrasquillo on 03-04-2023 CRP [Mass/Vol] 3.03 mg/L 0.0-3.0 [facility] Comment on above: C-Reactive Protein ( CRP) provides useful information for thediagnosis, therapy and monitoring of inflammatory processesand associated diseases. For the evaluation of Relative Riskfor Cardiovascular Disease, a High Sensitivity CRP (HSCRP)should be ordered. Thin prep Papanicolaou smear with manual screeningOrdered By: Harsh Carrasquillo on 03-04-2023 Thin prep Papanicolaou smear with manual screening Comment . [facility] Comment on above: QuantiFERON-TB Gold Plus is a qualitative indirect test forM tuberculosis infection (including disease) and isintended for use in conjunction with risk assessment,radiography, and other medical and diagnostic evaluations.The QuantiFERON-TB Gold Plus result is determined bysubtracting the Nil value from either TB antigen (Ag)value. The Mitogen tube serves as a control for the test. Thin prep Papanicolaou smear with manual screening 0.10 IU/mL . [facility] Thin prep Papanicolaou smear with manual screening 0.11 IU/mL . [facility] Thin prep Papanicolaou smear with manual screening > 10.00 IU/mL . [facility] Thin prep Papanicolaou smear with manual screening Negative Negative [facility] Comment on above: No response to M tub erculosis antigens detected.Infection with M tuberculosis is unlikely, but high riskindividuals should be considered for additional testing(ATS/IDSA/CDC Clinical Practice Guidelines, 2017). Thereference range is an Antigen minus Nil result of <0.35IU/mL.The specimen received for QuantiFERON testing was incubatedby the ordering institution. Specific procedures outlinedin our Directory of Services and in the package insert forthe QuantiFERON Gold (In Tube) test must be followed toenable for proper stimulation of cells for the productionof interferon gamma. Chemiluminescence immunoassaymethodologyPerformed at: [facility] [id number] Director: Cleveland Monzon PhD, Phone: [phone] Absolute lymphocyte countOrd ered By: Harsh Carrasquillo on 09-03-2022 Lymphocytes Auto (Unsp spec) [#/Vol] 3.10 10*3/uL 0.83-4.51 [facility] Basophil percentageOrdered B y: Harsh Carrasquillo on 09-03-2022 Basophils/100 WBC (Bld) 0.5 % 0-1 [facility] Bilirubin [Mass/Vol] 0.50 mg/dL 0.20-1.00 [facility] Comment on above: For patients on eltr ombopag therapy, use of Dimension [place] TBIL is not recommended. Chloride [Moles/Vol] 108 mmol/L 98-107 [facility] Eosinophils/100 WBC (Bld) 3.0 % 0-5 [facility] Glucose [Mass/Vol] 102 mg/dL 74-106 [facility] Comment on above: Fasting Glucose resu lt from 100 to 125 mg/dL suggests IMPAIRED HOMEOSTASIS per A.D.A. criteria. Neutrophils (Bld) [#/Vol] 2.1 10*3/uL 2.0-7.7 [facility] Neutrophils/100 WBC (Bld) 35.5 % 47-70 [facility] Potassium [Moles/Vol] 4.4 mmol/L 3.5-5.1 [facility] Protein [Mass/Vol] 8.4 g/dL 6.4-8.2 [facility] Sodium [Moles/Vol] 139 mmol/L 136-145 [facility] WBC (Bld) [#/Vol] 6.0 10*3/uL 4.4-11.0 [facility] Blood erythrocytes count (nu mber/volume)Ordered By: Harsh Carrasquillo on 09-03-2022 RBC (Bld) [#/Vol] 4.02 10*6/uL 4.2-5.4 [facility] Blood hemoglobin measurement (mass/volume)Ordered By: Harsh Carrasquillo on 09-03-2022 Hemoglobin (Bld) [Mass/Vol] 12.4 g/dL 12.0-15.0 [facility] Blood lymphocytes/100 leukoc ytesOrdered By: Harsh Carrasquillo on 09-03-2022 Lymphocytes/100 WBC (Bld) 51.8 % 19-41 [facility] Blood monocytes/100 leukocyt esOrdered By: Harsh Carrasquillo on 09-03-2022 Monocytes/100 WBC (Bld) 8.9 % 0-10 [facility] Blood platelet mean volumeOr dered By: Harsh Carrasquillo on 09-03-2022 Platelet mean volume (Bld) [Entitic vol] 9.0 fL 6.2-12.0 [facility] Determination of erythrocyte mean corpuscular volume (MCV)Ordered By: Harsh Carrasquillo on 09-03-2022 MCV (RBC) [Entitic vol] 98.3 fL 81-99 [facility] Erythrocyte sedimentation ra teOrdered By: Harsh Carrasquillo on 09-03-2022 ESR (Bld) [Velocity] 14 mm/h 0-30 [facility] Hematocrit Auto (Bld) [Volum e fraction]Ordered By: Harsh Carrasquillo on 09-03-2022 Hematocrit (Bld) [Volume fraction] 39.5 % 37-47 [facility] - Chemistry and C hemistry - challengeOrdered By: Harsh Carrasquillo on 09-03-2022 ALP [Catalytic activity/Vol] 74 U/L 45-117 [facility] ALT [Catalytic activity/Vol] 58 U/L 13-56 [facility] CO2 [Moles/Vol] 26.0 mmol/L 21.0-32.0 [facility] Globulin (S) [Mass/Vol] 4.5 g/dL 2.2-4.2 [facility] Urea nitrogen/Creatinine [Mass ratio] 18.7 mg/mg 10-20 [facility] - Hematology and Cell countsOrdered By: Harsh Carrasquillo on 09-03-2022 Erythrocyte distribution width (RBC) [Entitic vol] 46.3 fL 35.1-43.9 [facility] Erythrocyte distribution width (RBC) [Ratio] 12.8 % 11.6-14.6 [facility] Immature granulocytes/100 WBC (Bld) 0.300 % 0.0-0.9 [facility] Comment on above: IG% - Immature Granu locytes (promyelocytes, myelocytes and metamyelocytes) > 1% indicates that a LEFT SHIFT is Present. MCH (RBC) [Entitic mass] 30.8 pg 27.0-32.0 [facility] Nucleated RBC/100 WBC (Bld) [Ratio] 0 % 0-5 [facility] MCHC Auto (RBC) [Mass/Vol]Or dered By: Harsh Carrasquillo on 09-03-2022 MCHC (RBC) [Mass/Vol] 31.4 g/dL 32-36 [facility] No Panel InformationOrdered By: Harsh Carrasquillo on 09-03-2022 Estimated GFR (MDRD) Amer 69 mL/min >60 [facility] Comment on above: GFR Calc Estimated GFR (MDRD) Non-Af Amer 57 mL/min >60 [facility] Comment on above: Non- GFR Calc Platelets bldOrdered By: Christofer Carrasquillo on 09-03-2022 Platelets (Bld) [#/Vol] 212 10*3/uL 150-450 [facility] Qualitative QuantiFERON-TB g old in tube testOrdered By: Harsh Carrasquillo on 09-03-2022 M. tuberculosis tuberculin stim IFN-g Ql (Bld) 0.07 IU/mL . [facility] Serum or plasma C reactive p rotein measurement (mass/volume)Ordered By: Harsh Carrasquillo on 09-03-2022 CRP [Mass/Vol] mg/L 0.0-3.0 [facility] Comment on above: C-Reactive Protein ( CRP) provides useful information for thediagnosis, therapy and monitoring of inflammatory processesand associated diseases. For the evaluation of Relative Riskfor Cardiovascular Disease, a High Sensitivity CRP (HSCRP)should be ordered. Serum or plasma albumin neha urement (mass/volume)Ordered By: Harsh Carrasquillo on 09-03-2022 Albumin [Mass/Vol] 3.9 g/dL 3.2-5.0 [facility] Serum or plasma albumin/glob ulin mass ratioOrdered By: Harsh Carrasquillo on 09-03-2022 Albumin/Globulin [Mass ratio] 0.9 {ratio} 0.9-2.4 [facility] Serum or plasma calcium neha urement (mass/volume)Ordered By: Harsh Carrasquillo on 09-03-2022 Calcium [Mass/Vol] 9.4 mg/dL 8.5-10.1 [facility] Serum or plasma creatinine m easurement (mass/volume)Ordered By: Harsh Carrasquillo on 09-03-2022 Creatinine [Mass/Vol] 1.07 mg/dL 0.55-1.02 [facility] Comment on above: The validity of the calculated GFR & GFRAA in patients over 70 years has not been determined. Clinical correlation is essential. Serum or plasma urea nitroge n measurement (mass/volume)Ordered By: Harsh Carrasquillo on 09-03-2022 Urea nitrogen [Mass/Vol] 20 mg/dL 7-18 [facility] Thin prep Papanicolaou smear with manual screeningOrdered By: Harsh Carrasquillo on 09-03-2022 Thin prep Papanicolaou smear with manual screening 31 U/L 15-37 [facility] Thin prep Papanicolaou smear with manual screening 5 5-15 [facility] Thin prep Papanicolaou smear with manual screening Comment . [facility] Comment on above: QuantiFERON-TB Gold Plus is a qualitative indirect test forM tuberculosis infection (including disease) and isintended for use in conjunction with risk assessment,radiography, and other medical and diagnostic evaluations.The QuantiFERON-TB Gold Plus result is determined bysubtracting the Nil value from either TB antigen (Ag)value. The Mitogen tube serves as a control for the test. Thin prep Papanicolaou smear with manual screening 0.07 IU/mL . [facility] Thin prep Papanicolaou smear with manual screening 0.10 IU/mL . [facility] Thin prep Papanicolaou smear with manual screening > 10.00 IU/mL . [facility] Thin prep Papanicolaou smear with manual screening Negative Negative [facility] Comment on above: No response to M tub erculosis antigens detected.Infection with M tuberculosis is unlikely, but high riskindividuals should be considered for additional testing(ATS/IDSA/CDC Clinical Practice Guidelines, 2017). Thereference range is an Antigen minus Nil result of <0.35IU/mL.The specimen received for QuantiFERON testing was incubatedby the ordering institution. Specific procedures outlinedin our Directory of Services and in the package insert forthe QuantiFERON Gold (In Tube) test must be followed toenable for proper stimulation of cells for the productionof interferon gamma. Chemiluminescence immunoassaymethodologyPerformed at: [facility] [id number] Director: Cleveland Monzon PhD, Phone: [phone] Basophil percentageOrdered B y: Shelbie Rebollar on 06-24-2022 Cholesterol [Mass/Vol] 161 mg/dL <200 [facility] Comment on above: <200 mg/dL Desirable 200-240 mg/dL Borderline >240 mg/dL High Risk Triglyceride [Mass/Vol] 220 mg/dL <199 [facility] Comment on above: The drugs N-Acetylcy steine and Metamizole may falsely depress this assay.Serum Triglycerides Reference Interval Normal <150 mg/dL Borderline high 150 - 199 mg/dL High 200 - 499 mg/dL Very High > or = 500 mg/dL Serum or plasma calcitriol m easurement (mass/volume)Ordered By: Shelbie Rebollar on 06-24-2022 1,25-dihydroxyvitamin D3 [Mass/Vol] 49.7 pg/mL 24.8-81.5 [facility] Comment on above: Please note refere nce interval changePerformed at: - [address] [id number] Director: Josue Agustin MD, Phone: [phone] Serum or plasma cholesterol in HDL measurement (mass/volume)Ordered By: Shelbie Rebollar on 06-24-2022 Cholesterol in HDL [Mass/Vol] 49 mg/dL >40 [facility] Comment on above: The drugs N-Acetylcy steine and Metamizole may falsely depress this assay. Reference Range HDL <40 mg/dL Low HDL Cholesterol HDL >or= 60 mg/dL High HDL Cholesterol Serum or plasma cholesterol in VLDL measurement (mass/volume)Ordered By: Shelbie Rebollar on 06-24-2022 Cholesterol in VLDL [Mass/Vol] 44 mg/dL 5-40 [facility] Serum or plasma low density lipoprotein (LDL) cholesterol measurement (mass/volume)Ordered By: Shelbie Rebollar on 06-24-2022 Cholesterol in LDL [Mass/Vol] 68 mg/dL 0-130 [facility] No Panel Informationon 01-22 Vitamin D 25-Hydroxy 37.0 ng/mL [facility] Work Phone: Comment on above: Vitamin D 25(OH) Sta tus Range Deficiency <20 ng/mL (50nmol/L) Insufficiency 20 - 30 ng/mL (50 - 75 nmol/L) Sufficiency 30 - 100 ng/mL (75 - 250 nmol/L) Toxicity >100 ng/mL (>250 nmol/L) Basophil percentageon 2021 Bilirubin [Mass/Vol] 0.40 mg/dL 0.20-1.00 [facility] Work Phone: Comment on above: For patients on eltr ombopag therapy, use of Dimension [place] TBIL is not recommended. Chloride [Moles/Vol] 106 mmol/L 98-107 [facility] Work Phone: Glucose [Mass/Vol] 92 mg/dL 74-106 [facility] Work Phone: Potassium [Moles/Vol] 3.9 mmol/L 3.5-5.1 [facility] Work Phone: Protein [Mass/Vol] 8.1 g/dL 6.4-8.2 [facility] Work Phone: Sodium [Moles/Vol] 138 mmol/L 136-145 [facility] Work Phone: [phone] Iron measurement (mass/mass) on 11-08-2021 Iron (Unsp spec) [Mass/Mass] 74 ug/dL 50-170 [facility] Work Phone: Laboratory - Chemistry and C hemistry - challengeon 11-08-2021 ALP [Catalytic activity/Vol] 69 U/L 45-117 [facility] Work Phone: ALT [Catalytic activity/Vol] 37 U/L 13-56 [facility] Work Phone: CO2 [Moles/Vol] 27.0 mmol/L 21.0-32.0 [facility] Work Phone: Cobalamin (Vitamin B12) [Mass/Vol] 573 pg/mL 211-911 [facility] Work Phone: Globulin (S) [Mass/Vol] 4.5 g/dL 2.2-4.2 [facility] Work Phone: Urea nitrogen/Creatinine [Mass ratio] 17.7 mg/mg 10-20 [facility] Work Phone: No Panel Informationon 11-08 Estimated GFR (MDRD) Amer 79 mL/min >60 [facility] Work Phone: Comment on above: GFR Calc Estimated GFR (MDRD) Non-Af Amer 65 mL/min >60 [facility] Work Phone: Comment on above: Non- GFR Calc Vitamin D 25-Hydroxy 25.3 ng/mL [facility] Work Phone: Comment on above: Vitamin D 25(OH) Sta tus Range Deficiency <20 ng/mL (50nmol/L) Insufficiency 20 - 30 ng/mL (50 - 75 nmol/L) Sufficiency 30 - 100 ng/mL (75 - 250 nmol/L) Toxicity >100 ng/mL (>250 nmol/L) Serum or plasma albumin neha urement (mass/volume)on 11-08-2021 Albumin [Mass/Vol] 3.6 g/dL 3.2-5.0 [facility] Work Phone: Serum or plasma albumin/glob ulin mass ratioon 11-08-2021 Albumin/Globulin [Mass ratio] 0.8 {ratio} 0.9-2.4 [facility] Work Phone: Serum or plasma calcium neha urement (mass/volume)on 11-08-2021 Calcium [Mass/Vol] 8.8 mg/dL 8.5-10.1 [facility] Work Phone: Serum or plasma creatinine m easurement (mass/volume)on 11-08-2021 Creatinine [Mass/Vol] 0.96 mg/dL 0.55-1.02 [facility] Work Phone: Comment on above: The validity of the calculated GFR & GFRAA in patients over 70 years has not been determined. Clinical correlation is essential. Serum or plasma ferritin analy surement (mass/volume)on 11-08-2021 Ferritin [Mass/Vol] 19 ng/mL 8-252 [facility] Work Phone: Serum or plasma urea nitroge n measurement (mass/volume)on 11-08-2021 Urea nitrogen [Mass/Vol] 17 mg/dL 7-18 [facility] Work Phone: Thin prep Papanicolaou smear with manual screeningon 11-08-2021 Thin prep Papanicolaou smear with manual screening 22 U/L 15-37 [facility] Work Phone: Thin prep Papanicolaou smear with manual screening 5 5-15 [facility] Work Phone: Whole blood hemoglobin A1c/t otal hemoglobin ratio (mass fraction)on 11-08-2021 HbA1c (Bld) [Mass fraction] 5.4 % 3.8-5.6 [facility] Work Phone: Comment on above: Normal < 5.7 % Predi abetic 5.7 - 6.4 % Diabetic >or= 6.5 % Please note range changes. Office Visit: Annualon 04-07 Documentation of current medications (procedure) Done Invalid Interpretation Code [facility] Fall risk assessment No Invalid Interpretation Code [facility] Protein mass conc Done [facility] Tobacco smoking status NHIS Never Invalid Interpretation Code [facility] Tobacco smoking status NHIS Never smoker [facility] Tobacco use CPHS Never smoker Invalid Interpretation Code [facility] Office Visit: Annualon 03-10 MG Breast screening Normal Bilateral Invalid Interpretation Code [facility] Office Visit: Annualon 08-14 General categories Cyto stain Interp (Cervical or vaginal smear or scraping) Normal Invalid Interpretation Code [facility] Vital Signs Date Time Vital Sign Value Performing Clinician Facility 01-24-2025 08:01-0400 Body mass index (BMI) [Ratio] 23.65 kg/m2 Wilman Hester MD Work Phone: [facility] 01-24-2025 08:01-0400 Body weight 67 kg Wilman Hester MD Work Phone: [facility] 01-24-2025 08:01-0400 Diastolic blood pressure 72 mm[Hg] Wilman Hester MD Work Phone: [facility] 01-24-2025 08:01-0400 Heart rate 72 /min Wilman Hester MD Work Phone: [facility] 01-24-2025 08:01-0400 SaO2% (BldA) [Mass fraction] 97 % Wilman Hester MD Work Phone: [facility] 01-24-2025 08:01-0400 Systolic blood pressure 112 mm[Hg] Wilman Hester MD Work Phone: [facility] 01-17-2025 07:22-0400 Body mass index (BMI) [Ratio] 23.72 kg/m2 Juancarlos Carrera RN CARE MANAGER.BEHAVIOR INTERVENTIONIST Work Phone: [facility] 01-17-2025 07:22-0400 Body temperature 97.7 [degF] Juancarlos Carrera RN CARE MANAGER.BEHAVIOR INTERVENTIONIST Work Phone: [facility] 01-17-2025 07:22-0400 Body weight 67.2 kg Juancarlos Carrera RN CARE MANAGER.BEHAVIOR INTERVENTIONIST Work Phone: [facility] 01-17-2025 07:22-0400 Diastolic blood pressure 80 mm[Hg] Juancarlos Carrera RN CARE MANAGER.BEHAVIOR INTERVENTIONIST Work Phone: [facility] 01-17-2025 07:22-0400 Heart rate 72 /min Juancarlos Carrera RN CARE MANAGER.BEHAVIOR INTERVENTIONIST Work Phone: [facility] 01-17-2025 07:22-0400 Respiratory rate 18 /min Juancarlos Carrera RN CARE MANAGER.BEHAVIOR INTERVENTIONIST Work Phone: [facility] 01-17-2025 07:22-0400 SaO2% (BldA) [Mass fraction] 99 % Juancarlos Carrera RN CARE MANAGER.BEHAVIOR INTERVENTIONIST Work Phone: [facility] 01-17-2025 07:22-0400 Systolic blood pressure 122 mm[Hg] Juancarlos Carrera RN CARE MANAGER.BEHAVIOR INTERVENTIONIST Work Phone: [facility] 07-16-2024 09:45-0500 Body mass index (BMI) [Ratio] 23.83 kg/m2 Socorro Hsu RN CARE MANAGER.BEHAVIOR INTERVENTIONIST Work Phone: [facility] 07-16-2024 09:45-0500 Body temperature 98.71 [degF] Socorro Hsu RN CARE MANAGER.BEHAVIOR INTERVENTIONIST Work Phone: [facility] 07-16-2024 09:45-0500 Body weight 67.5 kg Socorro Hsu RN CARE MANAGER.BEHAVIOR INTERVENTIONIST Work Phone: [facility] 07-16-2024 09:45-0500 Diastolic blood pressure 75 mm[Hg] Socorro Hsu RN CARE MANAGER.BEHAVIOR INTERVENTIONIST Work Phone: [facility] 07-16-2024 09:45-0500 Heart rate 82 /min Socorro Hsu RN CARE MANAGER.BEHAVIOR INTERVENTIONIST Work Phone: [facility] 07-16-2024 09:45-0500 Respiratory rate 18 /min Socorro Hsu RN CARE MANAGER.BEHAVIOR INTERVENTIONIST Work Phone: [facility] 07-16-2024 09:45-0500 SaO2% (BldA) [Mass fraction] 96 % Socorro Hsu RN CARE MANAGER.BEHAVIOR INTERVENTIONIST Work Phone: [facility] 07-16-2024 09:45-0500 Systolic blood pressure 141 mm[Hg] Socorro Hsu RN CARE MANAGER.BEHAVIOR INTERVENTIONIST Work Phone: [facility] 01-15-2024 08:01-0400 Body mass index (BMI) [Ratio] 24.5 kg/m2 Gary Tapia RN CARE MANAGER.INSPECTOR CIRCUITRY NEGATIVE Work Phone: [facility] 01-15-2024 08:01-0400 Body weight 69.4 kg Gary Tapia RN CARE MANAGER.INSPECTOR CIRCUITRY NEGATIVE Work Phone: [facility] 01-15-2024 08:01-0400 Diastolic blood pressure 68 mm[Hg] Gary Tapia RN CARE MANAGER.INSPECTOR CIRCUITRY NEGATIVE Work Phone: [facility] 01-15-2024 08:01-0400 Heart rate 83 /min Gary Tapia RN CARE MANAGER.INSPECTOR CIRCUITRY NEGATIVE Work Phone: [facility] 01-15-2024 08:01-0400 Respiratory rate 16 /min Gary Tapia RN CARE MANAGER.INSPECTOR CIRCUITRY NEGATIVE Work Phone: [facility] 01-15-2024 08:01-0400 Systolic blood pressure 108 mm[Hg] Gary Tapia MACK Work Phone: [facility] 09-04-2023 13:23-0500 Body height 167.[address] Wilman Hester Work Phone: 2(557)456-618261 [place] [address] 09-04-2023 13:22-0500 Body mass index (BMI) [Ratio] 25.2 kg/m2 Dr. Wilman Hester Work Phone: 9(858)980-488561 [place] [address] 09-04-2023 13:22-0500 Body weight 70.[address] Wilman Hester Work Phone: 8(284)450-084490 [place] [address] 09-04-2023 13:22-0500 Diastolic blood pressure 75 mm[Hg] Dr. Wilman Hester Work Phone: 7(201)886-500990 [place] [address] 09-04-2023 13:22-0500 Systolic blood pressure 123 mm[Hg] Dr. Wilman Hester Work Phone: 4(435)519-482290 [place] [address] 08-04-2023 08:59-0500 Body temperature 98.3 [degF] Dr. Wilman Hester Work Phone: 9(082)978-055390 [place] [address] 08-04-2023 08:59-0500 Diastolic blood pressure 75 mm[Hg] Dr. Wilman Hester Work Phone: 4(295)550-208190 [place] [address] 08-04-2023 08:59-0500 Heart rate 64 /min Dr. Wilman Hester Work Phone: 3(557)675-963090 [place] [address] 08-04-2023 08:59-0500 Respiratory rate 16 /min Dr. Wilman Hester Work Phone: 5(025)459-391890 [place] [address] 08-04-2023 08:59-0500 SaO2% (BldA) [Mass fraction] 95 % Dr. Wilman Hester Work Phone: 3(471)136-276690 [place] [address] 08-04-2023 08:59-0500 Systolic blood pressure 114 mm[Hg] Dr. Wilman Hester Work Phone: 5(045)074-649390 [place] [address] 08-04-2023 07:26-0500 Body height 167.[address] Wilman Hester Work Phone: [facility] 08-04-2023 07:26-0500 Body mass index (BMI) [Ratio] 24.4 kg/m2 Dr. Wilman Hester Work Phone: [facility] 08-04-2023 07:26-0500 Body weight 68.[address] Wilman Hester Work Phone: [facility] 01-13-2023 13:15-0400 Body height 169.5 cm Wilman Hester MD Work Phone: [facility] 01-13-2023 13:15-0400 Body temperature 97.81 [degF] Wilman Hester MD Work Phone: [facility] 01-13-2023 13:15-0400 Body weight 68.95 kg Wilman Hester MD Work Phone: [facility] 01-13-2023 13:15-0400 Diastolic blood pressure 82 mm[Hg] Wilman Hester MD Work Phone: [facility] 01-13-2023 13:15-0400 Heart rate 92 /min Wilman Hester MD Work Phone: [facility] 01-13-2023 13:15-0400 Respiratory rate 18 /min Wilman Hester MD Work Phone: [facility] 01-13-2023 13:15-0400 SaO2% (BldA) [Mass fraction] 96 % Wilman Hester MD Work Phone: [facility] 01-13-2023 13:15-0400 Systolic blood pressure 122 mm[Hg] Wilman Hester MD Work Phone: [facility] 08-27-2022 09:46-0500 Body height 167.[address] Abdoulaye Corley Work Phone: [facility] 08-27-2022 09:38-0500 Body mass index (BMI) [Ratio] 24 kg/m2 Dr. Abdoulaye Corley Work Phone: [facility] 08-27-2022 09:38-0500 Body weight 67.[address] Abdoulaye Corley Work Phone: [facility] 08-27-2022 09:38-0500 Diastolic blood pressure 70 mm[Hg] Dr. Abdoulaye Corley Work Phone: [facility] 08-27-2022 09:38-0500 Systolic blood pressure 108 mm[Hg] Dr. Abdoulaye Corley Work Phone: [facility] 04-07-2017 08:16-0400 BMI (Body Mass Index) 22.92 kg/m2 Ivelisse Loya NP [facility] 04-07-2017 08:16-0400 Body Temperature 97.2 [degF] Ivelisse Loya NP [facility] 04-07-2017 08:16-0400 BP Diastolic 68 mm[Hg] Ivelisse Loya NP [facility] 04-07-2017 08:16-0400 BP Systolic 96 mm[Hg] Ivelisse Loya NP [facility][1[facility] 04-07-2017 08:16-0400 Height 167.64 cm Ivelisse Loya NP [facility] 04-07-2017 08:16-0400 Pulse (Heart Rate) 88 /min Ivelisse Loya NP [facility] 04-07-2017 08:16-0400 Respiratory Rate 16 /min Ivelisse Lyoa NP [facility] 04-07-2017 08:16-0400 Weight 64.41 kg Ivelisse Loya NP [facility] Encounters Encounter Date Encounter Type Care Provider Facility Start: 07-05-2025 End: 07-05-2025 ambulatory Harsh Bennington Facility:[facility] Start: 06-29-2025 End: 06-29-2025 Patient encounter procedure Harsh Carrasquillo DO -[facility] Work Phone: Start: 06-29-2025 End: 06-29-2025 ambulatory Harsh Bennington Facility:[facility] Start: 06-29-2025 End: 06-29-2025 ambulatory Harsh Carrasquillo Facility:[facility] Start: 01-24-2025 End: 01-24-2025 ambulatory WILMAN HESTER Facility:[facility] Start: 01-24-2025 End: 01-24-2025 Patient encounter status Wilman Hester MD Work Phone: [facility] Work Phone: Start: 01-24-2025 End: 01-24-2025 Periodic preventive med est patient 40-64yrs Wilman Hester MD Work Phone: [facility] Comment on above: Routine medical exam (Primary Dx); Crohn's disease of both small and large intestine without complication (HCC); Vitamin D deficiency; Anemia, unspecified type; Screening for depression; Encounter for screening examination for other mental health and behavioral disorders; Encounter for long-term current use of medication; Family history of B12 deficiency Start: 01-24-2025 End: 01-24-2025 ambulatory WILMAN HESTER Facility:[facility] Start: 01-24-2025 Encounter for genera l adult medical examination without abnormal findings WILMAN HESTER [facility] Start: 01-17-2025 End: 01-17-2025 Office outpatient visit 25 minutes Juancarlos Carrera APRN.CNP Work Phone: [facility] Comment on above: Bacterial sinusitis (Primary Dx) Start: 01-17-2025 End: 01-17-2025 ambulatory WILMAN HESTER Facility:[facility] Start: 12-27-2024 End: 12-27-2024 ambulatory Harsh Carrasquillo Facility:[facility] Start: 09-27-2024 Encounter for gynecological examination (general) (routine) without abnormal findings Ivelisse Loya PUTTIER [facility] Start: 09-27-2024 End: 09-27-2024 ambulatory Ivelisse Rockwells PUTTIER Facility:[facility] Start: 09-27-2024 End: 09-27-2024 ambulatory Ivelisse Loya PUTTIER Facility:[facility] Start: 07-16-2024 End: 07-16-2024 ambulatory WILMAN HESTER Facility:[facility] Start: 07-16-2024 End: 07-16-2024 Patient encounter procedure Socorro Pinkgs RN CARE MANAGER.BEHAVIOR INTERVENTIONIST Work Phone: [facility] Comment on above: Conjunctivitis of le ft eye, unspecified conjunctivitis type (Primary Dx) Start: 07-16-2024 End: 07-16-2024 ambulatory Harsh Carrasquillo Facility:[facility] Start: 07-10-2024 End: 07-10-2024 ambulatory [facility] Nurse Lokesh Work Phone: [facility] Start: 07-10-2024 End: 07-10-2024 Patient encounter procedure Immunization [facility] Nurse Lokesh Work Phone: [facility] Start: 03-31-2024 End: 03-31-2024 ambulatory WILMAN HESTER Facility:[facility] Start: 03-08-2024 Telephone encounter Wilman garcia MD Work Phone: [facility] Comment on above: Orders Start: 03-02-2024 End: 03-02-2024 ambulatory GARY TAPIA Facility:[facility] Start: 03-02-2024 End: 03-02-2024 Nursing evaluation of patient and report Mi Nurse Work Phone: [facility] Comment on above: Need for vaccination (Primary Dx) Start: 01-15-2024 End: 01-15-2024 Patient encounter procedure Gary Tapia APRN.INSPECTOR CIRCUITRY NEGATIVE Work Phone: [facility] Comment on above: Routine medical exam (Primary Dx); Encounter for immunization; Screening for diabetes mellitus (DM); Screening for cervical cancer; Crohn's disease of both small and large intestine without complication (HCC); Vitamin D deficiency; Anemia, unspecified type Start: 01-15-2024 End: 01-15-2024 Patient encounter status Gary Tapia APRN.INSPECTOR CIRCUITRY NEGATIVE Work Phone: [facility] Start: 09-04-2023 End: 09-04-[address] Wilman Hester Work Phone: [facility] Work Phone: Start: 09-04-2023 End: 09-04-[address] Wilman Hester Work Phone: [facility] Work Phone: Start: 08-04-2023 Non-patient / Non-visit Dr. Joya Hester Work Phone: [facility] Start: 08-04-2023 End: 08-04-2023 Admission to same day surgery center Dr. Wilman Hester Work Phone: [facility] Work Phone: Start: 08-04-2023 End: 08-04-[address] Wilman Hester Work Phone: [facility] Work Phone: Start: 04-28-2023 End: 04-28-[address] [facility] Work [facility]: Start: 04-25-2023 End: 04-25-[address] Abdoulaye Corley Work Phone: [facility] Work Phone: Start: 04-25-2023 End: 04-25-[address] Abdoulaye Corley Work Phone: [facility] Work Phone: Start: 03-05-2023 End: 03-05-[address] Abdoulaye Corley Work Phone: [facility] Work Phone: Start: 03-05-2023 End: 03-05-[address] [facility]oul[facility] Cor[facility] Work [facility]: Start: 03-04-2023 End: 03-04-[address] Abdoulaye Corley Work Phone: [facility] Work Phone: Start: 03-04-2023 End: 03-04-[address] [facility] Start: 02-18-2023 End: 02-18-[address] Abdoulaye Corley Work Phone: [facility] Work Phone: Start: 01-15-2023 ambulatory Wilman fleming MD Work Phone: Internal [facility] Start: 01-13-2023 End: 01-13-2023 Patient encounter status Wilman Hester MD Work Phone: [facility] Start: 01-13-2023 End: 01-13-2023 Periodic preventive med est patient 40-64yrs Wilman Hester MD Work Phone: [facility] Comment on above: Routine medical exam (Primary Dx); Mild intermittent asthma without complication; Encounter for immunization Start: 11-11-2022 End: 11-11-2022 Patient encounter procedure Nathalia Sarah OD Work Phone: Optometry Comment on above: Myopia of both eyes (Primary Dx); Regular astigmatism of both eyes; Presbyopia Start: 10-28-2022 End: 10-28-[address] Abdoulaye Corley Work Phone: [facility] Start: 10-24-2022 End: 10-24-[address] Abdoulaye Corley Work Phone: [facility] Work Phone: Start: 10-24-2022 End: 10-24-[address] Abdoulaye Corley Work Phone: [facility] Start: 10-04-2022 End: 10-04-[address] Abdoulaye Corley Work Phone: [facility] Work Phone: Start: 10-04-2022 End: 10-04-[address] Abdoulaye Corley Work Phone: [facility] Start: 09-03-2022 End: 09-03-[address] Abdoulaye Corley Work Phone: [facility] Work Phone: Start: 09-03-2022 End: 09-03-[address] Abdoulaye Corley Work Phone: [facility] Start: 08-29-2022 End: 08-29-[address] Abdoulaye Corley Work Phone: [facility] Work Phone: Start: 08-29-2022 End: 08-29-2022 Patient encounter procedure Dr. Abdoulaye Corley Work Phone: [facility] [place] Start: 08-27-2022 End: 08-27-[address] Abdoulaye Corley Work Phone: [facility] Start: 06-24-2022 End: 06-24-2022 ambulatory [facility] Work Phone: Start: 06-24-2022 End: 06-24-2022 Patient encounter procedure [facility] Start: 02-13-2022 Refill Rah Davis APRN.BEHAVIOR INTERVENTIONIST, DNP Work Phone: [facility] Comment on above: Refill Request Start: 01-22-2022 End: 01-22-2022 Patient encounter procedure No Primary Care Physician [facility] Start: 11-08-2021 Patient encounter procedure No Primary Care Physician [facility] Start: 10-09-2021 End: 10-09-2021 Patient encounter procedure No Primary Care Physician [facility] G[facility] Procedures Date Procedure Procedure Detail Performing Clinician Start: 06-29-2025 Hepatitis A virus antibody, IgM type Dr. Wilman Hester MD Work Phone: Comment on above: A negative anti-HAV IgM result suggests no recent orcurrent HAV infection. Start: 06-29-2025 Hepatitis B core antibody measurement, IgM type Dr. Wilman Hester MD Work Phone: Start: 06-29-2025 Hepatitis C antibody measurement Dr. Maggi Hester MD Work Phone: Start: 06-29-2025 In-vitro immunologic test Dr. Wilman cruz MD Work Phone: Comment on above: QuantiFERON-TB Gold Plus is a qualitativ e indirect test forM tuberculosis infection (including disease) and isintended for use in conjunction with risk assessment,radiography, and other medical and diagnostic evaluations.The QuantiFERON-TB Gold Plus result is determined bysubtracting the Nil value from either TB antigen (Ag)value. The Mitogen tube serves as a control for the test. No response to M tub erculosis antigens detected.Infection with M tuberculosis is unlikely, but high riskindividuals should be considered for additional testing(ATS/IDSA/CDC Clinical Practice Guidelines, 2017). Thereference range is an Antigen minus Nil result of <0.35IU/mL.The specimen received for QuantiFERON testing was incubatedby the ordering institution. Specific procedures outlinedin our Directory of Services and in the package insert forthe QuantiFERON Gold (In Tube) test must be followed toenable for proper stimulation of cells for the productionof interferon gamma. Chemiluminescence immunoassaymethodology Start: 06-29-[address] Wilman Hester MD Work Phone: Comment on above: Test Ordered: [id number] Adalimumab Drug + A ntibodyAdalimumab Drug Level 6.2 ug/mL ES Reference Range: .Quantitation Limit: <0.6 ug/mLResults of 0.6 or higher indicate detection of adalimumab.Comments: - The optimal drug concentration depends upon patient- specific factors including the disease and desired therapeutic endpoint. - Maintenance trough concentrations >=7.5 may correspond to higher remission rates.(1) - Mucosal healing may be more likely in patients with maintenance trough levels >8.14.(2) - In rheumatoid arthritis, trough levels of 5-8 are associated with clinical (EULAR) response.(3) - This assay measures the antibody-unbound (free) fraction of adalimumab when serum anti-adalimumab antibodies are present.Anti-Adalimumab Antibody 84 ng/mL ES Reference Range: . Interpretation: The above result is a LOW Antibody titer Quantitation Limit: <25 ng/mL. Results of 25 or higher indicate detection of anti- adalimumab antibodies. 25 - 100 ng/mL: LOW titer 101 - 300 ng/mL: INTERMEDIATE titer 301 or greater ng/mL: HIGH titerComments: - Anti-drug antibody levels should be interpreted in the context of the concomitant free drug trough concentration. - Low anti-drug antibodies may be transient while high titers are likely to be more consequential.(4-6) - Some immunogenicity is reversible. Elimination of intermediate titer (and even some high titer) anti-adalimumab antibodies has been achieved with dose escalation and/or methotrexate or 6-MP.(7) - This anti-adalimumab antibody assay is drug tolerant, and all positive results are verified for anti-drug specificity by a confirmatory test.References:1. Dorothy N, et al. AGA Review on TDM in IBD. Gastroenterol 2017;153:835-857.2. Shalom E, et al. J Crohns Col 2016;10(5):510-515.3. Chandler MF, et al. Anaya Rheum Dis 2015;74:513-518.4. Bartelds GM, et al. RONAL 2011;305(14):0645-9859.5. Steisac C, et al. J Clin Gastroenterol 2016; 50:482-489.6. Sasha H, et al. Clin Gastroenterol Hepatol 2015; 13(3):522-530.7. Noemi A, et al. Gastroenterol 2019;156(6):S-617.These tests were developed and their performancecharacteristics determined by [employer]. They have not beencleared or approved by the Food and Drug Administration.However, these electrochemiluminescence immunoassay (ECLIA)measurements of adalimumab and anti-adalimumab antibody(constituting DoseASSURE ADL) have been developed andvalidated in accordance with CLIA (Clinical LaboratoryImprovement Amendments) and the FDA Guidance document, AssayDevelopment and Validation for Immunogenicity Testing ofTherapeutic Protein Products (2019).Performed at: [facility] [address] [place], [place] [id number] Director: Kj Bishop MD, Phone: [phone] at: [facility] [address] [id number] Director: Cleveland Monzon PhD, Phone: [phone] Start: 01-24-2025 Adult depression screening assessment Wilman Hester MD Work Phone: Start: 01-15-2024 Adult depression screening assessment Immunization [facility] Work Phone: Start: 09-04-[address] Wilman Hester Work Phone: Start: 08-04-[address] Wilman Hester Work Phone: Start: 04-28-[address] Abdoulaye roe Work Phone: Start: 03-05-[address] Abdoulaye roe Work Phone: Start: 10-04-2022 CT of head without contrast Dr. Abdoulaye nuñez Work Phone: Start: 08-29-[address] Abdoulaye Corley Work Phone: Start: 09-04-2020 Colonoscopy Rah Davis APRN.BEHAVIOR INTERVENTIONIST, DNP Work Phone: Start: 05-18-2020 Mammography Rah Davis APRN.CNP, DNP Work Phone: Start: 03-22-2019 Lipid 1996 panel - Serum or Plasma Gary Tapia APRN.INSPECTOR CIRCUITRY NEGATIVE Work Phone: Start: 04-07-2017 Gynecologic examination Routine gynecological exam Ivelisse Loya NP Start: 01-16-2017 Adult depression screening assessment Rah Davis APRN.BEHAVIOR INTERVENTIONIST, DNP Work Phone: Plan of Treatment Date Care Activity Detail Author Start: 05-29-2032 Urine microalbumin profile [facility] Start: 04-23-2029 Urine microalbumin profile DTAP,TDAP,TD (9 - Td or Tdap) [facility] Start: 01-14-2027 Diabetes Screening Diabetes Screenin g [facility] Start: 02-06-2026 End: 02-06-2026 Patient encounter procedure 02/06/2026 8:00 AM EDT Office Visit [facility] [address] [place], [place] [id number] Wilman Hester MD [address] [place] [address] physical [facility] Comment on above: physical Start: 01-24-2026 Annual PCP Team Competitive Intelligence Manager coleen Disease Visit Annual PCP Team Chronic Disease Visit [facility] Start: 01-24-2026 Anxiety Screening Anxiety Screening [facility] Start: 01-24-2026 Depression Screening Depression Scre ening [facility] Start: 12-25-2025 End: 03-26-2026 25-hydroxyvitamin D3 [Mass/volume] in Serum or Plasma VITAMIN D 25 HYDROXY Lab Routine Vitamin D deficiency Encounter for long-term current use of medication Expected: 12/25/2025 (Approximate), Expires: 03/26/2026 [facility] Comment on above: Expected: 12/25/2025 (Approximate), Expires: 03/26/2026 Start: 12-25-2025 End: 03-26-2026 CBC W Auto Differential panel - Blood COMPLETE BLOOD COUNT AND DIFFERENTIAL Lab Routine Anemia, unspecified type Encounter for long-term current use of medication Expected: 12/25/2025 (Approximate), Expires: 03/26/2026 [facility] Comment on above: Expected: 12/25/2025 (Approximate), Expires: 03/26/2026 Start: 12-25-2025 End: 03-26-2026 Cobalamin (Vitamin B12) [Mass/volume] in Serum or Plasma VITAMIN B12 Lab Routine Anemia, unspecified type Encounter for long-term current use of medication Family history of B12 deficiency Expected: 12/25/2025 (Approximate), Expires: 03/26/2026 [facility] Comment on above: Expected: 12/25/2025 (Approximate), Expires: 03/26/2026 Start: 12-25-2025 End: 03-26-2026 Comprehensive metabolic 2000 panel - Serum or Plasma COMPREHENSIVE METABOLIC PANEL Lab Routine Encounter for long-term current use of medication Expected: 12/25/2025 (Approximate), Expires: 03/26/2026 [facility] Comment on above: Expected: 12/25/2025 (Approximate), Expires: 03/26/2026 Start: 12-25-2025 End: 03-26-2026 Lipid 1996 panel - Serum or Plasma LIPID PANEL, FASTING Lab Routine Encounter for long-term current use of medication Expected: 12/25/2025 (Approximate), Expires: 03/26/2026 [facility] Comment on above: Expected: 12/25/2025 (Approximate), Expires: 03/26/2026 Start: 09-27-2025 Screening for malign ant neoplasm of breast Mammogram Screening [facility] Start: 09-27-2025 Screening for malign ant neoplasm of cervix Cervical Cancer Screening [facility] Start: 09-04-2025 Colonoscopy COLONOSCOPY [facility] Start: 09-04-2025 COLORECTAL CANCER SCREENING COLORECTAL CANCER SCREENING [facility] Start: 09-04-2025 Screening for malign ant neoplasm of colon [facility] Start: 07-05-2025 End: 07-05-2025 Patient encounter procedure [facility] -[facility] Work Phone: Start: 01-24-2025 End: 04-25-2025 25-hydroxyvitamin D3 [Mass/volume] in Serum or Plasma [facility] Comment on above: Expected: 01/24/2025 , Expires: 04/25/2025 Start: 01-24-2025 End: 04-25-2025 CBC W Auto Differential panel - Blood [facility] Comment on above: Expected: 01/24/2025 , Expires: 04/25/2025 Start: 01-24-2025 End: 04-25-2025 Cobalamin (Vitamin B12) [Mass/volume] in Serum or Plasma [facility] Comment on above: Expected: 01/24/2025 , Expires: 04/25/2025 Start: 01-24-2025 End: 04-25-2025 Comprehensive metabolic 2000 panel - Serum or Plasma [facility] Work Phone: Comment on above: Expected: 01/24/2025 , Expires: 04/25/2025 Start: 01-24-2025 End: 04-25-2025 Lipid 1996 panel - Serum or Plasma [facility] Comment on above: Expected: 01/24/2025 , Expires: 04/25/2025 Start: 01-24-2025 End: 01-24-2025 Patient encounter procedure 01/24/2025 8:00 AM EDT Office Visit [facility] [address] [facility] [place] [id number] Wilman Hester MD [address] [place], [place] [id number] Annual physical [facility] Comment on above: Annual physical Start: 01-14-2025 Anxiety Screening Anxiety Screening [facility] Start: 01-14-2025 Depression Screening Depression Scre ening [facility] Start: 09-04-2024 Screening for malign ant neoplasm of breast Mammogram Screening [facility] Start: 05-26-2024 HPV TESTING HPV TESTING [facility] Start: 05-26-2024 PAP TESTING PAP TESTING [facility] Start: 05-26-2024 Screening for malign ant neoplasm of cervix [facility] Start: 05-09-2024 Covid-19 Vaccine ( season) Covid-19 Vaccine ( season) [facility] Start: 05-09-2024 Influenza vaccination Influenza Vacc ine (#1) [facility] Start: 03-31-2024 End: 03-31-2024 Nursing evaluation of patient and report 03/31/2024 10:30 AM EDT Nurse Visit [facility] [address] [facility], [place] [id number] Nurse, [place] [address] [place], [place] [id number] 2nd [facility] Comment on above: 2nd Men B Start: 03-22-2024 Lipid panel Lipid Screening [facility] Start: 03-22-2024 LIPID SCREEN LIPID SCREEN [facility] Start: 02-17-2024 End: 06-11-2024 Nursing evaluation of patient and report 02/17/2024 11:15 AM EDT Nurse Visit [facility] [address] [place] [address] Nurse, [place] [address] [place] [address] Meningococcal B and MMR vaccine Family [facility] Comment on above: Meningococcal B and MMR vaccine Start: 01-14-2024 ANNUAL PCP TEAM DISTRIBUTION ENGINEERING TECHNOLOGIST COLEEN DISEASE VISIT ANNUAL PCP TEAM CHRONIC DISEASE VISIT [facility] Start: 01-14-2024 HEPATITIS A (1 of 2 - Risk 2-dose series) HEPATITIS A (1 of 2 - Risk 2-dose series) [facility] Comment on above: Postponed from 11/27 (Declined at this time) Start: 08-04-2023 Colonoscopy w/biopsy single/multiple COLONOSCOPY AND BIOPSY [facility] Start: 08-04-2023 Egd insert guide wir e dilator passage esophagus EGD GUIDE WIRE INSERTION [facility] Start: 08-04-2023 Egd transoral biopsy single/multiple EGD BIOPSY SINGLE/MULTIPLE [facility] Start: 08-04-2023 Patient discharge [facility] Start: 07-19-2023 DIABETES SCREEN DIABETES SCREEN [facility] Start: 05-09-2023 Covid-19 Vaccine ( season) Covid-19 Vaccine ( season) [facility] Start: 09-08-2022 DEPRESSION ASSESSMENT DEPRESSION ASS ESSMENT [facility] Start: 05-09-2022 Influenza vaccination INFLUENZ A (Season Ended) [facility] Start: 10-20-2021 ANNUAL PCP TEAM DISTRIBUTION ENGINEERING TECHNOLOGIST COLEEN DISEASE VISIT ANNUAL PCP TEAM CHRONIC DISEASE VISIT [facility] Start: 05-18-2021 Mammography MAMMOGRAM [facility] Start: 01-16-2018 Adult depression screening assessment DEPRESSION SCREENING [facility] Start: 04-07-2017 End: 04-07-2017 Appointment Appointment [facility] Start: 2014 COLOGUARD (FIT-DNA) COLOGUARD (FIT-D NA) [facility] Start: [address] COLONOGRAPHY [facility] Start: 2014 FECAL OCCULT BLOOD FECAL OCCULT BLOO D [facility] Start: 2014 Screening for malign ant neoplasm of colon [facility] Start: 2014 SIGMOIDOSCOPY SIGMOIDOSCOPY [facility] Start: 04-26-2010 PNEUMOCOCCAL (2 - PCV) PNEUMOCOCCAL (2 - PCV) [facility] Start: 09-22-1989 MMR (2 of 2 - Risk 2-dose series) MMR (2 of 2 - Risk 2-dose series) [facility] Start: 09-22-1989 MMR Vaccine (2 of 2 - Risk 2-dose series) MMR Vaccine (2 of 2 - Risk 2-dose series) [facility] Start: 1988 Hepatitis A Vaccine (1 of 2 - Risk 2-dose series) Hepatitis A Vaccine (1 of 2 - Risk 2-dose series) [facility] Start: 1988 SHINGRIX VACCINE (1 of 2) SHINGRIX VACCINE (1 of 2) [facility] Start: 11-28-1987 SPIROMETRY SPIROMETRY [facility] Start: 11-28-1979 Meningococcal B Vaccine: Consider Based On Risk (1 of 4 - Increased Risk) Meningococcal B Vaccine: Consider Based On Risk (1 of 4 - Increased Risk) [facility] Start: 11-28-1979 MENINGOCOCCAL B: Consider based on risk (1 of 4 - Increased Risk Bexsero 2-dose series) MENINGOCOCCAL B: Consider based on risk (1 of 4 - Increased Risk Bexsero 2-dose series) [facility] Start: 1974 COVID-19 VACCINE (#1) COVID-19 VACCI NE (#1) [facility] Start: 1970 HEPATITIS A (1 of 2 - Risk 2-dose series) HEPATITIS A (1 of 2 - Risk 2-dose series) [facility] Hepa vaccine adult d ose for intramuscular use HEP A VACCINE, ADULT (HAVRIX, VAQTA) Immunization/Injection Routine Encounter for immunization 1 Occurrences starting 01/15/2024 [facility] Comment on above: 1 Occurrences starti ng 01/15/2024 End: 02-14-2024 ALFONSO SCREENING ALFONSO SCREENING Radiology Routine Encounter for screening mammogram for breast cancer 1 Occurrences starting 01/15/2023 until 02/14/2024 [facility] Work Phone: Comment on above: 1 Occurrences starti ng 01/15/2023 until 02/14/2024 Measles mumps rubell a virus vaccine live subq MMR VACCINE (M-M-R II, PRIORIX) Immunization/Injection Routine Encounter for immunization Ordered: 01/15/2024 [facility] Comment on above: Ordered: 01/15/2024 MENINGOCOCCAL B VACC INE (BEXSERO) MENINGOCOCCAL B VACCINE (BEXSERO) Immunization/Injection Routine Encounter for immunization Ordered: 01/15/2024 [facility] Work Phone: Comment on above: Ordered: 01/15/2024 MENINGOCOCCAL B VACC INE (BEXSERO) MENINGOCOCCAL B VACCINE (BEXSERO) Immunization/Injection Routine Need for vaccination Ordered: 03/08/2024 [facility] Work Phone: Comment on above: Ordered: 03/08/2024 Patient referral [facility] Work Phone: Procedure [facility] Procedure [facility] Protein measurement [facility] End: 02-12-2024 SPIROMETRY - BASELINE AND POST DILATOR SPIROMETRY - BASELINE AND POST DILATOR PFT Routine Mild intermittent asthma without complication 1 Occurrences starting 01/13/2023 until 02/12/2024 [facility] Work Phone: Comment on above: 1 Occurrences starti ng 01/13/2023 until 02/12/2024 Vitamin D, 1,25-dihydroxy measurement [facility] Work Phone: [facility] Immunizations Immunization Date Immunization Notes Care Provider Екатерина zhao 07-10-2024 influenza, seasonal, injectable Immunization [facility] Work Phone: [facility] 03-31-2024 meningococcal B vaccine, recombinant, OMV, adjuvanted Immunization [facility] Work Phone: [facility] 03-02-2024 meningococcal B vaccine, recombinant, OMV, adjuvanted Mi Nurse Work Phone: [facility] 06-27-2023 influenza, seasonal, injectable, preservative free Gary Tapia APRN.INSPECTOR CIRCUITRY NEGATIVE Work Phone: [facility] 06-27-2023 influenza virus vaccine, unspecified formulation Wilman Hester MD Work Phone: [facility] 01-13-2023 pneumococcal (PCV20) vaccine, 20 valent (PREVNAR 20) Wilman Hester MD Work Phone: [facility] 01-13-2023 pneumococcal Conjugate, unspecified formulation Wilman Hester MD Work Phone: [facility] Work Phone: 09-03-2022 zoster vaccine recombinant Wilman Hester MD Work Phone: [facility] 06-28-2022 influenza, seasonal, injectable, preservative free Wilman Hester MD Work Phone: [facility] 05-29-2022 tetanus toxoid, reduced diphtheria toxoid, and acellular pertussis vaccine, adsorbed Wilman Hester MD Work Phone: [facility] 05-29-2022 zoster vaccine recombinant Wilman Hester MD Work Phone: [facility] 08-24-2021 COVID-19 original vaccine, age 12+ yr, monovalent (PFIZER-BIONTECH - PURPLE TOP) Wilman Hester MD Work Phone: [facility] 04-08-2021 COVID-19 original vaccine, age 12+ yr, monovalent (PFIZER-BIONTECH - PURPLE TOP) Wilman Hester MD Work Phone: [facility] 12-30-2020 COVID-19 original vaccine, full dose, monovalent (MODERNA) Wilman Hester MD Work Phone: [facility] 11-06-2020 COVID-19 original vaccine, full dose, monovalent (MODERNA) Wilman Hester MD Work Phone: [facility] 10-13-2020 COVID-19 original vaccine, full dose, monovalent (MODERNA) Wilman Hester MD Work Phone: [facility] 07-05-2020 influenza, injectabl e, quadrivalent, contains preservative Rah Davis APRN.BEHAVIOR INTERVENTIONIST, DNP Work Phone: [facility] 10-13-2019 COVID-19 original vaccine, full dose, monovalent (MODERNA) Wilman Hester MD Work Phone: [facility] 09-03-2019 influenza, injectabl e, quadrivalent, contains preservative Rah Blaz RN CARE MANAGER.[facility] Work Phone: [facility] 04-23-2019 tetanus toxoid, reduced diphtheria toxoid, and acellular pertussis vaccine, adsorbed Rah Blaz RN CARE MANAGER.[facility] Work Phone: [facility] Work Phone: 08-21-2017 influenza, injectabl e, quadrivalent, preservative free Rah Blaz RN CARE MANAGER.[facility] Work Phone: [facility] Work Phone: 06-19-2009 influenza virus vaccine, unspecified formulation Rah Blaz RN CARE MANAGER.[facility] Work Phone: [facility] Work Phone: 04-26-2009 pneumococcal polysaccharide vaccine, 23 valent Rah Blaz RN CARE MANAGER.[facility] Work Phone: [facility] 04-26-2009 tetanus toxoid, reduced diphtheria toxoid, and acellular pertussis vaccine, adsorbed Rah Blaz RN CARE MANAGER.[facility] Work Phone: [facility] 07-24-2007 influenza virus vaccine, unspecified formulation Rah Blaz RN CARE MANAGER.[facility] Work Phone: [facility] Work Phone: 11-13-2001 hepatitis B vaccine, adult dosage Rah Blaz RN CARE MANAGER.[facility] Work Phone: [facility] Work Phone: 07-08-2001 hepatitis B vaccine, adult dosage Rah Blaz RN CARE MANAGER.[facility] Work Phone: [facility] Work Phone: 05-27-2001 hepatitis B vaccine, adult dosage Rah Blaz RN CARE MANAGER.[facility] Work Phone: [facility] Work Phone: 09-30-1994 diphtheria and tetan us toxoids, adsorbed for pediatric use Rah Davis APRN.[facility] Work Phone: [facility] Work Phone: 09-30-1994 tuberculin skin test ; purified protein derivative solution, intradermal Immunization [facility] Work Phone: [facility] 08-25-1989 measles, mumps and rubella virus vaccine Rah Davis APRN.[facility] Work Phone: [facility] Work Phone: 01-17-1982 diphtheria and tetan us toxoids, adsorbed for pediatric use Rah Davis APRN.[facility] Work Phone: [facility] Work Phone: 04-27-1975 DTP-Haemophilus influenzae type b conjugate vaccine Rah Davis APRN.[facility] Work Phone: [facility] Work Phone: 04-27-1975 trivalent poliovirus vaccine, live, oral Rah Davis APRN.[facility] Work Phone: [facility] Work Phone: 12-21-1971 rubella and mumps virus vaccine Rah Davis APRN.[facility] Work Phone: [facility] Work Phone: 06-11-1971 trivalent poliovirus vaccine, live, oral Rah Davis APRN.[facility] Work Phone: [facility] Work Phone: 12-11-1970 rubella virus vaccine Rah Blasher GRIMALDO.[facility] Work Phone: [facility] Work Phone: 07-20-1970 vaccinia (smallpox) vaccine, diluted Rah Davis APRN.[facility] Work Phone: [facility] Work Phone: 03-06-1970 DTP-Haemophilus influenzae type b conjugate vaccine Rah Davis APRN.[facility] Work Phone: [facility] Work Phone: 03-06-1970 trivalent poliovirus vaccine, live, oral Rah Blaz RN CARE MANAGER.[facility] Work Phone: [facility] Work Phone: 02-06-1970 DTP-Haemophilus influenzae type b conjugate vaccine Rah Blaz RN CARE MANAGER.[facility] Work Phone: [facility] Work Phone: 01-09-1970 DTP-Haemophilus influenzae type b conjugate vaccine Rah Blaz RN CARE MANAGER.[facility] Work Phone: [facility] Work Phone: 01-09-1970 trivalent poliovirus vaccine, live, oral Rah Blaz RN CARE MANAGER.[facility] Work Phone: [facility] Work Phone: 1969 DTP-Haemophilus influenzae type b conjugate vaccine Rah Blaz RN CARE MANAGER.[facility] Work Phone: [facility] Work Phone: NEGATED: Highlighted row has not occurred!01-15-2024 measles, mumps and rubella virus vaccine Gary Tapia RN CARE MANAGER.INSPECTOR CIRCUITRY NEGATIVE Work Phone: [facility] Comment on above: Deferred: Postponed NEGATED: Highlighted row has not occurred!01-15-2024 meningococcal B vaccine, recombinant, OMV, adjuvanted Gary Tapia RN CARE MANAGER.INSPECTOR CIRCUITRY NEGATIVE Work Phone: [facility] Comment on above: Deferred: Postponed Payers Date Payer Category Payer Self-pay [id number] 2023 Private Health Insurance [facility] [id number] 2023 Unknown [id number] 2018 Unknown [employer] PPO [id number] 2018-Present [phone] [address] [place] [address] PPO [id number] 2016 Unknown [id number] 2016 Unknown [employer] [id number] 2013 Unknown [id number] Unknown [id number] Unknown [id number] 462 Unknown [id number] 462 Unknown [id number] 462 Unknown [id number] 462 Unknown [id number] 462 Unknown [id number] 462 Unknown [id number] 462 Social History Date Type Detail Facility Start: 10-09-2021 End: 09-04-2023 Tobacco smoking status NHIS Unknown if ever smoked [facility] Start: 07-02-2021 None [facility] Start: 07-02-2021 Homeless [facility] Start: 07-02-2021 Non-smoker [facility] Start: 1970 Sex Assigned At Female C [facility] Start: 12-02-2011 End: 12-22-2023 Tobacco smoking status NHIS Never smoked tobacco [facility] Start: 11-20-2020 End: 01-24-2025 Alcohol intake Current drinker of alcohol (finding) [facility] Start: 07-05-2020 History SDOH Alcohol Frequency 2 [facility] Start: 07-05-2020 History SDOH Alcohol Std Drinks 1 [facility] Start: 08-19-2007 History SDOH Alcohol Comment rarely [facility] Start: 07-05-2020 History SDOH Social Connections Phone 4 [facility] Start: 07-05-2020 History SDOH Social Connections Get Together 3 [facility] Start: 07-05-2020 History SDOH Financial 5 [facility] Start: 07-04-2020 Education 18 [facility] Start: 12-02-2011 End: 02-17-2023 Tobacco use and exposure Smokeless tobacco non-user [facility] Start: 01-13-2023 End: 01-14-2024 History of Social function [facility] Start: 01-13-2023 End: 01-14-2024 [facility] Utilities [facility] Has the [employer], or [employer] ([employer]) threatened to shut off services in your home in past 12Mo No [facility] Do you belong to any clubs or organizations such as jewish groups, unions, fraternal or athletic groups, or school groups? Yes [facility] Are you now , , , , never or living with a partner? [facility] How often to you hav e a drink containing alcohol? Monthly or less [facility] How many standard dr inks containing alcohol do you have on a typical day? Patient does not drink [facility] How often do you hav e 6 or more drinks on 1 occasion? Never [facility] Do you feel stress - tense, restless, nervous, or anxious, or unable to sleep at night because your mind is troubled all the time - these days [OSQ] Not at all [facility] (I/We) worried wheth er (my/our) food would run out before (I/we) got money to buy more. Never true [facility] Start: 03-18-2019 Gender identity Identifies as female gender (finding) [facility] NEGATED: Highlighted row [facility] Goals Date Patient Goal Desired Activity /State Functional Status Date Assessment Result Facility 01-10-2015 Are you deaf, or do you have serious difficulty hearing No 01/10/2015 8:15 AM EDT Jaylin Nguyen LPN No [facility] 01-10-2015 Are you blind, or do you have serious difficulty seeing, even when wearing glasses No 01/10/2015 8:15 AM Jaylin Duran LPN No [facility] 01-10-2015 Do you have serious difficulty walking or climbing stairs No 01/10/2015 8:15 AM EDT Jaylin Nguyen LPN No [facility] 01-10-2015 Do you have difficul ty dressing or bathing No 01/10/2015 8:15 AM Jaylin Duran LPN No [facility] 01-10-2015 Because of a physica l, mental, or emotional condition, do you have difficulty doing errands alone such as visiting a physician's office or shopping No 01/10/2015 8:15 AM Jaylin Duran LPN [facility] Mental Status Date Assessment Result Facility 08-04-2023 Cognitive function Voice/Name [facility] Work Phone: 01-10-2015 Because of a physica l, mental, or emotional condition, do you have serious difficulty concentrating, remembering, or making decisions No 01/10/2015 8:15 AM EDJaylin Eagle LPN No [facility] Clinical Notes 11-05-2013 to 06-29-2025 Patient InstructionsWilman Hester MD - 01/24/2025 8:11 AM Juancarlos Casiano APRN.BEHAVIOR INTERVENTIONIST - 01/17/2025 7:27 AM Kraig SocorroDILLAN lopez.BEHAVIOR INTERVENTIONIST - 07/16/2024 9:50 AM EST Note Date & Type Note [facility] 06-29-2025 Progress note [facility] 01-24-2025 Instructions Wilman Hester MD - 01/24/2025 8:43 AM EDT Continue using your ear wax softener as instructed to help clear wax from your ears; avoid aggressive flushing if your ear becomes sore. Keep taking your current medications for Crohn s disease as prescribed (Humira, vitamin D, your sublingual B12, Questran only as needed, and your B-complex vitamin). Complete the lab work ordered today, which includes a metabolic panel, complete blood count, cholesterol panel, vitamin D level, and B12 level. Resume your daily routine of 20 minutes of exercise each morning to help reduce inflammation and support overall health. No additional COVID vaccines will be scheduled going forward. documented in this encounter [facility] 01-24-2025 Note HNO ID: [id number] Author: WILMAN HESTER MD Service: ? Author Type: Physician Type: Progress Notes Filed: 01/24/2025 08:51 Note Text: This note was created using [employer]. Subjective Chang Maradiaga is a 54 year old female. HISTORY Chang is a 54-year-old female with a history of Crohn's disease, presenting for a yearly exam and follow-up visit. Chang was evaluated last Friday for a bacterial sinus infection and was prescribed Augmentin. She reports that Friday was the first day she felt well since starting the medication. She notes that her ears were so full that her clinician could not visualize her eardrums. She has been using wax softener drops and attempted to flush her ears, resulting in soreness in one ear. She denies current pain or pressure in her sinuses, gum or dental pain, but reports significant drainage and intermittent fevers. She attributes the fevers to her Crohn's disease, stating, It's not necessarily I'm sick, it's I just pushed myself too far. She is currently taking Humira, vitamin D, B12, cholestyramine as needed, and a B-complex vitamin. She adjusts her cholestyramine dosage based on her bowel movements, usually taking less than a full scoop. She notes that her blood sugar was elevated during her last visit in January of last year, which she attributes to taking cholestyramine before the appointment. She denies taking it today. She has been exercising for 20 minutes every morning since last year but has not exercised for the past 2 weeks due to her sinus infection. She reports feeling tons better with regular exercise and notes that she is not tired like I used to be. She denies feelings of depression or anxiety. She has a family history of a bicuspid aortic valve in her brother, who underwent a valve repair and open heart surgery for an aneurysm. She denies any changes in family history. She also denies any changes in her ability to perform activities of daily living, such as dressing, bathing, or cooking. PAST MEDICAL HISTORY Diagnosis Date Crohn's disease ([facility]) Dr. Carrasquillo in [facility] Diarrhea Family history of aortic valve disorder 08/04/2017 brother has bicuspid aortic valve Mild intermittent asthma without complication ([facility]) 08/22/2015 Other acute embolism veins 1999 Regional enteritis of large intestine ([facility]) 1991 Crohns Unspecified deficiency anemia Vitamin D deficiency 02/26/2013 Current Outpatient Medications Medication Sig Cyanocobalamin 1,000 mcg subl Dissolve 1,000 mcg under the tongue once daily. Cholecalciferol, Vitamin D3, (VITAMIN D-3) 50 mcg (2,000 unit) cap Take 2 capsules by mouth once daily. vitamin b complex (B COMPLEX-VITAMIN B12) tab Take 1 tablet by mouth once daily. cholestyramine-sucrose (QUESTRAN) 4 gram powder Use once daily as needed HUMIRA 40 mg/0.8 mL injection Inject 0.8 mL subcutaneously every other week. (Dr. Carrasquillo prescribes) No current facility-administered medications for this visit. ALLERGIES No Known Allergies FAMILY HISTORY Problem Relation Age of Onset Heart Mother cardiomyopathy Hypertension Mother None Father other (Biscupid aortic valve) Brother Needed valve repaired; also had aneurysm ([facility]) Asthma Maternal Grandfather Social History Tobacco Use Smoking status: Never Smokeless tobacco: Never Vaping Use Vaping status: Never Used Substance Use Topics Alcohol use: Yes Comment: rarely Drug use: No Review of Systems Objective BP 112/72 Pulse 72 Wt 67 kg (147 lb 11.3 oz) LMP 12/05/2022 (Approximate) SpO2 97% BMI 23.65 kg/m? Last 5 Encounter Wt Readings: Date: Wt: 01/24/2025 67 kg (147 lb 11.3 oz) 01/17/2025 67.2 kg (148 lb 2.4 oz) 07/16/2024 67.5 kg (148 lb 13 oz) 01/15/2024 69.4 kg (153 lb) 02/17/2023 68.9 kg (152 lb) No waist measurement recorded Estimated body mass index is 23.65 kg/m? as calculated from the following: Height as of 02/17/23: 168.3 cm (5' 6.26). Weight as of this encounter: 67 kg (147 lb 11.3 oz). Last 5 Encounter BP Readings: Date: BP: 01/24/2025 112/72 01/17/2025 122/80 07/16/2024 141/75 01/15/2024 108/68 01/13/2023 122/82 Physical Exam Vitals reviewed. Constitutional: Appearance: Normal appearance. She is well-developed. HENT: Head: Normocephalic and atraumatic. Right Ear: Tympanic membrane, ear canal and external ear normal. Left Ear: Tympanic membrane, ear canal and external ear normal. Nose: Nose normal. Mouth/Throat: Mouth: Mucous membranes are moist. Eyes: Conjunctiva/sclera: Conjunctivae normal. Pupils: Pupils are equal, round, and reactive to light. Neck: Thyroid: No thyromegaly. Vascular: No carotid bruit. Cardiovascular: Rate and Rhythm: Normal rate and regular rhythm. Pulses: Normal pulses. Heart sounds: Normal heart sounds. No murmur heard. No friction rub. No gallop. Pulmonary: Effort: Pulmonary effort is normal. Breath sounds: Normal breath sounds. Ab (more content not included)... [facility] 01-24-2025 History of Present illness Narrative This note was created using [employer]. Subjective Chang Maradiaga is a 54 year old female. HISTORY Chang is a 54-year-old female with a history of Crohn's disease, presenting for a yearly exam and follow-up visit. Chang was evaluated last Friday for a bacterial sinus infection and was prescribed Augmentin. She reports that Friday was the first day she felt well since starting the medication. She notes that her ears were so full that her clinician could not visualize her eardrums. She has been using wax softener drops and attempted to flush her ears, resulting in soreness in one ear. She denies current pain or pressure in her sinuses, gum or dental pain, but reports significant drainage and intermittent fevers. She attributes the fevers to her Crohn's disease, stating, It's not necessarily I'm sick, it's I just pushed myself too far. She is currently taking Humira, vitamin D, B12, cholestyramine as needed, and a B-complex vitamin. She adjusts her cholestyramine dosage based on her bowel movements, usually taking less than a full scoop. She notes that her blood sugar was elevated during her last visit in January of last year, which she attributes to taking cholestyramine before the appointment. She denies taking it today. She has been exercising for 20 minutes every morning since last year but has not exercised for the past 2 weeks due to her sinus infection. She reports feeling tons better with regular exercise and notes that she is not tired like I used to be. She denies feelings of depression or anxiety. She has a family history of a bicuspid aortic valve in her brother, who underwent a valve repair and open heart surgery for an aneurysm. She denies any changes in family history. She also denies any changes in her ability to perform activities of daily living, such as dressing, bathing, or cooking. PAST MEDICAL HISTORY Diagnosis Date Crohn's disease ([facility]) Dr. Carrasquillo in [facility] Diarrhea Family history of aortic valve disorder 08/04/2017 brother has bicuspid aortic valve Mild intermittent asthma without complication ([facility]) 08/22/2015 Other acute embolism veins 1999 Regional enteritis of large intestine ([facility]) 1991 Crohns Unspecified deficiency anemia Vitamin D deficiency 02/26/2013 Current Outpatient Medications Medication Sig Cyanocobalamin 1,000 mcg subl Dissolve 1,000 mcg under the tongue once daily. Cholecalciferol, Vitamin D3, (VITAMIN D-3) 50 mcg (2,000 unit) cap Take 2 capsules by mouth once daily. vitamin b complex (B COMPLEX-VITAMIN B12) tab Take 1 tablet by mouth once daily. cholestyramine-sucrose (QUESTRAN) 4 gram powder Use once daily as needed HUMIRA 40 mg/0.8 mL injection Inject 0.8 mL subcutaneously every other week. (Dr. Carrasquillo prescribes) No current facility-administered medications for this visit. ALLERGIES No Known Allergies FAMILY HISTORY Problem Relation Age of Onset Heart Mother cardiomyopathy Hypertension Mother None Father other (Biscupid aortic valve) Brother Needed valve repaired; also had aneurysm ([facility]) Asthma Maternal Grandfather Social History Tobacco Use Smoking status: Never Smokeless tobacco: Never Vaping Use Vaping status: Never Used Substance Use Topics Alcohol use: Yes Comment: rarely Drug use: No Review of Systems Objective BP 112/72 Pulse 72 Wt 67 kg (147 lb 11.3 oz) LMP 12/05/2022 (Approximate) SpO2 97% BMI 23.65 kg/m Last 5 Encounter Wt Readings: Date: Wt: 01/24/2025 67 kg (147 lb 11.3 oz) 01/17/2025 67.2 kg (148 lb 2.4 oz) 07/16/2024 67.5 kg (148 lb 13 oz) 01/15/2024 69.4 kg (153 lb) 02/17/2023 68.9 kg (152 lb) No waist measurement recorded Estimated body mass index is 23.65 kg/m as calculated from the following: Height as of 02/17/23: 168.3 cm (5' 6.26). Weight as of this encounter: 67 kg (147 lb 11.3 oz). Last 5 Encounter BP Readings: Date: BP: 01/24/2025 112/72 01/17/2025 122/80 07/16/2024 141/75 01/15/2024 108/68 01/13/2023 122/82 Physical Exam Vitals reviewed. Constitutional: Appearance: Normal appearance. She is well-developed. HENT: Head: Normocephalic and atraumatic. Right Ear: Tympanic membrane, ear canal and external ear normal. Left Ear: Tympanic membrane, ear canal and external ear normal. Nose: Nose normal. Mouth/Throat: Mouth: Mucous membranes are moist. Eyes: Conjunctiva/sclera: Conjunctivae normal. Pupils: Pupils are equal, round, and reactive to light. Neck: Thyroid: No thyromegaly. Vascular: No carotid bruit. Cardiovascular: Rate and Rhythm: Normal rate and regular rhythm. Pulses: Normal pulses. Heart sounds: Normal heart sounds. No murmur heard. No friction rub. No gallop. Pulmonary: Effort: Pulmonary effort is normal. Breath sounds: Normal breath sounds. Abdominal: General: Bowel sounds are normal. There is no distension. Palpations: Abdomen is soft. There is no mass. Tenderness: There is no abdominal tenderness. Musculoskeletal: General: No deformity. Normal range of motion. Right lower leg: No edema. Left lower leg: No edema. Lymphadenopathy: Cervical: No cervical adenopathy. Skin: General: Skin is warm and dry. Coloration: Skin is not jaundiced or pale. Findings: No rash. Neurological: General: No focal deficit present. Mental Status: She is alert and oriented to person, place, and time. Cranial Nerves: No cranial nerve deficit. Sensory: No sensory deficit. Motor: No abnormal muscle tone. Coordination: Coordination normal. Deep Tendon Reflexes: Reflexes normal. Psychiatric: Attention and Perception: Attention and perception normal. Mood and Affect: Mood and affect normal. Speech: Speech normal. Behavior: Behavior normal. Thought Content: Thought content normal. Cognition and Memory: Cognition and memory normal. Judgment: Judgment normal. Latest Ref Rng 07/05/2020 07/19/2020 07/26/2020 01/15/2024 WBC 3.70 - 11.00 k/uL 6.92 8.51 6.99 RBC 3.90 - 5.20 m/uL 3.75 (L) 3.48 (L) 4.01 Hemoglobin 11.5 - 15.5 g/dL 11.3 (L) 10.4 (L) 12.7 Hematocrit 36.0 - 46.0 % 36.4 32.5 (L) 39.1 MCV 80.0 - 100.0 fL 97.1 93.4 97.5 MCH 26.0 - 34.0 pg 30.1 29.9 31.7 MCHC 30.5 - 36.0 g/dL 31.0 32.0 32.5 RDW-CV 11.5 - 15.0 % 13.4 13.2 13.4 Platelet Count 150 - 400 k/uL 318 310 235 MPV 9.0 - 12.7 fL 9.4 9.5 9.7 Neut% % 57.8 58.0 42.8 Abs Neut (ANC) 1.45 - 7.50 k/uL 3.98 4.93 3.00 Lymph% % 29.5 30.9 44.5 Abs Lymph 1.00 - 4.00 k/uL 2.04 2.63 3.11 [place]% % 9.8 7.5 9.2 Abs [place] <0.87 k/uL 0.68 0.64 0.64 Eosin% % 2.3 2.8 2.3 Abs Eosin <0.46 k/uL 0.16 0.24 0.16 Baso% % 0.6 0.8 0.9 Abs Baso <0.11 k/uL 0.04 0.07 0.06 Immature Gran % % 0.3 IMMATURE GRANS (ABS) <0.10 k/uL <0.03 NRBC /100 WBC 0.0 Absolute nRBC <0.01 k/uL <0.01 <0.01 <0.01 DTYPE Auto Nucleated Reds 0 /100 WBC 0.0 0.0 Diff Type Auto Diff Auto Diff Protein, Total 6.3 - 8.0 g/dL 8.8 (H) 8.5 (H) 7.6 Albumin 3.9 - 4.9 g/dL 4.3 4.2 4.3 Calcium 8.5 - 10.2 mg/dL 9.7 9.2 9.8 Bilirubin, Total 0.2 - 1.3 mg/dL 0.3 0.2 0.4 Alkaline Phosphatase 34 - 123 U/L 80 80 89 AST 13 - 35 U/L 20 17 27 Glucose 74 - 99 mg/dL 82 89 97 BUN 7 - 21 mg/dL 12 10 14 Creatinine 0.58 - 0.96 mg/dL 0.82 0.97 (H) 0.87 Sodium 136 - 144 mmol/L 137 140 139 Potassium 3.7 - 5.1 mmol/L 4.1 3.8 4.9 Chloride 97 - 105 mmol/L 104 108 (H) 104 CO2 22 - 30 mmol/L 22 22 22 Anion Gap 9 - 18 mmol/L 11 10 13 ALT 7 - 38 U/L 17 15 33 eGFR- >60 >60 eGFR-All Other Races . >60 >60 eGFR >=60 mL/min/1.73m 79 Iron 41 - 186 ug/dL 37 (L) TIBC 232 - 386 ug/dL 431 (H) Transferrin Saturation 15 - 57 % 9 (L) Vitamin B12 232 - 1,245 pg/mL 869 603 WSR 0 - 20 mm/hr 52 (H) CRP <0.9 mg/dL 1.0 (H) 0.2 Folate >4.7 ng/mL 12.0 Ferritin 14.7 - 205.1 ng/mL 54.8 Vitamin D 25 Hydroxy 31.0 - 80.0 ng/mL 43.9 Legend: (L) Low (H) High Assessment and Plan # Routine medical exam (Z00.00) - Conducted comprehensive physical examination; no abnormalities detected. - Discussed patient's current health status and ongoing management of chronic conditions. - Ordered laboratory tests including metabolic panel, CBC, lipid panel, vitamin D, and B12 levels. - Patient to follow up with results. # Crohn's disease of both small and large intestine without complication (HCC) (K50.80) - Currently managed with Humira, vitamin D, B12, and Questran as needed. - Patient reports stable condition with regular exercise contributing to reduced inflammation. - Recent C-reactive protein levels from July were within normal limits. - Patient to continue current medication regimen and follow up with Dr. Carrasquillo every 6 months for monitoring. # Vitamin D deficiency (E55.9) - Previously well-controlled with supplementation. - Ordered vitamin D level to assess current status. # Anemia, unspecified type (D64.9) - No current signs of anemia; previous CBCs have been normal. - Ordered CBC to monitor hemoglobin and hematocrit levels. # Screening for depression (Z13.31) # Encounter for screening examination for other mental health and behavioral disorders (Z13.39) - No signs of depression or anxiety observed during the visit. - Patient reports feeling well and maintaining a positive outlook. # Encounter for long-term current use of medication (Z79.899) - Continues on Humira, vitamin D, B12, and Questran as needed. - Discussed importance of adherence to medication regimen for Crohn's disease management. # Family history of B12 deficiency (Z83.49) - Patient has a family history of B12 deficiency. - Ordered B12 level to monitor for any deficiencies. Ordered labs for next year as well. Wilman Hester MD Recording using [employer] software for draft documentation of the visit was discussed with the patient/authorized equal opportunity representative; all questions welcomed and answered. Patient/authorized equal opportunity representative agreed to proceed documented in this encounter [facility] 01-17-2025 Note HNO ID: [id number] Author: JUANCARLOS CARRERA APRN.BEHAVIOR INTERVENTIONIST Service: ? Author Type: Nurse Practitioner Type: Progress Notes Filed: 01/17/2025 07:57 Note Text: Subjective HPI Nontoxic-appearing 54-year-old female presents urgent care chief complaint possible sinus infection. Duration of symptom week and a half. Associated symptoms sinus pressure unilateral. Did have low-grade fever. That has improved. OTC medications little to no success. History of sinus infections and similar. No history of sinus surgery or fractures. Past medical history prescription medications allergies reviewed. .Patient presents with: Sinus Problem: Sinus pain and pressure, congestion, [place] and fever off and on x 1.5 weeks PAST MEDICAL HISTORY Diagnosis Date Crohn's disease ([facility]) Dr. Carrasquillo in [facility] Diarrhea Family history of aortic valve disorder 08/04/2017 brother has bicuspid aortic valve Mild intermittent asthma without complication ([facility]) 08/22/2015 Other acute embolism veins 1999 Regional enteritis of large intestine ([facility]) 1991 Crohns Unspecified deficiency anemia Vitamin D deficiency 02/26/2013 PAST SURGICAL HISTORY Procedure Laterality Date COLECTOMY PARTIAL W/ANASTOMOSIS Hemicolectomy COLECTOMY PARTIAL W/ANASTOMOSIS 06/2013 COLONOSCOPY FLX DX W/COLLJ SPEC WHEN PFRMD 1991 Colonoscopy COLONOSCOPY FLX DX W/COLLJ SPEC WHEN PFRMD 08/03/2018 Colonoscopy COLONOSCOPY GEN ANES COLONOSCOPY GEN ANES 09/04/2020 COLONOSCOPY W/BIOPSY SINGLE/MULTIPLE 2010 Dr. Madden/due in 2013 [facility] CHOLECYSTECTOMY 04/08/2016 [facility] - Dr. Chris Ramos LAPS SURG CHOLECYSTECTOMY W/CHOLANGIOGRAPHY 04/08/2016 ALLERGIES Patient has no known allergies. MEDICATIONS Cyanocobalamin 1,000 mcg subl Dissolve 1,000 mcg under the tongue once daily. Cholecalciferol, Vitamin D3, (VITAMIN D-3) 50 mcg (2,000 unit) cap Take 2 capsules by mouth once daily. HUMIRA 40 mg/0.8 mL injection Subcutaneously, Inject one pen weekly cholestyramine-sucrose (QUESTRAN) 4 gram powder USE ONE SCOOP ONCE DAILY DIRECTED vitamin b complex (B COMPLEX-VITAMIN B12) tab Take 1 tablet by mouth once daily. FAMILY HISTORY Problem Relation Age of Onset Heart Mother cardiomyopathy Hypertension Mother None Father Asthma Maternal Grandfather Social History Tobacco Use Smoking status: Never Smokeless tobacco: Never Vaping Use Vaping status: Never Used Substance Use Topics Alcohol use: Yes Comment: rarely Drug use: No BP 122/80 Pulse 72 Temp 36.5 ?C (97.7 ?F) (Tympanic) Resp 18 Wt 67.2 kg (148 lb 2.4 oz) LMP 12/05/2022 (Approximate) SpO2 99% BMI 23.72 kg/m? Review of Systems Constitutional: Negative for chills, fever and malaise/fatigue. HENT: Positive for congestion and sinus pain. Negative for ear discharge, ear pain and sore throat. Eyes: Negative for blurred vision, pain, discharge and redness. Respiratory: Negative for cough, hemoptysis, sputum production, shortness of breath, wheezing and stridor. Cardiovascular: Negative for chest pain. Gastrointestinal: Negative for abdominal pain, diarrhea, nausea and vomiting. Musculoskeletal: Positive for myalgias. Skin: Negative for itching and rash. Neurological: Negative for dizziness and headaches. Objective Physical Exam Constitutional: General: She is not in acute distress. Appearance: She is not diaphoretic. HENT: Head: Normocephalic. Jaw: No trismus, tenderness, swelling or pain on movement. Nose: Congestion present. Right Sinus: Maxillary sinus tenderness and frontal sinus tenderness present. Mouth/Throat: Mouth: Mucous membranes are moist. Pharynx: Oropharynx is clear. Uvula midline. No pharyngeal swelling, oropharyngeal exudate, posterior oropharyngeal erythema or uvula swelling. Eyes: Conjunctiva/sclera: Conjunctivae normal. Pupils: Pupils are equal, round, and reactive to light. Cardiovascular: Rate and Rhythm: Normal rate and regular rhythm. Heart sounds: Normal heart sounds. Pulmonary: Effort: Pulmonary effort is normal. No tachypnea, accessory muscle usage or respiratory distress. Breath sounds: Normal breath sounds. No stridor. No wheezing, rhonchi or rales. Abdominal: General: There is no distension. Palpations: Abdomen is soft. Tenderness: There is no abdominal tenderness. There is no guarding or rebound. Musculoskeletal: Cervical back: Normal range of motion and neck supple. No edema, erythema, rigidity or tenderness. No pain with movement. Normal range of motion. Lymphadenopathy: Cervical: No cervical adenopathy. Skin: General: Skin is warm and dry. Neurological: Mental Status: She is alert and oriented to person, place, and time. ASSESSMENT/PLAN: 1. Bacterial sinusitis - ICD9: 473.9, 041.9, ICD10: J32.9, B96.89 Diagnosed with bacterial sinusitis. Placed on Augmentin. Patient was educated on supportive therapies. Patient will follow up with primary care provider as needed. (more content not included)... [facility] 01-17-2025 History of Present illness Narrative Subjective HPI Nontoxic-appearing 54-year-old female presents urgent care chief complaint possible sinus infection. Duration of symptom week and a half. Associated symptoms sinus pressure unilateral. Did have low-grade fever. That has improved. OTC medications little to no success. History of sinus infections and similar. No history of sinus surgery or fractures. Past medical history prescription medications allergies reviewed. .Patient presents with: Sinus Problem: Sinus pain and pressure, congestion, [place] and fever off and on x 1.5 weeks PAST MEDICAL HISTORY Diagnosis Date Crohn's disease ([facility]) Dr. Carrasquillo in [facility] Diarrhea Family history of aortic valve disorder 08/04/2017 brother has bicuspid aortic valve Mild intermittent asthma without complication ([facility]) 08/22/2015 Other acute embolism veins 2000 Regional enteritis of large intestine ([facility]) 1991 Crohns Unspecified deficiency anemia Vitamin D deficiency 02/26/2013 PAST SURGICAL HISTORY Procedure Laterality Date COLECTOMY PARTIAL W/ANASTOMOSIS Hemicolectomy COLECTOMY PARTIAL W/ANASTOMOSIS 06/2013 COLONOSCOPY FLX DX W/COLLJ SPEC WHEN PFRMD 1991 Colonoscopy COLONOSCOPY FLX DX W/COLLJ SPEC WHEN PFRMD 08/03/2018 Colonoscopy COLONOSCOPY GEN ANES COLONOSCOPY GEN ANES 09/04/2020 COLONOSCOPY W/BIOPSY SINGLE/MULTIPLE 2010 Dr. Madden/angelita in 2013 L'SCOPE CHOLECYSTECTOMY 04/08/2016 [facility] - Dr. Chris Ramos LAPS SURG CHOLECYSTECTOMY W/CHOLANGIOGRAPHY 04/08/2016 ALLERGIES Patient has no known allergies. MEDICATIONS Cyanocobalamin 1,000 mcg subl Dissolve 1,000 mcg under the tongue once daily. Cholecalciferol, Vitamin D3, (VITAMIN D-3) 50 mcg (2,000 unit) cap Take 2 capsules by mouth once daily. HUMIRA 40 mg/0.8 mL injection Subcutaneously, Inject one pen weekly cholestyramine-sucrose (QUESTRAN) 4 gram powder USE ONE SCOOP ONCE DAILY DIRECTED vitamin b complex (B COMPLEX-VITAMIN B12) tab Take 1 tablet by mouth once daily. FAMILY HISTORY Problem Relation Age of Onset Heart Mother cardiomyopathy Hypertension Mother None Father Asthma Maternal Grandfather Social History Tobacco Use Smoking status: Never Smokeless tobacco: Never Vaping Use Vaping status: Never Used Substance Use Topics Alcohol use: Yes Comment: rarely Drug use: No BP 122/80 Pulse 72 Temp 36.5 C (97.7 F) (Tympanic) Resp 18 Wt 67.2 kg (148 lb 2.4 oz) LMP 12/05/2022 (Approximate) SpO2 99% BMI 23.72 kg/m Review of Systems Constitutional: Negative for chills, fever and malaise/fatigue. HENT: Positive for congestion and sinus pain. Negative for ear discharge, ear pain and sore throat. Eyes: Negative for blurred vision, pain, discharge and redness. Respiratory: Negative for cough, hemoptysis, sputum production, shortness of breath, wheezing and stridor. Cardiovascular: Negative for chest pain. Gastrointestinal: Negative for abdominal pain, diarrhea, nausea and vomiting. Musculoskeletal: Positive for myalgias. Skin: Negative for itching and rash. Neurological: Negative for dizziness and headaches. Objective Physical Exam Constitutional: General: She is not in acute distress. Appearance: She is not diaphoretic. HENT: Head: Normocephalic. Jaw: No trismus, tenderness, swelling or pain on movement. Nose: Congestion present. Right Sinus: Maxillary sinus tenderness and frontal sinus tenderness present. Mouth/Throat: Mouth: Mucous membranes are moist. Pharynx: Oropharynx is clear. Uvula midline. No pharyngeal swelling, oropharyngeal exudate, posterior oropharyngeal erythema or uvula swelling. Eyes: Conjunctiva/sclera: Conjunctivae normal. Pupils: Pupils are equal, round, and reactive to light. Cardiovascular: Rate and Rhythm: Normal rate and regular rhythm. Heart sounds: Normal heart sounds. Pulmonary: Effort: Pulmonary effort is normal. No tachypnea, accessory muscle usage or respiratory distress. Breath sounds: Normal breath sounds. No stridor. No wheezing, rhonchi or rales. Abdominal: General: There is no distension. Palpations: Abdomen is soft. Tenderness: There is no abdominal tenderness. There is no guarding or rebound. Musculoskeletal: Cervical back: Normal range of motion and neck supple. No edema, erythema, rigidity or tenderness. No pain with movement. Normal range of motion. Lymphadenopathy: Cervical: No cervical adenopathy. Skin: General: Skin is warm and dry. Neurological: Mental Status: She is alert and oriented to person, place, and time. ASSESSMENT/PLAN: 1. Bacterial sinusitis - ICD9: 473.9, 041.9, ICD10: J32.9, B96.89 Diagnosed with bacterial sinusitis. Placed on Augmentin. Patient was educated on supportive therapies. Patient will follow up with primary care provider as needed. Patient was instructed to immediately proceed to emergency room for any new, worsening, or symptoms lasting longer than anticipated. The patient's clinical presentation is otherwise unremarkable at this time. Based on exam and clinical finding, the patient is stable for discharge. Plan of care was discussed with patient. Patient verbalizes understanding and agrees to plan of care. This note was generated using [employer] software. It may contain errors in wording, punctuation, or spelling. Juancarlos Carrera APRN.EPHRAIM documented in this encounter [facility] 07-16-2024 Note HNO ID: [id number] Author: SOCORRO HSU APRN.EPHRAIM Service: ? Author Type: Nurse Practitioner Type: Progress Notes Filed: 07/16/2024 10:02 Note Text: This note was created using [employer]. Jeyson Maradiaga is a 53 year old female. 53 year old female with PMH asthma, Crohns, anemia, and osteopenia presents for eye complaints. 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 The history is provided by the patient. No precision lens technician was used. Conjunctivitis The current episode started yesterday. The onset was sudden. The problem occurs continuously. The problem has been gradually worsening. The problem is mild. Nothing relieves the symptoms. Nothing aggravates the symptoms. Associated symptoms include eye itching, eye discharge and eye redness. Pertinent negatives include no fever, no decreased vision, no double vision, no photophobia, no abdominal pain, no diarrhea, no nausea, no vomiting, no congestion, no ear discharge, no ear pain, no headaches, no hearing loss, no mouth sores, no rhinorrhea, no sore throat, no stridor, no swollen glands, no muscle aches, no cough, no rash and no eye pain. The left eye is affected. The eye pain is not associated with movement. Eyelid abnormality: crusted. There were sick contacts at school and at home. She has received no recent medical care. PAST MEDICAL HISTORY Diagnosis Date Crohn's disease ([facility]) Dr. Carrasquillo in [facility] Diarrhea Family history of aortic valve disorder 08/04/2017 brother has bicuspid aortic valve Mild intermittent asthma without complication 08/22/2015 Other acute embolism veins 1999 Regional enteritis of large intestine ([facility]) 1991 Crohns Unspecified deficiency anemia Vitamin D deficiency 02/26/2013 PAST SURGICAL HISTORY Procedure Laterality Date COLECTOMY PARTIAL W/ANASTOMOSIS Hemicolectomy COLECTOMY PARTIAL W/ANASTOMOSIS 06/2013 COLONOSCOPY FLX DX W/COLLJ SPEC WHEN PFRMD 1991 Colonoscopy COLONOSCOPY FLX DX W/COLLJ SPEC WHEN PFRMD 08/03/2018 Colonoscopy COLONOSCOPY GEN ANES COLONOSCOPY GEN ANES 09/04/2020 COLONOSCOPY W/BIOPSY SINGLE/MULTIPLE 2010 Dr. Madden/angelita in 2013 L'SCOPE CHOLECYSTECTOMY 04/08/2016 [facility] - Dr. Chris Ramos LAPS SURG CHOLECYSTECTOMY W/CHOLANGIOGRAPHY 04/08/2016 ALLERGIES Patient has no known allergies. MEDICATIONS Cyanocobalamin 1,000 mcg subl Dissolve 1,000 mcg under the tongue once daily. Cholecalciferol, Vitamin D3, (VITAMIN D-3) 50 mcg (2,000 unit) cap Take 2 capsules by mouth once daily. cholestyramine-sucrose (QUESTRAN) 4 gram powder USE ONE SCOOP ONCE DAILY DIRECTED vitamin b complex (B COMPLEX-VITAMIN B12) tab Take 1 tablet by mouth once daily. trimethoprim-polymyxin (POLYTRIM) 10,000 unit- 1 mg/mL ophthalmic solution Use 1 Drop in both eyes every 4 hours for 7 days. HUMIRA 40 mg/0.8 mL injection Subcutaneously, Inject one pen weekly FAMILY HISTORY Problem Relation Age of Onset Heart Mother cardiomyopathy Hypertension Mother None Father Asthma Maternal Grandfather Social History Tobacco Use Smoking status: Never Smokeless tobacco: Never Vaping Use Vaping status: Never Used Substance Use Topics Alcohol use: Yes Comment: rarely Drug use: No Review of Systems Constitutional: Negative for fever. HENT: Negative for congestion, ear discharge, ear pain, hearing loss, mouth sores, rhinorrhea and sore throat. Eyes: Positive for discharge, redness and itching. Negative for double vision, photophobia and pain. Respiratory: Negative for apnea, cough, chest tightness and stridor. Cardiovascular: Negative for chest pain, palpitations and leg swelling. Gastrointestinal: Negative for abdominal pain, diarrhea, nausea and vomiting. Musculoskeletal: Negative for arthralgias, back pain and gait problem. Skin: Negative for color change, pallor and rash. Allergic/Immunologic: Negative for environmental allergies, food allergies and immunocompromised state. Neurological: Negative for headaches. Hematological: Negative for adenopathy. Does not bruise/bleed easily. Psychiatric/Behavioral: Negative for agitation and behavioral problems. Objective BP 141/75 Pulse 82 Temp 37.1 ?C (98.7 ?F) Resp 18 Wt 67.5 kg (148 lb 13 oz) LMP 12/05/2022 (Approximate) SpO2 96% BMI 23.83 kg/m? Physical Exam Vitals and nursing note reviewed. Constitutional: General: She is not in acute distress. Appearance: Normal appearance. She is normal weight. She is not ill-appearing, toxic-appearing or diaphoretic. HENT: Head: Normocephalic and atraumatic. Right Ear: Ear canal and external ear normal. Left Ear: Ear canal and external ear normal. Nose: (more content not included)... [facility] 07-16-2024 History of Present illness Narrative This note was created using [employer]. Subjective Chang Maradiaga is a 53 year old female. 53 year old female with PMH asthma, Crohns, anemia, and osteopenia presents for eye complaints. 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 The history is provided by the patient. No precision lens technician was used. Conjunctivitis The current episode started yesterday. The onset was sudden. The problem occurs continuously. The problem has been gradually worsening. The problem is mild. Nothing relieves the symptoms. Nothing aggravates the symptoms. Associated symptoms include eye itching, eye discharge and eye redness. Pertinent negatives include no fever, no decreased vision, no double vision, no photophobia, no abdominal pain, no diarrhea, no nausea, no vomiting, no congestion, no ear discharge, no ear pain, no headaches, no hearing loss, no mouth sores, no rhinorrhea, no sore throat, no stridor, no swollen glands, no muscle aches, no cough, no rash and no eye pain. The left eye is affected. The eye pain is not associated with movement. Eyelid abnormality: crusted. There were sick contacts at school and at home. She has received no recent medical care. PAST MEDICAL HISTORY Diagnosis Date Crohn's disease ([facility]) Dr. Carrasquillo in [facility] Diarrhea Family history of aortic valve disorder 08/04/2017 brother has bicuspid aortic valve Mild intermittent asthma without complication 08/22/2015 Other acute embolism veins 1999 Regional enteritis of large intestine ([facility]) 1991 Crohns Unspecified deficiency anemia Vitamin D deficiency 02/26/2013 PAST SURGICAL HISTORY Procedure Laterality Date COLECTOMY PARTIAL W/ANASTOMOSIS Hemicolectomy COLECTOMY PARTIAL W/ANASTOMOSIS 06/2013 COLONOSCOPY FLX DX W/COLLJ SPEC WHEN PFRMD 1991 Colonoscopy COLONOSCOPY FLX DX W/COLLJ SPEC WHEN PFRMD 08/03/2018 Colonoscopy COLONOSCOPY GEN ANES COLONOSCOPY GEN ANES 09/04/2020 COLONOSCOPY W/BIOPSY SINGLE/MULTIPLE 2010 Dr. Madden/angelita in 2013 L'SCOPE CHOLECYSTECTOMY 04/08/2016 [facility] - Dr. Chris Ramos LAPS SURG CHOLECYSTECTOMY W/CHOLANGIOGRAPHY 04/08/2016 ALLERGIES Patient has no known allergies. MEDICATIONS Cyanocobalamin 1,000 mcg subl Dissolve 1,000 mcg under the tongue once daily. Cholecalciferol, Vitamin D3, (VITAMIN D-3) 50 mcg (2,000 unit) cap Take 2 capsules by mouth once daily. cholestyramine-sucrose (QUESTRAN) 4 gram powder USE ONE SCOOP ONCE DAILY DIRECTED vitamin b complex (B COMPLEX-VITAMIN B12) tab Take 1 tablet by mouth once daily. trimethoprim-polymyxin (POLYTRIM) 10,000 unit- 1 mg/mL ophthalmic solution Use 1 Drop in both eyes every 4 hours for 7 days. HUMIRA 40 mg/0.8 mL injection Subcutaneously, Inject one pen weekly FAMILY HISTORY Problem Relation Age of Onset Heart Mother cardiomyopathy Hypertension Mother None Father Asthma Maternal Grandfather Social History Tobacco Use Smoking status: Never Smokeless tobacco: Never Vaping Use Vaping status: Never Used Substance Use Topics Alcohol use: Yes Comment: rarely Drug use: No Review of Systems Constitutional: Negative for fever. HENT: Negative for congestion, ear discharge, ear pain, hearing loss, mouth sores, rhinorrhea and sore throat. Eyes: Positive for discharge, redness and itching. Negative for double vision, photophobia and pain. Respiratory: Negative for apnea, cough, chest tightness and stridor. Cardiovascular: Negative for chest pain, palpitations and leg swelling. Gastrointestinal: Negative for abdominal pain, diarrhea, nausea and vomiting. Musculoskeletal: Negative for arthralgias, back pain and gait problem. Skin: Negative for color change, pallor and rash. Allergic/Immunologic: Negative for environmental allergies, food allergies and immunocompromised state. Neurological: Negative for headaches. Hematological: Negative for adenopathy. Does not bruise/bleed easily. Psychiatric/Behavioral: Negative for agitation and behavioral problems. Objective BP 141/75 Pulse 82 Temp 37.1 C (98.7 F) Resp 18 Wt 67.5 kg (148 lb 13 oz) LMP 12/05/2022 (Approximate) SpO2 96% BMI 23.83 kg/m Physical Exam Vitals and nursing note reviewed. Constitutional: General: She is not in acute distress. Appearance: Normal appearance. She is normal weight. She is not ill-appearing, toxic-appearing or diaphoretic. HENT: Head: Normocephalic and atraumatic. Right Ear: Ear canal and external ear normal. Left Ear: Ear canal and external ear normal. Nose: Nose normal. No congestion or rhinorrhea. Mouth/Throat: Mouth: Mucous membranes are moist. Pharynx: No oropharyngeal exudate or posterior oropharyngeal erythema. Eyes: General: Right eye: No discharge. Left eye: Discharge present. Extraocular Movements: Extraocular movements intact. Pupils: Pupils are equal, round, and reactive to light. Comments: Vision grossly intact OS injected Marginal eyelid debris EOM intact Cardiovascular: Rate and Rhythm: Normal rate and regular rhythm. Pulses: Normal pulses. Heart sounds: Normal heart sounds. No murmur heard. No friction rub. Pulmonary: Effort: Pulmonary effort is normal. No respiratory distress. Breath sounds: Normal breath sounds. No stridor. No wheezing, rhonchi or rales. Chest: Chest wall: No tenderness. Abdominal: General: Abdomen is flat. There is no distension. Palpations: Abdomen is soft. There is no mass. Tenderness: There is no abdominal tenderness. There is no right CVA tenderness, left CVA tenderness, guarding or rebound. Hernia: No hernia is present. Musculoskeletal: General: No swelling, tenderness, deformity or signs of injury. Normal range of motion. Cervical back: Normal range of motion and neck supple. No rigidity. Right lower leg: No edema. Left lower leg: No edema. Lymphadenopathy: Cervical: No cervical adenopathy. Skin: General: Skin is warm and dry. Capillary Refill: Capillary refill takes less than 2 seconds. Coloration: Skin is not jaundiced or pale. Findings: No bruising, erythema, lesion or rash. Neurological: General: No focal deficit present. Mental Status: She is alert and oriented to person, place, and time. Cranial Nerves: No cranial nerve deficit. Sensory: No sensory deficit. Motor: No weakness. Coordination: Coordination normal. Gait: Gait normal. Psychiatric: Mood and Affect: Mood normal. Behavior: Behavior normal. Thought Content: Thought content normal. Judgment: Judgment normal. Assessment and Plan ASSESSMENT/PLAN: 1. Conjunctivitis of left eye, unspecified conjunctivitis type - ICD9: 372.30, ICD10: H10.9 Bacterial X 1 day No red flags - see medication orders - course and contagiousness issues discussed, including hand washing. - Instructed to call if high fever, development of periorbital redness or swelling, eye pain, visual changes, concerns or if symptoms persist. Socorro Hsu APRN.BEHAVIOR INTERVENTIONIST documented in this encounter [facility] 03-31-2024 Note HNO ID: [id number] Author: ROSA MARRERO LPN Service: ? Author Type: LICENSED NURSE Type: Progress Notes Filed: 03/31/2024 11:08 Note Text: Patient presents for Meningococcal B vaccine. Denies any problems at this time. Tolerated injection well. Rosa Marrero LPN [facility] 03-08-2024 Telephone encounter Note Patient scheduled for nurse visit 03/31/24 to receive Meningococcal B vaccine. Please place order at this time. Rosa Marrero LPN [facility] 03-08-2024 Miscellaneous Notes Patient scheduled for nurse visit 03/31/24 to receive Meningococcal B vaccine. Please place order at this time. Rosa Marrero LPN documented in this encounter [facility] 01-15-2024 History of Present illness Narrative SUBJECTIVE: Meningococcal B Vaccine: Consider Based On Risk(1 of 4 - Increased Risk) Never done Hepatitis A Vaccine(1 of 2 - Risk 2-dose series) Never done MMR Vaccine(2 of 2 - Risk 2-dose series) due on 09/22/1989 Covid-19 Vaccine() due on 05/09/2023 Diabetes Screening due on 07/19/2023 Annual PCP Team Chronic Disease Visit due on 01/14/2024 Pap Testing due on 05/26/2024 HPV Testing due on 05/26/2024 HPI Chang Maradiaga is a 53 year old female. PMH significant for ACTIVE PROBLEM LIST Crohn's Disease of Both Small and Large Intestine Without Complication (Hcc) Vitamin D Deficiency Myopia - Both Eyes Regular astigmatism - Both Eyes Mild Intermittent Asthma Without Complication Chronic Cholecystitis With Calculus Astigmatism, Regular Presbyopia Family History of Aortic Valve Disorder Anemia Asthma Bone Fracture Crohn's Disease of Small Intestine With Intestinal Obstruction (Hcc) History of Blood Clots Osteopenia Hypertriglyceridemia Presents today for routine exam. She notes she is in her usual state of health. 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 Taking Humira. Notes Crohn's is currently well-controlled. Does take an Humira for about 10 years. Stable on this. States her insurance company wanted her to try a bio similar but her blast furnace supervisor said no that she was stable on current treatment. She has had surgery for Crohn's in the past. Gynecology Ivelisse Shalini annual in August. Due for Pap this year. Notes LMP about 6 months ago. Asthma: PFT completed, no longer taking Advair. Not needing it now. Did have second hand smoke exposure as child. She notes taking supplemental vitamin D, B12 every other day. Does not take supplemental calcium Hyperlipidemia. Ms. Maradiaga reports doing well on current therapy. Her most recent lipid panels are: Cholesterol, Total (mg/dL) Date Value 03/22/2019 127 03/12/2018 125 HDL Cholesterol (mg/dL) Date Value 03/22/2019 31 03/12/2018 33 LDL Cholesterol (mg/dL) Date Value 03/22/2019 28 03/12/2018 38 Triglyceride (mg/dL) Date Value 03/22/2019 341 03/12/2018 270 Review of Systems Constitutional: Negative. Respiratory: Negative. Cardiovascular: Negative. Objective BP 108/68 Pulse 83 Resp 16 Wt 69.4 kg (153 lb) LMP 12/05/2022 (Approximate) BMI 24.50 kg/m Physical Exam Vitals and nursing note reviewed. Constitutional: Appearance: Normal appearance. HENT: Head: Normocephalic and atraumatic. Eyes: Conjunctiva/sclera: Conjunctivae normal. Neck: Thyroid: No thyromegaly. Vascular: Normal carotid pulses. No JVD. Cardiovascular: Rate and Rhythm: Normal rate and regular rhythm. Pulses: Carotid pulses are 2+ on the right side and 2+ on the left side. Radial pulses are 2+ on the right side and 2+ on the left side. Heart sounds: Normal heart sounds. Pulmonary: Effort: Pulmonary effort is normal. Breath sounds: Normal breath sounds. Abdominal: General: Bowel sounds are normal. Musculoskeletal: Right lower leg: No edema. Left lower leg: No edema. Skin: General: Skin is warm and dry. Neurological: General: No focal deficit present. Mental Status: She is alert and oriented to person, place, and time. ALLERGIES Allergen Reactions No Known Drug Aller* Medications Cyanocobalamin 1,000 mcg subl Dissolve 1,000 mcg under the tongue once daily. Cholecalciferol, Vitamin D3, (VITAMIN D-3) 50 mcg (2,000 unit) cap Take 2 capsules by mouth once daily. HUMIRA 40 mg/0.8 mL injection Subcutaneously, Inject one pen weekly cholestyramine-sucrose (QUESTRAN) 4 gram powder USE ONE SCOOP ONCE DAILY DIRECTED vitamin b complex (B COMPLEX-VITAMIN B12) tab Take 1 tablet by mouth once daily. PAST MEDICAL HISTORY Diagnosis Date Crohn's disease ([facility]) Dr. Carrasquillo in [facility] Diarrhea Family history of aortic valve disorder 08/04/2017 brother has bicuspid aortic valve Mild intermittent asthma without complication 08/22/2015 Other acute embolism veins 1999 Regional enteritis of large intestine ([facility]) 1991 Crohns Unspecified deficiency anemia Vitamin D deficiency 02/26/2013 Social History Tobacco Use Smoking status: Never Smokeless tobacco: Never Vaping Use Vaping Use: Never used Substance Use Topics Alcohol use: Yes Comment: rarely Drug use: No ASSESSMENT/PLAN: 1. Routine medical exam - ICD9: V70.0, ICD10: Z00.00 (primary diagnosis) - Counseled on healthy diet and regular exercise 2. Encounter for immunization - ICD9: V03.89, ICD10: Z23 - MENINGOCOCCAL B VACCINE (BEXSERO) - HEP A VACCINE, ADULT (HAVRIX, VAQTA) - MMR VACCINE (M-M-R II, PRIORIX) - PFIZER-BIONTCoshared COVID-19 VACCINE (2022- SEASON) AGE 12+ YR 3. Screening for diabetes mellitus (DM) - ICD9: V77.1, ICD10: Z13.1 4. Screening for cervical cancer - ICD9: V76.2, ICD10: Z12.4 - Encourage monthly BSE - PAP TEST - to see gynecology, Ivelisse Loya CNP in August 5. Crohn's disease of both small and large intestine without complication (HCC) - ICD9: 555.2, ICD10: K50.80 - COMPREHENSIVE METABOLIC PANEL - COMPLETE BLOOD COUNT AND DIFFERENTIAL 6. Vitamin D deficiency - ICD9: 268.9, ICD10: E55.9 - VITAMIN D 25 HYDROXY 7. Anemia, unspecified type - ICD9: 285.9, ICD10: D64.9 - COMPLETE BLOOD COUNT AND DIFFERENTIAL - VITAMIN B12 Labs today 12 mo follow up MD Gary Olea APRN.INSPECTOR CIRCUITRY NEGATIVE PHQ-9 Score: 0 (Minimal Depression) No further intervention at this time documented in this encounter [facility] 08-04-2023 History and physi fanny note Note Date/Time August 04, 2023 7:32am [facility] Medical Records Department [address] [place] [address] History & Physical Exam 08/04/23 0731 MR#: [id number] Acct: [id number] Name: CHANG MARADIAGA Rep #:[id number] : 1970 52 From: Harsh Friend DO PCP: Dr. Wilman Hester MD Status:[facility] Location: [place] [address] History and Physical Date of Admission: 08/04/23 52 F who presents to the office today for PMH climacteric; DVT Hx. PSH cholecystectomy 2016 [facility] established prior with Humira started ~2009 with concern for aphthous ulcers in her mouth and increased BM just prior to next dose of Humira (QOWeek dosing). ? Colonoscopy 08.03.18 report unavailable. Pathology of one polyp, inflammatory type without dysplasia. ? Colonoscopy 09.06.20 report unavailable. Rectal ulcer pathology with acute and chronic inflammation and granulation. *BGI established 08.28.21 with previously diagnosed Crohn?s disease maintained with Humira QWeek. ? Biochemical workup CBC, ESR, coagulation, CMP, LFT, CRP without pertinent abnormality. ? Cholesterol H258, vLDL H52, double strand DNA H44 ? Refer to rheumatology Biochemical workup TB WNL. Humira concentration 13.[address] enterography 09.14.21 noting postsurgical changes of cecum, mid small bowel (focal fluid distention measuring 4.3cm) and LUQ small bowel (focal area of fluid distention measuring 4x5.8cm). No signs of Crohn?s disease. OV 10.09.21 continue Humira, explore QOweek option. Biochemical workup CBC, ESR, CMP, CRP, TB without pertinent abnormality LFT AST 31-ALT H58-AP [address] [facility] established 12.11.21. OV 12.31.21 with suspected drug-induced HAIR and antihistone ab r/t Humira use. No evidence of systemic Lupus. OV 10.28.22 without symptoms related to Crohn?s. Humira QOweek started end of August. Bloodwork drawn last week and is still pending. ? Biochemical workup / CBC, ESR, CMP, CRP, TB without pertinent abnormality. OV 02.18.23 feels she is doing very well at this time. Has some bloating after eating which is ?released? and she feels better, feels is r/t historical small bowel resections. Denies joint pain, vision changes or rashes. ? ESR/CRP? Calp/Lact? Serum/AB ?TB 08.30.21 15/<2.9? <16/neg? --/--? -- 09.03.22 14/<2.9? --/--? --/--? neg 10.28.22 --/--? --/--? 4.1/none? -- ROS Const Constitutional: No fatigue, fever(s), headache(s), weight change, sleep problems, abnormal sleep pattern or change in appetite ENT ENT: No headache(s), difficulty swallowing, hoarseness or sore throat Resp Respiratory: No cough, hemoptysis or shortness of breath Cardio Cardiology: No chest pain at rest or generalized swelling Gastro GI: No abdominal pain, belching, bloating, change in bowel habits, change in stool character, coffee ground emesis, constipation, cramping, diarrhea, heartburn, difficulty swallowing, feeling full early, excessive flatus, incontinent of stools, Vomiting blood/hematemesis, Blood in stool, loose stools,Black,tarry stools, nausea/dyspepsia, pain with swallowing or vomiting Musc Musculoskeletal: No joint pain, back pain, joint swelling, numbness or tingling Skin Skin: No itchy eyes or rash Neuro Neurology: No behavioral changes, confusion, headache(s), numbness or tingling Psych Psychiatric: No abnormal sleep pattern, No anxiety, No behavioral changes, No change in appetite, No confusion and No depression Endo Endocrine: No cold intolerance, fatigue, heat intolerance, increased thirst/drinking or weight change Aller/Imm Allergy/Immunologic: No food intolerance or itchy eyes Geronimo/Lymp Hematologic/Lymphatic: No easy bleeding, easy bruising or enlarged lymph nodes Exam Const General: cooperative, healthy appearing, comfortable, well developed and well groomed GI Inspection: normal to inspection Palpation: soft Quality Reporting Tobacco Screening ([facility] 138) Smoking Status: Never smoker Assessment and Plan Assessment and Plan (1) Crohn's disease: Status: Chronic Plan: No disease with history of small bowel obstructions x2 status post ileocolonic resection with primary anastomosis. She was Humira q. weekly with a adalimumab level was 13.5 then 4.2 without antibodies. We will recheck her levels with herbeing on Humira every other week. The goal for her would be to hold Humira on Humira possibly once a month. She is also on plexus supplementation which is a probiotic and prebiotic with an antioxidant blend. There is case control studies with probiotics helping to maintain remission and ulcerative colitis greater than Crohn's disease. I am okay with her continue that for now. Await repeat levels. We will also have to recheck her quantiferon gold. I have examined the patient and the H&P has been reviewed. There are no clinicalchanges since date of exam. 08/04/23 0732 <Electronically signed by Harsh Carrasquillo DO> Cosigner Signature (if applicable): CC: Dr. Wilman Hester MD; Harsh Carrasquillo DO~ Signed [facility] Work Phone: [phone] 799-271811-27-2023 [facility] Procedure [facility]2023 Procedure note [facility]2023 Procedure [facility] 01-13-2023 History of Present illness Narrative* Wilman Hester MD - 01/13/2023 1:15 PM EDT This note was created using [employer]. Subjective Chang Maradiaga is a 52 year old female. HISTORY Chang Maradiaga is a 52 year old lady here to be formally established with me. Noted that has had COVID infection documented after had it. Thinks had August 2019. Got vaccines except not the bivalent one. THROUGH OPERATOR--Ivelisse Loya at [facility] Noted postmenopausal weight gain. Was exercising and [...] mouth three times daily. (Patient not taking: Nosig reported) No current facility-administered medications for this [...] Dr. Madden/due in 2013 [facility] CHOLE[facility]STECTOMY 04/08/2016 [facility] - Dr. Chris Ramos LAPS SURG [...] as of this encounter: 169.5 cm (5' 6.73). Weight as of this encounter: 68.9 kg [...] and regular exercise and adequate sleep. Wilman Hester MD [facility] Instructions* Patient Instructions* Nathalia Sarah, GIULIANA - 11/11/2022 5:40 PM EST ASSESSMENT/PLAN: 1. Myopia of both eyes - ICD9: 367.1, ICD10: H52.13 (primary diagnosis) 2. Regular astigmatism of both eyes - ICD9: 367.21, ICD10: H52.223 3. Presbyopia - ICD9: 367.4, ICD10: H52.4 Continue to wear her glasses and discussed the option of distance only vs bifocals or progressive lenses. Recommended yearly exams. [facility] History of Present illness Narrative* Nathalia Sarah OD - 11/11/2022 5:38 PM EST ASSESSMENT/PLAN: 1. Myopia of both [...] as obtained by others. [facility] Miscellaneous Notes* Telephone Encounter - Noemi Abreu Ma - 02/18/2022 2:29 PM EDT Letter mailed to pt home notifying her that she needs to establish care with a new provider. Noemi Abreu Ma * Telephone Encounter - Jaylin Nguyen LPN - 02/13/2022 11:32 AM EDT Left a message for pt to call the office and ask to speak to a triage nurse. Jaylin Nguyen LPN * Telephone Encounter - Bri Mcleod APRN.CNP - 02/13/2022 8:51 AM EDT Please call patient and assist in scheduling establish care appointment. Bri Mcleod APRN.CNP * Telephone Encounter - Jaylin Nguyen LPN - 02/13/2022 7:46 AM EDT Sent a Identifiedt message asking the pt to call the [...] you. Jaylin Nguyen LPN [facility] History of Past illness Narrative* Problem Noted Date Resolved Date Fracture of radial head, left, closed 11/05/2013 08/22/2015 Duguvks-gg-oiv 09/03/2012 01/16/2017 Other symptoms involving cardiovascular system 1 10/20/2006 08/22/2015 Diarrhea 02/18/2006 01/16/2017 documented as of this encounter (statuses as of 02/18/2022) [address]28-2014 History of Past illness Narrative* Problem Noted Date Resolved Date Fracture of radial head, left, closed 11/05/2013 08/22/2015 Gwesyuj-sj-ogy 09/03/2012 01/16/2017 Other symptoms involving cardiovascular system 1 10/20/2006 08/22/2015 Diarrhea 02/18/2006 01/16/2017 documented as of this encounter (statuses as of 11/12/2022) [facility] History of Past illness Narrative* Problem Noted Date Resolved Date Fracture of radial head, left, closed 11/05/2013 08/22/2015 Yqemtri-qe-ycc 09/03/2012 01/16/2017 Other symptoms involving cardiovascular system 1 10/20/2006 08/22/2015 Diarrhea 02/18/2006 01/16/2017 documented as of this encounter (statuses as of 01/20/2023) [facility] History of Past illness Narrative* Problem Noted Date Resolved Date Fracture of radial head, left, closed 11/05/2013 08/22/2015 Prdgqrz-sf-lgb 09/03/2012 01/16/2017 Other symptoms involving cardiovascular system 1 10/20/2006 08/22/2015 Diarrhea 02/18/2006 01/16/2017 documented as of this encounter (statuses as of 02/07/2023) [facility] note* Diagnosis Onset Date Resolution Status Crohn's disease acute Positive double stranded DNA antibody test acute [facility] Work Phone: evaluation note* Diagnosis Mild intermittent asthma without complication Unspecified asthma documented in this encounter [facility] noteNo assessment [facility] Work Phone: [employer] note* Diagnosis Onset Date Resolution Status Climacteric acute Encounter for routine gynecological examination noneactive [facility] Work Phone: evaluation note* Diagnosis Onset Date Resolution Status Climacteric acute Encounter for routine gynecological examination noneactive Crohn's disease [facility] Work Phone: evaluation note* Diagnosis Myopia of both eyes- Primary Myopia Regular astigmatism of both eyes Regular astigmatism Presbyopia documented in this encounter [facility] note* Diagnosis Encounter for screening mammogram for breast cancer documented in this encounter [facility] note* Diagnosis Routine medical exam- Primary Routine general medical examination at a health care facility Mild intermittent asthma without complication Unspecified asthma Encounter for immunization Need for other specified prophylactic vaccination against single bacterial disease documented in this encounter [facility] note* Diagnosis Onset Date Resolution Status Crohn's disease [facility] Work Phone: evaluation note* Diagnosis Onset Date Resolution Status Encounter for routine gynecological examination noneactive [facility] Work Phone: evaluation note* Diagnosis Routine medical exam- Primary Routine general medical examination at a health care facility Encounter for immunization Need for other specified prophylactic vaccination against single bacterial disease Screening for diabetes mellitus (DM) Screening for diabetes mellitus Screening for cervical cancer Screening for malignant neoplasm of the cervix Crohn's disease of both small and large intestine without complication (HCC) Regional enteritis of small intestine with large intestine Vitamin D deficiency Unspecified vitamin D deficiency Anemia, unspecified type documented in this encounter [facility] note* Diagnosis Need for vaccination- Primary Need for prophylactic vaccination and inoculation against unspecified single disease [facility] Diagnosis Need for vaccination- Primary Need for prophylactic vaccination and inoculation against unspecified single disease [facility] Diagnosis Conjunctivitis of left eye, unspecified conjunctivitis type- Primary [facility] Diagnosis Bacterial sinusitis- Primary Unspecified sinusitis (chronic) [facility]* Diagnosis Routine medical exam- Primary Routine general medical examination at a health care facility Crohn's disease of both small and large intestine without complication (HCC) Regional enteritis of small intestine with large intestine Vitamin D deficiency Unspecified vitamin D deficiency Anemia, unspecified type Screening for depression Encounter for screening examination for other mental health and behavioral disorders Encounter for long-term current use of medication Family history of B12 deficiency Family history of other condition [facility] Diagnosis Onset Date Resolution Status Admit Date Crohn's disease chronic June 092024 8:03am [facility] Work Phone: Progress note Author Harsh Carrasquillo [facility] Note Date/Time June 29, 2025 9 :47am [facility] [address] [place] [address] OFFICE VISIT Date of Service: 06/29/25 MR#: [id number] Acct: [id number] Name: CHANG MARADIGAA Rep #: [id number] : 1970 Provider: Harsh Carrasquillo DO Age/Sex: 54/F Location: [facility] Status: Signed Intake Vital Signs 09/27/24 09:01 Height 5 ft 6 in Intake Visit Reasons: 6 M FU Allergies No Known Allergies Allergy (Verified 09/27/24 09:04) Medications ?Medication ?Instructions ?Recorded ?Confirmed ?Type cholecalciferol (vitamin D3) 25 1,000 unit PO DAILY 06/29/25 History mcg (1,000 unit) capsule cyanocobalamin (vitamin B-12) 1,000 mcg sublingual MICHAEL LY 10/31/13 06/29/25 History 1,000 mcg sublingual tablet adalimumab 40 mg/0.4 mL See Rx Instructions subcut 0 12/31/24 06/29/25 Rx subcutaneous pen kit (Humira(CF) .COMPLEX #2 ea Pen) cholestyramine (with sugar) 4 gram 4 ea PO DAILY #378 GMS 06/29/25 06/29/25 Rx oral powder PFSH Medical History Post-menopausal Wears glasses Low iron DVT (deep venous thrombosis) Easy bruising Non-smoker History of echocardiogram Positive double stranded DNA antibody test Surgical History History of cholecystectomy History of bowel resection Family History Brother Heart disease Social History number of children: 2 current occupational status: employed current occupation: [employer] Smoking Status: Never smoker alcohol intake: current alcohol intake frequency: holidays/special occasions only substance use type: does not use seatbelt use: always do you feel safe at home: Yes HPI HPI Details: CHANG MARADIAGA, is a 54 F who presents to the office today for follow up. PMH climacteric; DVT Hx. PSH cholecystectomy 2015 [facility] established prior with Humira started ~2009 with concern for aphthous ulcers in her mouth and increased BM just prior to next dose of Humira (QOWeek dosing). ? Colonoscopy 08.03.18 report unavailable. Pathology of one polyp, inflammatory type without dysplasia. ? Colonoscopy 09.06.20 report unavailable. Rectal ulcer pathology with acute and chronic inflammation and granulation. *[facility]I established 08.28.21 with previously diagnosed Crohn?s disease maintained with Humira QWeek. ? Biochemical workup CBC, ESR, coagulation, CMP, LFT, CRP without pertinent abnormality. ? Cholesterol H258, vLDL H52, double strand DNA H44 ? Refer to rheumatology Biochemical workup TB WNL. Humira concentration 13.[address] enterography 09.14.21 noting postsurgical changes of cecum, mid small bowel (focal fluid distention measuring 4.3cm) and LUQ small bowel (focal area of fluid distention measuring 4x5.8cm). No signs of Crohn?s disease. OV 2.09.29 continue Humira, explore QOweek option. Biochemical workup CBC, ESR, CMP, CRP, TB without pertinent abnormality LFT AST 31-ALT H58-AP [address] [facility] established .01.27. OV 12.31.21 with suspected drug-induced HAIR and antihistone ab r/t Humira use. No evidence of systemic Lupus. OV 10.28.22 without symptoms related to Crohn?s. Humira QOweek started end of August. Bloodwork drawn last week and is still pending. ? Biochemical workup / CBC, ESR, CMP, CRP, TB without pertinent abnormality. OV 6 feels she is doing very well at this time. Has some bloating after eating which is ?released? and she feels better, feels is r/t historical small bowel resections. Denies joint pain, vision changes or rashes. OV 12.21.22 she underwent EGD and colonoscopy back in July 2023. Her upper endoscopy that showed eosinophilic esophagitis with no changes of intestinal metaplasia, dysplasia or cancer. Her stomach and duodenum did not have any pathology. Her colonoscopy did reveal a normal-appearing anastomosis without any signs or symptoms of stenosis, scarring or chronic inflammation. Biopsies of the anastomosis and throughout the colon did not reveal any active disease. At this time she is doing very well. She has been exercising every day with walking every morning. She has lost about 2 pounds but has gained some muscle. She maintains a good weight. She does not have any abdominal pain, cramping, nausea, vomiting, diarrhea. She is being maintained on Humira 40 mg every otherweek. OV 10. pt reports that she is doing well overall and denies GI symptoms of concern at this time. Pt continues cholestyramine and Q2week Humira. OV 12.27.24 pt reports that she is feeling well overall and denies GI symptoms ofconcern at this time. Pt continues Humira Q2week and cholestyramine OV 10.22.25 pt reports that she is feeling well overall and denies GI symptoms of concern at this time. Pt continues with Humira T3bpftk and cholestyramine daily. ESR / CRP Calp / Lact Serum / AB TB 12.. 15 / <2.9 <16 / neg -- / -- -- 12.. 14 / <2.9 -- / -- -- / -- neg 02.20. -- / -- -- / -- 4.1 / none -- 08.. 11 / <2.9 H280 / + 4.0 / 121 -- 11.8.24 11 / <2.9 -- / -- ROS Const Constitutional: No fatigue, fever(s) or weight change ENT ENT: No difficulty swallowing Gastro GI: Positive for bloating and excessive flatus; No abdominal pain, belching, change in bowel habits, change in stool character, coffee ground emesis, constipation, cramping, diarrhea, heartburn, difficulty swallowing, feeling full early, incontinent of stools, Vomiting blood/hematemesis, Blood in stool, loose stools, Black,tarry stools, nausea/dyspepsia, pain with swallowing, vomiting or other Musc Musculoskeletal: No joint pain Skin Skin: No yellowing of the eye or itchy eyes Psych Psychiatric: No anxiety and No depression Endo Endocrine: No fatigue or weight change Aller/Imm Allergy/Immunologic: No itchy eyes Geronimo/Lymp Hematologic/Lymphatic: No easy bleeding or easy bruising Assessment and Plan Assessment and Plan (1) Crohn's disease: Status: Chronic Plan: No disease with history of small bowel obstructions x2 status post ileocolonic resection with primary anastomosis. She was Humira q. weekly with a adalimumab level was 13.5 then 4.2 without antibodies. We will recheck her levels with herbeing on Humira every other week. The goal for her would be to hold Humira on Humira possibly once a month. She is also on plexus supplementation which is a probiotic and prebiotic with an antioxidant blend. There is case control studies with probiotics helping to maintain remission and ulcerative colitis greater than Crohn's disease. I am okay with her continue that for now. Await repeat levels. We will also have to recheck her quantiferon gold. She is doing very well. I am not recommending her to change any of her therapy at this time because she has had 2 surgeries in the past for refractory Crohn's disease involving the colon and small bowel. She is also been recalcitrant to steroid therapy. She has been stable without any surgical intervention for multiple years with her current eating regimen and drug regimen. I am not recommending we make any changes at this time. Recommendation: -Check ESR, CRP, fecal calprotectin -Continue current Humira administration -Repeat colonoscopy next year. Orders: Orders [facility] Misc. Today K50.90 - Crohn's disease, unspecified, without complications CRP Today K50.90 - Crohn's disease, unspecified, without complications Erythrocyte Sed Rate Today K50.90 - Crohn's disease, unspecified, without complications Comprehensive Metabolic Profil Today K50.90 - Crohn's disease, unspecified, without complications CBC W/Diff, Automated Today K50.90 - Crohn's disease, unspecified, without complications Quantiferon TB-Gold+ Today K50.90 - Crohn's disease, unspecified, without complications Hepatitis Panel Acute Today K50.90 - Crohn's disease, unspecified, without complications Medications: Refilled cholestyramine (with sugar) 4 gram 4 ea PO DAILY 378 GMS 3RF Coding Level of Care Code Off vis,est,level 3 Diagnoses Crohn's disease K50.90 06/29/25 3239 <Electronically signed by Harsh juan DO> Date _ Harsh Friend DO Cosigner Signature: Date (if applicable) CC: ~ [facility] Work Phone: Reason for referral (narrative)* Diagnostic Procedure Only (Routine) - Pending Review Specialty Diagnoses / Procedures Referred By Contpatt t Referred To Contact [facility] Diagnoses Encounter for screening mammogram for breast cancer Procedures ALFONSO SCREENING SCREENING MAMMOGRAPHY BI 2-VIEW BREAST INC CAD Wilman Hester MD [address] [place] [address] [facility] [address] [place] [address] Referral ID Status Reason Start Date Expiration Date Visits Requested Visits Authorized [id number] Pending Review Auto-Generat ed Referral 01/15/2023 02/14/2024 1 1 [facility]ative)No reason for referral information availableMinden Medical Services Work Phone: Chief Complaint and Reason for Visit Chief Complaint 6 wk FU Reason for Visit Crohn's disease Positive double stranded DNA antibody test Chief Complaint Annual (THROUGH OPERATOR) SCREENING EORDERS Reason for Visit Climacteric Encounter for routine gynecological examination Chief Complaint Annual (THROUGH OPERATOR) SCREENING EORDERS HEAD TRAUMA FROM FALL Reason for Visit Climacteric Encounter for routine gynecological examination Chief Complaint Annual (THROUGH OPERATOR) SCREENING EORDERS HEAD TRAUMA FROM FALL FU Reason for Visit Climacteric Encounter for routine gynecological examination Crohn's disease Chief Complaint 4 MO FU E ORDERS INT LABSPEC Reason for Visit Crohn's disease Chief Complaint SCREENING Annual (THROUGH OPERATOR) Reason for Visit Encounter for routin e gynecological examination Chief Complaint Admit Date 6 M FU June 29, 2025 8 :03am E ORDERS June 29, 2025 8 :52am E ORDERS July 05, 2025 8 :16am Reason for Visit Admit Date Crohn's disease June 29, 2025 8 :03am Advance Directives Advance Directive Response Recorded Date/ Time Advance Directives No April 01 2:28pm Living Will No April 01, 2016 2:28pm Power of Seo Strategist No April 01 6 2:28pm Documents on File Type Date Recorded 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 Expl 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 Advance Directive(s) 09/04/2020 1:38 PM Advance Directive(s) 08/28/2020 1:06 PM Advance Directive(s) 08/03/2018 7:03 AM Advance Directive(s) 07/14/2018 1:51 PM Advance Directive Response Recorded Date/ Time Advance Directives No April 01 1:28pm Living Will No April 01, 2016 1:28pm Power of Seo Strategist No April 01 6 1:28pm Advance Directive Response Recorded Date/ Time Name of Medical Power of Seo Strategist JUAN MARADIAGA July 29, 2023 11:34am Advance Directives No May 08, 2023 7:12am Living Will Yes July 29, 2 023 11:34am Power of Seo Strategist Yes July 29, 2023 11:34am Advance Directive Response Recorded Date/ Time Advance Directives No May 08, 2023 7:12am Medications Administered Section Inactive Administered Medications - [...] DILATOR BRNCDILAT RSPSE SPMTRY PRE&POST-BRNCDILAT ADMN Wilman Hester MD [address] [place] [address] Respiratory [place] [address] [place] [id number] Referral ID Status Reason Start Date Expiration Date Visits Requested Visits Authorized [id number] Authorized Auto-Generat ed Referral 02/17/2023 09/07/2023 1 1 Summary Purpose Family History No Family History Records Found Additional Source Comments Goals (unrecognized section and content) Goals may be documented in a n alternate sectionGoals may be documented in an alternate sectionGoals may be documented in an alternate sectionGoals may be documented in an alternate sectionGoals may be documented in an alternate sectionGoals may be documented in an alternate sectionGoals may be documented in an alternate sectionGoals may be documented in an alternate sectionGoals may be documented in an alternate sectionGoals may be documented in an alternate sectionGoals may be documented in an alternate section Source Comments (unrecognize d section and content) In the event this informatio n is protected by the Federal Confidentiality of Alcohol and Drug Abuse Patient Records regulations: The Federal rules restrict any use of the information to criminally investigate or prosecute any alcohol or drug abuse patient.[facility] the event this information is protected by the Federal Confidentiality of Alcohol and Drug Abuse Patient Records regulations: The Federal rules restrict any use of the information to criminally investigate or prosecute any alcohol or drug abuse patient.[facility] the event this information is protected by the Federal Confidentiality of Alcohol and Drug Abuse Patient Records regulations: The Federal rules restrict any use of the information to criminally investigate or prosecute any alcohol or drug abuse patient.[facility] the event this information is protected by the Federal Confidentiality of Alcohol and Drug Abuse Patient Records regulations: The Federal rules restrict any use of the information to criminally investigate or prosecute any alcohol or drug abuse patient.[facility] the event this information is protected by the Federal Confidentiality of Alcohol and Drug Abuse Patient Records regulations: The Federal rules restrict any use of the information to criminally investigate or prosecute any alcohol or drug abuse patient.[facility] the event this information is protected by the Federal Confidentiality of Alcohol and Drug Abuse Patient Records regulations: The Federal rules restrict any use of the information to criminally investigate or prosecute any alcohol or drug abuse patient.[facility] the event this information is protected by the Federal Confidentiality of Alcohol and Drug Abuse Patient Records regulations: The Federal rules restrict any use of the information to criminally investigate or prosecute any alcohol or drug abuse patient.[facility] the event this information is protected by the Federal Confidentiality of Alcohol and Drug Abuse Patient Records regulations: The Federal rules restrict any use of the information to criminally investigate or prosecute any alcohol or drug abuse patient.[facility] the event this information is protected by the Federal Confidentiality of Alcohol and Drug Abuse Patient Records regulations: The Federal rules restrict any use of the information to criminally investigate or prosecute any alcohol or drug abuse patient.[facility] the event this information is protected by the Federal Confidentiality of Alcohol and Drug Abuse Patient Records regulations: The Federal rules restrict any use of the information to criminally investigate or prosecute any alcohol or drug abuse patient.[facility] the event this information is protected by the Federal Confidentiality of Alcohol and Drug Abuse Patient Records regulations: The Federal rules restrict any use of the information to criminally investigate or prosecute any alcohol or drug abuse patient.[facility] Reason for Visit (unrecogniz ed section and content) Reason Comments Refill Request Reason Comments Yearly Exam Reason Comments Establish Care Specialty Diagnoses / Procedures Referred By Contac t Referred To Contact Internal Medicine / INTERNAL MEDICINE Diagnoses Pure hyperglyceridemia Family history of ischemic heart disease and other diseases of the circulatory system establish patient Procedures OFFICE/OUTPATIENT NEW MODERATE MDM 45-59 MINUTES 4C EXCEPTION Self Wilman Hester MD [address] [place] [address] Referral ID Status Reason Start Date Expiration Date Visits Re quested Visits Authorized [id number] Closed 01/13/2023 09/07/2023 1 1 Reason Comments Physical Reason Comments Immunizations Reason Comments Orders Reason Comments Conjunctivitis L eye x1 day Reason Comments Sinus Problem Sinus pain and press ure, congestion, Puga and fever off and on x 1.5 weeks Care Teams (unrecognized sec tion and content) Capsule Maker Relationship Specialty Start Date End Date Kishan Ramos III, MD [place] FORWARDING ADDRESS PCP - General 07/02/02 Team Status: Active Member Role Status Dates Dr. Kishan Ramos III, MD Family Provider Active Dr. Abdoulaye Corley MD Primary Care Provider Active Team Status: Inactive Member Role Status Dates Dr. Abdoulaye Corley MD Primary Care Provider, Referr ing Provider Active Ivelisse Loya PUTTIER, PUTTIER-C Attending Provider Active Team Status: Inactive Member Role Status Dates Dr. Abdoulaye Corley MD Primary Care Provider Active Ivelisse Loya PUTTIER, PUTTIER-C Attending Provider, Referring Provider Active Team Status: Inactive Member Role Status Dates Dr. Abdoulaye Corley MD Primary Care Provider, Referr ing Provider Active Shelbie Rebollar NP-C Attending Provider Active Team Status: Inactive Member Role Status Dates Dr. Abdoulaye Corley MD Primary Care Provider Active Dr. Harsh Carrasquillo DO Attending Provider, Referring Provider Active Team Status: Inactive Member Role Status Dates Dr. Abdoulaye Corley MD Primary Care Provider, Attend ing Provider Active Team Status: Inactive Member Role Status Dates Dr. Abdoulaye Corley MD Primary Care Provider, Referr ing Provider Active Dr. Harsh Carrasquillo DO Attending Provider Active Capsule Maker Relationship Specialty Start Date End Date Wilman Hester MD [address] [place] [id number] PCP - General Internal Medicine 01/13/23 Capsule Maker Relationship Specialty Start Date End Date Wilman Hester MD [address] [place] [address] [id number] PCP - General Internal Medicine 01/13/23 Team Status: Active Member Role Status Dates Dr. Kishan Ramos III, MD Family Provider Active Dr. Wilman Hester MD Primary Care Provider Active Team Status: Inactive Member Role Status Dates Dr. Wilman Hester MD Primary Care Provider Active Dr. Harsh Carrasquillo DO Attending Provider, Referring Provider Active Team Status: Active Member Role Status Dates Dr. Wilman Hester MD Primary Care Provider Active Dr. Harsh Carrasquillo DO Attending Provider, Referring Provider Active Team Status: Active Member Role Status Dates Dr. Wilman Hester MD Primary Care Provider Active Dr. Harsh Carrasquillo DO Attending Provider Active Team Status: Active Member Role Status Dates Dr. Wilman Hester MD Primary Care Provider, Referr ing Provider Active Dr. Harsh Carrasquillo DO Attending Provider, Other Prov ider Active Team Status: Inactive Member Role Status Dates Dr. Wilman Hester MD Primary Care Provider, Referr ing Provider Active Dr. Harsh Carrasquillo DO Attending Provider Active Team Status: Inactive Member Role Status Dates Dr. Wilman Hester MD Primary Care Provider Active Dr. Harsh Carrasquillo DO Attending Provider Active Team Status: Inactive Member Role Status Dates Dr. Wilman Hester MD Primary Care Provider, Referr ing Provider Active Ivelisse Loya PUTTIER, PUTTIER-C Attending Provider Active Team Status: Inactive Member Role Status Dates Dr. Wilman Hester MD Primary Care Provider Active Dr. Luiza Friedman MD Attending Provider Active Capsule Maker Relationship Specialty Start Date End Date Wilman Hester MD [address] [place] [address] PCP - General Internal Medicine 01/13/23 Capsule Maker Relationship Specialty Start Date End Date Wilman Hester MD [address] [place], [place] [address] PCP - General Internal Medicine 01/13/23 Capsule Maker Relationship Specialty Start Date End Date Wilman Hester MD [address] [place] [address] PCP - General Internal Medicine 01/13/23 Capsule Maker Relationship Specialty Start Date End Date Wilman Hester MD [address] [place] [address] PCP - General Internal Medicine 01/13/23 Capsule Maker Relationship Specialty Start Date End Date Wilman Hester MD [address] [place] [address] PCP - General Internal Medicine 01/13/23 Gary Tapia, RN CARE MANAGER.INSPECTOR CIRCUITRY NEGATIVE [address] [place] [address] [place] Internal Medicine 08/16/24 Lucy Bang RN CARE MANAGER.BEHAVIOR INTERVENTIONIST [address] [place] [address] [place] Internal Medicine 11/30/24 Capsule Maker Relationship Specialty Start Date End Date Wilman Hester MD [address] [place] [address] PCP - General Internal Medicine 01/13/23 Gary Tapia, RN CARE MANAGER.INSPECTOR CIRCUITRY NEGATIVE [address] [place] [address] [place] Internal Medicine 08/16/24 Lucy Bang RN CARE MANAGER.BEHAVIOR INTERVENTIONIST [address] [place] [address] [place] Internal [facility] 11/30/24 Team Status: Active Member Role/Relationship Status Dates Dr. Wilman Hester MD Primary care physician Active Team Status: Inactive Member Role/Relationship Status Dates Dr. Wilman Hester MD Primary care physician Active Start: June 29, 2025 End: June 29, 2025 Dr. Wilman Hester MD Referring Provider Active Start: June 29, 2025 End: June 29, 2025 Dr. Harsh Carrasquillo DO Attending physician Active Start: June 29, 2025 End: June 29, 2025 Team Status: Inactive Member Role/Relationship Status Dates Dr. Wilman Hester MD Primary care physician Active Start: June 29, 2025 End: June 29, 2025 Dr. Harsh Carrasquillo DO Attending physician Active Start: June 29, 2025 End: June 29, 2025 Dr. Harsh Carrasquillo DO Referring Provider Active Start: June 29, 2025 End: June 29, 2025 Team Status: Inactive Member Role/Relationship Status Dates Dr. Wilman Hester MD Primary care physician Active Start: July 05, 2025 End: July 05, 2025 Dr. Harsh Carrasquillo DO Attending physician Active Start: July 05, 2025 End: July 05, 2025 Dr. Harsh Carrasquillo DO Referring Provider Active Start: July 05, 2025 End: July 05, 2025 INFORMATION SOURCE (unrecogn ized section and content) DATE CREATED AUTHOR 01/25/2025 [facility] DATE CREATED AUTHOR AUTHOR'S ORGANIZ ATION 07/14/2025 [facility] FOR RECORDS PERTAINING TO PATIENTS WHO ARE [...] BE BASED ON THE PRIMARY CLINICAL RECORDS. [facility] [employer] provides no warranty or guarantee of the accuracy or completeness of information in this document.
[2025-08-05 12:19] LABS: AST(SGOT) 61 U/L (<=31); Alanine Aminotransfer ALT/SGPT 64 U/L (<=34); Albumin, Serum 4.3 g/dL (3.5-5.0); Alkaline Phosphatase 80 U/L (35-104); BUN 12 mg/dL (4-19); BUN/Creat Ratio 12.1 RATIO (10-20); Calcium,Total 9.6 mg/dL (7.6-11.0); Chloride 103 mmol/L (98-108); Globulin 3.4 g/dL (2.2-4.2); Glucose 111 mg/dL (70-99); Potassium 4.0 mmol/L (3.3-5.1)
[2025-08-05 12:24] LABS: Anion Gap 13 (5-15); Carbon Dioxide 24.0 mmol/L (21.0-32.0)
== END | disposition home or self-care (01) ==
LOC: LAB 10:46
PROVIDERS: PCP Internal Medicine; Referring Provider Internal Medicine Gastroenterology; Visit Provider Internal Medicine Gastroenterology
DX: R79.89 Other specified abnormal findings of blood chemistry (principal)
CPT/HCPCS: 36415; 80053

== ENCOUNTER → 2025-08-18 | Outpatient (CLI) | payer OTHER, SELFPAY ==
[2025-08-18 10:15] LABS: Ferritin 201 ng/mL (22-378); Iron 111 ug/dL (50-170); Iron Binding Capacity,Total 397 ug/dL (250-450); Iron Binding Capacity,Unsat 286 ug/dL (228-428)
[2025-08-23 11:09] LABS: Albumin 3.9 g/dL (2.9-4.4); Anti-Smooth Muscle ABS 21 Units (0-19); Gamma Globulin 1.9 g/dL (0.4-1.8); IgG, Quant 2005 mg/dL (586-1602); Immunoglobulin A 470 mg/dL (87-352); Immunoglobulin G, Subclass 1 964 mg/dL (248-810); Immunoglobulin G, Subclass 2 705 mg/dL (130-555); Immunoglobulin G, Subclass 3 56 mg/dL (15-102); Immunoglobulin G, Subclass 4 32 mg/dL (2-96); Immunoglobulin M 37 mg/dL (26-217); PROEL- TOTAL PROTEIN 8.1 g/dL (6.0-8.5)
== END | disposition home or self-care (01) ==
LOC: LAB 09:06
PROVIDERS: PCP Internal Medicine; Referring Provider Internal Medicine Gastroenterology; Visit Provider Internal Medicine Gastroenterology
DX: R79.89 Other specified abnormal findings of blood chemistry (principal); K50.90 Crohn's disease, unspecified, without complications
CPT/HCPCS: 36415; 82728; 82784; 82785; 82787; 83516; 83540; 83550; 84165; 86334

== ENCOUNTER → 2025-09-02 | Outpatient (CLI) | payer OTHER, SELFPAY ==
--- NOTE | 2025-09-02 07:26 | US_ITS ---
PROCEDURE: ABDOMEN LIMITED 09/02/2025 REASON FOR EXAM: ELEVATED LFTS TECHNIQUE: Procedure Code: USABDL Modality: US Procedure: ABDOMEN LIMITED FINDINGS: GALLBLADDER: Surgically removed COMMON BILE DUCT: Measures 2.6 mm. No intrahepatic biliary dilatation. LIVER: Hepatomegaly to 18.8 cm. Increased echogenicity. No definite hepatic mass. RIGHT KIDNEY: Normal in size and echogenicity. No mass. No urinary stones. No hydronephrosis. Pancreas: Question atrophic. US/Abdomen Limited IMPRESSION: Hepatic steatosis. Hepatomegaly. Question atrophic pancreas. Reading Location: [facility]
--- OUTSIDE RECORDS SUMMARY | 2025-09-02 07:44 | XMS RPT_ITS | CCD ---
Author Organization [facility] Care Team Providers Care Claims Analyst Name Role Phone Shalini NARROW FABRIC LOOM FIXER, Ivelisse S Unavailable Care Physician, No Primary Primary Care Provider Unavailable Care Physician, No Primary Referring Provider Un available Elyse RUIZ, NARROW FABRIC LOOM FIXER-C Brenda Dent Attending Provider Rachel MALCOLM MD, Kishan Young Primary Care Provider Sharmaine vailable Dr. Abdoulaye Corley Primary Care Provider Dr. Abdoulaye Corley Referring Provider Shalini NARROW FABRIC LOOM FIXER, NARROW FABRIC LOOM FIXER-C Ivelisse Attending Provider [phone] [facility]. House Attending Provider Unavailable Primary Care Provider UnavailWilman Lindsay MD Primary Care Provider Dr. Abdoulaye Corley Primary Care Provider Dr. Abdoulaye Corley Referring Provider Dr. Harsh Carrasquillo Attending Provider Dr. Wilman Hester Primary Care Provider Dr. Wilman Hester Referring Provider Dr. Harsh Carrasquillo Attending Provider [phone] Harsh Carrasquillo Other Provider Shalini NARROW FABRIC LOOM FIXER, NARROW FABRIC LOOM FIXER-C Ivelisse Attending Provider [phone] Wilman Hester MD Primary Care Provider Willie FOOD AND BEVERAGE LEAD.COMBO WELDER, Gary Unavailable Van FOOD AND BEVERAGE LEAD.BILLET BED OPERATOR, Lucy Unavailable TALAMPAS, WILMAN D Primary Care [...] Care Unavailable Friend, Harsh Attending Unavailable Shalini NARROW FABRIC LOOM FIXER, Ivelisse Attending Unavailable Shalini NARROW FABRIC LOOM FIXER, Ivelisse Referring Unavailable Talampas, Wilman D Primary Care Unavailable Kennedy NARROW FABRIC LOOM FIXER, Ivelisse Attending Unavailable Talampas, Wilman D Primary Care Unavailable Talampas, Wilman D Referring Unavailable Friend, Harsh Attending Unavailable Talampas, Wilman D Referring Unavailable Talampas, Wilman D Primary Care Unavailable Friend, Harsh Attending Unavailable Talampas, Wilman D Primary Care Unavailable Care Physician, No Primary Referring Unava ilable Shalini NARROW FABRIC LOOM FIXER, Ivelisse Attending Unavailable Shalini NARROW FABRIC LOOM FIXER, Ivelisse Referring Unavailable Talampas, Wilman D Primary Care Unavailable Friend, Harsh Attending Unavailable Friend, Harsh Referring Unavailable Talampas, Wilman D Primary Care Unavailable Friend, Harsh Referring Unavailable Friend, Harsh Attending Unavailable Talampas, Wilman D Primary Care Unavailable Tonyaas Dr. Wilman MAYES Primary Care Physician Dr. Wilman Hester MD Referring Provider Dr. Harsh Carrasquillo DO Attending Physician [phone] Dr. Harsh Carrasquillo DO Referring Provider Medications [...] ML PSKT Once every 14 days ADALIMUMAB [id number] Ivelisse Loya NARROW FABRIC LOOM FIXER HUMIRA 10 MG/0.2 ML PSKT Once every 14 days ADALIMUMAB [id number] Ivelisse Loya NARROW FABRIC LOOM FIXER Comment on above: Subcutaneously, Inje ct one [...] One tablet by mouth daily CHOLECALCIFEROL TABS [id number] Ivelisse Loya NARROW FABRIC LOOM FIXER take 1 tablet by wei th once daily VITAMIN D3 TABS One tablet by mouth daily CHOLECALCIFEROL TABS [id number] Ivelisse Loya NARROW FABRIC LOOM FIXER Comment on above: Take 2 capsules by [...] SCOOP ONCE D AILY DIRECTED polymyxin b 16629 unt/ml / trimethoprim 1 mg/ml ophthalmic solution [...] Comment on above: Take 1 tablet by [facility] three times daily. budesonide 3 mg delayed [...] Start: 01-13-2023 take 1 puff(s) by mo [facility] twice daily fluticasone-salmeterol (ADVAIR DISKUS) 100-50 mcg/dose [...] Start: 12-18-2020 take 1 puff(s) by mo [facility] twice daily fluticasone-salmeterol (ADVAIR DISKUS) 100-50 mcg/dose Indications: Mild intermittent asthma without complication Inhale 1 Puff as instructed twice daily. RINSE AND GARGLE MOUTH WITH WATER AFTER EACH USE. 1 Inhaler 12/18/2020 Active Start: 12-18-2020 take 1 puff(s) by [facility] twice daily fluticasone-salmeterol (ADVAIR DISKUS) 100-50 mcg/dose Indications: Mild intermittent asthma without complication Inhale 1 Puff as instructed twice daily. RINSE AND GARGLE MOUTH WITH WATER AFTER EACH USE. 1 Inhaler 11 12/18/2020 Active Start: 04-07-2017 ADVAIR DISKUS 100-50 MCG/DOSE AEPB Twice a day FLUTICASONE-SALMETEROL [id number] Ivelisse Loya NARROW FABRIC LOOM FIXER Start: 04-07-2017 ADVAIR DISKUS 100-50 MCG/DOSE AEPB Twice a day FLUTICASONE-SALMETEROL [id number] Ivelisse Loya NARROW FABRIC LOOM FIXER Start: 04-01-2016 take 1 puff(s) by in [...] One tablet by mouth daily CYANOCOBALAMIN TABS [id number] Ivelisse Loya NARROW FABRIC LOOM FIXER Start: 10-31-2013 take 1 tablet under the [...] current use of drug therapy; Translations: [Other commercial production editor (current) drug therapy] 01-24-2025 Episodic Other aftercare (1 source) Other penitentiary (current) drug therapy; Translations: [Encounter for long-term [...] Auto (Unsp spec) [#/Vol] 2.81 10*3/uL 0.83-4.51 [facility] Absolute neutrophil countOrd ered By: Harshsybil Carrasquillo on 07-05-2025 Neutrophils (Bld) [#/Vol] 2.1 10*3/uL 2.0-7.7 [facility] Anion gap in Serum or Plasma Ordered By: Harsh Carrasquillo on 07-05-2025 Anion gap [Moles/Vol] 9 mmol/L 5- [facility] Automated lymphocyte count a s percentage of total leukocytesOrdered By: Harsh Carrasquillo on 07-05-2025 Lymphocytes/100 WBC Auto (Unsp spec) 50.1 % High 19-41 [facility] BUN/creatinine ratioOrdered By: Harshsybil Carrasquillo on 07-05-2025 Urea nitrogen/Creatinine [Mass ratio] 14.7 mg/mg 10- [facility] Basophil percentageOrdered B y: Harsh Carrasquillo on 07-05-2025 Basophils/100 WBC (Bld) 0.7 % 0-1 [facility] Bilirubin, totalOrdered By: Harsh Carrasquillo on 07-05-2025 Bilirubin [Mass/Vol] 0.54 mg/dL 0.00-1.30 [facility] CBC W/Diff, Automatedon 06-09 Absolute Lymph 2.81 X10 3/uL Normal 0.83-4.51 [facility] Comment on above: Performed By: #### L 100.0100, L500.4050 #### [facility] Laboratory [facility] [place], [address] Absolute Neut 2.1 X10 3/uL Normal 2.0-7.7 [facility] Comment on above: Performed By: #### L 100.0100, L500.4050 #### [facility] Laboratory [address] [place], [address] Basophils/100 WBC (Bld) 0.7 % Normal 0-1 [facility] Comment on above: Performed By: #### L 100.0100, L500.4050 #### [facility] [address] [place] [place], [address] Eosinophils/100 WBC (Bld) 2.1 % Normal 0-5 [facility] Comment on above: Performed By: #### L 100.0100, L500.4050 #### [facility] [address] [place], [address] Erythrocyte distribution width (RBC) [Ratio] 13.0 % Normal 11.6-14.6 [facility] Comment on above: Performed By: #### L 100.0100, L500.4050 #### [facility] [address] [place], [address] Hematocrit (Bld) [Volume fraction] 34.9 % Low 37-47 [facility] Comment on above: Performed By: #### L 100.0100, L500.4050 #### [facility] [address] [place], [address] Hemoglobin (Bld) [Mass/Vol] 11.7 g/dL Low 12.0-15.0 [facility] Comment on above: Performed By: #### L 100.0100, L500.4050 #### [facility] [address] [place], [address] IG% 0.200 Normal 0.0-0.9 [facility] Comment on above: Result Comment: IG% - Immature Granulocytes (promyelocytes, myelocytes and metamyelocytes) > 1% indicates that a LEFT SHIFT is Present. Performed By: #### L 100.0100, L500.4050 #### [facility] [address] [place], [address] Lymphocytes/100 WBC (Bld) 50.1 % High 19-41 [facility] Comment on above: Performed By: #### L 100.0100, L500.4050 #### [facility] [address] [place], [address] MCH (RBC) [Entitic mass] 32.0 pg Normal 27.0-32.0 [facility] Comment on above: Performed By: #### L 100.0100, L500.4050 #### [facility] [address] [place], [address] MCHC (RBC) [Mass/Vol] 33.5 g/dL Normal 32-36 [facility] Comment on above: Performed By: #### L 100.0100, L500.4050 #### [facility] [address] [place], [address] MCV (RBC) [Entitic vol] 95.4 fL Normal 81-99 [facility] Comment on above: Performed By: #### L 100.0100, L500.4050 #### [facility] [address] [place], [address] Monocytes/100 WBC (Bld) 9.3 % Normal 0-10 [facility] Comment on above: Performed By: #### L 100.0100, L500.4050 #### [facility] [address] [place], [address] Neutrophils/100 WBC (Bld) 37.6 % Low 47-70 [facility] Comment on above: Performed By: #### L 100.0100, L500.4050 #### [facility] [address] [place], [address] Nucleated RBC (Bld) [#/Vol] 0 10*3/uL Normal 0-5 [facility] Comment on above: Performed By: #### L 100.0100, L500.4050 #### [facility] [address] [place], [address] Platelet mean volume (Bld) [Entitic vol] 9.4 fL Normal 6.2-12.0 [facility] Comment on above: Performed By: #### L 100.0100, L500.4050 #### [facility] [address] [place], [address] Platelets (Bld) [#/Vol] 221 10*3/uL Normal 150-450 [facility] Comment on above: Performed By: #### L 100.0100, L500.4050 #### [facility] [address] [place], [address] RBC (Bld) [#/Vol] 3.66 10*6/uL Low 4.2-5.4 [facility] Comment on above: Performed By: #### L 100.0100, L500.4050 #### [facility] [address] [place], [address] RDW SD 45.1 fl High 35.1-43.9 [facility] Comment on above: Performed By: #### L 100.0100, L500.4050 #### [facility] [address] [place], [address] WBC (Bld) [#/Vol] 5.6 10*3/uL Normal 4.4-11.0 [facility] Comment on above: Performed By: #### L 100.0100, L500.4050 #### [facility] [address] [place], [address] Carbon dioxide, total [Moles /volume] in Central venous bloodOrdered By: Harsh Carrasquillo on 07-05-2025 CO2 [Moles/Vol] 22.1 mmol/L 21.0-32.0 [facility] Chloride assayOrdered By: Ra sol Carrasquillo on 07-05-2025 Chloride [Moles/Vol] 109 mmol/L High 98-108 [facility] Comprehensive Metabolic Prof ilon 07-05-2025 Albumin [Mass/Vol] 4.3 g/dL Normal 3.5-5.0 [facility] Comment on above: Performed By: #### L 100.0100, L500.4050 #### [facility] [address] [place], [address] Albumin/Globulin [Mass ratio] 1.2 {ratio} Normal 0.9-2.4 [facility] Comment on above: Performed By: #### L 100.0100, L500.4050 #### [facility] [address] [place], [address] ALK PHOS 74 U/L Normal 35-104 [facility] Comment on above: Performed By: #### L 100.0100, L500.4050 #### [facility] [address] [place], [address] ALT [Catalytic activity/Vol] 57 U/L High <=34 [facility] Comment on above: Performed By: #### L 100.0100, L500.4050 #### [facility] [address] [place], [address] AST [Catalytic activity/Vol] 50 U/L High <=31 [facility] Comment on above: Performed By: #### L 100.0100, L500.4050 #### [facility] [address] [place], [address] Bilirubin [Mass/Vol] 0.54 mg/dL Normal 0.00-1.30 [facility] Comment on above: Performed By: #### L 100.0100, L500.4050 #### [facility] [address] [place], [address] BUN/CRE 14.7 RATIO Normal 10-20 [facility] Comment on above: Performed By: #### L 100.0100, L500.4050 #### [facility] [address] [place], [address] Calcium [Mass/Vol] 9.7 mg/dL Normal 7.6-11.0 [facility] Comment on above: Performed By: #### L 100.0100, L500.4050 #### [facility] [address] [place], [address] Chloride [Moles/Vol] 109 mmol/L High 98-108 [facility] Comment on above: Performed By: #### L 100.0100, L500.4050 #### [facility] [address] [place], [address] CO2 [Moles/Vol] 22.1 mmol/L Normal 21.0-32.0 [facility] Comment on above: Performed By: #### L 100.0100, L500.4050 #### [facility] [address] [place], [address] Creatinine [Mass/Vol] 1.00 mg/dL Normal 0.70-1.20 [facility] Comment on above: Performed By: #### L 100.0100, L500.4050 #### [facility] [address] [place], [address] GAP 9 Normal 5-15 [facility] Comment on above: Performed By: #### L 100.0100, L500.4050 #### [facility] [address] [place], [address] GFR/1.73 sq M.predicted among non-blacks MDRD (S/P/Bld) [Vol rate/Area] 67 mL/min/{1.73_m2} Normal >60 [facility] Comment on above: Result Comment: mL/m in/1.73m2 CKD-EPI Creatinine Equation (2020) Performed By: #### L 100.0100, L500.4050 #### [facility] [address] [place], [address] Globulin (S) [Mass/Vol] 3.6 g/dL Normal 2.2-4.2 [facility] Comment on above: Performed By: #### L 100.0100, L500.4050 #### [facility] [address] [place], [address] Glucose [Mass/Vol] 103 mg/dL High 70-99 [facility] Comment on above: Performed By: #### L 100.0100, L500.4050 #### [facility] [address] [place], [address] Potassium [Moles/Vol] 4.4 mmol/L Normal 3.3-5.1 [facility] Comment on above: Performed By: #### L 100.0100, L500.4050 #### [facility] [address] [place], [address] Sodium [Moles/Vol] 140 mmol/L Normal 133-145 [facility] Comment on above: Performed By: #### L 100.0100, L500.4050 #### [facility] [address] [place], [address] T PROT 7.9 g/dL Normal 5.9-8.4 [facility] Comment on above: Performed By: #### L 100.0100, L500.4050 #### [facility] [address] [place], [address] Urea nitrogen [Mass/Vol] 15 mg/dL Normal 4-19 [facility] Comment on above: Performed By: #### L 100.0100, L500.4050 #### [facility] [address] [place], [address] Eosinophil percentageOrdered By: Harsh Carrasquillo on 07-05-2025 Eosinophils/100 WBC (Bld) 2.1 % 0-5 [facility] Erythrocyte distribution wid th ratioOrdered By: Harsh Carrasquillo on 07-05-2025 Erythrocyte distribution width (RBC) [Ratio] 13.0 % 11.6-14.6 [facility] Erythrocyte distribution wid th standard deviationOrdered By: Harsh Carrasquillo on 07-05-2025 Erythrocyte distribution width (RBC) [Ratio] 45.1 fl High 35.1-43.9 [facility] Glomerular filtration rate ( GFR) estimation/1.73 sq m using serum, plasma, or whole bOrdered By: Harsh Carrasquillo on 07-05-2025 GFR/1.73 sq M.predicted among non-blacks MDRD (S/P/Bld) [Vol rate/Area] 67 mL/min/{1.73_m2} >60 [facility] Comment on above: mL/min/1.73m2 CKD-EP I Creatinine Equation (2020) Hematocrit Auto (Bld) [Volum e fraction]Ordered By: Harsh Carrasquillo on 07-05-2025 Hematocrit (Bld) [Volume fraction] 34.9 % Low 37-47 [facility] Hemoglobin measurementOrdere d By: Harsh Carrasquillo on 07-05-2025 Hemoglobin (Bld) [Mass/Vol] 11.7 g/dL Low 12.0-15.0 [facility] Immature granulocytes/100 WB C Auto (Bld)Ordered By: Harsh Carrasquillo on 07-05-2025 Immature granulocytes/100 WBC (Bld) 0.200 % 0.0-0.9 [facility] Comment on above: IG% - Immature Granu locytes (promyelocytes, myelocytes and metamyelocytes) > 1% indicates that a LEFT SHIFT is Present. Laboratory - Chemistry and C hemistry - challengeOrdered By: Harsh Carrasquillo on 07-05-2025 AST [Catalytic activity/Vol] 50 U/L High <32 [facility] MCV (mean corpuscular volume ) determinationOrdered By: Harsh Carrasquillo on 07-05-2025 MCV (RBC) [Entitic vol] 95.4 fL 81-99 [facility] Mean corpuscular hemoglobin (MCH) determinationOrdered By: Harsh Carrasquillo on 07-05-2025 MCH (RBC) [Entitic mass] 32.0 pg 27.0-32.0 [facility] Mean corpuscular hemoglobin concentration (MCHC) determinationOrdered By: Harsh Carrasquillo on 07-05-2025 MCHC (RBC) [Mass/Vol] 33.5 g/dL 32-36 [facility] Mean platelet volume determi nationOrdered By: Harsh Carrasquillo on 07-05-2025 Platelet mean volume (Bld) [Entitic vol] 9.4 fL 6.2-12.0 [facility] Monocyte percentageOrdered B y: Harsh Carrasquillo on 07-05-2025 Monocytes/100 WBC (Bld) 9.3 % 0-10 [facility] Neutrophil percentageOrdered By: Harsh Carrasquillo on 07-05-2025 Neutrophils/100 WBC (Bld) 37.6 % Low 47-70 [facility] Nucleated red blood cell per centageOrdered By: Harsh Carrasquillo on 07-05-2025 Nucleated RBC/100 WBC (Bld) [Ratio] 0 % 0-5 [facility] Platelet countOrdered By: Ra sol Carrasquillo on 07-05-2025 Platelets (Bld) [#/Vol] 221 10*3/uL 150-450 [facility] Potassium measurement (mass/ volume)Ordered By: Harsh Carrasquillo on 07-05-2025 Potassium (Unsp spec) [Mass/Vol] 4.4 mmol/L 3.3-5.1 [facility] RBC Auto (Bld) [#/Vol]Ordere d By: Harsh Carrasquillo on 07-05-2025 RBC (Bld) [#/Vol] 3.66 10*6/uL Low 4.2-5.4 [facility] Serum creatinine measurement (mass/volume)Ordered By: Harsh Carrasquillo on 07-05-2025 Creatinine [Mass/Vol] 1.00 mg/dL 0.70-1.20 [facility] Serum globulin measurementOr dered By: Harsh Carrasquillo on 07-05-2025 Globulin (S) [Mass/Vol] 3.6 g/dL 2.2-4.2 [facility] Serum glucose measurement (m ass/volume)Ordered By: Harsh Carrasquillo on 07-05-2025 Glucose [Mass/Vol] 103 mg/dL High 70-99 [facility] Serum or plasma alanine singh otransferase (ALT) measurementOrdered By: Harsh Carrasquillo on 07-05-2025 ALT [Catalytic activity/Vol] 57 U/L High <35 [facility] Serum or plasma albumin neha urement (mass/volume)Ordered By: Harsh Carrasquillo on 07-05-2025 Albumin [Mass/Vol] 4.3 g/dL 3.5-5.0 [facility] Serum or plasma albumin/glob ulin mass ratioOrdered By: Harsh Carrasquillo on 07-05-2025 Albumin/Globulin [Mass ratio] 1.2 {ratio} 0.9-2.4 [facility] Serum or plasma alkaline abbie sphatase measurementOrdered By: Harsh Carrasquillo on 07-05-2025 ALP [Catalytic activity/Vol] 74 U/L 35-104 [facility] Serum or plasma calcium neha urement (mass/volume)Ordered By: Harsh Carrasquillo on 07-05-2025 Calcium [Mass/Vol] 9.7 mg/dL 7.6-11.0 [facility] Serum or plasma urea nitroge n measurement (mass/volume)Ordered By: Harsh Carrasquillo on 07-05-2025 Urea nitrogen [Mass/Vol] 15 mg/dL 4-19 [facility] Sodium levelOrdered By: Makeda Rodriguez on 07-05-2025 Sodium [Moles/Vol] 140 mmol/L 133-145 [facility] Total proteinOrdered By: Christofer Carrasquillo on 07-05-2025 Protein [Mass/Vol] 7.9 g/dL 5.9-8.4 [facility] White blood cell (WBC) count Ordered By: Harsh Carrasquillo on 07-05-2025 WBC (Bld) [#/Vol] 5.6 10*3/uL 4.4-11.0 [facility] Absolute lymphocyte countOrd ered By: Harsh Carrasquillo on 06-29-2025 Lymphocytes Auto (Unsp spec) [#/Vol] 2.96 10*3/uL 0.83-4.51 [facility] Absolute neutrophil countOrd ered By: Harsh Carrasquillo on 06-29-2025 Neutrophils (Bld) [#/Vol] 2.3 10*3/uL 2.0-7.7 [facility] Anion gap in Serum or Plasma Ordered By: Harsh Carrasquillo on 06-29-2025 Anion gap [Moles/Vol] 12 mmol/L 5-15 [facility] Automated lymphocyte count a s percentage of total leukocytesOrdered By: Harsh Carrasquillo on 06-29-2025 Lymphocytes/100 WBC Auto (Unsp spec) 49.7 % High 19-41 [facility] BUN/creatinine ratioOrdered By: Harsh Carrasquillo on 06-29-2025 Urea nitrogen/Creatinine [Mass ratio] 14.7 mg/mg 10-20 [facility] Basophil percentageOrdered B y: Harsh Carrasquillo on 06-29-2025 Basophils/100 WBC (Bld) 0.7 % 0-1 [facility] Bilirubin, totalOrdered By: Harsh Carrasquillo on 06-29-2025 Bilirubin [Mass/Vol] 0.44 mg/dL 0.00-1.30 [facility] Carbon dioxide, total [Moles /volume] in Central venous bloodOrdered By: Harsh Carrasquillo on 06-29-2025 CO2 [Moles/Vol] 22.4 mmol/L 21.0-32.0 [facility] Chloride assayOrdered By: Ra sol Carrasquillo on 06-29-2025 Chloride [Moles/Vol] 105 mmol/L 98-108 [facility] Eosinophil percentageOrdered By: Harsh Carrasquillo on 06-29-2025 Eosinophils/100 WBC (Bld) 2.4 % 0-5 [facility] Erythrocyte distribution wid th ratioOrdered By: Harsh Carrasquillo on 06-29-2025 Erythrocyte distribution width (RBC) [Ratio] 12.9 % 11.6-14.6 [facility] Erythrocyte distribution wid th standard deviationOrdered By: Harsh Carrasquillo on 06-29-2025 Erythrocyte distribution width (RBC) [Ratio] 44.4 fl High 35.1-43.9 [facility] Erythrocyte sedimentation ra teOrdered By: Harsh Friend on 06-29-2025 ESR (Bld) [Velocity] 14 mm/h 0-30 [facility] Gastroenterology Visit Repor ton 06-29-2025 Gastroenterology Visit Report [facility] Gastroenterology [address] [place] [address] OFFICE VISIT Date of Service: 06/29/25 MR#: [id number] Acct: [id number] Name: CHANG MARADIAGA Rep #: [id number] : 1970 Provider: Harsh Carrasquillo DO Age/Sex: 54/F Location: [facility] Status: Signed Intake Vital Signs 09/27/24 [...] 2 current occupational status: employed current occupation: [employer] Smoking Status: Never smoker alcohol intake: current [...] abnormality LFT AST 31-ALT H58-AP 74 Rheumatology [facility] established .01.27. OV 12.31.21 with suspected [...] overall and (more content not included)... Normal [facility] Glomerular filtration rate ( GFR) estimation/1.73 sq m using serum, plasma, or whole bOrdered By: Harsh Carrasquillo on 06-29-2025 GFR/1.73 sq M.predicted among non-blacks MDRD (S/P/Bld) [Vol rate/Area] 68 mL/min/{1.73_m2} >60 [facility] Comment on above: mL/min/1.73m2 CKD-EP I Creatinine Equation (2020) Hematocrit Auto (Bld) [Volum e fraction]Ordered By: Harsh Carrasquillo on 06-29-2025 Hematocrit (Bld) [Volume fraction] 37.3 % 37-47 [facility] Hemoglobin measurementOrdere d By: Harsh Carrasquillo on 06-29-2025 Hemoglobin (Bld) [Mass/Vol] 12.6 g/dL 12.0-15.0 [facility] Immature granulocytes/100 WB C Auto (Bld)Ordered By: Harsh Carrasquillo on 06-29-2025 Immature granulocytes/100 WBC (Bld) 0.300 % 0.0-0.9 [facility] Comment on above: IG% - Immature Granu locytes (promyelocytes, myelocytes and metamyelocytes) > 1% indicates that a LEFT SHIFT is Present. Laboratory - Chemistry and C hemistry - challengeOrdered By: Harsh Carrasquillo on 06-29-2025 AST [Catalytic activity/Vol] 54 U/L High <32 [facility] MCV (mean corpuscular volume ) determinationOrdered By: Harsh Carrasquillo on 06-29-2025 MCV (RBC) [Entitic vol] 94.0 fL 81-99 [facility] Mean corpuscular hemoglobin (MCH) determinationOrdered By: Harsh Carrasquillo on 06-29-2025 MCH (RBC) [Entitic mass] 31.7 pg 27.0-32.0 [facility] Mean corpuscular hemoglobin concentration (MCHC) determinationOrdered By: Harsh Carrasquillo on 06-29-2025 MCHC (RBC) [Mass/Vol] 33.8 g/dL 32-36 [facility] Mean platelet volume determi nationOrdered By: Harsh Carrasquillo on 06-29-2025 Platelet mean volume (Bld) [Entitic vol] 9.2 fL 6.2-12.0 [facility] Monocyte percentageOrdered B y: Harsh Carrasquillo on 06-29-2025 Monocytes/100 WBC (Bld) 8.7 % 0-10 [facility] Neutrophil percentageOrdered By: Harsh Carrasquillo on 06-29-2025 Neutrophils/100 WBC (Bld) 38.2 % Low 47-70 [facility] No Panel InformationOrdered By: Harshneal Carrasquillo on 06-29-2025 Hepatitis C Antibody Comment Comment . [facility] Comment on above: Not infected with HC V unless early or acute infection issuspected (which may be delayed in an immunocompromisedindividual), or other evidence exists to indicate HCVinfection.Performed at: [facility] [id number] Director: Cleveland Monzon PhD, Phone: [phone] Nucleated red blood cell per centageOrdered By: Harshneal Carrasquillo on 06-29-2025 Nucleated RBC/100 WBC (Bld) [Ratio] 0.3 % 0-5 [facility] Platelet countOrdered By: Ra sol Carrasquillo on 06-29-2025 Platelets (Bld) [#/Vol] 230 10*3/uL 150-450 [facility] Potassium measurement (mass/ volume)Ordered By: Harshneal Carrasquillo on 06-29-2025 Potassium (Unsp spec) [Mass/Vol] 4.5 mmol/L 3.3-5.1 [facility] Qualitative QuantiFERON-TB g old in tube testOrdered By: Harshneal Carrasquillo on 06-29-2025 M. tuberculosis tuberculin stim IFN-g Ql (Bld) 0.08 IU/mL . [facility] RBC Auto (Bld) [#/Vol]Ordere d By: Harshneal Carrasquillo on 06-29-2025 RBC (Bld) [#/Vol] 3.97 10*6/uL Low 4.2-5.4 [facility] Serum creatinine measurement (mass/volume)Ordered By: Harsh Carrasquillo on 06-29-2025 Creatinine [Mass/Vol] 0.98 mg/dL 0.70-1.20 [facility] Serum globulin measurementOr dered By: Harsh Carrasquillo on 06-29-2025 Globulin (S) [Mass/Vol] 4.1 g/dL 2.2-4.2 [facility] Serum glucose measurement (m ass/volume)Ordered By: Harsh Carrasquillo on 06-29-2025 Glucose [Mass/Vol] 106 mg/dL High 70-99 [facility] Serum hepatitis B virus surf etta antibody detectionOrdered By: Harsh Carrasquillo on 06-29-2025 HBV surface Ab Ql (S) Non-Reactive [facility] Comment on above: <8.5 mIU/mL: Non-Fani ctive8.5<= x <11.5 mIU/mL: Indeterminate>=11.5 mIU/mL: Reactive Non Reactive: Inconsistent with immunity less than <10 mIU/mL Reactive: Consistent with immunity greater than or equal to 10 mIU/mL Serum or plasma C reactive p rotein measurement (mass/volume)Ordered By: Harsh Carrasquillo on 06-29-2025 CRP [Mass/Vol] mg/L 0.0-3.0 [facility] Serum or plasma alanine singh otransferase (ALT) measurementOrdered By: Harsh Carrasquillo on 06-29-2025 ALT [Catalytic activity/Vol] 58 U/L High <35 [facility] Serum or plasma albumin neha urement (mass/volume)Ordered By: Harsh Carrasquillo on 06-29-2025 Albumin [Mass/Vol] 4.6 g/dL 3.5-5.0 [facility] Serum or plasma albumin/glob ulin mass ratioOrdered By: Harsh Carrasquillo on 06-29-2025 Albumin/Globulin [Mass ratio] 1.1 {ratio} 0.9-2.4 [facility] Serum or plasma alkaline abbie sphatase measurementOrdered By: Harsh Carrasquillo on 06-29-2025 ALP [Catalytic activity/Vol] 83 U/L 35-104 [facility] Serum or plasma calcium neha urement (mass/volume)Ordered By: Harsh Carrasquillo on 06-29-2025 Calcium [Mass/Vol] 10.0 mg/dL 7.6-11.0 [facility] Serum or plasma hepatitis B virus surface antigen detection by immunoassayOrdered By: Harsh Carrasquillo on 06-29-2025 HBV surface Ag IA Ql Negative Negative [facility] Serum or plasma urea nitroge n measurement (mass/volume)Ordered By: Harsh Carrasquillo on 06-29-2025 Urea nitrogen [Mass/Vol] 14 mg/dL 4-19 [facility] Sodium levelOrdered By: Makeda jennifersybil Friend on 06-29-2025 Sodium [Moles/Vol] 139 mmol/L 133-145 [facility] Total proteinOrdered By: Christofer wilfredsybil Friend on 06-29-2025 Protein [Mass/Vol] 8.7 g/dL High 5.9-8.4 [facility] White blood cell (WBC) count Ordered By: Harsh Carrasquillo on 06-29-2025 WBC (Bld) [#/Vol] 6.0 10*3/uL 4.4-11.0 [facility] 25(OH)D3 SerPl-mCncon 2024 25-hydroxyvitamin D3 [Mass/Vol] 52.3 ng/mL Normal 31.0-80.0 [facility] Comment on above: Order Comment: Speci men Type: BLOOD SPECIMEN [facility]ing Facility[facility] Address: [address] [place] [address] Performed By: #### 2 4323-8, 32598-7, 2132-9 #### [facility] CLIA [id number] [address] [place] [address] [place] CBC W Auto Differential pane l (Bld)on 01-24-2025 Basophils (Bld) [#/Vol] 0.06 10*3/uL Normal <0.11 [facility] Comment on above: Order Comment: Speci men Type: BLOOD SPECIMEN Ordering Facility: [facility] Address: [address] [place] [address] Performed By: #### 5 7021-8 #### [facility] CLIA [id number] [address] [place] [address] [place] Basophils/100 WBC (Bld) 0.7 % Normal [facility] Comment on above: Order Comment: Speci men Type: BLOOD SPECIMEN Ordering Facility: [facility] Address: [address] [place] [address] Performed By: #### 5 7021-8 #### [facility] CLIA [id number] [address] [place] [address] [place] Differential cell count method Nom (Bld) Auto Normal [facility] Comment on above: Order Comment: Speci men Type: BLOOD SPECIMEN Ordering Facility: [facility] Address: [address] [place] [address] Performed By: #### 5 7021-8 #### [facility] CLIA [id number] [address] [place] [address] [place] Eosinophils (Bld) [#/Vol] 0.12 10*3/uL Normal <0.46 [facility] Comment on above: Order Comment: Speci men Type: BLOOD SPECIMEN Ordering Facility: [facility] Address: [address] [place] [address] Performed By: #### 5 7021-8 #### [facility] CLIA [id number] [address] [place] [address] [place] Eosinophils/100 WBC (Bld) 1.4 % Normal [facility] Comment on above: Order Comment: Speci men Type: BLOOD SPECIMEN Ordering Facility: [facility] Address: [address] [place] [address] Performed By: #### 5 7021-8 #### [facility] CLIA [id number] [address] [place] [address] [place] Erythrocyte distribution width (RBC) [Ratio] 12.9 % Normal 11.5-15.0 [facility] Comment on above: Order Comment: Speci men Type: BLOOD SPECIMEN Ordering Facility: [facility] Address: [address] [place] [address] Performed By: #### 5 7021-8 #### [facility] CLIA [id number] [address] [place] [address] [place] Hematocrit (Bld) [Volume fraction] 36.6 % Normal 36.0-46.0 [facility] Comment on above: Order Comment: Speci men Type: BLOOD SPECIMEN Ordering Facility: [facility] Address: [address] [place] [address] Performed By: #### 5 7021-8 #### [facility] CLIA [id number] [address] [place] [address] [place] Hemoglobin (Bld) [Mass/Vol] 12.1 g/dL Normal 11.5-15.5 [facility] Comment on above: Order Comment: Speci men Type: BLOOD SPECIMEN Ordering Facility: [facility] Address: [address] [place] [address] Performed By: #### 5 7021-8 #### [facility] CLIA [id number] [address] [place] [address] [place] Immature granulocytes (Bld) [#/Vol] 0.05 10*3/uL Normal <0.10 [facility] Comment on above: Order Comment: Speci men Type: BLOOD SPECIMEN Ordering Facility: [facility] Address: [address] [place] [address] Performed By: #### 5 7021-8 #### [facility] CLIA [id number] [address] [place] [address] [place] Immature granulocytes/100 WBC (Bld) 0.6 % Normal [facility] Comment on above: Order Comment: Speci men Type: BLOOD SPECIMEN Ordering Facility: [facility] Address: [address] [place] [address] Performed By: #### 5 7021-8 #### [facility] CLIA [id number] [address] [place] [address] [place] Lymphocytes (Bld) [#/Vol] 3.31 10*3/uL Normal 1.00-4.00 [facility] Comment on above: Order Comment: Speci men Type: BLOOD SPECIMEN Ordering Facility: [facility] Address: [address] [place] [address] Performed By: #### 5 7021-8 #### [facility] CLIA [id number] [address] [place] [address] [place] Lymphocytes/100 WBC (Bld) 38.2 % Normal [facility] Comment on above: Order Comment: Speci men Type: BLOOD SPECIMEN Ordering Facility: [facility] Address: [address] [place] [address] Performed By: #### 5 7021-8 #### [facility] CLIA [id number] [address] [place] [address] [place] MCH (RBC) [Entitic mass] 31.3 pg Normal 26.0-34.0 [facility] Comment on above: Order Comment: Speci men Type: BLOOD SPECIMEN Ordering Facility: [facility] Address: [address] [place] [address] Performed By: #### 5 7021-8 #### [facility] CLIA [id number] [address] [place] [address] [place] MCHC (RBC) [Mass/Vol] 33.1 g/dL Normal 30.5-36.0 [facility] Comment on above: Order Comment: Speci men Type: BLOOD SPECIMEN Ordering Facility: [facility] Address: [address] [place] [address] Performed By: #### 5 7021-8 #### [facility] CLIA [id number] [address] [place] [address] [place] MCV (RBC) [Entitic vol] 94.6 fL Normal 80.0-100.0 [facility] Comment on above: Order Comment: Speci men Type: BLOOD SPECIMEN Ordering Facility: [facility] Address: [address] [place] [address] Performed By: #### 5 7021-8 #### [facility] CLIA [id number] [address] [place] [address] [place] Monocytes (Bld) [#/Vol] 0.80 10*3/uL Normal <0.87 [facility] Comment on above: Order Comment: Speci men Type: BLOOD SPECIMEN Ordering Facility: [facility] Address: [address] [place] [address] Performed By: #### 5 7021-8 #### [facility] CLIA [id number] [address] [place] [address] [place] Monocytes/100 WBC (Bld) 9.2 % Normal [facility] Comment on above: Order Comment: Speci men Type: BLOOD SPECIMEN Ordering [facility] Address: [address] [place] [address] Performed By: #### 5 7021-8 #### [facility] CLIA [id number] [address] [place] [address] [place] Neutrophils (Bld) [#/Vol] 4.33 10*3/uL Normal 1.45-7.50 [facility] Comment on above: Order Comment: Speci men Type: BLOOD SPECIMEN Ordering [facility] Address: [address] [place] [address] Performed By: #### 5 7021-8 #### [facility] CLIA [id number] [address] [place] [address] [place] Neutrophils/100 WBC (Bld) 49.9 % Normal [facility] Comment on above: Order Comment: Speci men Type: BLOOD SPECIMEN Ordering Facility[facility] Address: [address] [place] [address] Performed By: #### 5 7021-8 #### [facility] CLIA [id number] [address] [place] [address] [place] Nucleated RBC (Bld) [#/Vol] 10*3/uL Normal <0.01 [facility] Comment on above: Order Comment: Speci men Type: BLOOD SPECIMEN Ordering Facility[facility] Address: [address] [place] [address] Performed By: #### 5 7021-8 #### [facility] CLIA [id number] [address] [place] [address] [place] Nucleated RBC/100 WBC (Bld) [Ratio] 0.0 /100 WBC Normal [facility] Comment on above: Order Comment: Speci men Type: BLOOD SPECIMEN Ordering Facility[facility] Address: [address] [place] [address] Performed By: #### 5 7021-8 #### [facility] CLIA [id number] [address] [place] [address] [place] Platelet mean volume (Bld) [Entitic vol] 9.4 fL Normal 9.0-12.7 [facility] Comment on above: Order Comment: Speci men Type: BLOOD SPECIMEN Ordering Facility: [facility] Address: [address] [place] [address] Performed By: #### 5 7021-8 #### [facility] CLIA [id number] [address] [place] [address] [place] Platelets (Bld) [#/Vol] 303 10*3/uL Normal 150-400 [facility] Comment on above: Order Comment: Speci men Type: BLOOD SPECIMEN Ordering Facility[facility] Address: [address] [place] [address] Performed By: #### 5 7021-8 #### [facility] CLIA [id number] [address] [place] [address] [place] RBC (Bld) [#/Vol] 3.87 10*6/uL Low 3.90-5.20 [facility] Comment on above: Order Comment: Speci men Type: BLOOD SPECIMEN Ordering [facility] Address: [address] [place] [address] Performed By: #### 5 7021-8 #### [facility] CLIA [id number] [address] [place] [address] [place] WBC (Bld) [#/Vol] 8.67 10*3/uL Normal 3.70-11.00 [facility] Comment on above: Order Comment: Speci men Type: BLOOD SPECIMEN Order[facility] Address: [address] [place] [address] Performed By: #### 5 7021-8 #### [facility] CLIA [id number] [address] [place], [place] [address] [place] CNOVon 01-24-2025 CNOV Office Visit (INTMWS ) CHANG MARADIAGA ([id number]) 1970 F Date Time Provider Department 01/24/25 8:00 AM WILMAN HESTER INTMWS During your visit today, we recorded the following information about you: Pulse Blood pressure Weight 72/minute 112/72 67 kg Wilman Hester MD 01/24/2025 8:51 AM Signed This note was created using [employer]. Subjective Chang Maradiaga is a 54 year [...] PAST MEDICAL HISTORY Diagnosis Date Crohn's disease ([facility]) Dr. Carrasquillo in [facility] Diarrhea Family history of aortic valve disorder 08/04/2017 brother has bicuspid aortic valve Mild intermittent asthma without complication ([facility]) 08/22/2015 Other acute embolism veins 1999 Regional enteritis of large intestine ([facility]) 1991 Crohns Unspecified deficiency anemia Vitamin D [...] Cardiovascular: Rat (more content not included)... Normal [facility] Comprehensive metabolic 2000 panelon 01-24-2025 Albumin [Mass/Vol] 4.2 g/dL Normal 3.9-4.9 [facility] Comment on above: Order Comment: Speci men Type: BLOOD SPECIMEN Order[facility] Facility[facility] Address: [address] [place] [address] Performed By: #### 2 4323-8, 50286-3, 2132-05 #### [facility] CLIA [id number] [address] [place] [address] [place] ALP [Catalytic activity/Vol] 85 U/L Normal 34-123 [facility] Comment on above: Order Comment: Speci men Type: BLOOD SPECIMEN Order[facility] Address: [address] [place] [address] Performed By: #### 2 4323-8, , 2132-05 #### [facility] CLIA [id number] [address] [place], [place] [address] [place] ALT [Catalytic activity/Vol] 36 U/L Normal 7-38 [facility] Comment on above: Order Comment: Speci men Type: BLOOD SPECIMEN Order[facility] Address: [address] [place] [address] Performed By: #### 2 4323-8, , 2132-05 #### [facility] CLIA [id number] [address] [place], [place] [address] [place] Anion gap [Moles/Vol] 11 mmol/L Normal 8-15 [facility] Comment on above: Order Comment: Speci men Type: BLOOD SPECIMEN Order[facility] Address: [address] [place] [address] Performed By: #### 2 4323-8, , 2132-05 #### [facility] CLIA [id number] [address] [place], [place] [address] [place] AST [Catalytic activity/Vol] 38 U/L High 13-35 [facility] Comment on above: Order Comment: Speci men Type: BLOOD SPECIMEN Order[facility] Address: [address] [place] [address] Performed By: #### 2 4323-8, 70060-4, 2132-05 #### [facility] CLIA [id number] [address] [place], [place] [address] [place] Bilirubin [Mass/Vol] 0.3 mg/dL Normal 0.2-1.3 [facility] Comment on above: Order Comment: Speci men Type: BLOOD SPECIMEN Order[facility] Address: [address] [place] [address] Performed By: #### 2 4323-8, 20323-7, 2132-05 #### [facility] CLIA [id number] [address] [place] [address] [place] Calcium [Mass/Vol] 10.0 mg/dL Normal 8.5-10.2 [facility] Comment on above: Order Comment: Speci men Type: BLOOD SPECIMEN Order[facility] Address: [address] [place] [address] Performed By: #### 2 4323-8, , 2132-05 #### [facility] CLIA [id number] [address] [place] [address] [place] Chloride [Moles/Vol] 108 mmol/L High 98-107 [facility] Comment on above: Order Comment: Speci men Type: BLOOD SPECIMEN Order[facility] Address: [address] [place] [address] Performed By: #### 2 4323-8, , 2132-05 #### [facility] CLIA [id number] [address] [place] [address] [place] CO2 [Moles/Vol] 19 mmol/L Low 22-30 [facility] Comment on above: Order Comment: Speci men Type: BLOOD SPECIMEN Order[facility] Address: [address] [place] [address] Performed By: #### 2 4323-8, 20663-1, 2132-05 #### [facility] CLIA [id number] [address] [place] [address] [place] Creatinine [Mass/Vol] 0.91 mg/dL Normal 0.58-0.96 [facility] Comment on above: Order Comment: Kemi hernandez Type: BLOOD SPECIMEN Order[facility] Address: [address] [place] [address] Performed By: #### 2 4323-8, 61975-3, 2132-05 #### [facility] CLIA [id number] [address] [place] [address] [place] Creatinine and Glomerular filtration rate.predicted panel (S/P/Bld) 75 mL/min/1.73m??? Normal >=60 [facility] Comment on above: Order Comment: Kemi hernandez Type: BLOOD SPECIMEN [facility] Address: [address] [place] [address] Result Comment: Vaishnavi mated Glomerular Filtration Rate [...] By: #### 2 4323-8, , 2132-05 #### [facility] CLIA [id number] [address] [place] [address] [place] Glucose [Mass/Vol] 100 mg/dL High 74-99 [facility] Comment on above: Order Comment: Kemi hernandez Type: BLOOD SPECIMEN Order[facility] Address: [address] [place] [address] Result Comment: The [place] [employer] (ADA) provides guidance for cutoff [...] Standards of Medical Care in Diabetes 2016, [place] [employer]. Diabetes Care. 2016.39(Suppl 1). Performed By: #### 2 4323-8, , 2132-05 #### [facility] CLIA [id number] [address] [place] [id number] [place] Potassium [Moles/Vol] 4.8 mmol/L Normal 3.7-5.1 [facility] Comment on above: Order Comment: Speci men Type: BLOOD SPECIMEN Order[facility] Address: [address] [place] [address] Performed By: #### 2 4323-8, , 2132-05 #### [facility] CLIA [id number] [address] [place] [address] [place] Protein [Mass/Vol] 8.6 g/dL High 6.3-8.0 [facility] Comment on above: Order Comment: Speci men Type: BLOOD SPECIMEN Order[facility] Facility[facility] Address: [address] [place] [address] Performed By: #### 2 4323-8, , 2132-05 #### [facility] CLIA [id number] [address] [place], [place] [address] [place] Sodium [Moles/Vol] 138 mmol/L Normal 136-144 [facility] Comment on above: Order Comment: Speci men Type: BLOOD SPECIMEN [facility] Address: [address] [place] [address] Performed By: #### 2 4323-8, , 2132-05 #### [facility] CLIA [id number] [address] [place] [address] [place] Urea nitrogen [Mass/Vol] 13 mg/dL Normal 7-21 [facility] Comment on above: Order Comment: Speci men Type: BLOOD SPECIMEN Order[facility] Address: [address] [place] [address] Performed By: #### 2 4323-8, 88290-9, 2132-05 #### [facility] CLIA [id number] [address] [place] [address] [place] Lipid 1996 panelon 5 Cholesterol [Mass/Vol] 115 mg/dL Normal <200 [facility] Comment on above: Order Comment: Speci men Type: BLOOD SPECIMEN Order[facility] Address: [address] [place] [address] Result Comment: <200 mg/dL, Desirable 200-239 mg/dL, Borderline high >239 mg/dL, High Performed By: #### 2 4323-8, 76110-6, 2132-05 #### [facility] CLIA [id number] [address] [place] [address] [place] Cholesterol in HDL [Mass/Vol] 39 mg/dL Low >39 [facility] Comment on above: Order Comment: Speci men Type: BLOOD SPECIMEN Order[facility] Address: [address] [place] [address] Result Comment: 40-5 9 mg/dL, Acceptable >59 mg/dL, High: Negative risk factor for coronary heart disease <40 mg/dL, Low: Positive risk factor for coronary heart disease Performed By: #### 2 4323-8, 25164-8, 2132-05 #### [facility] CLIA [id number] [address] [place], [place] [address] [place] Cholesterol in LDL [Mass/Vol] 49 mg/dL Normal <100 [facility] Comment on above: Order Comment: Speci men Type: BLOOD SPECIMEN Order[facility] Address: [address] [place] [address] Result Comment: <100 mg/dL, Optimal 100-129 mg/dL, Near optimal/above optimal 130-159 mg/dL, Borderline high 160-189 mg/dL, High >189 mg/dL, Very high Secondary prevention optimal LDL Cholesterol levels are recommended to be <70 mg/dL LDL cholesterol is calculated using the Gomez-NIH equation. Performed By: #### 2 4323-8, 32074-6, 2132-05 #### [facility] CLIA [id number] [address] [address] [place] Cholesterol in LDL/Cholesterol in HDL [Mass ratio] 1.26 {ratio} Normal <2.54 [facility] Comment on above: Order Comment: Speci men Type: BLOOD SPECIMEN Ordering Facility: [facility] Address: [address] [place] [address] Result Comment: Refe rebeccace: 1. National Cholesterol Education Program ATP III Guideline At-A-Glance Quick Desk Reference: National Heart, Lung, and Blood Trenary. National Institutes of Health. 2001: NIH Publication No. 01-3305. 2. An International Atherosclerosis Society position paper: global recommendations for the management of dyslipidemia: executive summary, Atherosclerosis. 2014: 232(2):410-413. Performed By: #### 2 4323-8, 55008-6, 2132-05 #### [facility] CLIA [id number] [address] [place] [address] [place] Cholesterol in VLDL [Mass/Vol] 23 mg/dL Normal <30 [facility] Comment on above: Order Comment: Kemi hernandez Type: BLOOD SPECIMEN Ordering Facility[facility] Address: [address] [place] [address] Performed By: #### 2 4323-8, 02735-5, 2132-05 #### [facility] CLIA [id number] [address] [address] [place] Cholesterol non HDL [Mass/Vol] 76 mg/dL Normal <130 [facility] Comment on above: Order Comment: Kemi men Type: BLOOD SPECIMEN Ordering Facility: [facility] Address: [address] [place], [place] [address] Result Comment: <130 mg/dL, Optimal 130-159 mg/dL, Near optimal/above optimal 160-189 mg/dL, Borderline high 190-219 mg/dL, High >219 mg/dL, Very high Secondary prevention optimal non HDL Cholesterol levels are recommended to be <100 mg/dL Performed By: #### 2 4323-8, , 2132-05 #### [facility] CLIA [id number] [address] [address] [place] Cholesterol.total/Cho lesterol in HDL [Mass ratio] 2.95 {ratio} Normal <5.10 [facility] Comment on above: Order Comment: Speci men Type: BLOOD SPECIMEN Ordering Facility[facility] Address: [address] [place] [address] Performed By: #### 2 4323-8, , 2132-05 #### [facility] CLIA [id number] [address] [place], [place] [address] [place] FASTING TIME 12 hrs Normal [facility] Comment on above: Order Comment: Speci men Type: BLOOD SPECIMEN [facility]ing Facility[facility] Address: [address] [place], [place] [address] Performed By: #### 2 4323-8, , 2132-05 #### [facility] CLIA [id number] [address] [place], [place] [address] [place] Triglyceride [Mass/Vol] 161 mg/dL High <150 [facility] Comment on above: Order Comment: Speci men Type: BLOOD SPECIMEN [facility]ing Facility[facility] Address: [address] [place], [place] [address] Result Comment: <150 mg/dL, Normal 150-199 mg/dL, Borderline high 200-499 mg/dL, High >499 mg/dL, Very high Performed By: #### 2 4323-8, , 2132-05 #### [facility] CLIA [id number] [address] [place] [address] [place] Vit B12 [facility] 05-19-2 025 Cobalamin (Vitamin B12) [Mass/Vol] 910 pg/mL Normal 232-1245 [facility] Comment on above: Order Comment: Speci men Type: BLOOD SPECIMEN [facility]ing Facility[facility] Address: [address] [place] [address] Performed By: #### 2 4323-8, 61184-5, 2132-9 #### [facility] CLIA [id number] [address] [place] [address] [facility] CNOVon 01-17-2025 CNOV Office Visit (UCWSTR ) CHANG MARADIAGA ([id number]) 1970 F Date Time Provider Department 01/17/25 7:30 AM JUANCARLOS CARRERA [facility] During your visit today, we recorded the following information about you: Temperature Pulse Respiration Blood pressure 97.7 degrees 72/minute 18/minute 122/80 Weight 67.2 kg Juancarlos Carrera APRN.BILLET BED OPERATOR 01/17/2025 7:57 AM Signed Subjective HPI Nontoxic-appearing [...] PAST MEDICAL HISTORY Diagnosis Date Crohn's disease ([facility]) Dr. Carrasquillo in [facility] Diarrhea Family history of aortic valve disorder 08/04/2017 brother has bicuspid aortic valve Mild intermittent asthma without complication ([facility]) 08/22/2015 Other acute embolism veins 2000 Regional enteritis of large intestine ([facility]) 1991 Crohns Unspecified deficiency anemia Vitamin D deficiency 02/26/2013 PAST SURGICAL HISTORY Procedure Laterality Date COLECTOMY PARTIAL W/ANASTOMOSIS Hemicolectomy COLECTOMY PARTIAL W/ANASTOMOSIS 06/2013 COLONOSCOPY FLX DX W/COLLJ SPEC WHEN PFRMD 1991 Colonoscopy COLONOSCOPY FLX DX W/COLLJ SPEC WHEN PFRMD 08/03/2018 Colonoscopy COLONOSCOPY GEN ANES COLONOSCOPY GEN ANES 09/04/2020 COLONOSCOPY W/BIOPSY SINGLE/MULTIPLE 2010 Dr. Madden/due in 2013 [facility] CHOLE[facility] 04/08/2016 [facility] - Dr. Chris Ramos LAPS SURG [...] alert and (more content not included)... Normal [facility] Gastroenterology Visit Repor ton 12-27-2024 Gastroenterology Visit Report [facility] Gastroenterology [address] [place] [address] OFFICE VISIT Date of Service: 12/27/24 MR#: [id number] Acct: [id number] Name: CHANG MARADIAGA Rep #: [id number] : 1970 Provider: Harsh Carrasquillo DO Age/Sex: 54/F Location: [facility] Status: Signed Intake Vital Signs 09/04/23 13:23 [...] 2 current occupational status: employed current occupation: [employer] Smoking Status: Never smoker alcohol intake: current [...] abnormality LFT AST 31-ALT H58-AP 74 Rheumatology [facility] established .01.27. OV 12.31.21 with suspected [...] that she (more content not included)... Normal [facility] PAP IG HPV APTIMA 16/18,45on 09-30-2024 ADEQ Comment Normal . [facility] Comment on above: Order Comment: Speci men Comment: [id number] Specimen Comment: Source.............Cervix Specimen Comment: LMP / Prev Treat...[id number] Specimen Comment: No. of containers..01 ThinPrep Vial Result Comment: Sati sfactory for evaluation. Endocervical and/or squamous metaplastic cells (endocervical component) are present. Performed By: #### L 7400.0280 #### [facility] [address] [facility] [place], [address] COMM . Normal . [facility] Comment on above: Order Comment: Speci men Comment: [id number] Specimen Comment: Source.............Cervix Specimen Comment: LMP / Prev Treat...[id number] Specimen Comment: No. of containers..01 ThinPrep Vial Performed By: #### L 7400.0280 #### [facility] [address] [place], [place], [address] COMMENT Comment Normal . [facility] Comment on above: Order Comment: Speci men Comment: [id number] Specimen Comment: Source.............Cervix Specimen Comment: LMP / Prev Treat...[id number] Specimen Comment: No. of containers..01 ThinPrep Vial Result Comment: This liquid based ThinPrep(R) pap test was screened with the use of an image guided system. Performed By: #### L 7400.0280 #### [facility] [address] [place], [place], [address] DIAG Comment Normal . [facility] Comment on above: Order Comment: Speci men Comment: [id number] Specimen Comment: Source.............Cervix Specimen Comment: LMP / Prev Treat...[id number]=[id number] Specimen Comment: No. of containers..01 ThinPrep Vial Result Comment: NEGA TIVE FOR INTRAEPITHELIAL LESION OR MALIGNANCY. Performed By: #### L 7400.0280 #### [facility] [address] [place], [place], [address] HPV APTIMA, HR Negative Normal Negative [facility] Comment on above: Order Comment: Speci men Comment: [id number] Specimen Comment: Source.............Cervix Specimen Comment: LMP / Prev Treat...[id number] Specimen Comment: No. of containers..01 ThinPrep Vial Result Comment: This nucleic acid amplification test detects fourteen high- risk HPV types (16,18,31,33,35,39,45,51,52,56,58,59,66,68) without differentiation. Performed By: #### L 7400.0280 #### [facility] [address] [place], [place], [address] HPV Dede Rfx Comment Normal . [facility] Comment on above: Order Comment: Speci men Comment: [id number] Specimen Comment: Source.............Cervix Specimen Comment: LMP / Prev Treat...[id number] Specimen Comment: No. of containers..01 ThinPrep Vial Result Comment: Crit eria not met, HPV Genotype not performed. Performed at: - [facility] [address] [place] [id number] Church Organist: Cindi Montelongo MD, Phone: [phone] Performed at: = - [facility] [address] [place], [place] [address] Church Organist: Cindi Montelongo MD, Phone: [phone] Performed By: #### L 7400.0280 #### [facility] [address] [place], [place], [address] PAPSMR Comment Normal . [facility] Comment on above: Order Comment: Speci men Comment: [id number] Specimen Comment: Source.............Cervix Specimen Comment: LMP / Prev Treat...[id number] Specimen Comment: No. of containers..01 ThinPrep Vial Result Comment: The Pap smear is a screening test designed to aid in the detection of premalignant and malignant conditions of the uterine cervix. It is not a diagnostic procedure and should not be used as the sole means of detecting cervical cancer. Both false-positive and false-negative reports do occur. Performed By: #### L 7400.0280 #### [facility] [address] [place], [place], [address] PERFORM Comment Normal . [facility] Comment on above: Order Comment: Speci men Comment: [id number] Specimen Comment: Source.............Cervix Specimen Comment: LMP / Prev Treat...[id number] Specimen Comment: No. of containers..01 ThinPrep Vial Result Comment: Shameka Bowen, Suspect Artist Supervisor (ASCP) Performed By: #### L 7400.0280 #### [facility] [address] [place], [place], [address] [employer]ior [employer] Office Visit Reporton 09-27-2024 [employer] Office Visit Report [facility] [address], [address] [place] [address] OFFICE VISIT Date of Service: 09/27/24 MR#: [id number] Acct: [id number] Name: CHANG MARADIAGA Rep #: [id number] : 1970 Provider: BERE saldivar Age/Sex: 53/F Location[facility] Status: Signed Intake Vital Signs 09/04/23 13:23 09/27/24 08:56 09/27/24 09:01 Height 5 ft 6 in 5 ft 6 in 5 ft 6 in Weight: 148 lb 6 oz BMI 23.9 BP 122/70 H Intake 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 [facility] Medical History Post-menopausal Wears glasses Low iron [...] cancer screenin Other preventative health care screenings: [facility] Female Reproductive History Questions: metorrhagia: No, sexually [...] oriented to person and oriented to place HENSD Head: normal to inspection Neck Neck: normal [...] gynecological e (more content not included)... Normal [facility] SCRN MAMM (CAD)W/HOLLY BILATo n 09-27-2024 SCRN MAMM (CAD)W/HOLLY BILAT [facility] Imaging Services [address] [place] [address] SCRN MAMM (CAD)W/HOLLY BILAT MR#: [id number] Acct: [id number] Name: CHANG MARADIAGA Rep #: [id number] : 1970 F 53 From: Jann lim MD PCP: Dr. Wilman Hester MD Status: [facility] Study: SCRN MAMM (CAD)W/HOLLY BILAT Date of Exam: 09/09 Exam# [id number] Ordering Dr: Ivelisse Loya NARROW FABRIC LOOM FIXER NARROW FABRIC LOOM FIXER -C 5:[id number] MAMMOGRAPHY - BILATERAL SCREENING REASON FOR EXAM: [...] delay biopsy of a clinically suspicious abnormality. [id number] Electronically Signed: Jann Mcarthur MD at 10:32 EST , CC: BERE Loya; Dr. Wilman Hester MD Cargo Trimmer: Signed [facility] Office Visit (UCWSTR ) NICOLASCHANG Roe ([id number]) 1970 F Date Time Provider Department 07/16/24 9:30 AM SOCORRO HSU [facility] During your visit today, we recorded the following information about you: Temperature Pulse Respiration Blood pressure 98.7 degrees 82/minute 18/minute 141/75 Weight 67.5 kg Socoror Hsu APRN.CNP 07/16/2024 10:02 AM Signed This [...] history is provided by the patient. No assistant speech language pathologist was used. Conjunctivitis The current episode started [...] Date Crohn's disease ([facility]) Dr. Carrasquillo in [facility] Diarrhea Family history of aortic valve [...] Dr. Madden/angelita in 2013 [facility] CHOLE[facility] 04/08/2016 [facility] - Dr. Chris Ramos LAPS SURG [...] General: She (more content not included)... Normal [facility] CRPon 07-16-2024 C-REACTIVE PROT < 2.90 Normal 0.0-3.0 [facility] Comment on above: Result Comment: C-Re active Protein (CRP) provides useful information for the diagnosis, therapy and monitoring of inflammatory processes and associated diseases. For the evaluation of Relative Risk for Cardiovascular Disease, a High Sensitivity CRP (HSCRP) should be ordered. Performed By: #### L 101.9900, L501.6710 #### [facility] [address] [place], [place], [address] Erythrocyte Sed Rateon 07-16 SED RATE 11 mm/hr Normal 0-30 [facility] Comment on above: Performed By: #### L 101.9900, L501.6710 #### [facility] [address] [place], [address] CNNURSEon 03-31-2024 [facility] Nurse Visit (FAMPWS) ASHWINICHANG ([id number]) 1970 F Date Time Provider Department 03/31/24 10:30 AM [facility] During your visit today, we recorded the [...] been reviewed today/August 19, 2007 Ashley [facility]oper [facility] Problem List As Of Date 03/31/2024 Noted Resolved Diarrhea [R19.7] 02/18/2006 01/16/2017 Other symptoms involving cardiovascular system *08/19/2007 08/22/2015 Crohn's disease of both small and large intesti*04/10/2012 Aaoytki-pc-prw [K60.3] 09/03/2012 01/16/2017 Vitamin D deficiency [E55.9] [...] Encounter Status:Closed by ROSA MARRERO on 03/31/24 [facility] ([id number]) 1970 F Date Time Provider Department 03/08/24 [facility] INTMWS During your visit today, we recorded the following information about you: Rosa Marrero LPN 03/08/2024 11:18 AM Signed Patient [...] for vaccination [Z23] Order(s):MENINGOCOCCAL B VACCINE (BEXSERO) [47481VRQ] Order #: [id number] Prescriptions as of 03/08/2024 - Cyanocobalamin 1,000 [...] disease of both small and large intesti*04/10/2012 Rgooodm-aj-oiw [K60.3] 09/03/2012 01/16/2017 Vitamin D deficiency [E55.9] [...] Encounter Status:Closed by LUCY BANG on 03/08/24 [facility] CNNURSEon 03-02-2024 [facility] Nurse Visit (FAMPWS) CHANG MARADIAGA ([id number]) 1970 F Date Time Provider Department 03/02/24 12:30 PM OR NURSE FAMPWS During your visit today, we recorded the following information about you: Referring Provider: GARY TAPIA [[id number]] Allergies As of Date: 03/02/2024 Noted Allergy [...] been reviewed /August 19, 2007 Ashley Roper Pediatric Licensed Practical Nurse Problem List As Of Date 03/02/2024 Noted Resolved Diarrhea [R19.7] 02/18/2006 01/16/2017 Other symptoms involving cardiovascular system *08/19/2007 08/22/2015 Crohn's disease of both small and large intesti*04/10/2012 Vcjgvaj-sj-kxh [K60.3] 09/03/2012 01/16/2017 Vitamin D deficiency [E55.9] [...] Status:Closed by JAMAL CROFT on 03/02/24 Normal [facility] 25-hydroxyvitamin D3 [Mass/V ol]on 01-15-2024 Interpretation and review of laboratory results Normal [facility] The reference range interval was based on an analysis of samples from healthy adults and may not pertain to children from 0-18 years old. [facility] CBC W Auto Differential pane l (Bld)on 01-15-2024 Basophils (Bld) [#/Vol] 0.06 10*3/uL [facility] Basophils/100 WBC (Bld) 0.9 % [facility] Differential cell count method Nom (Bld) Auto [facility] Eosinophils (Bld) [#/Vol] 0.16 10*3/[facility]L [facility] Eosinophils/100 WBC (Bld) 2.3 % [facility] Erythrocyte distribution width (RBC) [Ratio] 13.4 % 11.5 - 15.0 % [facility] Hematocrit (Bld) [Volume fraction] 39.1 % 36.0 - 46.0 % [facility] Hemoglobin (Bld) [Mass/Vol] 12.7 g/dL 11.5 - 15.5 g/dL [facility] Immature granulocytes (Bld) [#/Vol] [facility] Immature granulocytes/100 WBC (Bld) 0.3 % [facility] Lymphocytes (Bld) [#/Vol] 3.11 10*3/uL [facility] Lymphocytes/100 WBC (Bld) 44.5 % [facility] MCH (RBC) [Entitic mass] 31.7 pg 26.0 - 34.0 pg [facility] MCHC (RBC) [Mass/Vol] 32.5 g/dL 30.5 - 36.0 g/dL [facility] MCV (RBC) [Entitic vol] 97.5 fL 80.0 - 100.0 fL [facility] Monocytes (Bld) [#/Vol] 0.64 10*3/uL [facility] Monocytes/100 WBC (Bld) 9.2 % [facility] Neutrophils (Bld) [#/Vol] 3.00 10*3/uL [facility] Neutrophils/100 WBC (Bld) 42.8 % [facility] Nucleated RBC (Bld) [#/Vol] [facility] Nucleated RBC/100 WBC (Bld) [Ratio] 0.0 % /100 WBC [facility] Platelet mean volume (Bld) [Entitic vol] 9.7 fL 9.0 - 12.7 fL [facility] Platelets (Bld) [#/Vol] 235 10*3/uL [facility] RBC (Bld) [#/Vol] 4.01 10*6/uL 3.90 - 5.20 m/uL [facility] WBC (Bld) [#/Vol] 6.99 10*3/uL [facility] Cobalamin (Vitamin B12) [Mas s/Vol]on 01-15-2024 Interpretation and review of laboratory results Normal [facility] Comprehensive metabolic 2000 panelon 01-15-2024 Albumin [Mass/Vol] 4.3 g/dL 3.9 - 4.9 g/dL [facility] ALP [Catalytic activity/Vol] 89 U/L 34 - 123 U/L [facility] ALT [Catalytic activity/Vol] 33 U/L 7 - 38 U/L [facility] Anion gap [Moles/Vol] 13 mmol/L 9 - 18 mmol/L [facility] AST [Catalytic activity/Vol] 27 U/L 13 - 35 U/L [facility] Bilirubin [Mass/Vol] 0.4 mg/dL 0.2 - 1 .3 mg/dL [facility] Calcium [Mass/Vol] 9.8 mg/dL 8.5 - 10. 2 mg/dL [facility] Chloride [Moles/Vol] 104 mmol/L 97 - 10 5 mmol/L [facility] CO2 [Moles/Vol] 22 mmol/L 22 - 30 mmol/L [facility] Creatinine [Mass/Vol] 0.87 mg/dL 0.58 - 0.96 mg/dL [facility] GFR/1.73 sq M.predicted among non-blacks MDRD (S/P/Bld) [Vol rate/Area] 79 mL/min/{1.73_m2} - PINF [facility] Comment on above: Estimated Glomerular Filtration Rate [...] [Mass/Vol] 97 mg/dL 74 - 99 mg/dL [facility] Comment on above: The [place] Diabete s Association (ADA) provides guidance for [...] Standards of Medical Care in Diabetes 2016, [place] [employer]. Diabetes Care. 2016.39(Suppl 1). Interpretation and review of laboratory results Normal [facility] Potassium [Moles/Vol] 4.9 mmol/L 3.7 - 5.1 mmol/L [facility] Protein [Mass/Vol] 7.6 g/dL 6.3 - 8.0 g/dL [facility] Sodium [Moles/Vol] 139 mmol/L 136 - 144 mmol/L [facility] Urea nitrogen [Mass/Vol] 14 mg/dL 7 - 21 mg/dL [facility] VITAMIN B12on 01-15-2024 Cobalamin (Vitamin B12) [Mass/Vol] 603 pg/mL 232 - 1245 pg/mL [facility] VITAMIN D 25 HYDROXYon 01-14 25-hydroxyvitamin D3 [Mass/Vol] 43.9 ng/mL 31.0 - 80.0 ng/mL [facility] Comment on above: Classification of 25 [place] Vitamin D status: Deficiency/Insufficiency: < or = 30 ng/ml. Sufficiency/Optimal Levels: 31-80 ng/mL Toxicity: > 100 ng/mL. Test performed by chemiluminescent immunoassay. No Panel InformationOrdered By: Harsh Carrasquillo on 04-28-2023 Stool Calprotectin 280 ug/g 0-120 [facility] Comment on above: Concentration Interp retation Follow-Up< 5 - 50 ug/g Normal None>50 -120 ug/g Borderline Re-evaluate in 4-6 weeks >120 ug/g Abnormal Repeat as clinically indicatedPerformed at: BN - [facility] [address] [id number] Director: Josue Agustin MD, Phone: [phone] Stool lactoferrin detection by immunoassayOrdered By: Harsh Carrasquillo on 04-28-2023 Lactoferrin IA Ql (Stl) [facility] Erythrocyte sedimentation ra teOrdered By: Harsh Carrasquillo on 04-25-2023 ESR (Bld) [Velocity] 11 mm/h 0-30 [facility] No Panel InformationOrdered By: Harsh Carrasquillo on 04-25-2023 Miscellaneous Test See comment [facility] Comment on above: Scanned image report available in EMR Serum or plasma C reactive p rotein measurement (mass/volume)Ordered By: Harsh Carrasquillo on 04-25-2023 CRP [Mass/Vol] mg/L 0.0-3.0 [facility] Comment on above: C-Reactive Protein ( CRP) provides useful information for thediagnosis, therapy and monitoring of inflammatory processesand associated diseases. For the evaluation of Relative Riskfor Cardiovascular Disease, a High Sensitivity CRP (HSCRP)should be ordered. No Panel InformationOrdered By: Harsh Carrasquillo on 03-05-2023 Stool Calprotectin 151 ug/g 0-120 [facility] Comment on above: Concentration Interp retation Follow-Up< 5 - 50 ug/g Normal None>50 -120 ug/g Borderline Re-evaluate in 4-6 weeks >120 ug/g Abnormal Repeat as clinically indicatedPerformed at: [facility] [id number] Director: Josue Agustin MD, Phone: [phone] Stool lactoferrin detection by immunoassayOrdered By: Harsh Carrasquillo on 03-05-2023 Lactoferrin IA Ql (Stl) [facility] Erythrocyte sedimentation ra teOrdered By: Harsh Carrasquillo on 03-04-2023 ESR (Bld) [Velocity] 8 mm/h 0-30 [facility] Qualitative QuantiFERON-TB g old in tube testOrdered By: Harsh Carrasquillo on 03-04-2023 M. tuberculosis tuberculin stim IFN-g Ql (Bld) 0.12 IU/mL . [facility] Serum or plasma C reactive p rotein measurement (mass/volume)Ordered By: Harsh Carrasquillo on 03-04-2023 CRP [Mass/Vol] 3.03 mg/L 0.0-3.0 [facility] Comment on above: C-Reactive Protein ( CRP) provides useful information for thediagnosis, therapy and monitoring of inflammatory processesand associated diseases. For the evaluation of Relative Riskfor Cardiovascular Disease, a High Sensitivity CRP (HSCRP)should be ordered. Thin prep Papanicolaou smear with manual screeningOrdered By: Harsh Carrasquillo on 03-04-2023 Thin prep Papanicolaou smear with manual screening Comment . [facility] Comment on above: QuantiFERON-TB Gold Plus is [...] smear with manual screening 0.10 IU/mL . [facility] Thin prep Papanicolaou smear with manual screening 0.11 IU/mL . [facility] Thin prep Papanicolaou smear with manual screening > 10.00 IU/mL . [facility] Thin prep Papanicolaou smear with manual screening Negative Negative [facility] Comment on above: No response to M [...] the productionof interferon gamma. Chemiluminescence immunoassaymethodologyPerformed at: [facility] [id number] Director: Cleveland Monzon PhD, Phone: [phone] Absolute lymphocyte countOrd ered By: Harsh Carrasquillo on 09-03-2022 Lymphocytes Auto (Unsp spec) [#/Vol] 3.10 10*3/uL 0.83-4.51 [facility] Basophil percentageOrdered B y: Harsh Carrasquillo on 09-03-2022 Basophils/100 WBC (Bld) 0.5 % 0-1 [facility] Bilirubin [Mass/Vol] 0.50 mg/dL 0.20-1.00 [facility] Comment on above: For patients on eltr ombopag therapy, use of Dimension [place] TBIL is not recommended. Chloride [Moles/Vol] 108 mmol/L 98-107 [facility] Eosinophils/100 WBC (Bld) 3.0 % 0-5 [facility] Glucose [Mass/Vol] 102 mg/dL 74-106 [facility] Comment on above: Fasting Glucose resu lt from 100 to 125 mg/dL suggests IMPAIRED HOMEOSTASIS per A.D.A. criteria. Neutrophils (Bld) [#/Vol] 2.1 10*3/uL 2.0-7.7 [facility] Neutrophils/100 WBC (Bld) 35.5 % 47-70 [facility] Potassium [Moles/Vol] 4.4 mmol/L 3.5-5.1 [facility] Protein [Mass/Vol] 8.4 g/dL 6.4-8.2 [facility] Sodium [Moles/Vol] 139 mmol/L 136-145 [facility] WBC (Bld) [#/Vol] 6.0 10*3/uL 4.4-11.0 [facility] Blood erythrocytes count (nu mber/volume)Ordered By: Harsh Carrasquillo on 09-03-2022 RBC (Bld) [#/Vol] 4.02 10*6/uL 4.2-5.4 [facility] Blood hemoglobin measurement (mass/volume)Ordered By: Harsh Carrasquillo on 09-03-2022 Hemoglobin (Bld) [Mass/Vol] 12.4 g/dL 12.0-15.0 [facility] Blood lymphocytes/100 leukoc ytesOrdered By: Harsh Carrasquillo on 09-03-2022 Lymphocytes/100 WBC (Bld) 51.8 % 19-41 [facility] Blood monocytes/100 leukocyt esOrdered By: Harsh Carrasquillo on 09-03-2022 Monocytes/100 WBC (Bld) 8.9 % 0-10 [facility] Blood platelet mean volumeOr dered By: Harsh Carrasquillo on 09-03-2022 Platelet mean volume (Bld) [Entitic vol] 9.0 fL 6.2-12.0 [facility] Determination of erythrocyte mean corpuscular volume (MCV)Ordered By: Harsh Carrasquillo on 09-03-2022 MCV (RBC) [Entitic vol] 98.3 fL 81-99 [facility] Erythrocyte sedimentation ra teOrdered By: Harsh Carrasquillo on 09-03-2022 ESR (Bld) [Velocity] 14 mm/h 0-30 [facility] Hematocrit Auto (Bld) [Volum e fraction]Ordered By: Harsh Carrasquillo on 09-03-2022 Hematocrit (Bld) [Volume fraction] 39.5 % 37-47 [facility] Laboratory - Chemistry and C hemistry - challengeOrdered By: Harsh Carrasquillo on 09-03-2022 ALP [Catalytic activity/Vol] 74 U/L 45-117 [facility] ALT [Catalytic activity/Vol] 58 U/L 13-56 [facility] CO2 [Moles/Vol] 26.0 mmol/L 21.0-32.0 [facility] Globulin (S) [Mass/Vol] 4.5 g/dL 2.2-4.2 [facility] Urea nitrogen/Creatinine [Mass ratio] 18.7 mg/mg 10-20 [facility] Laboratory - Hematology and Cell countsOrdered By: Harsh Carrasquillo on 09-03-2022 Erythrocyte distribution width (RBC) [Entitic vol] 46.3 fL 35.1-43.9 [facility] Erythrocyte distribution width (RBC) [Ratio] 12.8 % 11.6-14.6 [facility] Immature granulocytes/100 WBC (Bld) 0.300 % 0.0-0.9 [facility] Comment on above: IG% - Immature Granu locytes (promyelocytes, myelocytes and metamyelocytes) > 1% indicates that a LEFT SHIFT is Present. MCH (RBC) [Entitic mass] 30.8 pg 27.0-32.0 [facility] Nucleated RBC/100 WBC (Bld) [Ratio] 0 % 0-5 [facility] MCHC Auto (RBC) [Mass/Vol]Or dered By: Harsh Carrasquillo on 09-03-2022 MCHC (RBC) [Mass/Vol] 31.4 g/dL 32-36 [facility] No Panel InformationOrdered By: Harsh Carrasquillo on 09-03-2022 Estimated GFR (MDRD) Amer 69 mL/min >60 [facility] Comment on above: GFR Calc Estimated GFR (MDRD) Non-Af Amer 57 mL/min >60 [facility] Comment on above: Non- GFR Calc Platelets bldOrdered By: Christofer Carrasquillo on 09-03-2022 Platelets (Bld) [#/Vol] 212 10*3/uL 150-450 [facility] Qualitative QuantiFERON-TB g old in tube testOrdered By: Harsh Carrasquillo on 09-03-2022 M. tuberculosis tuberculin stim IFN-g Ql (Bld) 0.07 IU/mL . [facility] Serum or plasma C reactive p rotein measurement (mass/volume)Ordered By: Harsh Carrasquillo on 09-03-2022 CRP [Mass/Vol] mg/L 0.0-3.0 [facility] Comment on above: C-Reactive Protein ( CRP) provides useful information for thediagnosis, therapy and monitoring of inflammatory processesand associated diseases. For the evaluation of Relative Riskfor Cardiovascular Disease, a High Sensitivity CRP (HSCRP)should be ordered. Serum or plasma albumin neha urement (mass/volume)Ordered By: Harsh Carrasquillo on 09-03-2022 Albumin [Mass/Vol] 3.9 g/dL 3.2-5.0 [facility] Serum or plasma albumin/glob ulin mass ratioOrdered By: Harsh Carrasquillo on 09-03-2022 Albumin/Globulin [Mass ratio] 0.9 {ratio} 0.9-2.4 [facility] Serum or plasma calcium neha urement (mass/volume)Ordered By: Harsh Carrasquillo on 09-03-2022 Calcium [Mass/Vol] 9.4 mg/dL 8.5-10.1 [facility] Serum or plasma creatinine m easurement (mass/volume)Ordered By: Harsh Carrasquillo on 09-03-2022 Creatinine [Mass/Vol] 1.07 mg/dL 0.55-1.02 [facility] Comment on above: The validity of the calculated GFR & GFRAA in patients over 70 years has not been determined. Clinical correlation is essential. Serum or plasma urea nitroge n measurement (mass/volume)Ordered By: Harsh Carrasquillo on 09-03-2022 Urea nitrogen [Mass/Vol] 20 mg/dL 7-18 [facility] Thin prep Papanicolaou smear with manual screeningOrdered By: Harsh Carrasquillo on 09-03-2022 Thin prep Papanicolaou smear with manual screening 31 U/L 15-37 [facility] Thin prep Papanicolaou smear with manual screening 5 5-15 [facility] Thin prep Papanicolaou smear with manual screening Comment . [facility] Comment on above: QuantiFERON-TB Gold Plus is [...] smear with manual screening 0.07 IU/mL . [facility] Thin prep Papanicolaou smear with manual screening 0.10 IU/mL . [facility] Thin prep Papanicolaou smear with manual screening > 10.00 IU/mL . [facility] Thin prep Papanicolaou smear with manual screening Negative Negative [facility] Comment on above: No response to M [...] the productionof interferon gamma. Chemiluminescence immunoassaymethodologyPerformed at: [facility] [id number] Director: Cleveland Monzon PhD, Phone: [phone] Basophil percentageOrdered B y: Shelbie Rebollar on 06-24-2022 Cholesterol [Mass/Vol] 161 mg/dL <200 [facility] Comment on above: <200 mg/dL Desirable 200-240 mg/dL Borderline >240 mg/dL High Risk Triglyceride [Mass/Vol] 220 mg/dL <199 [facility] Comment on above: The drugs N-Acetylcy steine and Metamizole may falsely depress this assay.Serum Triglycerides Reference Interval Normal <150 mg/dL Borderline high 150 - 199 mg/dL High 200 - 499 mg/dL Very High > or = 500 mg/dL Serum or plasma calcitriol m easurement (mass/volume)Ordered By: Shelbie Rebollar on 06-24-2022 1,25-dihydroxyvitamin D3 [Mass/Vol] 49.7 pg/mL 24.8-81.5 [facility] Comment on above: Please note refere nce interval changePerformed at: - Lab[address] [id number] Director: Josue Agustin MD, Phone: [phone] Serum or plasma cholesterol in HDL measurement (mass/volume)Ordered By: Shelbie Rebollar on 06-24-2022 Cholesterol in HDL [Mass/Vol] 49 mg/dL >40 [facility] Comment on above: The drugs N-Acetylcy steine and Metamizole may falsely depress this assay. Reference Range HDL <40 mg/dL Low HDL Cholesterol HDL >or= 60 mg/dL High HDL Cholesterol Serum or plasma cholesterol in VLDL measurement (mass/volume)Ordered By: Shelbie Rebollar on 06-24-2022 Cholesterol in VLDL [Mass/Vol] 44 mg/dL 5-40 [facility] Serum or plasma low density lipoprotein (LDL) cholesterol measurement (mass/volume)Ordered By: Shelbie Rebollar on 06-24-2022 Cholesterol in LDL [Mass/Vol] 68 mg/dL 0-130 [facility] No Panel Informationon 01-22 Vitamin D 25-Hydroxy 37.0 ng/mL [facility] Work Phone: Comment on above: Vitamin D 25(OH) Sta tus Range Deficiency <20 ng/mL (50nmol/L) Insufficiency 20 - 30 ng/mL (50 - 75 nmol/L) Sufficiency 30 - 100 ng/mL (75 - 250 nmol/L) Toxicity >100 ng/mL (>250 nmol/L) Basophil percentageon 2021 Bilirubin [Mass/Vol] 0.40 mg/dL 0.20-1.00 [facility] Work Phone: Comment on above: For patients on eltr ombopag therapy, use of Dimension [place] TBIL is not recommended. Chloride [Moles/Vol] 106 mmol/L 98-107 [facility] Work Phone: Glucose [Mass/Vol] 92 mg/dL 74-106 [facility] Work Phone: Potassium [Moles/Vol] 3.9 mmol/L 3.5-5.1 [facility] Work Phone: Protein [Mass/Vol] 8.1 g/dL 6.4-8.2 [facility] Work Phone: Sodium [Moles/Vol] 138 mmol/L 136-145 [facility] Work Phone: [phone] Iron measurement (mass/mass) on 11-08-2021 Iron (Unsp spec) [Mass/Mass] 74 ug/dL 50-170 [facility] Work Phone: Laboratory - Chemistry and C hemistry - challengeon 11-08-2021 ALP [Catalytic activity/Vol] 69 U/L 45-117 [facility] Work Phone: ALT [Catalytic activity/Vol] 37 U/L 13-56 [facility] Work Phone: CO2 [Moles/Vol] 27.0 mmol/L 21.0-32.0 [facility] Work Phone: Cobalamin (Vitamin B12) [Mass/Vol] 573 pg/mL 211-911 [facility] Work Phone: Globulin (S) [Mass/Vol] 4.5 g/dL 2.2-4.2 [facility] Work Phone: Urea nitrogen/Creatinine [Mass ratio] 17.7 mg/mg 10-20 [facility] Work Phone: No Panel Informationon 11-08 Estimated GFR (MDRD) Amer 79 mL/min >60 [facility] Work Phone: Comment on above: GFR Calc Estimated GFR (MDRD) Non-Af Amer 65 mL/min >60 [facility] Work Phone: Comment on above: Non- GFR Calc Vitamin D 25-Hydroxy 25.3 ng/mL [facility] Work Phone: Comment on above: Vitamin D 25(OH) Sta tus Range Deficiency <20 ng/mL (50nmol/L) Insufficiency 20 - 30 ng/mL (50 - 75 nmol/L) Sufficiency 30 - 100 ng/mL (75 - 250 nmol/L) Toxicity >100 ng/mL (>250 nmol/L) Serum or plasma albumin neha urement (mass/volume)on 11-08-2021 Albumin [Mass/Vol] 3.6 g/dL 3.2-5.0 [facility] Work Phone: Serum or plasma albumin/glob ulin mass ratioon 11-08-2021 Albumin/Globulin [Mass ratio] 0.8 {ratio} 0.9-2.4 [facility] Work Phone: Serum or plasma calcium neha urement (mass/volume)on 11-08-2021 Calcium [Mass/Vol] 8.8 mg/dL 8.5-10.1 [facility] Work Phone: Serum or plasma creatinine m easurement (mass/volume)on 11-08-2021 Creatinine [Mass/Vol] 0.96 mg/dL 0.55-1.02 [facility] Work Phone: Comment on above: The validity of the calculated GFR & GFRAA in patients over 70 years has not been determined. Clinical correlation is essential. Serum or plasma ferritin analy surement (mass/volume)on 11-08-2021 Ferritin [Mass/Vol] 19 ng/mL 8-252 [facility] [place] Work Phone: Serum or plasma urea nitroge n measurement (mass/volume)on 11-08-2021 Urea nitrogen [Mass/Vol] 17 mg/dL 7-18 [facility] Work Phone: Thin prep Papanicolaou smear with manual screeningon 11-08-2021 Thin prep Papanicolaou smear with manual screening 22 U/L 15-37 [facility] Work Phone: Thin prep Papanicolaou smear with manual screening 5 5-15 [facility] Work Phone: Whole blood hemoglobin A1c/t otal hemoglobin ratio (mass fraction)on 11-08-2021 HbA1c (Bld) [Mass fraction] 5.4 % 3.8-5.6 [facility] Work Phone: Comment on above: Normal < 5.7 % Predi abetic 5.7 - 6.4 % Diabetic >or= 6.5 % Please note range changes. Office Visit: Annualon 04-07 Documentation of current medications (procedure) Done Invalid Interpretation Code [facility] Fall risk assessment No Invalid Interpretation Code [facility] Protein mass conc Done [facility] Tobacco smoking status NHIS Never Invalid Interpretation Code [facility] Tobacco smoking status NHIS Never smoker [facility] Tobacco use CPH[facility] Never smoker Invalid Interpretation Code [facility] Office Visit: Annualon 03-10 MG Breast screening Normal Bilateral Invalid Interpretation Code [facility] Office Visit: Annualon 08-14 General categories Cyto stain Interp (Cervical or vaginal smear or scraping) Normal Invalid Interpretation Code [facility] Vital Signs Date Time Vital Sign Value Performing Clinician Facility 01-24-2025 08:01-0400 Body mass index (BMI) [Ratio] 23.65 kg/m2 Wilman Hester MD Work Phone: [facility] 01-24-2025 08:01-0400 Body weight 67 kg Wilman Hester MD Work Phone: [facility] 01-24-2025 08:01-0400 Diastolic blood pressure 72 mm[Hg] Wilman Hester MD Work Phone: [facility] 01-24-2025 08:01-0400 Heart rate 72 /min Wilman Hester MD Work Phone: [facility] 01-24-2025 08:01-0400 SaO2% (BldA) [Mass fraction] 97 % Wilman Hester MD Work Phone: [facility] 01-24-2025 08:01-0400 Systolic blood pressure 112 mm[Hg] Wilman Hester MD Work Phone: [facility] 01-17-2025 07:22-0400 Body mass index (BMI) [Ratio] 23.72 kg/m2 Juancarlos Carrera FOOD AND BEVERAGE LEAD.BILLET BED OPERATOR Work Phone: [facility] 01-17-2025 07:22-0400 Body temperature 97.7 [degF] Juancarlos Carrera FOOD AND BEVERAGE LEAD.BILLET BED OPERATOR Work Phone: [facility] 01-17-2025 07:22-0400 Body weight 67.2 kg Juancarlos Carrera FOOD AND BEVERAGE LEAD.BILLET BED OPERATOR Work Phone: [facility] 01-17-2025 07:22-0400 Diastolic blood pressure 80 mm[Hg] Juancarlos Carrera FOOD AND BEVERAGE LEAD.BILLET BED OPERATOR Work Phone: [facility] 01-17-2025 07:22-0400 Heart rate 72 /min Juancarlos Carrera FOOD AND BEVERAGE LEAD.BILLET BED OPERATOR Work Phone: [facility] 01-17-2025 07:22-0400 Respiratory rate 18 /min Juancarlos Carrera FOOD AND BEVERAGE LEAD.BILLET BED OPERATOR Work Phone: [facility] 01-17-2025 07:22-0400 SaO2% (BldA) [Mass fraction] 99 % Juancarlos Carrera FOOD AND BEVERAGE LEAD.BILLET BED OPERATOR Work Phone: [facility] 01-17-2025 07:22-0400 Systolic blood pressure 122 mm[Hg] Juancarlos Carrera FOOD AND BEVERAGE LEAD.BILLET BED OPERATOR Work Phone: [facility] 07-16-2024 09:45-0500 Body mass index (BMI) [Ratio] 23.83 kg/m2 Socorro Hsu FOOD AND BEVERAGE LEAD.BILLET BED OPERATOR Work Phone: [facility] 07-16-2024 09:45-0500 Body temperature 98.71 [degF] Socorro Hsu FOOD AND BEVERAGE LEAD.BILLET BED OPERATOR Work Phone: [facility] 07-16-2024 09:45-0500 Body weight 67.5 kg Socorro Hsu FOOD AND BEVERAGE LEAD.BILLET BED OPERATOR Work Phone: [facility] 07-16-2024 09:45-0500 Diastolic blood pressure 75 mm[Hg] Socorro Hsu FOOD AND BEVERAGE LEAD.BILLET BED OPERATOR Work Phone: [facility] 07-16-2024 09:45-0500 Heart rate 82 /min Socorro Hsu FOOD AND BEVERAGE LEAD.BILLET BED OPERATOR Work Phone: [facility] 07-16-2024 09:45-0500 Respiratory rate 18 /min Socorro Hsu FOOD AND BEVERAGE LEAD.BILLET BED OPERATOR Work Phone: [facility] 07-16-2024 09:45-0500 SaO2% (BldA) [Mass fraction] 96 % Socorro Hsu FOOD AND BEVERAGE LEAD.BILLET BED OPERATOR Work Phone: [facility] 07-16-2024 09:45-0500 Systolic blood pressure 141 mm[Hg] Socorro Hsu FOOD AND BEVERAGE LEAD.BILLET BED OPERATOR Work Phone: [facility] 01-15-2024 08:01-0400 Body mass index (BMI) [Ratio] 24.5 kg/m2 Gary Tapia FOOD AND BEVERAGE LEAD.COMBO WELDER Work Phone: [facility] 01-15-2024 08:01-0400 Body weight 69.4 kg Gary Tapia FOOD AND BEVERAGE LEAD.COMBO WELDER Work Phone: [facility] 01-15-2024 08:01-0400 Diastolic blood pressure 68 mm[Hg] Gary Tapia FOOD AND BEVERAGE LEAD.COMBO WELDER Work Phone: [facility] 01-15-2024 08:01-0400 Heart rate 83 /min Gary Tapia FOOD AND BEVERAGE LEAD.COMBO WELDER Work Phone: [facility] 01-15-2024 08:01-0400 Respiratory rate 16 /min Gary Tapia FOOD AND BEVERAGE LEAD.COMBO WELDER Work Phone: [facility] 01-15-2024 08:01-0400 Systolic blood pressure 108 mm[Hg] Gary Tapia MACK Work Phone: [facility] 09-04-2023 13:23-0500 Body height 167.[address] Wilman Hester Work Phone: 2(662)943-717971 [place] [address] 09-04-2023 13:22-0500 Body mass index (BMI) [Ratio] 25.2 kg/m2 Dr. Wilman Hester Work Phone: 5(590)869-131571 [place] [address] 09-04-2023 13:22-0500 Body weight 70.[address] Wilman Hester Work Phone: 0(901)688-196960 [place] [address] 09-04-2023 13:22-0500 Diastolic blood pressure 75 mm[Hg] Dr. Wilman Hester Work Phone: 7(803)434-871860 [place] [address] 09-04-2023 13:22-0500 Systolic blood pressure 123 mm[Hg] Dr. Wilman Hester Work Phone: 1(183)134-864260 [place] [address] 08-04-2023 08:59-0500 Body temperature 98.3 [degF] Dr. Wilman Hester Work Phone: 5(126)705-190260 [place] [address] 08-04-2023 08:59-0500 Diastolic blood pressure 75 mm[Hg] Dr. Wilman Hester Work Phone: 7(987)869-765760 [place] [address] 08-04-2023 08:59-0500 Heart rate 64 /min Dr. Wilman Hester Work Phone: 2(222)380-774460 [place] [address] 08-04-2023 08:59-0500 Respiratory rate 16 /min Dr. Wilman Hester Work Phone: 6(659)[phone] [place] [address] 08-04-2023 08:59-0500 SaO2% (BldA) [Mass fraction] 95 % Dr. Wilman Hester Work Phone: 6(311)326-904360 [place] [address] 08-04-2023 08:59-0500 Systolic blood pressure 114 mm[Hg] Dr. Wilman Hester Work Phone: 3(465)808-275360 [place] [address] 08-04-2023 07:26-0500 Body height 167.[address] Wilman Hester Work Phone: [facility] 08-04-2023 07:26-0500 Body mass index (BMI) [Ratio] 24.4 kg/m2 Dr. Wilman Hester Work Phone: [facility] 08-04-2023 07:26-0500 Body weight 68.[address] Wilman Hester Work Phone: [facility] 01-13-2023 13:15-0400 Body height 169.5 cm Wilman Hester MD Work Phone: [facility] 01-13-2023 13:15-0400 Body temperature 97.81 [degF] Wilman Hester MD Work Phone: [facility] 01-13-2023 13:15-0400 Body weight 68.95 kg Wilman Hester MD Work Phone: [facility] 01-13-2023 13:15-0400 Diastolic blood pressure 82 mm[Hg] Wilman Hester MD Work Phone: [facility] 01-13-2023 13:15-0400 Heart rate 92 /min Wilman Hester MD Work Phone: [facility] 01-13-2023 13:15-0400 Respiratory rate 18 /min Wilman Hester MD Work Phone: [facility] 01-13-2023 13:15-0400 SaO2% (BldA) [Mass fraction] 96 % Wilman Hester MD Work Phone: [facility] 01-13-2023 13:15-0400 Systolic blood pressure 122 mm[Hg] Wilman Hester MD Work Phone: [facility] 08-27-2022 09:46-0500 Body height 167.[address] Abdoulaye Corley Work Phone: [facility] 08-27-2022 09:38-0500 Body mass index (BMI) [Ratio] 24 kg/m2 Dr. Abdoulaye Corley Work Phone: [facility] 08-27-2022 09:38-0500 Body weight 67.[address] Abdoulaye Corley Work Phone: [facility] 08-27-2022 09:38-0500 Diastolic blood pressure 70 mm[Hg] Dr. Abdoulaye Corley Work Phone: [facility] 08-27-2022 09:38-0500 Systolic blood pressure 108 mm[Hg] Dr. Abdoulaye Corley Work Phone: [facility] 04-07-2017 08:16-0400 BMI (Body Mass Index) 22.92 kg/m2 Ivelisse Loya NP [facility] 04-07-2017 08:16-0400 Body Temperature 97.2 [degF] Ivelisse Loya NP [facility] 04-07-2017 08:16-0400 BP Diastolic 68 mm[Hg] Ivelisse Loya NP [facility] 04-07-2017 08:16-0400 BP Systolic 96 mm[Hg] Ivelisse Loya NP [facility] 04-07-2017 08:16-0400 Height 167.64 cm Ivelisse Loya NP [facility] 04-07-2017 08:16-0400 Pulse (Heart Rate) 88 /min Ivelisse Loya NP [facility] 04-07-2017 08:16-0400 Respiratory Rate 16 /min vIelisse Loya NP [facility] 04-07-2017 08:16-0400 Weight 64.41 kg Ivelisse Loya NP [facility] Encounters Encounter Date Encounter Type Care Provider Facility Start: 07-05-2025 End: 07-05-2025 ambulatory Harsh Nenzel Facility:[facility] Start: 06-29-2025 End: 06-29-2025 Patient encounter procedure Harsh Carrasquillo DO -[facility] Work Phone: Start: 06-29-2025 End: 06-29-2025 ambulatory Harsh Nenzel Facility:[facility] Start: 06-29-2025 End: 06-29-2025 ambulatory Harsh Carrasquillo Facility:[facility] Start: 01-24-2025 End: 01-24-2025 ambulatory WILMAN HESTER Facility:[facility] Start: 01-24-2025 End: 01-24-2025 Patient encounter status Wilman Hester MD Work Phone: [facility] Work Phone: Start: 01-24-2025 End: 01-24-2025 Periodic preventive med est patient 40-64yrs Wilman Hester MD Work Phone: [facility] [place] Comment on above: Routine medical exam (Primary Dx); Crohn's disease of both small and large intestine without complication (HCC); Vitamin D deficiency; Anemia, unspecified type; Screening for depression; Encounter for screening examination for other mental health and behavioral disorders; Encounter for long-term current use of medication; Family history of B12 deficiency Start: 01-24-2025 End: 01-24-2025 ambulatory WILMAN HESTER Facility:[facility] Start: 01-24-2025 Encounter for genera l adult medical examination without abnormal findings WILMAN HESTER [facility] Start: 01-17-2025 End: 01-17-2025 Office outpatient visit 25 minutes Juancarlos Carrera APRN.CNP Work Phone: [facility] Comment on above: Bacterial sinusitis (Primary Dx) Start: 01-17-2025 End: 01-17-2025 ambulatory WILMAN HESTER Facility:[facility] Start: 12-27-2024 End: 12-27-2024 ambulatory Harsh Carrasquillo Facility:[facility] Start: 09-27-2024 Encounter for gynecological examination (general) (routine) without abnormal findings Ivelisse Loya [employer] [facility] Start: 09-27-2024 End: 09-27-2024 ambulatory Ivelisse Rockwells [employer] Facility:[facility] Start: 09-27-2024 End: 09-27-2024 ambulatory Ivelisse Loya [employer] Facility:[facility] Start: 07-16-2024 End: 07-16-2024 ambulatory WILMAN HESTER Facility:[facility] Start: 07-16-2024 End: 07-16-2024 Patient encounter procedure Socorro Pinkgs FOOD AND BEVERAGE LEAD.BILLET BED OPERATOR Work Phone: [facility] Comment on above: Conjunctivitis of le ft eye, unspecified conjunctivitis type (Primary Dx) Start: 07-16-2024 End: 07-16-2024 ambulatory Harsh Carrasquillo Facility:[facility] Start: 07-10-2024 End: 07-10-2024 ambulatory [facility] Nurse Lokesh Work Phone: [facility] Start: 07-10-2024 End: 07-10-2024 Patient encounter procedure [facility] Nurse Lokesh Work Phone: [facility] Start: 03-31-2024 End: 03-31-2024 ambulatory WILMAN HESTER Facility:[facility] Start: 03-08-2024 Telephone encounter Wilman garcia MD Work Phone: [facility] [place] Comment on above: Orders Start: 03-02-2024 End: 03-02-2024 ambulatory GARY TAPIA Facility:[facility] Start: 03-02-2024 End: 03-02-2024 Nursing evaluation of patient and report Mi Nurse Work Phone: [facility] Comment on above: Need for vaccination (Primary Dx) Start: 01-15-2024 End: 01-15-2024 Patient encounter procedure Gary Tapia APRN.COMBO WELDER Work Phone: [facility] [place] Comment on above: Routine medical exam (Primary Dx); Encounter for immunization; Screening for diabetes mellitus (DM); Screening for cervical cancer; Crohn's disease of both small and large intestine without complication (HCC); Vitamin D deficiency; Anemia, unspecified type Start: 01-15-2024 End: 01-15-2024 Patient encounter status Gary Tapia APRN.COMBO WELDER Work Phone: [facility] Start: 09-04-2023 End: 09-04-[address] Wilman Hester Work Phone: [facility] Work Phone: Start: 09-04-2023 End: 09-04-[address] Wilman Hester Work Phone: [facility] Work Phone: Start: 08-04-2023 Non-patient / Non-visit Dr. Joya Hester Work Phone: [facility] Start: 08-04-2023 End: 08-04-2023 Admission to same day surgery center Dr. Wilman Hester Work Phone: [facility] Work Phone: Start: 08-04-2023 End: 08-04-[address] Wilman Hester Work Phone: [facility] Work Phone: Start: 04-28-2023 End: 04-28-[address] [facility] Work Phone: Start: 04-25-2023 End: 04-25-[address] Abdoulaye Corley Work Phone: [facility] Work Phone: Start: 04-25-2023 End: 04-25-[address] Abdoulaye Corley Work Phone: [facility] Work Phone: Start: 03-05-2023 End: 03-05-[address] Abdoulaye Corley Work Phone: [facility] Work Phone: Start: 03-05-2023 End: 03-05-[address] Abdoul[facility] Corley [facility] Work Phone: Start: 03-04-2023 End: 03-04-[address] bAdoulaye Corley Work Phone: [facility] Work Phone: Start: 03-04-2023 End: 03-04-[address] Abdoul[facility] Cor[facility]: Start: 02-18-2023 End: 02-18-[address] Abdoulaye Corley Work Phone: [facility] Work Phone: Start: 01-15-2023 ambulatory Wilman fleming MD Work Phone: Internal Medicine [facility] Start: 01-13-2023 End: 01-13-2023 Patient encounter status Wilman Hester MD Work Phone: [facility] [place] Start: 01-13-2023 End: 01-13-2023 Periodic preventive med est patient 40-64yrs Wilman Hester MD Work Phone: [facility] [place] Comment on above: Routine medical exam (Primary Dx); Mild intermittent asthma without complication; Encounter for immunization Start: 11-11-2022 End: 11-11-2022 Patient encounter procedure Nathalia Sarah OD Work Phone: Optometry Comment on above: Myopia of both eyes (Primary Dx); Regular astigmatism of both eyes; Presbyopia Start: 10-28-2022 End: 10-28-[address] Abdoulaye Corley Work Phone: [facility] Start: 10-24-2022 End: 10-24-[address] Abdoulaye Corley Work Phone: [facility] Work Phone: Start: 10-24-2022 End: 10-24-[address] Abdoulaye Corley Work Phone: [facility] Start: 10-04-2022 End: 10-04-[address] Abdoulaye Corley Work Phone: [facility] Work Phone: Start: 10-04-2022 End: 10-04-[address] Abdoulaye Corley Work Phone: [facility] Start: 09-03-2022 End: 09-03-[address] Abdoulaye Corley Work Phone: [facility] Work Phone: Start: 09-03-2022 End: 09-03-[address] Abdoulaye Corley Work Phone: [facility] Start: 08-29-2022 End: 08-29-[address] Abdoulaye Corley Work Phone: [facility] Work Phone: Start: 08-29-2022 End: 08-29-[address] Abdoulaye Corley Work Phone: [facility] Start: 08-27-2022 End: 08-27-[address] Abdoulaye Corley Work Phone: [facility] Start: 06-24-2022 End: 06-24-2022 ambulatory [facility] Work Phone: Start: 06-24-2022 End: 06-24-2022 Patient encounter procedure [facility] Start: 02-13-2022 Refill Rah Davis APRN.BILLET BED OPERATOR, DNP Work Phone: [facility] Comment on above: Refill Request Start: 01-22-2022 End: 01-22-2022 Patient encounter procedure No Primary Care Physician [facility] Start: 11-08-2021 Patient encounter procedure No Primary Care Physician [facility] Start: 10-09-2021 End: 10-09-2021 Patient encounter procedure No Primary Care Physician [facility] Procedures Date Procedure Procedure Detail Performing Clinician Start: 06-29-2025 Hepatitis A virus antibody, IgM type Dr. Wilman eHster MD Work Phone: Comment on above: A [...] Work Phone: Comment on above: Test Ordered: [id number] Adalimumab Drug + A ntibodyAdalimumab Drug Level [...] Dis 2015;74:513-518.4. Bartelds GM, et al. RONAL 2011;305(14):7626-5115.5. Steisac C, et al. J Clin Gastroenterol 2016; 50:482-489.6. Sasha H, et al. Clin Gastroenterol Hepatol 2015; 13(3):522-530.7. Noemi A, et al. Gastroenterol 2019;156(6):S-617.These tests were developed and their performancecharacteristics determined by [facility]. They have not beencleared or approved by the Food and Drug Administration.However, these electrochemiluminescence immunoassay (ECLIA)measurements of adalimumab and anti-adalimumab antibody(constituting DoseASSURE ADL) have been developed andvalidated in accordance with CLIA (Clinical LaboratoryImprovement Amendments) and the FDA Guidance document, AssayDevelopment and Validation for Immunogenicity Testing ofTherapeutic Protein Products (2019).Performed at: [facility] [id number] [place], [place] [id number] Director: Kj Bishop MD, Phone: [phone] at: [facility] [address] [id number] Director: Cleveland Monzon PhD, Phone: [phone] Start: 01-24-2025 Adult depression screening assessment Wilman Hester MD Work Phone: Start: 01-15-2024 Adult depression screening assessment Immunization [place] Work Phone: Start: 09-04-[address] Wilman Hester Work Phone: Start: 08-04-[address] Wilman Hester Work Phone: Start: 04-28-[address] Abdoulaye roe Work Phone: Start: 03-05-[address] Abdoulaye roe Work Phone: Start: 10-04-2022 CT of head without contrast Dr. Abdoulaye nuñez Work Phone: Start: 08-29-[address] Abdoulaye Corley Work Phone: Start: 09-04-2020 Colonoscopy Rah Davis APRN.BILLET BED OPERATOR, DNP Work Phone: Start: 05-18-2020 Mammography Rah Davis APRN.CNP, DNP Work Phone: Start: 03-22-2019 Lipid 1996 panel - Serum or Plasma Gary Tapia APRN.COMBO WELDER Work Phone: Start: 04-07-2017 Gynecologic examination Routine gynecological exam Ivelisse Loya NP Start: 01-16-2017 Adult depression screening assessment Rah Davis APRN.BILLET BED OPERATOR, DNP Work Phone: Plan of Treatment Date Care Activity Detail Author Start: 05-29-2032 Urine microalbumin profile [facility] Start: 04-23-2029 Urine microalbumin profile DTAP,TDAP,TD (9 - Td or Tdap) [facility] Start: 01-14-2027 Diabetes Screening Diabetes Screenin g [facility] Start: 02-06-2026 End: 02-06-2026 Patient encounter procedure 02/06/2026 8:00 AM EDT Office Visit [facility] [place] [address] [place], [place] [address] Wilman Hester MD [address] [place] [address] physical [facility] [place] Comment on above: physical Start: 01-24-2026 Annual PCP Team Marketing Operations Coordinator coleen Disease Visit Annual PCP Team Chronic Disease Visit [facility] Start: 01-24-2026 Anxiety Screening Anxiety Screening [facility] Start: 01-24-2026 Depression Screening Depression Scre ening [facility] Start: 12-25-2025 End: 03-26-2026 25-hydroxyvitamin D3 [Mass/volume] in Serum or Plasma VITAMIN D 25 HYDROXY Lab Routine Vitamin D deficiency Encounter for long-term current use of medication Expected: 12/25/2025 (Approximate), Expires: 03/26/2026 [facility] Comment on above: Expected: 12/25/2025 (Approximate), Expires: 03/26/2026 Start: 12-25-2025 End: 03-26-2026 CBC W Auto Differential panel - Blood COMPLETE BLOOD COUNT AND DIFFERENTIAL Lab Routine Anemia, unspecified type Encounter for long-term current use of medication Expected: 12/25/2025 (Approximate), Expires: 03/26/2026 [facility] Comment on above: Expected: 12/25/2025 (Approximate), Expires: 03/26/2026 Start: 12-25-2025 End: 03-26-2026 Cobalamin (Vitamin B12) [Mass/volume] in Serum or Plasma VITAMIN B12 Lab Routine Anemia, unspecified type Encounter for long-term current use of medication Family history of B12 deficiency Expected: 12/25/2025 (Approximate), Expires: 03/26/2026 [facility] Comment on above: Expected: 12/25/2025 (Approximate), Expires: 03/26/2026 Start: 12-25-2025 End: 03-26-2026 Comprehensive metabolic 2000 panel - Serum or Plasma COMPREHENSIVE METABOLIC PANEL Lab Routine Encounter for long-term current use of medication Expected: 12/25/2025 (Approximate), Expires: 03/26/2026 [facility] Comment on above: Expected: 12/25/2025 (Approximate), Expires: 03/26/2026 Start: 12-25-2025 End: 03-26-2026 Lipid 1996 panel - Serum or Plasma LIPID PANEL, FASTING Lab Routine Encounter for long-term current use of medication Expected: 12/25/2025 (Approximate), Expires: 03/26/2026 [facility] Comment on above: Expected: 12/25/2025 (Approximate), Expires: 03/26/2026 Start: 09-27-2025 Screening for malign ant neoplasm of breast Mammogram Screening [facility] Start: 09-27-2025 Screening for malign ant neoplasm of cervix Cervical Cancer Screening [facility] Start: 09-04-2025 Colonoscopy COLONOSCOPY [facility] Start: 09-04-2025 COLORECTAL CANCER SCREENING COLORECTAL CANCER SCREENING [facility] Start: 09-04-2025 Screening for malign ant neoplasm of colon [facility] Start: 07-05-2025 End: 07-05-2025 Patient encounter procedure Depart[facility] Clinical -Laboratory Work Phone: Start: 01-24-2025 End: 04-25-2025 25-hydroxyvitamin D3 [Mass/volume] in Serum or Plasma [facility] Comment on above: Expected: 01/24/2025 , Expires: 04/25/2025 Start: 01-24-2025 End: 04-25-2025 CBC W Auto Differential panel - Blood [facility] Comment on above: Expected: 01/24/2025 , Expires: 04/25/2025 Start: 01-24-2025 End: 04-25-2025 Cobalamin (Vitamin B12) [Mass/volume] in Serum or Plasma [facility] Comment on above: Expected: 01/24/2025 , Expires: 04/25/2025 Start: 01-24-2025 End: 04-25-2025 Comprehensive metabolic 2000 panel - Serum or Plasma [facility] Work Phone: Comment on above: Expected: 01/24/2025 , Expires: 04/25/2025 Start: 01-24-2025 End: 04-25-2025 Lipid 1996 panel - Serum or Plasma [facility] Comment on above: Expected: 01/24/2025 , Expires: 04/25/2025 Start: 01-24-2025 End: 01-24-2025 Patient encounter procedure 01/24/2025 8:00 AM EDT Office Visit [facility] [place] [address] [facility] [place] [id number] Wilman Hester MD [address] [place], [place] [id number] Annual physical [facility] [place] Comment on above: Annual physical Start: 01-14-2025 Anxiety Screening Anxiety Screening [facility] Start: 01-14-2025 Depression Screening Depression Scre ening [facility] Start: 09-04-2024 Screening for malign ant neoplasm of breast Mammogram Screening [facility] Start: 05-26-2024 HPV TESTING HPV TESTING [facility] Start: 05-26-2024 PAP TESTING PAP TESTING [facility] Start: 05-26-2024 Screening for malign ant neoplasm of cervix [facility] Start: 05-09-2024 Covid-19 Vaccine ( season) Covid-19 Vaccine ( season) [facility] Start: 05-09-2024 Influenza vaccination Influenza Vacc ine (#1) [facility] Start: 03-31-2024 End: 03-31-2024 Nursing evaluation of patient and report 03/31/2024 10:30 AM EDT Nurse Visit [facility] [place] [address] [facility], [place] [id number] Nurse, Id [address] [place], [place] [id number] 2nd Men B [facility] [place] Comment on above: 2nd Men B Start: 03-22-2024 Lipid panel Lipid Screening [facility] Start: 03-22-2024 LIPID SCREEN LIPID SCREEN [facility] Start: 02-17-2024 End: 06-11-2024 Nursing evaluation of patient and report 02/17/2024 11:15 AM EDT Nurse Visit [facility] [place] [address] [place] [address] Nurse, [place] [address] [place] [address] Meningococcal B and MMR vaccine Family [facility] Comment on above: Meningococcal B and MMR vaccine Start: 01-14-2024 ANNUAL PCP TEAM HEATING SYSTEMS INSTALLER COLEEN DISEASE VISIT ANNUAL PCP TEAM CHRONIC DISEASE VISIT [facility] Start: 01-14-2024 HEPATITIS A (1 of 2 - Risk 2-dose series) HEPATITIS A (1 of 2 - Risk 2-dose series) [facility] Comment on above: Postponed from 11/27 (Declined at this time) Start: 08-04-2023 Colonoscopy w/biopsy single/multiple COLONOSCOPY AND BIOPSY [facility] Start: 08-04-2023 Egd insert guide wir e dilator passage esophagus EGD GUIDE WIRE INSERTION [facility] Start: 08-04-2023 Egd transoral biopsy single/multiple EGD BIOPSY SINGLE/MULTIPLE [facility] Start: 08-04-2023 Patient discharge [facility] Start: 07-19-2023 DIABETES SCREEN DIABETES SCREEN [facility] Start: 05-09-2023 Covid-19 Vaccine ( season) Covid-19 Vaccine ( season) [facility] Start: 09-08-2022 DEPRESSION ASSESSMENT DEPRESSION ASS ESSMENT [facility] Start: 05-09-2022 Influenza vaccination INFLUENZ A (Season Ended) [facility] Start: 10-20-2021 ANNUAL PCP TEAM HEATING SYSTEMS INSTALLER COLEEN DISEASE VISIT ANNUAL PCP TEAM CHRONIC DISEASE VISIT [facility] Start: 05-18-2021 Mammography MAMMOGRAM [facility] Start: 01-16-2018 Adult depression screening assessment DEPRESSION SCREENING [facility] Start: 04-07-2017 End: 04-07-2017 Appointment Appointment [facility] Start: 2014 COLOGUARD (FIT-DNA) COLOGUARD (FIT-D NA) [facility] Start: [address] COLONOGRAPHY [facility] Start: 2014 FECAL OCCULT BLOOD FECAL OCCULT BLOO D [facility] Start: 2014 Screening for malign ant neoplasm of colon [facility] Start: 2014 SIGMOIDOSCOPY SIGMOIDOSCOPY [facility] Start: 04-26-2010 PNEUMOCOCCAL (2 - PCV) PNEUMOCOCCAL (2 - PCV) [facility] Start: 09-22-1989 MMR (2 of 2 - Risk 2-dose series) MMR (2 of 2 - Risk 2-dose series) [facility] Start: 09-22-1989 MMR Vaccine (2 of 2 - Risk 2-dose series) MMR Vaccine (2 of 2 - Risk 2-dose series) [facility] Start: 1988 Hepatitis A Vaccine (1 of 2 - Risk 2-dose series) Hepatitis A Vaccine (1 of 2 - Risk 2-dose series) [facility] Start: 1988 SHINGRIX VACCINE (1 of 2) SHINGRIX VACCINE (1 of 2) [facility] Start: 11-28-1987 SPIROMETRY SPIROMETRY [facility] Start: 11-28-1979 Meningococcal B Vaccine: Consider Based On Risk (1 of 4 - Increased Risk) Meningococcal B Vaccine: Consider Based On Risk (1 of 4 - Increased Risk) [facility] Start: 11-28-1979 MENINGOCOCCAL B: Consider based on risk (1 of 4 - Increased Risk Bexsero 2-dose series) MENINGOCOCCAL B: Consider based on risk (1 of 4 - Increased Risk Bexsero 2-dose series) [facility] Start: 1974 COVID-19 VACCINE (#1) COVID-19 VACCI NE (#1) [facility] Start: 1970 HEPATITIS A (1 of 2 - Risk 2-dose series) HEPATITIS A (1 of 2 - Risk 2-dose series) [facility] Hepa vaccine adult d ose for intramuscular use HEP A VACCINE, ADULT (HAVRIX, VAQTA) Immunization/Injection Routine Encounter for immunization 1 Occurrences starting 01/15/2024 [facility] Comment on above: 1 Occurrences starti ng 01/15/2024 End: 02-14-2024 ALFONSO SCREENING ALFONSO SCREENING Radiology Routine Encounter for screening mammogram for breast cancer 1 Occurrences starting 01/15/2023 until 02/14/2024 [facility] Work Phone: Comment on above: 1 Occurrences starti ng 01/15/2023 until 02/14/2024 Measles mumps rubell a virus vaccine live subq MMR VACCINE (M-M-R II, PRIORIX) Immunization/Injection Routine Encounter for immunization Ordered: 01/15/2024 [facility] Comment on above: Ordered: 01/15/2024 MENINGOCOCCAL B VACC INE (BEXSERO) MENINGOCOCCAL B VACCINE (BEXSERO) Immunization/Injection Routine Encounter for immunization Ordered: 01/15/2024 [facility] Work Phone: Comment on above: Ordered: 01/15/2024 MENINGOCOCCAL B VACC INE (BEXSERO) MENINGOCOCCAL B VACCINE (BEXSERO) Immunization/Injection Routine Need for vaccination Ordered: 03/08/2024 [facility] Work Phone: Comment on above: Ordered: 03/08/2024 Patient referral [facility] Work Phone: Procedure [facility] Procedure [facility] Protein measurement [facility] End: 02-12-2024 SPIROMETRY - BASELINE AND POST DILATOR SPIROMETRY - BASELINE AND POST DILATOR PFT Routine Mild intermittent asthma without complication 1 Occurrences starting 01/13/2023 until 02/12/2024 [facility] Work Phone: Comment on above: 1 Occurrences starti ng 01/13/2023 until 02/12/2024 Vitamin D, 1,25-dihydroxy measurement [facility] Work Phone: [facility] Immunizations Immunization Date Immunization Notes Care Provider Екатерина zhao 07-10-2024 influenza, seasonal, injectable Immunization [place] Work Phone: [facility] 03-31-2024 meningococcal B vaccine, recombinant, OMV, adjuvanted Immunization [place] Work Phone: [facility] 03-02-2024 meningococcal B vaccine, recombinant, OMV, adjuvanted [place] Nurse Work Phone: [facility] 06-27-2023 influenza, seasonal, injectable, preservative free Gary Tapia APRN.COMBO WELDER Work Phone: [facility] 06-27-2023 influenza virus vaccine, unspecified formulation Wilman Hester MD Work Phone: [facility] 01-13-2023 pneumococcal (PCV20) vaccine, 20 valent (PREVNAR 20) Wilman Hester MD Work Phone: [facility] 01-13-2023 pneumococcal Conjugate, unspecified formulation Wilman Hester MD Work Phone: [facility] Work Phone: 09-03-2022 zoster vaccine recombinant Wilman Hester MD Work Phone: [facility] 06-28-2022 influenza, seasonal, injectable, preservative free Wilman Hester MD Work Phone: [facility] 05-29-2022 tetanus toxoid, reduced diphtheria toxoid, and acellular pertussis vaccine, adsorbed Wilman Hester MD Work Phone: [facility] 05-29-2022 zoster vaccine recombinant Wilman Hester MD Work Phone: [facility] 08-24-2021 COVID-19 original vaccine, age 12+ yr, monovalent (PFIZER-BIONTECH - PURPLE TOP) Wilman Hester MD Work Phone: [facility] 04-08-2021 COVID-19 original vaccine, age 12+ yr, monovalent (PFIZER-BIONTECH - PURPLE TOP) Wilman Hester MD Work Phone: [facility] 12-30-2020 COVID-19 original vaccine, full dose, monovalent (MODERNA) Wilman Hester MD Work Phone: [facility] 11-06-2020 COVID-19 original vaccine, full dose, monovalent (MODERNA) Wilman Hester MD Work Phone: [facility] 10-13-2020 COVID-19 original vaccine, full dose, monovalent (MODERNA) Wilman Hester MD Work Phone: [facility] 07-05-2020 influenza, injectabl e, quadrivalent, contains preservative Rah Davis APRN.BILLET BED OPERATOR, DNP Work Phone: [facility] 10-13-2019 COVID-19 original vaccine, full dose, monovalent (MODERNA) Wilman Hester MD Work Phone: [facility] 09-03-2019 influenza, injectabl e, quadrivalent, contains preservative Rah Blaz FOOD AND BEVERAGE LEAD.[facility] Work Phone: [facility] 04-23-2019 tetanus toxoid, reduced diphtheria toxoid, and acellular pertussis vaccine, adsorbed Rah Blaz FOOD AND BEVERAGE LEAD.[facility] Work Phone: [facility] Work Phone: 08-21-2017 influenza, injectabl e, quadrivalent, preservative free Rah Blaz FOOD AND BEVERAGE LEAD.[facility] Work Phone: [facility] Work Phone: 06-19-2009 influenza virus vaccine, unspecified formulation Rah Blaz FOOD AND BEVERAGE LEAD.[facility] Work Phone: [facility] Work Phone: 04-26-2009 pneumococcal polysaccharide vaccine, 23 valent Rah Blaz FOOD AND BEVERAGE LEAD.[facility] Work Phone: [facility] 04-26-2009 tetanus toxoid, reduced diphtheria toxoid, and acellular pertussis vaccine, adsorbed Rah Blaz FOOD AND BEVERAGE LEAD.[facility] Work Phone: [facility] 07-24-2007 influenza virus vaccine, unspecified formulation Rah Blaz FOOD AND BEVERAGE LEAD.[facility] Work Phone: [facility] Work Phone: 11-13-2001 hepatitis B vaccine, adult dosage Rah Blaz FOOD AND BEVERAGE LEAD.[facility] Work Phone: [facility] Work Phone: 07-08-2001 hepatitis B vaccine, adult dosage Rah Blaz FOOD AND BEVERAGE LEAD.[facility] Work Phone: [facility] Work Phone: 05-27-2001 hepatitis B vaccine, adult dosage Rah Blaz FOOD AND BEVERAGE LEAD.[facility] Work Phone: [facility] Work Phone: 09-30-1994 diphtheria and tetan us toxoids, adsorbed for pediatric use Rah Davis APRN.[facility] Work Phone: [facility] Work Phone: 09-30-1994 tuberculin skin test ; purified protein derivative solution, intradermal Immunization [place] Work Phone: [facility] 08-25-1989 measles, mumps and rubella virus vaccine Rah Davis APRN.[facility] Work Phone: [facility] Work Phone: 01-17-1982 diphtheria and tetan us toxoids, adsorbed for pediatric use Rah Davis APRN.[facility] Work Phone: [facility] Work Phone: 04-27-1975 DTP-Haemophilus influenzae type b conjugate vaccine Rah Davis APRN.[facility] Work Phone: [facility] Work Phone: 04-27-1975 trivalent poliovirus vaccine, live, oral Rah Davis APRN.[facility] Work Phone: [facility] Work Phone: 12-21-1971 rubella and mumps virus vaccine Rah Davis APRN.[facility] Work Phone: [facility] Work Phone: 06-11-1971 trivalent poliovirus vaccine, live, oral Rah Davis APRN.[facility] Work Phone: [facility] Work Phone: 12-11-1970 rubella virus vaccine Rah Blasher GRIMALDO.[facility] Work Phone: [facility] Work Phone: 07-20-1970 vaccinia (smallpox) vaccine, diluted Rah Davis APRN.[facility] Work Phone: [facility] Work Phone: 03-06-1970 DTP-Haemophilus influenzae type b conjugate vaccine Rah Davis APRN.[facility] Work Phone: [facility] Work Phone: 03-06-1970 trivalent poliovirus vaccine, live, oral Rah Blaz FOOD AND BEVERAGE LEAD.[facility] Work Phone: [facility] Work Phone: 02-06-1970 DTP-Haemophilus influenzae type b conjugate vaccine Rah Blaz FOOD AND BEVERAGE LEAD.[facility] Work Phone: [facility] Work Phone: 01-09-1970 DTP-Haemophilus influenzae type b conjugate vaccine [employer] LEAD.[facility] Work Phone: [facility] Work Phone: 01-09-1970 trivalent poliovirus vaccine, live, oral Rah [employer] LEAD.[facility] Work Phone: [facility] Work Phone: 1970 DTP-Haemophilus influenzae type b conjugate vaccine Rah Blaz [employer] LEAD.[facility] Work Phone: [facility] Work Phone: NEGATED: Highlighted row has not occurred!01-15-2024 measles, mumps and rubella virus vaccine Gary Tapia [employer] LEAD.[employer] Work Phone: [facility] Comment on above: Deferred: Postponed NEGATED: Highlighted row has not occurred!01-15-2024 meningococcal B vaccine, recombinant, OMV, adjuvanted Gary Tapia [employer] LEAD.[employer] Work Phone: [facility] Comment on above: Deferred: Postponed Payers Date Payer Category Payer Self-pay [id number] 2023 Private Health Insurance [facility] [id number] 2023 Unknown [id number] 2018 Unknown [employer] PPO [id number] 2018-Present [phone] [address] [place] [address] PPO [id number] 2016 Unknown [id number] 2016 Unknown [employer] [id number] 2013 Unknown [id number] Unknown [id number] Unknown [id number] Unknown [id number] Unknown [id number] Unknown [id number] Unknown [id number] Unknown [id number] Unknown [id number] Social History Date Type Detail Facility Start: 10-09-2021 End: 09-04-2023 Tobacco smoking status NHIS Unknown if ever smoked [facility] Start: 07-02-2021 None [facility] Start: 07-02-2021 Homeless [facility] Start: 07-02-2021 Non-smoker [facility] Start: 1970 Sex Assigned At Female [facility] Start: 12-02-2011 End: 12-22-2023 Tobacco smoking status NHIS Never smoked tobacco [facility] Start: 11-20-2020 End: 01-24-2025 Alcohol intake Current drinker of alcohol (finding) [facility] Start: 07-05-2020 History SDOH Alcohol Frequency 2 [facility] Start: 07-05-2020 History SDOH Alcohol Std Drinks 1 [facility] Start: 08-19-2007 History SDOH Alcohol Comment rarely [facility] Start: 07-05-2020 History SDOH Social Connections Phone 4 [facility] Start: 07-05-2020 History SDOH Social Connections Get Together 3 [facility] Start: 07-05-2020 History SDOH Financial 5 [facility] Start: 07-04-2020 Education 18 [facility] Start: 12-02-2011 End: 02-17-2023 Tobacco use and exposure Smokeless tobacco non-user [facility] Start: 01-13-2023 End: 01-14-2024 History of Social function [facility] Start: 01-13-2023 End: 01-14-2024 [facility] Utilities [facility] Has the [employer], or [employer] threatened to shut off services in your home in past 12Mo No [facility] Do you belong to any clubs or organizations such as lutheran groups, unions, fraternal or athletic groups, or school groups? Yes [facility] Are you now , , , , never or living with a partner? [facility] How often to you hav e a drink containing alcohol? Monthly or less [facility] How many standard dr inks containing alcohol do you have on a typical day? Patient does not drink [facility] How often do you hav e 6 or more drinks on 1 occasion? Never [facility] Do you feel stress - tense, restless, nervous, or anxious, or unable to sleep at night because your mind is troubled all the time - these days [OSQ] Not at all [facility] (I/We) worried wheth er (my/our) food would run out before (I/we) got money to buy more. Never true [facility] Start: 03-18-2019 Gender identity Identifies as female gender (finding) [facility] NEGATED: Highlighted row [facility] Goals Date Patient Goal Desired Activity /State Functional Status Date Assessment Result Facility 01-10-2015 Are you deaf, or do you have serious difficulty hearing No 01/10/2015 8:15 AM EDT Jaylin Nguyen LPN No [facility] 01-10-2015 Are you blind, or do you have serious difficulty seeing, even when wearing glasses No 01/10/2015 8:15 AM Jaylin Duran LPN No [facility] 01-10-2015 Do you have serious difficulty walking or climbing stairs No 01/10/2015 8:15 AM EDT Jaylin Nguyen LPN No [facility] 01-10-2015 Do you have difficul ty dressing or bathing No 01/10/2015 8:15 AM Jaylin Duran LPN No [facility] 01-10-2015 Because of a physica l, mental, or emotional condition, do you have difficulty doing errands alone such as visiting a physician's office or shopping No 01/10/2015 8:15 AM Jaylin Duran LPN [facility] Mental Status Date Assessment Result Facility 08-04-2023 Cognitive function Voice/Name [facility] Work Phone: 01-10-2015 Because of a physica l, mental, or emotional condition, do you have serious difficulty concentrating, remembering, or making decisions No 01/10/2015 8:15 AM EDJaylin Eagle LPN No [facility] Clinical Notes 11-05-2013 to 06-29-2025 Patient InstructionsWilman Hester MD - 01/24/2025 8:11 AM Juancarlos Casiano APRN.BILLET BED OPERATOR - 01/17/2025 7:27 AM Kraig SocorroDILLAN lopez.BILLET BED OPERATOR - 07/16/2024 9:50 AM EST Note Date & Type Note [facility] 06-29-2025 Progress note [facility] 01-24-2025 Instructions Wilman Hester MD - 01/24/2025 [...] scheduled going forward. documented in this encounter [facility] 01-24-2025 Note HNO ID: [id number] Author: WILMAN HESTER MD Service: ? Author Type: Physician Type: Progress Notes Filed: 01/24/2025 08:51 Note Text: This note was created using evolsoter. Subjective Chang Maradiaga is a 54 year [...] PAST MEDICAL HISTORY Diagnosis Date Crohn's disease ([facility]) Dr. Carrasquillo in [facility] Diarrhea Family history of aortic valve disorder 08/04/2017 brother has bicuspid aortic valve Mild intermittent asthma without complication ([facility]) 08/22/2015 Other acute embolism veins 1999 Regional enteritis of large intestine ([facility]) 1991 Crohns Unspecified deficiency anemia Vitamin D [...] breath sounds. Ab (more content not included)... [facility] 01-24-2025 History of Present illness Narrative This note was created using [employer]. Subjective Chang Maradiaga is a 54 year [...] PAST MEDICAL HISTORY Diagnosis Date Crohn's disease ([facility]) Dr. Carrasquillo in [facility] Diarrhea Family history of aortic valve disorder 08/04/2017 brother has bicuspid aortic valve Mild intermittent asthma without complication ([facility]) 08/22/2015 Other acute embolism veins 1999 Regional enteritis of large intestine ([facility]) 1991 Crohns Unspecified deficiency anemia Vitamin D [...] 1.00 - 4.00 k/uL 2.04 2.63 3.11 [place]% % 9.8 7.5 9.2 Abs [place] <0.87 k/uL 0.68 0.64 0.64 Eosin% % [...] Ordered labs for next year as well. Wilamn Hester MD Recording using [employer] software for draft documentation of the visit was discussed with the patient/authorized loan servicing representative; all questions welcomed and answered. Patient/authorized loan servicing representative agreed to proceed documented in this encounter [facility] 01-17-2025 Note HNO ID: [id number] Author: JUANCARLOS CARRERA APRN.BILLET BED OPERATOR Service: ? Author Type: Nurse Practitioner Type: [...] PAST MEDICAL HISTORY Diagnosis Date Crohn's disease ([facility]) Dr. Carrasquillo in [facility] Diarrhea Family history of aortic valve disorder 08/04/2017 brother has bicuspid aortic valve Mild intermittent asthma without complication ([facility]) 08/22/2015 Other acute embolism veins 1999 Regional enteritis of large intestine ([facility]) 1991 Crohns Unspecified deficiency anemia Vitamin D deficiency 02/26/2013 PAST SURGICAL HISTORY Procedure Laterality Date COLECTOMY PARTIAL W/ANASTOMOSIS Hemicolectomy COLECTOMY PARTIAL W/ANASTOMOSIS 06/2013 COLONOSCOPY FLX DX W/COLLJ SPEC WHEN PFRMD 1991 Colonoscopy COLONOSCOPY FLX DX W/COLLJ SPEC WHEN PFRMD 08/03/2018 Colonoscopy COLONOSCOPY GEN ANES COLONOSCOPY GEN ANES 09/04/2020 COLONOSCOPY W/BIOPSY SINGLE/MULTIPLE 2010 Dr. Madden/due in 2013 [facility] CHOLECYSTECTOMY 04/08/2016 [facility] - Dr. Chris Ramos LAPS SURG [...] provider as needed. (more content not included)... [facility] 01-17-2025 History of Present illness Narrative [...] PAST MEDICAL HISTORY Diagnosis Date Crohn's disease ([facility]) Dr. Carrasquillo in [facility] Diarrhea Family history of aortic valve disorder 08/04/2017 brother has bicuspid aortic valve Mild intermittent asthma without complication ([facility]) 08/22/2015 Other acute embolism veins 2000 Regional enteritis of large intestine ([facility]) 1991 Crohns Unspecified deficiency anemia Vitamin D deficiency 02/26/2013 PAST SURGICAL HISTORY Procedure Laterality Date COLECTOMY PARTIAL W/ANASTOMOSIS Hemicolectomy COLECTOMY PARTIAL W/ANASTOMOSIS 06/2013 COLONOSCOPY FLX DX W/COLLJ SPEC WHEN PFRMD 1991 Colonoscopy COLONOSCOPY FLX DX W/COLLJ SPEC WHEN PFRMD 08/03/2018 Colonoscopy COLONOSCOPY GEN ANES COLONOSCOPY GEN ANES 09/04/2020 COLONOSCOPY W/BIOPSY SINGLE/MULTIPLE 2010 Dr. Madden/angelita in 2013 [facility] CHOLECYSTECTOMY 04/08/2016 [facility] - Dr. Chris Ramos LAPS SURG [...] of care. This note was generated using SentiOne software. It may contain errors in wording, punctuation, or spelling. Juancarlos Carrera APRN.EPHRAIM documented in this encounter [facility] 07-16-2024 Note HNO ID: [id number] Author: SOCORRO HSU APRN.EPHRAIM Service: ? Author Type: Nurse Practitioner Type: Progress Notes Filed: 07/16/2024 10:02 Note Text: This note was created using evolsoter. Jeyson Maradiaga is a 53 year old [...] history is provided by the patient. No assistant speech language pathologist was used. Conjunctivitis The current episode started [...] PAST MEDICAL HISTORY Diagnosis Date Crohn's disease ([facility]) Dr. Carrasquillo in [facility] Diarrhea Family history of aortic valve disorder 08/04/2017 brother has bicuspid aortic valve Mild intermittent asthma without complication 08/22/2015 Other acute embolism veins 1999 Regional enteritis of large intestine ([facility]) 1991 Crohns Unspecified deficiency anemia Vitamin D deficiency 02/26/2013 PAST SURGICAL HISTORY Procedure Laterality Date COLECTOMY PARTIAL W/ANASTOMOSIS Hemicolectomy COLECTOMY PARTIAL W/ANASTOMOSIS 06/2013 COLONOSCOPY FLX DX W/COLLJ SPEC WHEN PFRMD 1991 Colonoscopy COLONOSCOPY FLX DX W/COLLJ SPEC WHEN PFRMD 08/03/2018 Colonoscopy COLONOSCOPY GEN ANES COLONOSCOPY GEN ANES 09/04/2020 COLONOSCOPY W/BIOPSY SINGLE/MULTIPLE 2010 Dr. Madden/angelita in 2013 [facility] CHOLECYSTECTOMY 04/08/2016 [facility] - Dr. Chris Ramos LAPS SURG [...] ear normal. Nose: (more content not included)... [facility] 07-16-2024 History of Present illness Narrative This note was created using [employer]. Subjective Chang Maradiaga is a 53 year [...] history is provided by the patient. No assistant speech language pathologist was used. Conjunctivitis The current episode started [...] PAST MEDICAL HISTORY Diagnosis Date Crohn's disease ([facility]) Dr. Carrasquillo in [facility] Diarrhea Family history of aortic valve disorder 08/04/2017 brother has bicuspid aortic valve Mild intermittent asthma without complication 08/22/2015 Other acute embolism veins 1999 Regional enteritis of large intestine ([facility]) 1991 Crohns Unspecified deficiency anemia Vitamin D deficiency 02/26/2013 PAST SURGICAL HISTORY Procedure Laterality Date COLECTOMY PARTIAL W/ANASTOMOSIS Hemicolectomy COLECTOMY PARTIAL W/ANASTOMOSIS 06/2013 COLONOSCOPY FLX DX W/COLLJ SPEC WHEN PFRMD 1991 Colonoscopy COLONOSCOPY FLX DX W/COLLJ SPEC WHEN PFRMD 08/03/2018 Colonoscopy COLONOSCOPY GEN ANES COLONOSCOPY GEN ANES 09/04/2020 COLONOSCOPY W/BIOPSY SINGLE/MULTIPLE 2010 Dr. Madden/angelita in 2013 [facility] CHOLECYSTECTOMY 04/08/2016 [facility] - Dr. Chris Ramos LAPS SURG [...] concerns or if symptoms persist. Socorro Hsu APRN.BILLET BED OPERATOR documented in this encounter [facility] 03-31-2024 Note HNO ID: [id number] Author: ROSA MARRERO LPN Service: ? Author Type: LICENSED NURSE Type: Progress Notes Filed: 03/31/2024 11:08 Note Text: Patient presents for Meningococcal B vaccine. Denies any problems at this time. Tolerated injection well. Rosa Marrero LPN [facility] 03-08-2024 Telephone encounter Note Patient scheduled for nurse visit 03/31/24 to receive Meningococcal B vaccine. Please place order at this time. Rosa Marrero LPN [facility] 03-08-2024 Miscellaneous Notes Patient scheduled for nurse visit 03/31/24 to receive Meningococcal B vaccine. Please place order at this time. Rosa Marrero LPN documented in this encounter [facility] 01-15-2024 History of Present illness Narrative SUBJECTIVE: [...] usual state of health. Seeing Dr. Carrasquillo employment service specialist for Crohn's disease. Taking Humira. Notes Crohn's is currently well-controlled. Does take an Humira for about 10 years. Stable on this. States her insurance company wanted her to try a bio similar but her employment service specialist said no that she was stable on [...] Date Crohn's disease ([facility]) Dr. Carrasquillo in [facility] Diarrhea Family history of aortic valve [...] - MMR VACCINE (M-M-R II, PRIORIX) - [facility]ER-[facility]TNational [facility] Services COVID-19 VACCINE (2022- [place]ASON) AGE 12+ YR [...] 12 mo follow up MD Gary Olea APRN.COMBO WELDER PHQ-9 Score: 0 (Minimal Depression) No further intervention at this time documented in this encounter [facility] 08-04-2023 History and physi fanny note Note Date/Time August 04, 2023 7:32am [facility] Medical Records Department [address] [place] [address] History & Physical Exam 08/04/23 0731 MR#: [id number] Acct: [id number] Name: CHANG MARADIAGA Rep #:[id number] : 1970 52 From: Harsh Friend DO PCP: Dr. Wilman Hester MD Status:[facility] Location: [place] [address] History and Physical Date of Admission: 08/04/23 [...] abnormality LFT AST 31-ALT H58-AP 74 Rheumatology [facility] established 12.11.21. OV 12.31.21 with suspected [...] inspection Palpation: soft Quality Reporting Tobacco Screening ([facility] 138) Smoking Status: Never smoker Assessment [...] Wilman Hester MD; Harsh Carrasquillo DO~ Signed [facility] Work Phone: [phone]) 869-327311-27-2023 [facility]2023 Procedure note [facility]2023 Procedure [facility] 01-13-2023 History of Present illness Narrative* Wilman Hester MD - 01/13/2023 1:15 PM EDT This note was created using [employer] Subjective Chang Maradiaga is a 52 year old female. HISTORY Chang Maradiaga is a 52 year old lady here to be formally established with me. Noted that has had COVID infection documented after had it. Thinks had August 2019. Got vaccines except not the bivalent one. SUPERVISOR ALUMINUM FABRICATION--Ivelisse Loya at [facility] Noted postmenopausal weight gain. Was exercising [...] Dr. Madden/due in 2013 [facility] CHOLECYSTECTOMY 04/08/2016 [facility] - Dr. Chris Ramos LAPS SURG [...] sleep. Wilman Hester MD [facility] Instructions* Patient Instructions* Nathalia Sarah, GIULIANA - [...] lenses. Recommended yearly exams. [facility] History of Present illness Narrative* Nathalia Sarah [...] as obtained by others. [facility] Miscellaneous Notes* Telephone Encounter - Noemi Abreu [...] - 02/13/2022 7:46 AM EDT Sent a [employer] message asking the pt to call the [...] you. Jaylin Nguyen LPN documented [facility] History of Past illness Narrative* Problem Noted Date Resolved Date Fracture of radial head, left, closed 11/05/2013 08/22/2015 Kozeozz-rd-zly 09/03/2012 01/16/2017 Other symptoms involving cardiovascular system 1 10/20/2006 08/22/2015 Diarrhea 02/18/2006 01/16/2017 documented as of this encounter (statuses as of 02/18/2022) [address]28-2014 History of Past illness Narrative* Problem Noted Date Resolved Date Fracture of radial head, left, closed 11/05/2013 08/22/2015 Bcbtsea-oj-huc 09/03/2012 01/16/2017 Other symptoms involving cardiovascular system 1 10/20/2006 08/22/2015 Diarrhea 02/18/2006 01/16/2017 documented as of this encounter (statuses as of 11/12/2022) [facility] History of Past illness Narrative* Problem Noted Date Resolved Date Fracture of radial head, left, closed 11/05/2013 08/22/2015 Zkunoyz-pf-mqp 09/03/2012 01/16/2017 Other symptoms involving cardiovascular system 1 10/20/2006 08/22/2015 Diarrhea 02/18/2006 01/16/2017 documented as of this encounter (statuses as of 01/20/2023) [facility] History of Past illness Narrative* Problem Noted Date Resolved Date Fracture of radial head, left, closed 11/05/2013 08/22/2015 Ecagrqn-lc-mjb 09/03/2012 01/16/2017 Other symptoms involving cardiovascular system 1 10/20/2006 08/22/2015 Diarrhea 02/18/2006 01/16/2017 documented as of this encounter (statuses as of 02/07/2023) [facility] note* Diagnosis Onset Date Resolution Status Crohn's disease acute Positive double stranded DNA antibody test acute [facility] Work Phone: evaluation note* Diagnosis Mild intermittent asthma without complication Unspecified asthma documented in this encounter [facility] noteNo assessment information availableWCleveland Clinic [facility] Work Phone: [employer] note* Diagnosis Onset Date Resolution Status Climacteric acute Encounter for routine gynecological examination noneactive [facility] Work Phone: evaluation note* Diagnosis Onset Date Resolution Status Climacteric acute Encounter for routine gynecological examination noneactive Crohn's disease [facility] Work Phone: evaluation note* Diagnosis Myopia of both eyes- Primary Myopia Regular astigmatism of both eyes Regular astigmatism Presbyopia documented in this encounter [facility] note* Diagnosis Encounter for screening mammogram for breast cancer documented in this encounter [facility] note* Diagnosis Routine medical exam- Primary Routine general medical examination at a health care facility Mild intermittent asthma without complication Unspecified asthma Encounter for immunization Need for other specified prophylactic vaccination against single bacterial disease documented in this encounter [facility] note* Diagnosis Onset Date Resolution Status Crohn's disease [facility] Work Phone: evaluation note* Diagnosis Onset Date Resolution Status Encounter for routine gynecological examination noneactive [facility] Work Phone: evaluation note* Diagnosis Routine medical [...] Anemia, unspecified type documented in this encounter [facility] note* Diagnosis Need for vaccination- Primary Need for prophylactic vaccination and inoculation against unspecified single disease [facility] Diagnosis Need for vaccination- Primary Need for prophylactic vaccination and inoculation against unspecified single disease [facility] Diagnosis Conjunctivitis of left eye, unspecified conjunctivitis type- Primary [facility] Diagnosis Bacterial sinusitis- Primary Unspecified sinusitis (chronic) [facility]* Diagnosis Routine medical exam- Primary Routine [...] of other condition [facility]* Diagnosis Onset Date Resolution Status Admit Date Crohn's disease chronic June 092024 8:03am [facility] Work Phone: Progress note Author Harsh Carrasquillo [facility] Note Date/Time June 29, 2025 9 :47am [facility] [address] [place] [address] OFFICE VISIT Date of Service: 06/29/25 MR#: [id number] Acct: [id number] Name: CHANG MARADIAGA Rep #: [id number] : 1970 Provider: Harsh Carrasquillo DO Age/Sex: 54/F Location: [facility] Status: Signed Intake Vital Signs 09/27/24 09:01 [...] 2 current occupational status: employed current occupation: [employer] Smoking Status: Never smoker alcohol intake: current [...] abnormality LFT AST 31-ALT H58-AP 74 Rheumatology [facility] established .01.27. OV 12.31.21 with suspected [...] at this time. Pt continues with Humira I3ohroh and cholestyramine daily. ESR / CRP Calp [...] vis,est,level 3 Diagnoses Crohn's disease K50.90 06/29/25 6596 <Electronically signed by Harsh juan DO> Date _ Harsh Friend DO Cosigner Signature: Date (if applicable) CC: ~ [facility] Work Phone: Reason for referral (narrative)* Diagnostic Procedure Only (Routine) - Pending Review Specialty Diagnoses / Procedures Referred By Contpatt t Referred To Contact [facility] Diagnoses Encounter for screening mammogram for breast cancer Procedures ALFONSO SCREENING SCREENING MAMMOGRAPHY BI 2-VIEW BREAST INC CAD Wilman Hester MD [address] [place] [address] [facility] [address] [place] [address] Referral ID Status Reason Start Date Expiration Date Visits Requested Visits Authorized [id number] Pending Review Auto-Generat ed Referral 01/15/2023 02/14/2024 1 1 [facility]ative)No reason for referral information availableMay[facility] Work Phone: Chief Complaint and Reason for Visit Chief Complaint 6 wk FU Reason for Visit Crohn's disease Positive double stranded DNA antibody test Chief Complaint 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) SCREENING EORDERS Reason for Visit Climacteric Encounter for routine gynecological examination Chief Complaint 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) SCREENING EORDERS HEAD TRAUMA FROM FALL Reason for Visit Climacteric Encounter for routine gynecological examination Chief Complaint 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) SCREENING EORDERS HEAD TRAUMA FROM FALL FU Reason for Visit Climacteric Encounter for routine gynecological examination Crohn's disease Chief Complaint 4 MO FU E ORDERS INT LABSPEC Reason for Visit Crohn's disease Chief Complaint SCREENING 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) Reason for Visit Encounter for routin e [...] No April 01, 2016 2:28pm Power of Crime Specialist No April 01 6 2:28pm Documents on File Type Date Recorded Patient Marketing Support Specialist Expl anation Advance Directive(s) 09/04/2020 1:38 PM Advance Directive(s) 08/28/2020 1:06 PM Advance Directive(s) 08/03/2018 7:03 AM Advance Directive(s) 07/14/2018 1:51 PM Advance Directive Response Recorded Date/ Time Advance Directives No April 01 1:28pm Living Will No April 01, 2016 1:28pm Power of Crime Specialist No April 01 6 1:28pm Advance Directive Response Recorded Date/ Time Name of Medical Power of Crime Specialist JUAN MARADIAGA July 29, 2023 11:34am Advance Directives No May 08, 2023 7:12am Living Will Yes July 29, 2 023 11:34am Power of Crime Specialist Yes July 29, 2023 11:34am Advance Directive [...] SPMTRY PRE&POST-BRNCDILAT ADMN Wilman Hester MD [address] [place] [address] Respiratory Trenary [address] [place] [id number] Referral ID Status Reason Start Date Expiration Date Visits Requested Visits Authorized [id number] Authorized Auto-Generat ed Referral 02/17/2023 09/07/2023 1 [...] or prosecute any alcohol or drug abuse patient.[facility] the event this information is protected by the Federal Confidentiality of Alcohol and Drug Abuse Patient Records regulations: The Federal rules restrict any use of the information to criminally investigate or prosecute any alcohol or drug abuse patient.[facility] the event this information is protected by the Federal Confidentiality of Alcohol and Drug Abuse Patient Records regulations: The Federal rules restrict any use of the information to criminally investigate or prosecute any alcohol or drug abuse patient.[facility] the event this information is protected by the Federal Confidentiality of Alcohol and Drug Abuse Patient Records regulations: The Federal rules restrict any use of the information to criminally investigate or prosecute any alcohol or drug abuse patient.[facility] the event this information is protected by the Federal Confidentiality of Alcohol and Drug Abuse Patient Records regulations: The Federal rules restrict any use of the information to criminally investigate or prosecute any alcohol or drug abuse patient.[facility] the event this information is protected by the Federal Confidentiality of Alcohol and Drug Abuse Patient Records regulations: The Federal rules restrict any use of the information to criminally investigate or prosecute any alcohol or drug abuse patient.[facility]ima[facility] the event this information is protected by the Federal Confidentiality of Alcohol and Drug Abuse Patient Records regulations: The Federal rules restrict any use of the information to criminally investigate or prosecute any alcohol or drug abuse patient.[facility] the event this information is protected by the Federal Confidentiality of Alcohol and Drug Abuse Patient Records regulations: The Federal rules restrict any use of the information to criminally investigate or prosecute any alcohol or drug abuse patient.[facility] the event this information is protected by the Federal Confidentiality of Alcohol and Drug Abuse Patient Records regulations: The Federal rules restrict any use of the information to criminally investigate or prosecute any alcohol or drug abuse patient.[facility] the event this information is protected by the Federal Confidentiality of Alcohol and Drug Abuse Patient Records regulations: The Federal rules restrict any use of the information to criminally investigate or prosecute any alcohol or drug abuse patient.[facility] the event this information is protected by the Federal Confidentiality of Alcohol and Drug Abuse Patient Records regulations: The Federal rules restrict any use of the information to criminally investigate or prosecute any alcohol or drug abuse patient.[facility] Reason for Visit (unrecogniz ed section and [...] MINUTES 4C EXCEPTION Self Wilman Hester MD [address] [place] [address] Referral ID Status Reason Start Date Expiration Date Visits Re quested Visits Authorized [id number] Closed 01/13/2023 09/07/2023 1 1 Reason Comments Physical Reason Comments Immunizations Reason Comments Orders Reason Comments Conjunctivitis L eye x1 day Reason Comments Sinus Problem Sinus pain and press ure, congestion, Puga and fever off and on x 1.5 weeks Care Teams (unrecognized sec tion and content) Claims Analyst Relationship Specialty Start Date End Date Kishan Ramos III, MD [place]WARD[place] ADDRESS PCP - General 07/02/02 Team Status: Active Member Role Status Dates Dr. Kishan Ramos III, MD Family Provider Active Dr. Abdoulaye Corley MD Primary Care Provider Active Team Status: Inactive Member Role Status Dates Dr. Abdoulaye Corley MD Primary Care Provider, Referr ing Provider Active Ivelisse Loya NARROW FABRIC LOOM FIXER, NARROW FABRIC LOOM FIXER-C Attending Provider Active Team Status: Inactive Member Role Status Dates Dr. Abdoulaye Corley MD Primary Care Provider Active Ivelisse Loya NARROW FABRIC LOOM FIXER, NARROW FABRIC LOOM FIXER-C Attending Provider, Referring Provider Active Team Status: [...] Dr. Harsh Carrasquillo DO Attending Provider Active Claims Analyst Relationship Specialty Start Date End Date Wilman Hester MD [address] [place] [id number] PCP - General Internal Medicine 01/13/23 Claims Analyst Relationship Specialty Start Date End Date Wilman Hester MD [address] [place] [address] [id number] PCP - General Internal Medicine 01/13/23 Team [...] Provider, Referr ing Provider Active Ivelisse Loya NARROW FABRIC LOOM FIXER, NARROW FABRIC LOOM FIXER-C Attending Provider Active Team Status: Inactive Member Role Status Dates Dr. Wilman Hester MD Primary Care Provider Active Dr. Luiza Friedman MD Attending Provider Active Claims Analyst Relationship Specialty Start Date End Date Wilman Hester MD [address] [place] [address] PCP - General Internal Medicine 01/13/23 Claims Analyst Relationship Specialty Start Date End Date Wilman Hester MD [address] [place], [place] [id number] PCP - General Internal Medicine 01/13/23 Claims Analyst Relationship Specialty Start Date End Date Wilman Hester MD [address] [place] [address] PCP - General Internal Medicine 01/13/23 Claims Analyst Relationship Specialty Start Date End Date Wilman Hester MD [address] [facility] [place] [address] PCP - General Internal Medicine 01/13/23 Claims Analyst Relationship Specialty Start Date End Date Wilman Hester MD [address] [facility] [place] [address] PCP - General Internal Medicine 01/13/23 Gary Tapia, FOOD AND BEVERAGE LEAD.COMBO WELDER [address] [facility] [address] Riveting Machine Operator Internal Medicine 08/16/24 Lucy Bang FOOD AND BEVERAGE LEAD.BILLET BED OPERATOR [address] [facility] [place] [address] Riveting Machine Operator Internal Medicine 11/30/24 Claims Analyst Relationship Specialty Start Date End Date Wilman Hester MD [address] [facility] [place] [address] PCP - General Internal Medicine 01/13/23 Gary Tapia, FOOD AND BEVERAGE LEAD.COMBO WELDER [address] [facility] [place] [address] Riveting Machine Operator Internal Medicine 08/16/24 Lucy Bang FOOD AND BEVERAGE LEAD.BILLET BED OPERATOR [address] [facility] [place] [address] Riveting Machine Operator Internal Medicine 11/30/24 Team Status: Active Member [...] section and content) DATE CREATED AUTHOR 01/25/2025 [facility] DATE CREATED AUTHOR AUTHOR'S ORGANIZ ATION 07/14/2025 [facility] FOR RECORDS PERTAINING TO PATIENTS WHO ARE [...] BE BASED ON THE PRIMARY CLINICAL RECORDS. [facility] [employer] provides no warranty or guarantee of the accuracy or completeness of information in this document.
== END | disposition home or self-care (01) ==
LOC: US 07:25
PROVIDERS: PCP Internal Medicine; Referring Provider Internal Medicine Gastroenterology; Visit Provider Internal Medicine Gastroenterology
DX: R79.89 Other specified abnormal findings of blood chemistry (principal)
CPT/HCPCS: 76705